=== PATIENT | male | born 1940 | race American Indian/Alaskan Native ===

== ENCOUNTER 2016-11-06 21:22 | Inpatient (IN) | payer MEDICARE ==
[2016-11-06 21:24] VITALS: BMI 38.0
[2016-11-06] MEDS ORDERED: Sodium Chloride 0.9% 1,000 ML ONE ×2 (21:53→22:40)
[2016-11-06 22:00] LABS: BASO % 0.4 % (0.0-2.0); EOS % 0.6 % (0.0-4.0); HEMATOCRIT 36.4 % (35.0-51.0); LYMPH # 0.6 K/uL (1.0-4.3); LYMPH % 11.3 % (20.0-40.0); MEAN CORPUSCULAR HEMOGLOBIN 25.4 pg (27.0-31.0); MEAN CORPUSCULAR HGB CONC 30.3 g/dL (33.0-37.0); MEAN PLATELET VOLUME 9.1 fL (7.2-11.7); MONO # 0.2 K/uL (0.0-0.8); NRBC % 0.3 % (0.0-2.0); RED CELL DISTRIBUTION WIDTH 18.6 % (11.5-14.5); WHITE BLOOD COUNT 5.1 K/uL (4.8-10.8)
--- NOTE | 2016-11-06 22:03 | C.PDOC ---
History Of Present Illness 75 y/o M NHR c PMHx HTN, HLD, DM, CAD, NC, CVA, dementia BIBEMS. Patient is nonverbal at baseline and can not provide history or ROS. According to transfer papers, patient sent for hypotension. EMS reports that patient is with altered mental status and although he is nonverbal at baseline, he typically has eyes opened and grunts/moans but is now not doing either. On arrival to ER, patient found to be hypothermic 87.2 degrees. Time Seen by Provider: 11/06/16 21:40 Chief Complaint (Nursing): Altered Mental Status History/Exam Limitations: Clinical Condition (on-verbal) Onset/Duration Of Symptoms: Hrs Current Symptoms Are (Timing): Still Present Severity: Mild Recent travel outside of the [place]: No Past Medical History Reviewed: Historical Data, Nursing Documentation, Vital Signs Vital Signs: Last Vital Signs Temp 87.2 F L 11/06/16 21:46 Pulse 53 L 11/06/16 21:25 Resp 18 11/06/16 21:25 BP 125/56 L 11/06/16 21:25 Pulse Ox 100 11/06/16 23:37 - Medical History PMH: Arthritis, CAD, COPD, CVA, Diabetes, Gastritis, HTN, Hypercholesterolemia Denies: Chronic Kidney Disease Surgical History: Coronary Stent (x1) - [facility] Procedures CENTRAL VENOUS CATHETER PLACEMENT WITH GUIDANCE (12/16/13) COLONOSCOPY (02/09/05) ESOPHAGOGASTRODUODENOSCOPY [EGD] W/CLOSED BIOPSY (03/24/05) RETROGRADE PYELOGRAM (02/20/14) TETANUS TOXOID ADMINIST (10/19/05) Family History: States: Unknown Family Hx - Social History Hx Tobacco Use: No Hx Alcohol Use: No Hx Substance Use: No - Immunization History Hx Tetanus Toxoid Vaccination: No Hx Influenza Vaccination: No (Pt refused) Hx Pneumococcal Vaccination: No (Pt refused) Review Of Systems Review Of Systems: ROS cannot be obtained secondary to pt's inabilty to answer questions. Physical Exam - Physical Exam Additional Physical Exam Comments: Constitutional: No acute distress. Head: Normocephalic. Atraumatic. Eyes: Pupils pinpoint. ENT: Moist mucous membranes. Neck: Supple. Cardiovascular: Bradycardic rate. Radial pulse 2+ bilaterally. Chest: No tenderness. Respiratory: Clear to auscultation bilaterally. GI: Soft. Nondistended. Musculoskeletal: No swelling of extremities. FROM x 4. Skin: No rash. Cold to touch. Neurologic: Unresponsive. ED Course And Treatment - Laboratory Results Result Diagrams: 11/06/16 21:57 11/06/16 21:57 ECG: Interpreted By Me, Viewed By Me ECG Rhythm: Sinus Bradycardia ECG Interpretation: Normal Interpretation Of ECst degree AV block and PVC Rate From EC O2 Sat by Pulse Oximetry: 100 (RA) Pulse Ox Interpretation: Normal - Radiology CXR: Interpreted by Me, Viewed By Me CXR Interpretation: Yes: No Acute Disease - CT Scan/US CT Head w/o contrast Other Rad Studies (CT/US): Interpreted By Me, Read By Radiologist CT/US Interpretation: EXAM: CT Head Without Intravenous Contrast. CLINICAL HISTORY: 75 years old, male; Signs and symptoms; Altered mental status/memory loss; Confusion or. disorientation; Additional info: AMS. TECHNIQUE: Axial computed tomography images of the head/brain without intravenous contrast. This CT exam. was performed using one or more of the following dose reduction techniques: automated exposure. control, adjustment of the mA and/or kV according to patient size, and/or use of iterative. reconstruction technique. Coronal and sagittal reformatted images were created and reviewed. COMPARISON: CT - HEAD W/O CONTRAST 05/16/2016 7:56:05 PM. FINDINGS: Brain: Moderate atrophy. No intracranial hemorrhage. No mass. Moderate encephalomalacia. within RIGHT temporal occipital parietal region. Multiple scattered foci of decreased attenuation. within periventricular/subcortical white matter. No definite edema. Ventricles: No hydrocephalus. Bones/joints: No acute fracture. Soft tissues: Unremarkable. Vasculature: Atherosclerotic disease of intracranial arteries. Sinuses: Minimal mucosal thickening of maxillary sinuses. Mastoid air cells: No mastoid effusion. Orbits: Unremarkable as visualized. IMPRESSION: 1. Nonspecific white matter changes. Acute infarction may be CT occult within first 24 hours. If a. focal deficit persists, consider followup CT or MRI for further evaluation. 2. Incidental/non-acute findings are described above. Central Line Placement - Central Line Placement Indication: Emergent IV Access Central Line Placement: Right: Internal Jugular The Area Was Thoroughly Prepared With: Chlorhexidine Procedure: Triple Lumen, Placed Using Standard Seldinger Technique, Catheter Was Sewn Into Place, Sterile Dressing Placed Over Line, CXR Ordered To Confirm Placement Endotracheal Intubation - Endotracheal Intubation Blade Type Used: Curved Indication: Airway Protection Intubated: Orally Pre-Intubation Airway Assessment: Ventilated And Oxygenated Post-Intubation Assessment: ETT Secured AT (cm): (22cm), Breath Sounds Equal Bilat, Color Change W/End Tidal CO2 Detector, Oxygen Saturation: (100) Medical Decision Making Medical Decision Making: Impression: Patient sent for hypotension. EMS reports that patient is with altered mental status and is non-verbal at this time Plans: -Blood labs -EKG -CT head -ALbuterol -Novolin -Reassess Bairhugger placed. Patient not on any opiate medications at halfway. Does not meet CODE SEPSIS activation criteria. potassium return at 7.2. Will treat with with hyperkalemia cocktail and calcium. Patient with UTI. Cefepime/Vanco administered. Also began having lowering blood pressure to minimum of 70/40. I discussed the patient's critical condition with at bedside who understood and wished to have all measures taken. Daughter via phone concurs. Patient was intubated with first pass success without complication. R IJ central line was placed under ultrasound guidance with blood return without complication and CXR ordered to confirm placements. Dr. Schultz accepts patient to his service. Dr. Amato accepts patient to ICU. Patient is critical with minimal mental status. Disposition - Disposition Disposition: HOSPITALIZED Disposition Time: 00:20 Condition: CRITICAL - Clinical Impression Clinical Impression: UTI (lower urinary tract infection), Sepsis, Hypothermia, Hyperkalemia - Scribe Statement The provider has reviewed the documentation as recorded by the Andradeiberika interiano All medical record entries made by the Andradeiberika were at my direction and personally dictated by me. I have reviewed the chart and agree that the record accurately reflects my personal performance of the history, physical exam, medical decision making, and the department course for this patient. I have also personally directed, reviewed, and agree with the discharge instructions and disposition.
[2016-11-06 22:12] LABS: BILIRUBIN,TOTAL 0.5 mg/dL (0.2-1.3)
[2016-11-06 22:13] LABS: PHOSPHOROUS 5.5 mg/dL (2.5-4.5); TOTAL PROTEIN 7.4 g/dL (6.3-8.3)
[2016-11-06 22:14] LABS: CALCIUM 8.6 mg/dl (8.6-10.4)
[2016-11-06 22:18] LABS: POTASSIUM 7.2 mmol/L (3.6-5.2)
[2016-11-06] MEDS ORDERED: Calcium Gluconate 4.65 mEq/10 ml Inj IVP ONE (22:19)
[2016-11-06] MEDS ORDERED: Albuterol 0.083% Inhal Sol (2.5 mg/3 mL) UD INH STA (22:20)
[2016-11-06] MEDS ORDERED: (Novolin R) Insulin Human Regular 100 units/ml vial IV ONE (22:21)
[2016-11-06] MEDS ORDERED: Sodium Chloride 0.9% 1,000 ML IV STA (22:21)
[2016-11-06] MEDS ORDERED: Dextrose 50% SYRINGE Inj (50 ml) IV STA (22:21)
[2016-11-06 22:24] LABS: TROPONIN I 0.032 ng/mL (0.00-0.120)
[2016-11-06 22:29] LABS: VENOUS BLOOD GAS BASE EXCESS 0.6 mmol/L (0.0-2.0); VENOUS BLOOD GAS PCO2 99 mmHg (40-60); VENOUS BLOOD PH 7.13 (7.32-7.43)
[2016-11-06] MEDS ORDERED: Sodium Bicarbonate (8.4%) 50 Meq Syringe IVP ONE (22:31)
[2016-11-06] MEDS ORDERED: Albuterol 0.083% Inhal Sol (2.5 mg/3 mL) UD ONE ×2 (22:33→22:40)
[2016-11-06] MEDS ORDERED: Dextrose 50% SYRINGE Inj (50 ml) ONE (22:39)
[2016-11-06] MEDS ORDERED: Calcium Gluconate 4.65 mEq/10 ml Inj ONE (22:39)
[2016-11-06] MEDS ORDERED: (Novolin R) Insulin Human Regular 100 units/ml vial ONE (22:39)
[2016-11-06] MEDS ORDERED: Sodium Bicarbonate (8.4%) 50 Meq Syringe ONE (22:40)
[2016-11-06 22:57] LABS: RBC URINE 19 /hpf (0-3); TRANSITIONAL EPITHIAL < 1 /hpf (0-3); URINE BACTERIA RARE (<OCC); URINE BILIRUBIN NEGATIVE (NEGATIVE); URINE COLOR Yellow (YELLOW); URINE GLUCOSE (UA) NORMAL (Normal); URINE KETONE NEGATIVE (NEGATIVE); URINE LEUKOCYTE ESTERASE 3+ Leu/uL (Negative); URINE PROTEIN 1+ mg/dL (NEGATIVE); URINE UROBILINOGEN NORMAL mg/dL (0.2-1.0); WBC CLUMPS MANY /hpf; WBC URINE 141 /hpf (0-5)
[2016-11-06 22:58] LABS: URINE BLOOD 1+ (NEGATIVE)
[2016-11-06] MEDS ORDERED: Cefepime 1 GM in Sodium Chloride 0.9% 50 ML IVPB ONE (23:00)
--- NOTE | 2016-11-06 23:13 | CT ---
EXAM: CT Head Without Intravenous Contrast CLINICAL HISTORY: 75 years old, male; Signs and symptoms; Altered mental status/memory loss; Confusion or disorientation; Additional info: AMS TECHNIQUE: Axial computed tomography images of the head/brain without intravenous contrast. This CT exam was performed using one or more of the following dose reduction techniques: automated exposure control, adjustment of the mA and/or kV according to patient size, and/or use of iterative reconstruction technique. Coronal and sagittal reformatted images were created and reviewed. COMPARISON: CT - HEAD W/O CONTRAST 05/16/2016 7:56:05 PM FINDINGS: Brain: Moderate atrophy. No intracranial hemorrhage. No mass. Moderate encephalomalacia within RIGHT temporal occipital parietal region. Multiple scattered foci of decreased attenuation within periventricular/subcortical white matter. No definite edema. Ventricles: No hydrocephalus. Bones/joints: No acute fracture. Soft tissues: Unremarkable. Vasculature: Atherosclerotic disease of intracranial arteries. Sinuses: Minimal mucosal thickening of maxillary sinuses. Mastoid air cells: No mastoid effusion. Orbits: Unremarkable as visualized. IMPRESSION: 1. Nonspecific white matter changes. Acute infarction may be CT occult within first 24 hours. If a focal deficit persists, consider followup CT or MRI for further evaluation. 2. Incidental/non-acute findings are described above.
[2016-11-07] MEDS ORDERED: WATER IV SCH (00:45)
[2016-11-07] MEDS ORDERED: DEXTROSE 5% IV SCH (00:45)
[2016-11-07] MEDS ORDERED: LORAZEPAM IV SCH (00:45)
--- NOTE | 2016-11-07 01:04 | CP.PCM.CON ---
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 In ER as per the discussion with staff and er physician patient was non verbal, non responding but breathing spontaneously, hypothermia was noticed 87F. During w/u patient became hypotensive and irratic breathing and hence decision made to intubate him. Right IJ central line also placed in ER by Dr Shukla. Post intubation and ivf patient started to move his right arm to some extent, opened his eyes. at the bed side assessed in pmh. Resp acidosis, hyperkalemia was noticed in ER as well hence treated with meds and vent. 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 - RENAL Hx Chronic Kidney Disease: No - ENDOCRINE/METABOLIC Hx Diabetes Mellitus Type 2: Yes - HEMATOLOGICAL/ONCOLOGICAL Hx Blood Disorders: No - INTEGUMENTARY Hx Dermatological Problems: No - MUSCULOSKELETAL/RHEUMATOLOGICAL Hx Arthritis: Yes - GASTROINTESTINAL Hx Gastritis: Yes - GENITOURINARY/GYNECOLOGICAL Hx Genitourinary Disorders: Yes Hx Prostate Problems: Yes - PSYCHIATRIC Hx Substance Use: No - SURGICAL HISTORY Hx Coronary Stent: Yes (x1) - ANESTHESIA Hx Anesthesia: Yes Hx Anesthesia Reactions: No Hx Malignant Hyperthermia: No Meds Allergies/Adverse Reactions: Allergies Allergy/AdvReac Type Severity Reaction Status Date / Time No Known Allergies Allergy Verified 11/06/16 21:29 - Medications Medications: Current Medications Aspirin (Aspirin Chewable) 81 mg PO DAILY [facility] Clopidogrel Bisulfate (Plavix) 75 mg PO DAILY [facility] Donepezil HCl (Aricept) 10 mg PO HS [facility] Heparin Sodium (Porcine) (Heparin) 5,000 units SC Q8 [facility] Home Med (Arformoterol [Brovana]) 15 mcg IH BID [facility] Norepinephrine Bitartrate 8 mg (/ Sodium Chloride) 258 mls @ 7.74 mls/hr IV .Q24H PRN; Protocol; 4 MCG/MIN PRN Reason: TITRATE PER MD ORDER Lorazepam 20 mg/ Dextrose 20 mls @ 0.77 mls/hr IV .Q24H EMILY; 0.01 MG/KG/HR PRN Reason: Protocol Piperacillin Sod/Tazobactam Sod (Zosyn 2.25 Gm Iv Premix) 2.25 gm in 50 mls @ 100 mls/hr IVPB Q6H [facility] Vancomycin HCl 1 gm/ Sodium (Chloride) 250 mls @ 166.7 mls/hr IVPB Q24H [facility] Last Admin: 11/07/16 00:44 Dose: Not Given Insulin Detemir (Levemir) 20 unit SC DAILY [facility] Insulin Human Regular (Novolin R) 0 unit SC Q6 EMILY PRN Reason: Protocol Levetiracetam (Keppra) 500 mg PO BID [facility] Pantoprazole Sodium (Protonix Inj) 40 mg IVP DAILY [facility] Tamsulosin HCl (Flomax) 0.4 mg PO QPM [facility] Physical Exam - Additional Findings Additional findings: * Patient is intubated, post intubation, after initial fluid resuscitation, started to slightly open eyes, and move right arm * HEENT about 3mm b/l non reacting * Lungs b/l air entry, post intubation creamy secretions aspirated * CVS Regular sinus * PA soft, obese, bs present * Ext no edema, warm, dry * [employer] TRA[employer] known left hemipareiss, noticed moving right arm pupils as above * skin reduced torgor. Results - Vital Signs Recent Vital Signs: Last Vital Signs Temp 87.2 F L 11/06/16 21:46 Pulse 53 L 11/06/16 21:25 Resp 18 11/06/16 21:25 BP 125/56 L 11/06/16 21:25 Pulse Ox 100 11/07/16 00:44 - Labs Result Diagrams: 11/06/16 21:57 11/06/16 21:57 Assessment & Plan - Assessment and Plan (Free Text) Assessment: * Reduced responsiveness needing vent support * Hyperkalemia with resp acidosis * Hypothermia * Renal insufficiency * Prior h/o strokes * H/o NSTEMI * NIDDM * Legally blind * H/o seizure disorder * UTI * The DD of current episode could be seizure, sepsis, newer stroke, electrolyte abnormalitie Plan: * Repeat labs stat after initial fluid resuscitation * Empiric abx * Vent support * pressor support * GI DVT prophylaxis * Levimir with sliding scale coverage * See orders for detail * Spoke to the at bedside.
[2016-11-07] MEDS: Piperacill/Tazo 2.25gm in Dex 2.25 GM/50 ML BAG IVPB SCH ×4 (01:38→18:56)
[2016-11-07 02:19] LABS: ABG ALLEN TEST POS; ABG MECHANICAL RATE 15; ATERIAL BLOOD GAS PEEP 5; DRAW SITE LR
[2016-11-07 02:28] LABS: BASO % 0.2 % (0.0-2.0); EOS % 0.3 % (0.0-4.0); HEMATOCRIT 30.1 % (35.0-51.0); LYMPH # 0.3 K/uL (1.0-4.3); MEAN CELL VOLUME 84.2 fL (80.0-94.0); MEAN CORPUSCULAR HEMOGLOBIN 25.6 pg (27.0-31.0); MEAN CORPUSCULAR HGB CONC 30.4 g/dL (33.0-37.0); MEAN PLATELET VOLUME 9.2 fL (7.2-11.7); MONO # 0.1 K/uL (0.0-0.8); MONO % 2.7 % (0.0-10.0); NRBC % 0.3 % (0.0-2.0); PLATELET COUNT 114 K/uL (130-400); RED CELL DISTRIBUTION WIDTH 18.5 % (11.5-14.5); WHITE BLOOD COUNT 4.2 K/uL (4.8-10.8)
[2016-11-07 02:36] LABS: POTASSIUM 5.6 mmol/L (3.6-5.2)
[2016-11-07 02:38] LABS: BILIRUBIN,TOTAL 0.4 mg/dL (0.2-1.3)
[2016-11-07 02:39] LABS: ALB/GLOB RATIO 0.9 (1.0-2.1); CALCIUM 7.5 mg/dl (8.6-10.4); MAGNESIUM 2.5 mg/dL (1.6-2.3); PHOSPHOROUS 4.2 mg/dL (2.5-4.5); TOTAL PROTEIN 5.7 g/dL (6.3-8.3)
[2016-11-07 03:32] LABS: NEUTROPHIL 73 % (50-75); REACTIVE LYMPHOCYTES 2 % (0-0); TOTAL CELLS COUNTED 100
[2016-11-07] MEDS ORDERED: Sodium Chloride 0.9% 1,000 ML IV SCH (04:00)
[2016-11-07] MEDS: DOPamine 400mg/250ml D5W 400 MG/250 ML BAG IV PRN ×2 (04:05→21:17)
[2016-11-07 05:57] LABS: ABG ALLEN TEST POS; ABG MECHANICAL RATE 20; ARTERIAL BLOOD HGB O2 SAT 94.4 % (95.0-98.0); ATERIAL BLOOD GAS PEEP 5; CARBOXYHEMOGLOBIN 1.4 % (0.5-1.5); DRAW SITE RR; HHB 3.3 % (0.0-5.0); METHEMOGLOBIN 0.9 % (0.0-3.0)
[2016-11-07] MEDS: (Novolin R) Insulin Human Regular 100 units/ml vial SC SCH ×3 (06:07→17:52)
[2016-11-07] MEDS ORDERED: Sodium Bicarbonate 100 ML in Dextrose 5% In Water 1,000 ML IV SCH (06:45)
[2016-11-07 06:52] LABS: VENOUS BLOOD GAS BASE EXCESS -3.7 mmol/L (0.0-2.0); VENOUS BLOOD GAS PCO2 42 mmHg (40-60); VENOUS BLOOD PH 7.33 (7.32-7.43)
[2016-11-07 07:00] LABS: HEMATOCRIT 32.1 % (35.0-51.0); MEAN CELL VOLUME 83.2 fL (80.0-94.0); MEAN CORPUSCULAR HEMOGLOBIN 25.9 pg (27.0-31.0); MEAN CORPUSCULAR HGB CONC 31.1 g/dL (33.0-37.0); RED CELL DISTRIBUTION WIDTH 18.5 % (11.5-14.5); WHITE BLOOD COUNT 7.4 K/uL (4.8-10.8)
[2016-11-07 07:01] LABS: BASO % 0.2 % (0.0-2.0); EOS % 0.1 % (0.0-4.0); LYMPH # 0.3 K/uL (1.0-4.3); LYMPH % 3.4 % (20.0-40.0); MEAN PLATELET VOLUME 10.3 fL (7.2-11.7); MONO # 0.4 K/uL (0.0-0.8); NRBC % 0.3 % (0.0-2.0); PLATELET COUNT 137 K/uL (130-400)
[2016-11-07] MEDS: Propofol 10 mg/ml 1,000 MG/100 ML VIAL IV PRN (07:04)
[2016-11-07 07:07] LABS: POTASSIUM 5.2 mmol/L (3.6-5.2)
[2016-11-07 07:09] LABS: ALB/GLOB RATIO 0.9 (1.0-2.1); BILIRUBIN,TOTAL 0.5 mg/dL (0.2-1.3); TOTAL PROTEIN 6.2 g/dL (6.3-8.3)
[2016-11-07 07:10] LABS: CALCIUM 7.7 mg/dl (8.6-10.4); MAGNESIUM 2.4 mg/dL (1.6-2.3)
[2016-11-07 07:49] LABS: NEUTROPHIL 84 % (50-75); TOTAL CELLS COUNTED 100
[2016-11-07] MEDS: Insulin Detemir 100 units/ml Vial (Levemir) SC SCH (09:12)
[2016-11-07 10:00] LABS: VENOUS BLOOD GAS PCO2 27 mmHg (40-60); VENOUS BLOOD PH 7.41 (7.32-7.43)
[2016-11-07] MEDS ORDERED: Home Med 1 UNIT (Arformoterol [Brovana] 15 MCG) IH SCH (10:00)
--- NOTE | 2016-11-07 10:30 | RAD ---
HISTORY: Altered mental status COMPARISON: 05/16/2016 FINDINGS: LUNGS: Diffuse prominent increased interstitial lung markings suggestive for moderate venous congestion versus interstitial infiltrate. Confluent airspace opacification at the left lung base which may represent effusion versus atelectasis and or infiltrate. Right infrahilar consolidative changes. PLEURA: As above. CARDIOVASCULAR: Cardiomegaly. Calcification at the aortic knob. OSSEOUS STRUCTURES: Degenerative changes in the spine and shoulders. VISUALIZED UPPER ABDOMEN: Normal. OTHER FINDINGS: None. IMPRESSION: Diffuse prominent increased interstitial lung markings suggestive for moderate venous congestion versus interstitial infiltrate. Confluent airspace opacification at the left lung base which may represent effusion versus atelectasis and or infiltrate. Right infrahilar consolidative changes.
--- NOTE | 2016-11-07 10:33 | RAD ---
Chest x-ray single frontal view History: Central line placement. Comparison: None available. Findings: Endotracheal tube extending into the mid thoracic trachea. NG tube extending into the stomach. Right central venous catheter extending to the SVC. Diffuse confluent bilateral consolidative changes throughout both lungs with a suggestion of a small left pleural effusion. Right hilar consolidation. Cardiomegaly. Degenerative changes in the spine and shoulders. Impression: Endotracheal tube extending into the mid thoracic trachea. NG tube extending into the stomach. Right central venous catheter extending to the SVC. Diffuse confluent bilateral consolidative changes throughout both lungs with a suggestion of a small left pleural effusion. Right hilar consolidation. Cardiomegaly.
[2016-11-07] MEDS ORDERED: Sodium Bicarbonate 8.4% 100 MEQ in Dextrose 5% In Water 900 ML IV SCH (10:36)
--- NOTE | 2016-11-07 12:49 | CP.PCM.CON ---
History of Present Illness - History of Present Illness History of Present Illness: Mr. Guillen is a 75-year-old gentleman with history of hypertension and diabetes. 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 In addition to coronary artery disease post percutaneous intervention with stent deployment few years ago, his ejection fraction was about 30%. [facility]. He was admitted through the emergency department with change of mental status and hypotension, found with sepsis and respiratory acidosis. Was intubated started on antibiotically and mild hydration with minimal improvement. Would continue treatment for sepsis, hydrated gently still able to use BRONWYN inhibitor and beta abilio for heart failure, poor overall prognosis supportive care. Repeat echo with ejection fraction about 35-40% improvement from prior evaluation of ejection fraction a few years back. Continue supportive care, on IV fluid and Dopamin Review of Systems - Review of Systems Systems not reviewed;Unavailable: Unstable Vital Signs, Respiratory Distress - Constitutional Constitutional: Anorexia, Weakness - EENT Eyes: absent: Discharge Ears: absent: Ear Discharge Nose/Mouth/Throat: absent: Epistaxis - Cardiovascular Cardiovascular: absent: Acrocyanosis, Diaphoresis, Syncope - Respiratory Respiratory: Cough, Dyspnea. absent: Hemoptysis - Gastrointestinal Gastrointestinal: absent: Diarrhea, Vomiting Past Patient History - Past Medical History & Family History Past Medical History?: Yes - Past Social History Smoking Status: Former Smoker - CARDIAC Hx Cardiac Disorders: Yes Hx Hypercholesterolemia: Yes Hx Hypertension: Yes - PULMONARY Hx Respiratory Disorders: Yes Hx Chronic Obstructive Pulmonary Disease (COPD): Yes - NEUROLOGICAL Hx Neurological Disorder: Yes HX Cerebrovascular Accident: Yes - HEENT Hx HEENT Problems: Yes Hx Blind: Yes (left eye blind, right blurry) Hx Cataracts: Yes Other/Comment: Cataracts Alexys.with Extarction. - RENAL Hx Chronic Kidney Disease: No - ENDOCRINE/METABOLIC Hx Endocrine Disorders: Yes Hx Diabetes Mellitus Type 2: Yes - HEMATOLOGICAL/ONCOLOGICAL Hx Blood Disorders: No - INTEGUMENTARY Hx Dermatological Problems: No - MUSCULOSKELETAL/RHEUMATOLOGICAL Hx Musculoskeletal Disorders: Yes Hx Arthritis: Yes Hx Falls: Yes - GASTROINTESTINAL Hx Gastrointestinal Disorders: Yes Hx Gastritis: Yes - GENITOURINARY/GYNECOLOGICAL Hx Genitourinary Disorders: Yes Hx Prostate Problems: Yes - PSYCHIATRIC Hx Anxiety: No Hx Substance Use: No - SURGICAL HISTORY Hx Surgeries: Yes Hx Coronary Stent: Yes (x1) Hx Eye Surgery: Yes - ANESTHESIA Hx Anesthesia: Yes Hx Anesthesia Reactions: No Hx Malignant Hyperthermia: No Has any member of the family had a problem w/ anesthesia?: No Meds Allergies/Adverse Reactions: Allergies Allergy/AdvReac Type Severity Reaction Status Date / Time No Known Allergies Allergy Verified 11/06/16 21:29 - Medications Medications: Current Medications Aspirin (Aspirin Chewable) 81 mg PO DAILY [facility] Last Admin: 11/07/16 09:12 Dose: 81 mg Clopidogrel Bisulfate (Plavix) 75 mg PO DAILY [facility] Last Admin: 11/07/16 09:12 Dose: 75 mg Heparin Sodium (Porcine) (Heparin) 5,000 units SC Q8 [facility] Last Admin: 11/07/16 06:02 Dose: 5,000 units Home Med (Arformoterol [Brovana]) 15 mcg IH BID [facility] Norepinephrine Bitartrate 8 mg (/ Sodium Chloride) 258 mls @ 7.74 mls/hr IV .Q24H PRN; Protocol; 4 MCG/MIN PRN Reason: TITRATE PER MD ORDER Last Titration: 11/07/16 09:06 Dose: 0 mcg/min, 0 mls/hr Piperacillin Sod/Tazobactam Sod (Zosyn 2.25 Gm Iv Premix) 2.25 gm in 50 mls @ 100 mls/hr IVPB Q6H [facility] Last Admin: 11/07/16 07:13 Dose: 100 mls/hr Vancomycin HCl 1 gm/ Sodium (Chloride) 250 mls @ 166.7 mls/hr IVPB Q24H [facility] Last Admin: 11/07/16 00:44 Dose: Not Given Dopamine HCl/Dextrose (Dopamine 400mg/250ml D5w) 400 mg in 250 mls @ 21.563 mls /hr IV .[id number] PRN; Protocol; 5 MCG/KG/MIN PRN Reason: TITRATE PER MD ORDER Last Titration: 11/07/16 06:09 Dose: 4 mcg/kg/min, 17.25 mls/hr Propofol (Diprivan) 1,000 mg in 100 mls @ 3.45 mls/hr IV .Q24H PRN; Protocol; 5 MCG/KG/MIN PRN Reason: TITRATE PER MD ORDER Last Titration: 11/07/16 07:28 Dose: 0 mcg/kg/min, 0 mls/hr Sodium Bicarbonate 100 meq/ (Dextrose) 1,000 mls @ 100 mls/hr IV .Q10H [facility] Last Admin: 11/07/16 11:19 Dose: Not Given Insulin Detemir (Levemir) 20 unit SC DAILY [facility] Last Admin: 11/07/16 09:12 Dose: 20 unit Insulin Human Regular (Novolin R) 0 unit SC Q6 [facility] PRN Reason: Protocol Last Admin: 11/07/16 12:15 Dose: 6 unit Levetiracetam (Keppra) 500 mg PO BID [facility] Last Admin: 11/07/16 09:12 Dose: 500 mg Pantoprazole Sodium (Protonix Inj) 40 mg IVP DAILY [facility] Last Admin: 11/07/16 09:11 Dose: 40 mg Tamsulosin HCl (Flomax) 0.4 mg PO QPM [facility] Physical Exam - Constitutional Appears: Toxic, No Acute Distress - Head Exam Head Exam: ATRAUMATIC - Eye Exam Eye Exam: EOMI - ENT Exam ENT Exam: Mucous Membranes Moist - Neck Exam Neck exam: Negative for: Lymphadenopathy, Thyromegaly - Respiratory Exam Respiratory Exam: Clear to Auscultation Bilateral. absent: Rales - Cardiovascular Exam Cardiovascular Exam: REGULAR RHYTHM, Systolic Murmur - GI/Abdominal Exam GI & Abdominal Exam: Normal Bowel Sounds. absent: Organomegaly - Rectal Exam Rectal Exam: Deferred - Extremities Exam Extremities exam: Positive for: normal capillary refill - Neurological Exam Neurological exam: Alert, Oriented x3 - Psychiatric Exam Additional comments: intubated sedated - Skin Skin Exam: Dry Results - Vital Signs Recent Vital Signs: Last Vital Signs Temp 97.2 F L 11/07/16 12:00 Pulse 86 11/07/16 12:00 Resp 19 11/07/16 12:00 BP 117/63 11/07/16 12:00 Pulse Ox 99 11/07/16 12:00 - Labs Result Diagrams: 11/07/16 06:53 11/07/16 06:53 Labs: Laboratory Results - last 24 hr 11/07/16 11/07/16 11/07/16 02:16 02:20 02:20 WBC 4.2 L RBC 3.57 L Hgb 9.2 L Hct 30.1 L MCV 84.2 MCH 25.6 L MCHC 30.4 L RDW 18.5 H Plt Count 114 L D MPV 9.2 Neut % (Auto) 90.8 H Lymph % (Auto) 6.0 L [place] % (Auto) 2.7 Eos % (Auto) 0.3 Baso % (Auto) 0.2 Neut # 3.8 Lymph # 0.3 L [place] # 0.1 Eos # 0.0 Baso # 0.0 Neutrophils % (Manual) 73 Band Neutrophils % 10 H Lymphocytes % (Manual) 12 L Reactive Lymphs % 2 H Monocytes % (Manual) 3 Platelet Estimate Decreased L Poikilocytosis (manual Anisocytosis (manual) Puncture Site Lr pCO2 64 H pO2 176 H HCO3 22.8 ABG pH 7.22 L ABG Total CO2 28.2 H ABG O2 Saturation 99.3 H ABG Base Excess -2.8 L ABG Hemoglobin ABG Carboxyhemoglobin POC ABG HHb (Measured) ABG Methemoglobin Timmy Test Pos ABG Potassium 5.4 H VBG pH VBG pCO2 VBG HCO3 VBG Total CO2 VBG O2 Sat (Calc) VBG Base Excess VBG Potassium A-a O2 Difference 457.0 Respiratory Index 2.6 Hgb O2 Saturation Sodium 142.0 143 Chloride 117.0 H 112 H Glucose 271 H Lactate 1.5 Mechanical Rate 15 FiO2 100.0 Tidal Volume 450 PEEP 5 Crit Value Called To Crit Value Called By Crit Value Read Back Blood Gas Notified Time Potassium 5.6 H Carbon Dioxide 22 Anion Gap 14 BUN 53 H Creatinine 1.8 H Est GFR ( Amer) 44 Est GFR (Non-Af Amer) 37 POC Glucose (mg/dL) Random Glucose 271 H Hemoglobin A1c Calcium 7.5 L Phosphorus 4.2 Magnesium 2.5 H Total Bilirubin 0.4 AST 42 ALT 68 Alkaline Phosphatase 65 Total Protein 5.7 L Albumin 2.7 L D Globulin 3.0 Albumin/Globulin Ratio 0.9 L Arterial Blood Potassium 5.4 H Venous Blood Potassium 11/07/16 11/07/16 11/07/16 02:20 05:36 06:04 WBC RBC Hgb Hct MCV MCH MCHC RDW Plt Count MPV Neut % (Auto) Lymph % (Auto) [place] % (Auto) Eos % (Auto) Baso % (Auto) Neut # Lymph # [place] # Eos # Baso # Neutrophils % (Manual) Band Neutrophils % Lymphocytes % (Manual) Reactive Lymphs % Monocytes % (Manual) Platelet Estimate Poikilocytosis (manual Anisocytosis (manual) Puncture Site Rr pCO2 55 H pO2 73 L HCO3 17.8 L ABG pH 7.16 L* ABG Total CO2 21.3 L ABG O2 Saturation 96.6 ABG Base Excess -9.1 L ABG Hemoglobin 10.4 L ABG Carboxyhemoglobin 1.4 POC ABG HHb (Measured) 3.3 ABG Methemoglobin 0.9 Timmy Test Pos ABG Potassium VBG pH VBG pCO2 VBG HCO3 VBG Total CO2 VBG O2 Sat (Calc) VBG Base Excess VBG Potassium A-a O2 Difference 357.0 Respiratory Index 4.9 Hgb O2 Saturation 94.4 L Sodium Chloride Glucose Lactate Mechanical Rate 20 FiO2 70.0 Tidal Volume 450 PEEP 5 Crit Value Called To Sampson menezes rn Crit Value Called By [employer] cutter hand Crit Value Read Back Y Blood Gas Notified Time 557 Potassium Carbon Dioxide Anion Gap BUN Creatinine Est GFR ( Amer) Est GFR (Non-Af Amer) POC Glucose (mg/dL) 306 H Random Glucose Hemoglobin A1c 9.4 H Calcium Phosphorus Magnesium Total Bilirubin AST ALT Alkaline Phosphatase Total Protein Albumin Globulin Albumin/Globulin Ratio Arterial Blood Potassium Venous Blood Potassium 11/07/16 11/07/16 11/07/16 06:49 06:53 06:53 WBC 7.4 D RBC 3.86 L Hgb 10.0 L Hct 32.1 L MCV 83.2 MCH 25.9 L MCHC 31.1 L RDW 18.5 H Plt Count 137 MPV 10.3 Neut % (Auto) 91.3 H Lymph % (Auto) 3.4 L [place] % (Auto) 5.0 Eos % (Auto) 0.1 Baso % (Auto) 0.2 Neut # 6.7 Lymph # 0.3 L [place] # 0.4 Eos # 0.0 Baso # 0.0 Neutrophils % (Manual) 84 H Band Neutrophils % 12 H* Lymphocytes % (Manual) 2 L Reactive Lymphs % Monocytes % (Manual) 2 Platelet Estimate Normal Poikilocytosis (manual Slight Anisocytosis (manual) Slight Puncture Site pCO2 pO2 35 HCO3 ABG pH ABG Total CO2 ABG O2 Saturation ABG Base Excess ABG Hemoglobin ABG Carboxyhemoglobin POC ABG HHb (Measured) ABG Methemoglobin Timmy Test ABG Potassium VBG pH 7.33 VBG pCO2 42 VBG HCO3 21.1 VBG Total CO2 23.4 VBG O2 Sat (Calc) 99.3 H VBG Base Excess -3.7 L VBG Potassium 5.1 A-a O2 Difference Respiratory Index Hgb O2 Saturation Sodium 145.0 141 Chloride 115.0 H 108 H Glucose 267 H Lactate 3.9 H Mechanical Rate FiO2 70.0 Tidal Volume PEEP 5 Crit Value Called To Crit Value Called By Crit Value Read Back Blood Gas Notified Time Potassium 5.2 Carbon Dioxide 22 Anion Gap 16 BUN 52 H Creatinine 1.9 H Est GFR ( Amer) 42 Est GFR (Non-Af Amer) 35 POC Glucose (mg/dL) Random Glucose 274 H Hemoglobin A1c Calcium 7.7 L Phosphorus Magnesium 2.4 H Total Bilirubin 0.5 AST 45 ALT 81 H Alkaline Phosphatase 78 Total Protein 6.2 L Albumin 3.0 L Globulin 3.2 Albumin/Globulin Ratio 0.9 L Arterial Blood Potassium Venous Blood Potassium 5.1 11/07/16 11/07/16 09:56 11:32 WBC RBC Hgb Hct MCV MCH MCHC RDW Plt Count MPV Neut % (Auto) Lymph % (Auto) [place] % (Auto) Eos % (Auto) Baso % (Auto) Neut # Lymph # [place] # Eos # Baso # Neutrophils % (Manual) Band Neutrophils % Lymphocytes % (Manual) Reactive Lymphs % Monocytes % (Manual) Platelet Estimate Poikilocytosis (manual Anisocytosis (manual) Puncture Site pCO2 pO2 42 HCO3 ABG pH ABG Total CO2 ABG O2 Saturation ABG Base Excess ABG Hemoglobin ABG Carboxyhemoglobin POC ABG HHb (Measured) ABG Methemoglobin Timmy Test ABG Potassium VBG pH 7.41 VBG pCO2 27 L VBG HCO3 19.7 VBG Total CO2 17.9 L VBG O2 Sat (Calc) 90.9 H VBG Base Excess -6.0 L VBG Potassium 3.0 L A-a O2 Difference Respiratory Index Hgb O2 Saturation Sodium 150.0 H Chloride 126.0 H Glucose 183 H Lactate 1.4 Mechanical Rate FiO2 70.0 Tidal Volume PEEP 5 Crit Value Called To Crit Value Called By Crit Value Read Back Blood Gas Notified Time Potassium Carbon Dioxide Anion Gap BUN Creatinine Est GFR ( Amer) Est GFR (Non-Af Amer) POC Glucose (mg/dL) 345 H Random Glucose Hemoglobin A1c Calcium Phosphorus Magnesium Total Bilirubin AST ALT Alkaline Phosphatase Total Protein Albumin Globulin Albumin/Globulin Ratio Arterial Blood Potassium Venous Blood Potassium 3.0 L Assessment & Plan (1) CHF (congestive heart failure) Status: Chronic Comment: chronic LV systolic (2) Septic shock Status: Acute Comment: on pressors, IV fluid (3) CAD (coronary artery disease) Status: Chronic (4) Diabetes mellitus Status: Chronic
--- NOTE | 2016-11-07 14:13 | CP.CCUPN ---
CCU Subjective - Physician Review Subjective (Free Text): 11/07/16 14:11 Patient seen and examined at bedside. No acute distress. No acute events overnight. Nursing staff reports no issues. Patient is intubated (FiO2 70; 20 bpm; 500 vte; 5 PEEP; 1L/min). Patient is minimally arousable and opens his eyes to stimulation following the removal of propofol sedation. However, the patient does not move his extremities extremities. Today on rounds, a bedside EEG was ordered and tube feeds were started. The patient was receiving a bicard drip. The bicarb was discontinued following the completion of the liter infusion and transitioned to normal saline only. Critical Care Time Spent (in minutes): 90 CCU Objective - Vital Signs / Intake & Output Vital Signs (Last 4 hours): Vital Signs Temp Pulse Resp BP Pulse Ox 11/07/16 13:00 87 20 117/65 99 11/07/16 12:00 97.2 F L 86 19 117/63 99 11/07/16 11:00 87 20 104/55 L 99 Intake and Output (Last 8hrs): Intake & Output 11/06/16 11/07/16 11/07/16 22:59 06:59 14:59 Intake Total 583.2 828.4 Output Total 125 Balance 458.2 828.4 Weight 115 kg Intake: IV 94.2 5 Intake, IV Amount 489.0 823.4 Right Antecubital 375 Right Distal Port 700 Right Distal Port 49.8 2.4 Internal Jugular Right Medial Port 3.8 Internal Jugular Right Proximal Port 60.4 121.0 Internal Jugular Output: Urine 125 Urethral (Wick) 125 Other: Voiding Method Indwelling Catheter - Physical Exam Head: Positive for: Atraumatic, Normocephalic, Other (ET Tube in place) Pupils: Positive for: PERRL Extroacular Muscles: Positive for: EOMI Conjunctiva: Positive for: Normal Mouth: Positive for: Moist Mucous Membranes. Negative for: Drooling Nose (External): Positive for: Atraumatic Neck: Positive for: Normal Range of Motion. Negative for: JVD, Lymphadenopathy Respiratory/Chest: Positive for: Clear to Auscultation, Good Air Exchange, Decreased Breath Sounds. Negative for: Respiratory Distress, Accessory Muscle Use, Wheezes, Rales, Retracting, Rhonchi Cardiovascular: Positive for: Regular Rate and Rhythm, Murmurs, Normal S1, S2, Peripheal Pulses Present. Negative for: Irregular Rhythm, Tachycardic, Bradycardic Abdomen: Positive for: Normal Bowel Sounds. Negative for: Tenderness, Distention, Peritoneal Signs, Rebound, Guarding Back: Positive for: Normal Inspection Upper Extremity: Positive for: Normal Inspection. Negative for: Cyanosis, Edema Lower Extremity: Positive for: Normal Inspection. Negative for: Edema Skin: Positive for: Normal Color, Other (Cool). Negative for: Warm - Medications Active Medications: Active Medications Generic Name Dose Route Start Last Admin Trade Name Freq PRN Reason Stop Dose Admin Aspirin 81 mg 11/07/16 10:00 11/07/16 09:12 Aspirin Chewable PO 81 mg DAILY EMILY Administration Clopidogrel Bisulfate 75 mg 11/07/16 10:00 11/07/16 09:12 Plavix PO 75 mg DAILY EMILY Administration Heparin Sodium (Porcine) 5,000 units 11/07/16 06:00 11/07/16 13:42 Heparin SC 5,000 units Q8 EMILY Administration Home Med 15 mcg 11/07/16 10:00 Arformoterol [Brovana] IH BID [facility] Norepinephrine Bitartrate 8 mg 258 mls @ 7.74 mls/hr 11/07/16 00:18 11/07/16 09:06 / Sodium Chloride IV 0 mcg/min .Q24H PRN 0 mls/hr TITRATE PER MD ORDER Titration Protocol 4 MCG/MIN Piperacillin Sod/Tazobactam Sod 2.25 gm in 50 mls @ 100 mls/hr 11/07/16 01:30 11/07/16 13:35 Zosyn 2.25 Gm Iv Premix IVPB 100 mls/hr Q6H [facility] Administration Vancomycin HCl 1 gm/ Sodium 250 mls @ 166.7 mls/hr 11/07/16 00:45 11/07/16 00 :44 Chloride IVPB Not Given Q24H [facility] Dopamine HCl/Dextrose 400 mg in 250 mls @ 21.563 mls/hr 11/07/16 03:46 06:09 Dopamine 400mg/250ml D5w IV 4 mcg/kg/min .[id number] PRN 17.25 mls/hr TITRATE PER MD ORDER Titration Protocol 5 MCG/KG/MIN Propofol 1,000 mg in 100 mls @ 3.45 mls/hr 11/07/16 06:35 11/07/16 07:28 Diprivan IV 0 mcg/kg/min .Q24H PRN 0 mls/hr TITRATE PER MD ORDER Titration Protocol 5 MCG/KG/MIN Sodium Bicarbonate 100 meq/ 1,000 mls @ 100 mls/hr 11/07/16 10:36 11/07/16 11 :19 Dextrose IV Not Given .Q10H EMILY Insulin Detemir 20 unit 11/07/16 10:00 11/07/16 09:12 Levemir SC 20 unit DAILY EMILY Administration Insulin Human Regular 0 unit 11/07/16 06:00 11/07/16 12:15 Novolin R SC 6 unit Q6 EMILY Administration Protocol Levetiracetam 500 mg 11/07/16 10:00 11/07/16 09:12 Keppra PO 500 mg BID EMILY Administration Pantoprazole Sodium 40 mg 11/07/16 10:00 11/07/16 09:11 Protonix Inj IVP 40 mg DAILY EMILY Administration Tamsulosin HCl 0.4 mg 11/07/16 18:00 Flomax PO QPM EMILY - Patient Studies Lab Studies: Lab Studies 11/07/16 11/07/16 11/07/16 Range/Units 11:32 09:56 06:53 WBC (4.8-10.8) K/uL RBC (4.40-5.90) Mil/uL Hgb (12.0-18.0) g/dL Hct (35.0-51.0) % MCV (80.0-94.0) fL MCH (27.0-31.0) pg MCHC (33.0-37.0) g/dL RDW (11.5-14.5) % Plt Count (130-400) K/uL MPV (7.2-11.7) fL Neut % (Auto) (50.0-75.0) % Lymph % (Auto) (20.0-40.0) % [place] % (Auto) (0.0-10.0) % Eos % (Auto) (0.0-4.0) % Baso % (Auto) (0.0-2.0) % Neut # (1.8-7.0) K/uL Lymph # (1.0-4.3) K/uL [place] # (0.0-0.8) K/uL Eos # (0.0-0.7) K/uL Baso # (0.0-0.2) K/uL Neutrophils % (Manual) (50-75) % Band Neutrophils % (0-2) % Lymphocytes % (Manual) (20-40) % Reactive Lymphs % (0-0) % Monocytes % (Manual) (0-10) % Platelet Estimate (NORMAL) Poikilocytosis (manual Anisocytosis (manual) Puncture Site pCO2 (35-45) mm/Hg pO2 42 (80-100) mm/Hg HCO3 (21-28) mmol/L ABG pH (7.35-7.45) ABG Total CO2 (22-28) mmol/L ABG O2 Saturation (95-98) % ABG Base Excess (-2.0-3.0) mmol/L ABG Hemoglobin (11.7-17.4) g/dL ABG Carboxyhemoglobin (0.5-1.5) % POC ABG HHb (Measured) (0.0-5.0) % ABG Methemoglobin (0.0-3.0) % Timmy Test ABG Potassium (3.6-5.2) mmol/L VBG pH 7.41 (7.32-7.43) VBG pCO2 27 L (40-60) mmHg VBG HCO3 19.7 mmol/L VBG Total CO2 17.9 L (22-28) mmol/L VBG O2 Sat (Calc) 90.9 H (40-65) % VBG Base Excess -6.0 L (0.0-2.0) mmol/L VBG Potassium 3.0 L (3.6-5.2) mmol/L A-a O2 Difference mm/Hg Respiratory Index Hgb O2 Saturation (95.0-98.0) % Sodium 150.0 H 141 (132-148) mmol/l Chloride 126.0 H 108 H (98-107) mmol/L Glucose 183 H (75-110) mg/dl Lactate 1.4 (0.7-2.1) mmol/L Mechanical Rate FiO2 70.0 % Tidal Volume PEEP 5 Crit Value Called To Crit Value Called By Crit Value Read Back Blood Gas Notified Time Potassium 5.2 (3.6-5.2) mmol/L Carbon Dioxide 22 (22-30) mmol/L Anion Gap 16 (10-20) BUN 52 H (9-20) mg/dL Creatinine 1.9 H (0.8-1.5) MG/DL Est GFR ( Amer) 42 Est GFR (Non-Af Amer) 35 POC Glucose (mg/dL) 345 H (65-110) mg/dL Random Glucose 274 H (75-110) mg/dL Hemoglobin A1c (4.2-6.5) % Calcium 7.7 L (8.6-10.4) mg/dl Phosphorus (2.5-4.5) mg/dL Magnesium 2.4 H (1.6-2.3) mg/dL Total Bilirubin 0.5 (0.2-1.3) mg/dL AST 45 (17-59) U/L ALT 81 H (21-72) U/L Alkaline Phosphatase 78 (38-126) U/L Total Protein 6.2 L (6.3-8.3) g/dL Albumin 3.0 L (3.5-5.0) g/dL Globulin 3.2 (2.2-3.9) gm/dL Albumin/Globulin Ratio 0.9 L (1.0-2.1) Arterial Blood Potassium (3.6-5.2) mmol/L Venous Blood Potassium 3.0 L (3.6-5.2) mmol/L 11/07/16 11/07/16 11/07/16 Range/Units 06:53 06:49 06:04 WBC 7.4 D (4.8-10.8) K/uL RBC 3.86 L (4.40-5.90) Mil/uL Hgb 10.0 L (12.0-18.0) g/dL Hct 32.1 L (35.0-51.0) % MCV 83.2 (80.0-94.0) fL MCH 25.9 L (27.0-31.0) pg MCHC 31.1 L (33.0-37.0) g/dL RDW 18.5 H (11.5-14.5) % Plt Count 137 (130-400) K/uL MPV 10.3 (7.2-11.7) fL Neut % (Auto) 91.3 H (50.0-75.0) % Lymph % (Auto) 3.4 L (20.0-40.0) % [place] % (Auto) 5.0 (0.0-10.0) % Eos % (Auto) 0.1 (0.0-4.0) % Baso % (Auto) 0.2 (0.0-2.0) % Neut # 6.7 (1.8-7.0) K/uL Lymph # 0.3 L (1.0-4.3) K/uL [place] # 0.4 (0.0-0.8) K/uL Eos # 0.0 (0.0-0.7) K/uL Baso # 0.0 (0.0-0.2) K/uL Neutrophils % (Manual) 84 H (50-75) % Band Neutrophils % 12 H* (0-2) % Lymphocytes % (Manual) 2 L (20-40) % Reactive Lymphs % (0-0) % Monocytes % (Manual) 2 (0-10) % Platelet Estimate Normal (NORMAL) Poikilocytosis (manual Slight Anisocytosis (manual) Slight Puncture Site pCO2 (35-45) mm/Hg pO2 35 (80-100) mm/Hg HCO3 (21-28) mmol/L ABG pH (7.35-7.45) ABG Total CO2 (22-28) mmol/L ABG O2 Saturation (95-98) % ABG Base Excess (-2.0-3.0) mmol/L ABG Hemoglobin (11.7-17.4) g/dL ABG Carboxyhemoglobin (0.5-1.5) % POC ABG HHb (Measured) (0.0-5.0) % ABG Methemoglobin (0.0-3.0) % Timmy Test ABG Potassium (3.6-5.2) mmol/L VBG pH 7.33 (7.32-7.43) VBG pCO2 42 (40-60) mmHg VBG HCO3 21.1 mmol/L VBG Total CO2 23.4 (22-28) mmol/L VBG O2 Sat (Calc) 99.3 H (40-65) % VBG Base Excess -3.7 L (0.0-2.0) mmol/L VBG Potassium 5.1 (3.6-5.2) mmol/L A-a O2 Difference mm/Hg Respiratory Index Hgb O2 Saturation (95.0-98.0) % Sodium 145.0 (132-148) mmol/l Chloride 115.0 H (98-107) mmol/L Glucose 267 H (75-110) mg/dl Lactate 3.9 H (0.7-2.1) mmol/L Mechanical Rate FiO2 70.0 % Tidal Volume PEEP 5 Crit Value Called To Crit Value Called By Crit Value Read Back Blood Gas Notified Time Potassium (3.6-5.2) mmol/L Carbon Dioxide (22-30) mmol/L Anion Gap (10-20) BUN (9-20) mg/dL Creatinine (0.8-1.5) MG/DL Est GFR ( Amer) Est GFR (Non-Af Amer) POC Glucose (mg/dL) 306 H (65-110) mg/dL Random Glucose (75-110) mg/dL Hemoglobin A1c (4.2-6.5) % Calcium (8.6-10.4) mg/dl Phosphorus (2.5-4.5) mg/dL Magnesium (1.6-2.3) mg/dL Total Bilirubin (0.2-1.3) mg/dL AST (17-59) U/L ALT (21-72) U/L Alkaline Phosphatase (38-126) U/L Total Protein (6.3-8.3) g/dL Albumin (3.5-5.0) g/dL Globulin (2.2-3.9) gm/dL Albumin/Globulin Ratio (1.0-2.1) Arterial Blood Potassium (3.6-5.2) mmol/L Venous Blood Potassium 5.1 (3.6-5.2) mmol/L 11/07/16 11/07/16 11/07/16 Range/Units 05:36 02:20 02:20 WBC (4.8-10.8) K/uL RBC (4.40-5.90) Mil/uL Hgb (12.0-18.0) g/dL Hct (35.0-51.0) % MCV (80.0-94.0) fL MCH (27.0-31.0) pg MCHC (33.0-37.0) g/dL RDW (11.5-14.5) % Plt Count (130-400) K/uL MPV (7.2-11.7) fL Neut % (Auto) (50.0-75.0) % Lymph % (Auto) (20.0-40.0) % [place] % (Auto) (0.0-10.0) % Eos % (Auto) (0.0-4.0) % Baso % (Auto) (0.0-2.0) % Neut # (1.8-7.0) K/uL Lymph # (1.0-4.3) K/uL [place] # (0.0-0.8) K/uL Eos # (0.0-0.7) K/uL Baso # (0.0-0.2) K/uL Neutrophils % (Manual) (50-75) % Band Neutrophils % (0-2) % Lymphocytes % (Manual) (20-40) % Reactive Lymphs % (0-0) % Monocytes % (Manual) (0-10) % Platelet Estimate (NORMAL) Poikilocytosis (manual Anisocytosis (manual) Puncture Site Rr pCO2 55 H (35-45) mm/Hg pO2 73 L (80-100) mm/Hg HCO3 17.8 L (21-28) mmol/L ABG pH 7.16 L* (7.35-7.45) ABG Total CO2 21.3 L (22-28) mmol/L ABG O2 Saturation 96.6 (95-98) % ABG Base Excess -9.1 L (-2.0-3.0) mmol/L ABG Hemoglobin 10.4 L (11.7-17.4) g/dL ABG Carboxyhemoglobin 1.4 (0.5-1.5) % POC ABG HHb (Measured) 3.3 (0.0-5.0) % ABG Methemoglobin 0.9 (0.0-3.0) % Timmy Test Pos ABG Potassium (3.6-5.2) mmol/L VBG pH (7.32-7.43) VBG pCO2 (40-60) mmHg VBG HCO3 mmol/L VBG Total CO2 (22-28) mmol/L VBG O2 Sat (Calc) (40-65) % VBG Base Excess (0.0-2.0) mmol/L VBG Potassium (3.6-5.2) mmol/L A-a O2 Difference 357.0 mm/Hg Respiratory Index 4.9 Hgb O2 Saturation 94.4 L (95.0-98.0) % Sodium 143 (132-148) mmol/l Chloride 112 H (98-107) mmol/L Glucose (75-110) mg/dl Lactate (0.7-2.1) mmol/L Mechanical Rate 20 FiO2 70.0 % Tidal Volume 450 PEEP 5 Crit Value Called To Sampson menezes rn Crit Value Called By [employer] firer Crit Value Read Back Y Blood Gas Notified Time 557 Potassium 5.6 H (3.6-5.2) mmol/L Carbon Dioxide 22 (22-30) mmol/L Anion Gap 14 (10-20) BUN 53 H (9-20) mg/dL Creatinine 1.8 H (0.8-1.5) MG/DL Est GFR ( Amer) 44 Est GFR (Non-Af Amer) 37 POC Glucose (mg/dL) (65-110) mg/dL Random Glucose 271 H (75-110) mg/dL Hemoglobin A1c 9.4 H (4.2-6.5) % Calcium 7.5 L (8.6-10.4) mg/dl Phosphorus 4.2 (2.5-4.5) mg/dL Magnesium 2.5 H (1.6-2.3) mg/dL Total Bilirubin 0.4 (0.2-1.3) mg/dL AST 42 (17-59) U/L ALT 68 (21-72) U/L Alkaline Phosphatase 65 (38-126) U/L Total Protein 5.7 L (6.3-8.3) g/dL Albumin 2.7 L D (3.5-5.0) g/dL Globulin 3.0 (2.2-3.9) gm/dL Albumin/Globulin Ratio 0.9 L (1.0-2.1) Arterial Blood Potassium (3.6-5.2) mmol/L Venous Blood Potassium (3.6-5.2) mmol/L 11/07/16 11/07/16 Range/Units 02:20 02:16 WBC 4.2 L (4.8-10.8) K/uL RBC 3.57 L (4.40-5.90) Mil/uL Hgb 9.2 L (12.0-18.0) g/dL Hct 30.1 L (35.0-51.0) % MCV 84.2 (80.0-94.0) fL MCH 25.6 L (27.0-31.0) pg MCHC 30.4 L (33.0-37.0) g/dL RDW 18.5 H (11.5-14.5) % Plt Count 114 L D (130-400) K/uL MPV 9.2 (7.2-11.7) fL Neut % (Auto) 90.8 H (50.0-75.0) % Lymph % (Auto) 6.0 L (20.0-40.0) % [place] % (Auto) 2.7 (0.0-10.0) % Eos % (Auto) 0.3 (0.0-4.0) % Baso % (Auto) 0.2 (0.0-2.0) % Neut # 3.8 (1.8-7.0) K/uL Lymph # 0.3 L (1.0-4.3) K/uL [place] # 0.1 (0.0-0.8) K/uL Eos # 0.0 (0.0-0.7) K/uL Baso # 0.0 (0.0-0.2) K/uL Neutrophils % (Manual) 73 (50-75) % Band Neutrophils % 10 H (0-2) % Lymphocytes % (Manual) 12 L (20-40) % Reactive Lymphs % 2 H (0-0) % Monocytes % (Manual) 3 (0-10) % Platelet Estimate Decreased L (NORMAL) Poikilocytosis (manual Anisocytosis (manual) Puncture Site Lr pCO2 64 H (35-45) mm/Hg pO2 176 H (80-100) mm/Hg HCO3 22.8 (21-28) mmol/L ABG pH 7.22 L (7.35-7.45) ABG Total CO2 28.2 H (22-28) mmol/L ABG O2 Saturation 99.3 H (95-98) % ABG Base Excess -2.8 L (-2.0-3.0) mmol/L ABG Hemoglobin (11.7-17.4) g/dL ABG Carboxyhemoglobin (0.5-1.5) % POC ABG HHb (Measured) (0.0-5.0) % ABG Methemoglobin (0.0-3.0) % Timmy Test Pos ABG Potassium 5.4 H (3.6-5.2) mmol/L VBG pH (7.32-7.43) VBG pCO2 (40-60) mmHg VBG HCO3 mmol/L VBG Total CO2 (22-28) mmol/L VBG O2 Sat (Calc) (40-65) % VBG Base Excess (0.0-2.0) mmol/L VBG Potassium (3.6-5.2) mmol/L A-a O2 Difference 457.0 mm/Hg Respiratory Index 2.6 Hgb O2 Saturation (95.0-98.0) % Sodium 142.0 (132-148) mmol/l Chloride 117.0 H (98-107) mmol/L Glucose 271 H (75-110) mg/dl Lactate 1.5 (0.7-2.1) mmol/L Mechanical Rate 15 FiO2 100.0 % Tidal Volume 450 PEEP 5 Crit Value Called To Crit Value Called By Crit Value Read Back Blood Gas Notified Time Potassium (3.6-5.2) mmol/L Carbon Dioxide (22-30) mmol/L Anion Gap (10-20) BUN (9-20) mg/dL Creatinine (0.8-1.5) MG/DL Est GFR ( Amer) Est GFR (Non-Af Amer) POC Glucose (mg/dL) (65-110) mg/dL Random Glucose (75-110) mg/dL Hemoglobin A1c (4.2-6.5) % Calcium (8.6-10.4) mg/dl Phosphorus (2.5-4.5) mg/dL Magnesium (1.6-2.3) mg/dL Total Bilirubin (0.2-1.3) mg/dL AST (17-59) U/L ALT (21-72) U/L Alkaline Phosphatase (38-126) U/L Total Protein (6.3-8.3) g/dL Albumin (3.5-5.0) g/dL Globulin (2.2-3.9) gm/dL Albumin/Globulin Ratio (1.0-2.1) Arterial Blood Potassium 5.4 H (3.6-5.2) mmol/L Venous Blood Potassium (3.6-5.2) mmol/L Laboratory Results - last 24 hr 11/07/16 11/07/16 11/07/16 02:16 02:20 02:20 WBC 4.2 L RBC 3.57 L Hgb 9.2 L Hct 30.1 L MCV 84.2 MCH 25.6 L MCHC 30.4 L RDW 18.5 H Plt Count 114 L D MPV 9.2 Neut % (Auto) 90.8 H Lymph % (Auto) 6.0 L [place] % (Auto) 2.7 Eos % (Auto) 0.3 Baso % (Auto) 0.2 Neut # 3.8 Lymph # 0.3 L [place] # 0.1 Eos # 0.0 Baso # 0.0 Neutrophils % (Manual) 73 Band Neutrophils % 10 H Lymphocytes % (Manual) 12 L Reactive Lymphs % 2 H Monocytes % (Manual) 3 Platelet Estimate Decreased L Poikilocytosis (manual Anisocytosis (manual) Puncture Site Lr pCO2 64 H pO2 176 H HCO3 22.8 ABG pH 7.22 L ABG Total CO2 28.2 H ABG O2 Saturation 99.3 H ABG Base Excess -2.8 L ABG Hemoglobin ABG Carboxyhemoglobin POC ABG HHb (Measured) ABG Methemoglobin Timmy Test Pos ABG Potassium 5.4 H VBG pH VBG pCO2 VBG HCO3 VBG Total CO2 VBG O2 Sat (Calc) VBG Base Excess VBG Potassium A-a O2 Difference 457.0 Respiratory Index 2.6 Hgb O2 Saturation Sodium 142.0 143 Chloride 117.0 H 112 H Glucose 271 H Lactate 1.5 Mechanical Rate 15 FiO2 100.0 Tidal Volume 450 PEEP 5 Crit Value Called To Crit Value Called By Crit Value Read Back Blood Gas Notified Time Potassium 5.6 H Carbon Dioxide 22 Anion Gap 14 BUN 53 H Creatinine 1.8 H Est GFR ( Amer) 44 Est GFR (Non-Af Amer) 37 POC Glucose (mg/dL) Random Glucose 271 H Hemoglobin A1c Calcium 7.5 L Phosphorus 4.2 Magnesium 2.5 H Total Bilirubin 0.4 AST 42 ALT 68 Alkaline Phosphatase 65 Total Protein 5.7 L Albumin 2.7 L D Globulin 3.0 Albumin/Globulin Ratio 0.9 L Arterial Blood Potassium 5.4 H Venous Blood Potassium 11/07/16 11/07/16 11/07/16 02:20 05:36 06:04 WBC RBC Hgb Hct MCV MCH MCHC RDW Plt Count MPV Neut % (Auto) Lymph % (Auto) [place] % (Auto) Eos % (Auto) Baso % (Auto) Neut # Lymph # [place] # Eos # Baso # Neutrophils % (Manual) Band Neutrophils % Lymphocytes % (Manual) Reactive Lymphs % Monocytes % (Manual) Platelet Estimate Poikilocytosis (manual Anisocytosis (manual) Puncture Site Rr pCO2 55 H pO2 73 L HCO3 17.8 L ABG pH 7.16 L* ABG Total CO2 21.3 L ABG O2 Saturation 96.6 ABG Base Excess -9.1 L ABG Hemoglobin 10.4 L ABG Carboxyhemoglobin 1.4 POC ABG HHb (Measured) 3.3 ABG Methemoglobin 0.9 Timmy Test Pos ABG Potassium VBG pH VBG pCO2 VBG HCO3 VBG Total CO2 VBG O2 Sat (Calc) VBG Base Excess VBG Potassium A-a O2 Difference 357.0 Respiratory Index 4.9 Hgb O2 Saturation 94.4 L Sodium Chloride Glucose Lactate Mechanical Rate 20 FiO2 70.0 Tidal Volume 450 PEEP 5 Crit Value Called To Sampson menezes rn Crit Value Called By [employer] firer Crit Value Read Back Y Blood Gas Notified Time 557 Potassium Carbon Dioxide Anion Gap BUN Creatinine Est GFR ( Amer) Est GFR (Non-Af Amer) POC Glucose (mg/dL) 306 H Random Glucose Hemoglobin A1c 9.4 H Calcium Phosphorus Magnesium Total Bilirubin AST ALT Alkaline Phosphatase Total Protein Albumin Globulin Albumin/Globulin Ratio Arterial Blood Potassium Venous Blood Potassium 11/07/16 11/07/16 11/07/16 06:49 06:53 06:53 WBC 7.4 D RBC 3.86 L Hgb 10.0 L Hct 32.1 L MCV 83.2 MCH 25.9 L MCHC 31.1 L RDW 18.5 H Plt Count 137 MPV 10.3 Neut % (Auto) 91.3 H Lymph % (Auto) 3.4 L [place] % (Auto) 5.0 Eos % (Auto) 0.1 Baso % (Auto) 0.2 Neut # 6.7 Lymph # 0.3 L [place] # 0.4 Eos # 0.0 Baso # 0.0 Neutrophils % (Manual) 84 H Band Neutrophils % 12 H* Lymphocytes % (Manual) 2 L Reactive Lymphs % Monocytes % (Manual) 2 Platelet Estimate Normal Poikilocytosis (manual Slight Anisocytosis (manual) Slight Puncture Site pCO2 pO2 35 HCO3 ABG pH ABG Total CO2 ABG O2 Saturation ABG Base Excess ABG Hemoglobin ABG Carboxyhemoglobin POC ABG HHb (Measured) ABG Methemoglobin Timmy Test ABG Potassium VBG pH 7.33 VBG pCO2 42 VBG HCO3 21.1 VBG Total CO2 23.4 VBG O2 Sat (Calc) 99.3 H VBG Base Excess -3.7 L VBG Potassium 5.1 A-a O2 Difference Respiratory Index Hgb O2 Saturation Sodium 145.0 141 Chloride 115.0 H 108 H Glucose 267 H Lactate 3.9 H Mechanical Rate FiO2 70.0 Tidal Volume PEEP 5 Crit Value Called To Crit Value Called By Crit Value Read Back Blood Gas Notified Time Potassium 5.2 Carbon Dioxide 22 Anion Gap 16 BUN 52 H Creatinine 1.9 H Est GFR ( Amer) 42 Est GFR (Non-Af Amer) 35 POC Glucose (mg/dL) Random Glucose 274 H Hemoglobin A1c Calcium 7.7 L Phosphorus Magnesium 2.4 H Total Bilirubin 0.5 AST 45 ALT 81 H Alkaline Phosphatase 78 Total Protein 6.2 L Albumin 3.0 L Globulin 3.2 Albumin/Globulin Ratio 0.9 L Arterial Blood Potassium Venous Blood Potassium 5.1 11/07/16 11/07/16 09:56 11:32 WBC RBC Hgb Hct MCV MCH MCHC RDW Plt Count MPV Neut % (Auto) Lymph % (Auto) [place] % (Auto) Eos % (Auto) Baso % (Auto) Neut # Lymph # [place] # Eos # Baso # Neutrophils % (Manual) Band Neutrophils % Lymphocytes % (Manual) Reactive Lymphs % Monocytes % (Manual) Platelet Estimate Poikilocytosis (manual Anisocytosis (manual) Puncture Site pCO2 pO2 42 HCO3 ABG pH ABG Total CO2 ABG O2 Saturation ABG Base Excess ABG Hemoglobin ABG Carboxyhemoglobin POC ABG HHb (Measured) ABG Methemoglobin Timmy Test ABG Potassium VBG pH 7.41 VBG pCO2 27 L VBG HCO3 19.7 VBG Total CO2 17.9 L VBG O2 Sat (Calc) 90.9 H VBG Base Excess -6.0 L VBG Potassium 3.0 L A-a O2 Difference Respiratory Index Hgb O2 Saturation Sodium 150.0 H Chloride 126.0 H Glucose 183 H Lactate 1.4 Mechanical Rate FiO2 70.0 Tidal Volume PEEP 5 Crit Value Called To Crit Value Called By Crit Value Read Back Blood Gas Notified Time Potassium Carbon Dioxide Anion Gap BUN Creatinine Est GFR ( Amer) Est GFR (Non-Af Amer) POC Glucose (mg/dL) 345 H Random Glucose Hemoglobin A1c Calcium Phosphorus Magnesium Total Bilirubin AST ALT Alkaline Phosphatase Total Protein Albumin Globulin Albumin/Globulin Ratio Arterial Blood Potassium Venous Blood Potassium 3.0 L Review of Systems - Review of Systems Systems not reviewed;Unavailable: Intubated Critical Care Progress Note - Ventilator Checklist Head of Bed 30 Degrees: Yes PUD Prophalyxis: Yes DVT Prophylaxis: Yes - Vent Settings MODE:: PRVC TIDAL VOLUME:: 500 RESP RATE:: 20 FIO2:: 70 PEEP:: 5 - Extremities/Vascular Does the Patient have a Central Venous Catheter?: Yes Insertion Site: Internal Jugular Vein (right) Does the Patient need a Central Venous Catheter?: Yes Does the Patient have a Wick Catheter?: Yes Does the Patient need a Wick Catheter?: Yes Catheter Insertion Criteria: Patient requires prolonged immobilization - Prophylaxis GI Prophylaxis GI: PPI - Prophylaxis DVT Prophylaxis DVT: Heparin SQ Assessment/Plan (1) Sepsis Current Visit: Yes Status: Acute (2) CAD (coronary artery disease) Current Visit: Yes Status: Acute (3) Insulin dependent diabetes mellitus Current Visit: Yes Status: Acute (4) Hypothermia Current Visit: Yes Status: Acute (5) CVA (cerebral vascular accident) Current Visit: No Status: Acute (6) Seizure Current Visit: No Status: Acute (7) LASHON (acute kidney injury) Current Visit: Yes Status: Acute - Assessment and Plan (Free Text) Plan: Patient status: -Intubated; off sedation -right IJ TLC in place Neuro: - Neurology Consult (Dr. Natalia Powers) -AMS; non-verbal at baseline --> patient opens his eyes -Unresponsiveness and hypotension likely 2/2 new onset CVA vs seizure vs electrolyte abnormalities -Keppra 500mg PO BID -bedside EEG ordered - pending results -hx of multiple prior CVAs with left hemiparesis -Imaging: -11/06/16 CT head: 1. Nonspecific white matter changes. Acute infarction may be CT occult within first 24 hours. If a focal deficit persists, consider followup CT or MRI for further evaluation. Cardiovascular: -Hypotension; bradycardia -Dopamine drip 400mg/250ml D5w -Levophed drip 8mg -monitor BP/MAP closely -Hypothermia (87.2 degrees on admission) -on uvaldo hugger -currently at 97.2 degrees F -hx of CAD s/p 2 PCIs with stenting -Clopidogrel 75mg PO daily -hx of NSTEMI -ASA 81mg PO daily -11/07/16 ECHO: LVEF 35-40% (pending final reading). As per cardiology, this is an improvement from prior evaluation of EF (30%) during PCI a few years ago -11/06/16 ECG: Sinus bradycardia with 1st degree AV block with occasional premature PVCs; junctional ST depression; HR 45 bpm Pulmonary: -Respiratory acidosis on ABG- Resolved -Bicard drip DC -PRVC (500/20/70%/5) -Possible pneumonia likely 2/2 to aspiration from ventilator support -Zosyn 2.25 gm IV -Vancomycin 1gm -Imaging: -11/07/16 CXR: Endotracheal tube extending into the mid thoracic trachea. NG tube extending into the stomach. Right central venous catheter extending to the SVC. Diffuse confluent bilateral consolidative changes throughout both lungs with a suggestion of a small left pleural effusion. Right hilar consolidation. Cardiomegaly. -11/06/16 CXR: Diffuse prominent increased interstitial lung markings suggestive for moderate venous congestion versus interstitial infiltrate. Confluent airspace opacification at the left lung base which may represent effusion versus atelectasis and or infiltrate. Right infrahilar consolidative changes. Gastrointestinal: -No acute issues. Hematology: -Normocytic anemia Endocrine: -DM -Levemir 20 units SC daily -Insulin regular sliding scale -serum ketones negative Renal: -LASHON- IVF -Hyperkalemia- resolved Musculoskeletal: -Left hemiparesis 2/2 to hx of multiple CVAs -PT/OT consult Genitourinary: -wick catheter- Flomax 0.4 mg PO QPM -11/06/16 UA: negative Infectious disease: -No acute issues. -elevated lactic acid likely 2/2 to seizures vs hyperkalemia + succinylcholine for intubation vs sepsis (likely urosepsis) -repeat VBG shock panel negative lactate -Zosyn 2.25g IV q6- day 1 -Vancomycin 1g IV daily- day 1 GI prophylaxis: Protonix 40mg IVP daily DVT prophylaxis: Heparin 5000 units SC Q8; SCDs Case discussed with Dr. Gio Webster PGY1 - Date & Time Date: 11/07/16 Time: 14:19
--- NOTE | 2016-11-07 16:21 | EEG ---
DATE: 11/07/2016 CONDITION OF RECORDING: Asleep. DIAGNOSIS: Seizure. MEDICATIONS: The patient is on aspirin, Plavix, Keppra, dopamine, Protonix, propofol, bicarbonate. INTERPRETATION: This is a 16-channel international recording. The background activity is composed o f 4-6 cycles per second. There was a limited amount of beta activity of 16-20 cycles per second seen in this recording. There was increased amount of theta activity 5-7 cycles per second seen in this tracing. Drowsiness was characterized by mostly theta activity and mild delta activity with limited beta activity. Sleep was characterized by vertex transient waves, sleep spindles and bilateral slowi ng. Photic stimulation showed no change in the tracing. No paroxysmal activity noted in this record ing. CONCLUSION: This is abnormal electroencephalogram due to presence of severe bilateral slowing throug hout the electroencephalogram. No evidence of any epileptiform activity. This is consistent with se ivan bilateral cerebral dysfunction. Likely etiologies could be encephalopathies. Please clinically correlate. No seizure-like activity seen. Ramakrishna Powers MD cc: [id number] TT: 11/07/2016 16:20:44 Confirmation # [id number] Dictation # [id number]
--- NOTE | 2016-11-07 17:12 | CON ---
DATE: 11/07/2016 CHIEF COMPLAINT: CVA, seizures. HISTORY OF PRESENT ILLNESS: This is a 75-year-old man with history of diabetes, history of multiple prior CVAs with left hemiparesis. His CVAs were in the right MCA territory in the watershed distribu tion in the right temporoparietal and occipital lobes, has residual left-sided hemiparesis and a hist ory of intermittent slurred speech, coronary artery disease status post 2 PCIs, last one in 08/2016; legally blind from his underlying diabetes, history of questionable seizure, insulin-dependent diabet es mellitus, dementia of vascular type, history of pulmonary hypertension, left ventricular hypertrop hy, renal insufficiency, who is a skilled nursing resident and was sent from the skilled nursing because he was found to be hypotensive, lethargic and reduced responsiveness. He was also found to be hypother melyssa of 87 degrees Fahrenheit. He is currently being rewarmed. He had septic shock and seemed to be hypertensive for which he is on the dobutamine drip. He is on Keppra 500 p.o. b.i.d. for seizu re prophylaxis. His CAT scan of the head showed no acute intracranial abnormality, just old encephal omalacia in the right MCA territory distribution consistent with his prior CVAs. On his labs he had A1c of 9.4 indicating poorly controlled diabetes and an elevated potassium of 7.2 when he came in as well as elevated BUN and creatinine from his baseline. His procalcitonin is low. His blood pressure is still on the lower side. No seizure-like activities at bedside. PAST MEDICAL HISTORY: Diabetes type 2, history of diabetic retinopathy which he is legally blind fro m, history of right MCA and MANGANESE WHEELER territory infarcts watershed distribution with residual left-sided he miparesis, history of slurred speech on prior CVA, history of coronary artery disease status post 2 P CRs, the last one in 08/2016, questionable history of seizures, insulin-dependent diabetes mellitus, dementia, pulmonary hypertension, left ventricular hypertrophy, renal insufficiency. REVIEW OF SYSTEMS: A 14-point review of systems is difficult to obtain due the patient's altered men juan carlos status. MEDICATIONS: Aspirin, Plavix, Imdur, amlodipine, Keppra, lisinopril, metoprolol, risperidone. ALLERGIES: No known drug allergies. FAMILY HISTORY: Noncontributory. SURGICAL HISTORY: Unavailable. PHYSICAL EXAMINATION: VITAL SIGNS: Temperature of 97.2, pulse rate of 87, blood pressure of 97/42, respiratory rate of 18, oxygen 97% via mechanical ventilation. GENERAL: The patient is intubated, off sedation, no acute distress. HEENT: Atraumatic, normocephalic. PERRLA. Extraocular muscles intact. NECK: Supple, no JVD, no adenopathy noted. LUNGS: Decreased breath sounds bilaterally. HEART: S1, S2, normal rate and rhythm. No murmurs, rubs, or gallops. ABDOMEN: Soft, nontender, nondistended. Bowel sounds present. It is obese. EXTREMITIES: No clubbing, no cyanosis. Peripheral pulses 2+ felt bilaterally. NEUROLOGIC: The patient is drowsy and off sedation. Cranial nerves II-XII are intact. Motor exam h as decreased tone on the left side. This is due from prior left hemiparesis from prior CVA. DTRs ar e 1+ and absent at the ankles. Sensory: Withdraws on localized noxious stimulus and also localized deep noxious stimuli. Motor: No spontaneous movement in the extremities seen except for the pain. Coordination and gait deferred for now. LABORATORY DATA: Sodium is 143, potassium 5.6, chloride of 112, carbon dioxide 22, BUN of 53, creati nine 1.8. Random glucose 271. ASSESSMENT AND PLAN: This is a 75-year-old -Thai man with a past medical history of type 2 diabetes mellitus, uncontrolled diabetes with a history of a right middle cerebral artery/MANGANESE WHEELER water shed distribution infarcts with residual left hemiparesis and intermittent slurred speech from prior cerebrovascular accident , history of coronary artery disease status post 2 stents, last one in 09/15 17; diabetic retinopathy, questionable history of seizure, on Keppra 500 p.o. b.i.d.; dementia, pulmo nary hypertension, renal insufficiency with left hypertrophy came in from the skilled nursing due to hyp otensive, decreased responsiveness, lethargy, found to be hypothermic and low systolic and diastolic blood pressure with elevated potassium, being hyperkalemic, metabolic derangements and worsening laura l insufficiency. I was consulted for a possible seizure. At this time, his CAT scan showed no acute intracranial abnormality, just old encephalomalacia in the right MCA and MANGANESE WHEELER territories from prior CVA. He is on Keppra at this time for seizure prophylaxis. At this time, I would recommend that his lethargy is secondary to cerebral hypoperfusion and metabolic derangements causing decreased a nd decreased mental status. At this time, recommend: 1. Continue with Keppra 500 IV q. 12 for seizure prophylaxis. 2. Speech and swallow evaluation. 3. Continue with aspirin, Plavix and statin for stroke prevention. 4. Prevent further drops in his systolic blood pressure and diastolic blood pressures because it can induce infarcts as well make the patient extremely drowsy in a comatose status. 5. Monitor electrolytes and correct accordingly. 6. Follow up with cardiology's recommendations and continue with current present medical management. No further neurological intervention at this time. His prognosis is guarded. He likely will need long-term care due to cerebral hypoperfusion to the brain. 7. Monitor his blood sugars. His blood sugars are 140-180. Prevent hyperglycemic accelerations and continue with current present medical management. Thank you for this consult. Please reconsult for any new changes. Could consider repeating a CAT sc an in 24 hours versus an MRI of the brain if stable. Thank you for this consult. Ramakrishna Powers MD cc: [phone] TT: 11/07/2016 17:11:18 Confirmation # [id number] Dictation # [id number] wendy
[2016-11-07] MEDS: Sodium Chloride 0.9% 1,000 ML IV SCH (17:48)
--- NOTE | 2016-11-07 18:01 | CARD ---
APPROVED REPORT EXAM: Two-dimensional and M-mode echocardiogram with Doppler and color Doppler. Other Information Quality : GoodRhythm : NSR INDICATION CVA/TIA Cardiac Disease: CAD Pulmonary Hypertention COPD Resp. Failure Surgery/Intervention Stent RISK FACTORS Hypertension Hyperlipidemia Diabetes M-Mode DIMENSIONS RVDd2.14 (2.1-3.2cm)Left Atrium (MM)2.91 (2.5-4.0cm) IVSd0.85 (0.7-1.1cm)Aortic Root3.50 (2.2-3.7cm) LVDd4.28 (4.0-5.6cm)Aortic Cusp Exc.2.21 (1.5-2.0cm) PWd0.96 (0.7-1.1cm)FS (%) 38 % LVDs2.66 (2.0-3.8cm)LVEF (%)68 (>50%) Aortic Valve AoV Peak Lzevlhpm810.6cm/Alice Peak GR.5mmHg Mitral Valve MV E Iepgezyo59.1cm/sMV A Mjsfxdmy00.6cm/sE/A ratio0.5 TDI E/Lateral E'0.0E/Medial E'0.0 Tricuspid Valve TR Peak Tsbqvxyq402ht/sTR Peak Gr.[id number] LEFT VENTRICLE The left ventricle is normal size. There is moderate concentric left ventricular hypertrophy. The left ventricular function is normal. The left ventricular ejection fraction is within the normal range. There is normal LV segmental wall motion. Transmitral Doppler flow pattern is abnormal. RIGHT VENTRICLE The right ventricle is normal size. ATRIA The left atrium size is normal. The right atrium size is normal. AORTIC VALVE The aortic valve is normal in structure. MITRAL VALVE The mitral valve is normal in structure. TRICUSPID VALVE There is trace to mild tricuspid regurgitation. <Conclusion> Normal LV systolic function. Moderate LVH. Diastolic dysfunction. Normal chamber size. Trace to mild TR.
--- NOTE | 2016-11-07 18:27 | CARD ---
APPROVED REPORT EKG Measurement Heart [id number] <Conclusion> Sinus bradycardia with 2nd degree AV block Mobitz's type 2 Abnormal ECG
--- NOTE | 2016-11-07 22:59 | CP.PCM.HP ---
History of Present Illness - History of Present Illness History of Present Illness: CC; lethargy 75 M who is resident at [facility] in [place] with h/o DM, multiple prior CVA's with left hemiperesis and intermittent slurred speech, CAD s/p 2 PCI last one in august,, legally blind from DM, questionable history of seizure, IDDM, dementia, pulm htn, lvh renal insufficiency NHR resident was sent in form the NH with hypotension, lethargy, reduced responsiveness. In ER as per the discussion with staff and er physician patient was non verbal, non responding but breathing spontaneously, hypothermia was noticed 87F. During w/u patient became hypotensive and irratic breathing and hence decision made to intubate him. Right IJ central line also placed in ER by Dr Shukla. Post intubation and ivf patient started to move his right arm to some extent, opened his eyes. at the bed side assessed in pmh.Pt is in ICU Resp acidosis, hyperkalemia was noticed in ER as well hence treated with meds and vent. PMH as above Social no recent tobacco, alcohol history Meds reviewed ASA, plavix, imdur, amlodipine, keppra, lisinopril, metoprolol, risperidol Allergies NKDA Family history not contributory Surgery history not available Present on Admission - Present on Admission Any Indicators Present on Admission: Yes Review of Systems - Review of Systems Systems not reviewed;Unavailable: Unstable Vital Signs, Altered Mental Status, Intubated - Constitutional Constitutional: Chills, Fatigue, Fever, Lethargy, Weakness - EENT Eyes: absent: As Per HPI, Blind Spots, Blurred Vision, Change in Vision, Decreased Night Vision, Diplopia, Discharge, Dry Eye, Exophthalmos, Floaters, Irritation, Itchy Eyes, Loss of Peripheral Vision, Pain, Photophobia, Requires Corrective Lenses, Sees Flashes, Spots in Vision, Tunnel Vision, Other Visual Disturbances, Loss of Vision, Other Ears: absent: As Per HPI, Decreased Hearing, Ear Discharge, Ear Pain, Tinnitus, Abnormal Hearing, Disequilibrium, Dizziness, Other Nose/Mouth/Throat: absent: As Per HPI, Epistaxis, Nasal Congestion, Nasal Discharge, Nasal Obstruction, Nasal Trauma, Nose Pain, Post Nasal Drip, Sinus Pain, Sinus Pressure, Bleeding Gums, Change in Voice, Dental Pain, Dry Mouth, Dysphagia, Halitosis, Hoarsness, Lip Swelling, Mouth Lesions, Mouth Pain, Odynophagia, Sore Throat, Throat Swelling, Tongue Swelling, Facial Pain, Neck Pain, Neck Mass, Other Past Patient History - Past Medical History & Family History Past Medical History?: Yes - Past Social History Smoking Status: Former Smoker - CARDIAC Hx Cardiac Disorders: Yes Hx Hypercholesterolemia: Yes Hx Hypertension: Yes - PULMONARY Hx Respiratory Disorders: Yes Hx Chronic Obstructive Pulmonary Disease (COPD): Yes - NEUROLOGICAL Hx Neurological Disorder: Yes HX Cerebrovascular Accident: Yes - HEENT Hx HEENT Problems: Yes Hx Blind: Yes (left eye blind, right blurry) Hx Cataracts: Yes Other/Comment: Cataracts Alexys.with Extarction. - RENAL Hx Chronic Kidney Disease: No - ENDOCRINE/METABOLIC Hx Endocrine Disorders: Yes Hx Diabetes Mellitus Type 2: Yes - HEMATOLOGICAL/ONCOLOGICAL Hx Blood Disorders: No - INTEGUMENTARY Hx Dermatological Problems: No - MUSCULOSKELETAL/RHEUMATOLOGICAL Hx Musculoskeletal Disorders: Yes Hx Arthritis: Yes Hx Falls: Yes - GASTROINTESTINAL Hx Gastrointestinal Disorders: Yes Hx Gastritis: Yes - GENITOURINARY/GYNECOLOGICAL Hx Genitourinary Disorders: Yes Hx Prostate Problems: Yes - PSYCHIATRIC Hx Anxiety: No Hx Substance Use: No - SURGICAL HISTORY Hx Surgeries: Yes Hx Coronary Stent: Yes (x1) Hx Eye Surgery: Yes - ANESTHESIA Hx Anesthesia: Yes Hx Anesthesia Reactions: No Hx Malignant Hyperthermia: No Has any member of the family had a problem w/ anesthesia?: No Meds Allergies/Adverse Reactions: Allergies Allergy/AdvReac Type Severity Reaction Status Date / Time No Known Allergies Allergy Verified 11/06/16 21:29 Physical Exam - Constitutional Appears: In Acute Distress, Chronically Ill - Head Exam Head Exam: ATRAUMATIC, NORMAL INSPECTION, NORMOCEPHALIC - Eye Exam Eye Exam: EOMI, Normal appearance, PERRL Pupil Exam: NORMAL ACCOMODATION, PERRL - Respiratory Exam Respiratory Exam: Clear to Auscultation Bilateral, NORMAL BREATHING PATTERN - Cardiovascular Exam Cardiovascular Exam: REGULAR RHYTHM - Psychiatric Exam Additional comments: pt sedated and paralysed Results - Vital Signs Recent Vital Signs: Last Vital Signs Temp 97.5 F L 11/07/16 20:00 Pulse 82 11/07/16 22:08 Resp 20 11/07/16 22:08 BP 137/50 L 11/07/16 22:08 Pulse Ox 100 11/07/16 22:08 - Labs Result Diagrams: 11/08/16 05:54 11/08/16 05:54 Labs: Laboratory Results - last 24 hr 11/07/16 11/07/16 11/07/16 02:16 02:20 02:20 WBC 4.2 L RBC 3.57 L Hgb 9.2 L Hct 30.1 L MCV 84.2 MCH 25.6 L MCHC 30.4 L RDW 18.5 H Plt Count 114 L D MPV 9.2 Neut % (Auto) 90.8 H Lymph % (Auto) 6.0 L [place] % (Auto) 2.7 Eos % (Auto) 0.3 Baso % (Auto) 0.2 Neut # 3.8 Lymph # 0.3 L [place] # 0.1 Eos # 0.0 Baso # 0.0 Neutrophils % (Manual) 73 Band Neutrophils % 10 H Lymphocytes % (Manual) 12 L Reactive Lymphs % 2 H Monocytes % (Manual) 3 Platelet Estimate Decreased L Poikilocytosis (manual Anisocytosis (manual) Puncture Site Lr pCO2 64 H pO2 176 H HCO3 22.8 ABG pH 7.22 L ABG Total CO2 28.2 H ABG O2 Saturation 99.3 H ABG Base Excess -2.8 L ABG Hemoglobin ABG Carboxyhemoglobin POC ABG HHb (Measured) ABG Methemoglobin Timmy Test Pos ABG Potassium 5.4 H VBG pH VBG pCO2 VBG HCO3 VBG Total CO2 VBG O2 Sat (Calc) VBG Base Excess VBG Potassium A-a O2 Difference 457.0 Respiratory Index 2.6 Hgb O2 Saturation Sodium 142.0 Chloride 117.0 H Glucose 271 H Lactate 1.5 Mechanical Rate 15 FiO2 100.0 Tidal Volume 450 PEEP 5 Crit Value Called To Crit Value Called By Crit Value Read Back Blood Gas Notified Time Potassium Carbon Dioxide Anion Gap BUN Creatinine Est GFR ( Amer) Est GFR (Non-Af Amer) POC Glucose (mg/dL) Random Glucose Hemoglobin A1c Calcium Phosphorus Magnesium Total Bilirubin AST ALT Alkaline Phosphatase Total Protein Albumin Globulin Albumin/Globulin Ratio Procalcitonin < 0.05 L Arterial Blood Potassium 5.4 H Venous Blood Potassium 11/07/16 11/07/16 11/07/16 02:20 02:20 05:36 WBC RBC Hgb Hct MCV MCH MCHC RDW Plt Count MPV Neut % (Auto) Lymph % (Auto) [place] % (Auto) Eos % (Auto) Baso % (Auto) Neut # Lymph # [place] # Eos # Baso # Neutrophils % (Manual) Band Neutrophils % Lymphocytes % (Manual) Reactive Lymphs % Monocytes % (Manual) Platelet Estimate Poikilocytosis (manual Anisocytosis (manual) Puncture Site Rr pCO2 55 H pO2 73 L HCO3 17.8 L ABG pH 7.16 L* ABG Total CO2 21.3 L ABG O2 Saturation 96.6 ABG Base Excess -9.1 L ABG Hemoglobin 10.4 L ABG Carboxyhemoglobin 1.4 POC ABG HHb (Measured) 3.3 ABG Methemoglobin 0.9 Timmy Test Pos ABG Potassium VBG pH VBG pCO2 VBG HCO3 VBG Total CO2 VBG O2 Sat (Calc) VBG Base Excess VBG Potassium A-a O2 Difference 357.0 Respiratory Index 4.9 Hgb O2 Saturation 94.4 L Sodium 143 Chloride 112 H Glucose Lactate Mechanical Rate 20 FiO2 70.0 Tidal Volume 450 PEEP 5 Crit Value Called To Sampson menezes rn Crit Value Called By Kirit insole rounder Crit Value Read Back Y Blood Gas Notified Time 557 Potassium 5.6 H Carbon Dioxide 22 Anion Gap 14 BUN 53 H Creatinine 1.8 H Est GFR ( Amer) 44 Est GFR (Non-Af Amer) 37 POC Glucose (mg/dL) Random Glucose 271 H Hemoglobin A1c 9.4 H Calcium 7.5 L Phosphorus 4.2 Magnesium 2.5 H Total Bilirubin 0.4 AST 42 ALT 68 Alkaline Phosphatase 65 Total Protein 5.7 L Albumin 2.7 L D Globulin 3.0 Albumin/Globulin Ratio 0.9 L Procalcitonin Arterial Blood Potassium Venous Blood Potassium 11/07/16 11/07/16 11/07/16 06:04 06:49 06:53 WBC 7.4 D RBC 3.86 L Hgb 10.0 L Hct 32.1 L MCV 83.2 MCH 25.9 L MCHC 31.1 L RDW 18.5 H Plt Count 137 MPV 10.3 Neut % (Auto) 91.3 H Lymph % (Auto) 3.4 L [place] % (Auto) 5.0 Eos % (Auto) 0.1 Baso % (Auto) 0.2 Neut # 6.7 Lymph # 0.3 L [place] # 0.4 Eos # 0.0 Baso # 0.0 Neutrophils % (Manual) 84 H Band Neutrophils % 12 H* Lymphocytes % (Manual) 2 L Reactive Lymphs % Monocytes % (Manual) 2 Platelet Estimate Normal Poikilocytosis (manual Slight Anisocytosis (manual) Slight Puncture Site pCO2 pO2 35 HCO3 ABG pH ABG Total CO2 ABG O2 Saturation ABG Base Excess ABG Hemoglobin ABG Carboxyhemoglobin POC ABG HHb (Measured) ABG Methemoglobin Timmy Test ABG Potassium VBG pH 7.33 VBG pCO2 42 VBG HCO3 21.1 VBG Total CO2 23.4 VBG O2 Sat (Calc) 99.3 H VBG Base Excess -3.7 L VBG Potassium 5.1 A-a O2 Difference Respiratory Index Hgb O2 Saturation Sodium 145.0 Chloride 115.0 H Glucose 267 H Lactate 3.9 H Mechanical Rate FiO2 70.0 Tidal Volume PEEP 5 Crit Value Called To Crit Value Called By Crit Value Read Back Blood Gas Notified Time Potassium Carbon Dioxide Anion Gap BUN Creatinine Est GFR ( Amer) Est GFR (Non-Af Amer) POC Glucose (mg/dL) 306 H Random Glucose Hemoglobin A1c Calcium Phosphorus Magnesium Total Bilirubin AST ALT Alkaline Phosphatase Total Protein Albumin Globulin Albumin/Globulin Ratio Procalcitonin Arterial Blood Potassium Venous Blood Potassium 5.1 11/07/16 11/07/16 11/07/16 06:53 09:56 11:32 WBC RBC Hgb Hct MCV MCH MCHC RDW Plt Count MPV Neut % (Auto) Lymph % (Auto) [place] % (Auto) Eos % (Auto) Baso % (Auto) Neut # Lymph # [place] # Eos # Baso # Neutrophils % (Manual) Band Neutrophils % Lymphocytes % (Manual) Reactive Lymphs % Monocytes % (Manual) Platelet Estimate Poikilocytosis (manual Anisocytosis (manual) Puncture Site pCO2 pO2 42 HCO3 ABG pH ABG Total CO2 ABG O2 Saturation ABG Base Excess ABG Hemoglobin ABG Carboxyhemoglobin POC ABG HHb (Measured) ABG Methemoglobin Timmy Test ABG Potassium VBG pH 7.41 VBG pCO2 27 L VBG HCO3 19.7 VBG Total CO2 17.9 L VBG O2 Sat (Calc) 90.9 H VBG Base Excess -6.0 L VBG Potassium 3.0 L A-a O2 Difference Respiratory Index Hgb O2 Saturation Sodium 141 150.0 H Chloride 108 H 126.0 H Glucose 183 H Lactate 1.4 Mechanical Rate FiO2 70.0 Tidal Volume PEEP 5 Crit Value Called To Crit Value Called By Crit Value Read Back Blood Gas Notified Time Potassium 5.2 Carbon Dioxide 22 Anion Gap 16 BUN 52 H Creatinine 1.9 H Est GFR ( Amer) 42 Est GFR (Non-Af Amer) 35 POC Glucose (mg/dL) 345 H Random Glucose 274 H Hemoglobin A1c Calcium 7.7 L Phosphorus Magnesium 2.4 H Total Bilirubin 0.5 AST 45 ALT 81 H Alkaline Phosphatase 78 Total Protein 6.2 L Albumin 3.0 L Globulin 3.2 Albumin/Globulin Ratio 0.9 L Procalcitonin Arterial Blood Potassium Venous Blood Potassium 3.0 L 11/07/16 17:41 WBC RBC Hgb Hct MCV MCH MCHC RDW Plt Count MPV Neut % (Auto) Lymph % (Auto) [place] % (Auto) Eos % (Auto) Baso % (Auto) Neut # Lymph # [place] # Eos # Baso # Neutrophils % (Manual) Band Neutrophils % Lymphocytes % (Manual) Reactive Lymphs % Monocytes % (Manual) Platelet Estimate Poikilocytosis (manual Anisocytosis (manual) Puncture Site pCO2 pO2 HCO3 ABG pH ABG Total CO2 ABG O2 Saturation ABG Base Excess ABG Hemoglobin ABG Carboxyhemoglobin POC ABG HHb (Measured) ABG Methemoglobin Timmy Test ABG Potassium VBG pH VBG pCO2 VBG HCO3 VBG Total CO2 VBG O2 Sat (Calc) VBG Base Excess VBG Potassium A-a O2 Difference Respiratory Index Hgb O2 Saturation Sodium Chloride Glucose Lactate Mechanical Rate FiO2 Tidal Volume PEEP Crit Value Called To Crit Value Called By Crit Value Read Back Blood Gas Notified Time Potassium Carbon Dioxide Anion Gap BUN Creatinine Est GFR ( Amer) Est GFR (Non-Af Amer) POC Glucose (mg/dL) 189 H Random Glucose Hemoglobin A1c Calcium Phosphorus Magnesium Total Bilirubin AST ALT Alkaline Phosphatase Total Protein Albumin Globulin Albumin/Globulin Ratio Procalcitonin Arterial Blood Potassium Venous Blood Potassium Assessment & Plan (1) Septic shock Status: Acute (2) CVA (cerebral vascular accident) Status: Acute
[2016-11-08] MEDS: (Novolin R) Insulin Human Regular 100 units/ml vial SC SCH ×4 (00:26→17:57)
[2016-11-08] MEDS: Piperacill/Tazo 2.25gm in Dex 2.25 GM/50 ML BAG IVPB SCH ×4 (00:32→19:11)
[2016-11-08] MEDS: Sodium Chloride 0.9% 1,000 ML IV SCH ×5 (03:00→23:56)
[2016-11-08 05:52] LABS: ABG ALLEN TEST POS; ABG MECHANICAL RATE 20; ATERIAL BLOOD GAS PEEP 5; DRAW SITE RR
[2016-11-08 05:58] LABS: BASO % 0.2 % (0.0-2.0); EOS # 0.1 K/uL (0.0-0.7); EOS % 0.4 % (0.0-4.0); HEMATOCRIT 30.4 % (35.0-51.0); LYMPH # 0.9 K/uL (1.0-4.3); LYMPH % 6.4 % (20.0-40.0); MEAN CELL VOLUME 80.6 fL (80.0-94.0); MEAN CORPUSCULAR HEMOGLOBIN 25.3 pg (27.0-31.0); MEAN CORPUSCULAR HGB CONC 31.4 g/dL (33.0-37.0); MEAN PLATELET VOLUME 9.2 fL (7.2-11.7); MONO # 0.5 K/uL (0.0-0.8); MONO % 3.9 % (0.0-10.0); PLATELET COUNT 96 K/uL (130-400); RED CELL DISTRIBUTION WIDTH 17.9 % (11.5-14.5); WHITE BLOOD COUNT 13.4 K/uL (4.8-10.8)
[2016-11-08 06:16] LABS: ALB/GLOB RATIO 0.9 (1.0-2.1); BILIRUBIN,TOTAL 0.7 mg/dL (0.2-1.3)
[2016-11-08 06:17] LABS: CALCIUM 7.8 mg/dl (8.6-10.4); MAGNESIUM 2.5 mg/dL (1.6-2.3); PHOSPHOROUS 2.1 mg/dL (2.5-4.5)
[2016-11-08 06:55] LABS: NEUTROPHIL 90 % (50-75); TOTAL CELLS COUNTED 100
[2016-11-08 06:56] LABS: GIANT PLATELETS PRESENT; LARGE PLATELETS PRESENT
[2016-11-08 08:09] LABS: INR 1.2
[2016-11-08] MEDS ORDERED: Sodium Phosphate 15 MMOLE in Sodium Chloride 0.9% 250 ML IVPB ONE (10:00)
--- NOTE | 2016-11-08 10:00 | CT ---
PROCEDURE: CT HEAD WITHOUT CONTRAST. HISTORY: follow up neuro status- do in am 11/08 COMPARISON: Comparison made with prior study 04/17/2017 TECHNIQUE: Axial computed tomography images were obtained through the head/brain without intravenous contrast. Radiation dose: Total exam DLP = 1402.73 mGy-cm. This CT exam was performed using one or more of the following dose reduction techniques: Automated exposure control, adjustment of the mA and/or kV according to patient size, and/or use of iterative reconstruction technique. FINDINGS: HEMORRHAGE: No definitive evidence of acute parenchymal, subarachnoid or extra-axial hemorrhage. BRAIN: Re- demonstrated is an apparent chronic infarct involving the right posterior temporal parietal and occipital lobes (right PHARMACY ASSISTANT territory. There also appears some involvement of the right posterior basal ganglia. Moderate significant diffuse - confluent chronic white matter ischemic changes extending peripherally into the deep and subcortical white matter both cerebral hemispheres. Additional scattered chronic bilateral basal nuclei lacunar type infarcts well. . Wallerian degeneration right cerebral peduncle. . Moderate generalized volume loss. Vascular calcifications. VENTRICLES: Ex vacuo dilatation of the right temporal and occipital horns. . Remainder of the right lateral ventricle exhibits less prominent ex vacuo dilatation CALVARIUM: No acute calvarial fractures. PARANASAL SINUSES: Unremarkable as visualized. No significant inflammatory changes. MASTOID AIR CELLS: Mild mucosal thickening seen within maxillary and ethmoid as well its sphenoid sinuses. OTHER FINDINGS: None. IMPRESSION: Old infarct changes right PHARMACY ASSISTANT territory as described. Moderate significant confluent white matter ischemic changes with scattered chronic bilateral basal nuclei lacunar type infarcts. Ex vacuo dilatation right temporal and right occipital horns as above. No obvious acute intracranial hemorrhage. Moderate generalized volume loss.
--- NOTE | 2016-11-08 10:57 | RAD ---
HISTORY: ET Tube evaluation COMPARISON: 11/07/2016 FINDINGS: LUNGS: The endotracheal tube tip is 2.5 cm from the li -similar-appearing. No clear left hemidiaphragm is noted left pleural effusion with without atelectasis and/or infiltrate here is possible. No change there is noted. Right hilar Mrs. last pronounced. Pulmonary venous congestion is bleed present and slightly less pronounced than before. There is currently less of a suggestion of a infiltrate around the right hilum. PLEURA: Probable left pleural effusion similar. No pneumothorax apparent. CARDIOVASCULAR: Mild cardiomegaly -unchanged the right internal jugular vein central catheter insertion with tip in the superior vena cava is as before OSSEOUS STRUCTURES: Thoracic spondylosis and right shoulder arthrosis VISUALIZED UPPER ABDOMEN: A feeding/G tube tube is faintly seen in the stomach OTHER FINDINGS: None. IMPRESSION: Since the prior exam the pulmonary venous congestion appears less. A residual small left pleural effusion with or without atelectasis/ infiltrate here is still suspect. Support lines as above
[2016-11-08] MEDS: Insulin Detemir 100 units/ml Vial (Levemir) SC SCH (11:00)
--- NOTE | 2016-11-08 11:20 | CP.CCUPN ---
<Malick Webster - Last Filed: 11/08/16 11:13> CCU Subjective - Physician Review Subjective (Free Text): 11/07/16 14:11 Patient seen and examined at bedside. No acute distress. No acute events overnight. Nursing staff reports no issues. Patient is intubated (FiO2 70; 20 bpm; 500 vte; 5 PEEP; 1L/min). Patient is minimally arousable and opens his eyes to stimulation following the removal of propofol sedation. However, the patient does not move his extremities. Today on rounds, a bedside EEG was ordered and tube feeds were started. The patient was receiving a bicard drip. The bicarb was discontinued following the completion of the liter infusion and transitioned to normal saline only. 11/08/16 11:13 Patient seen and examined at bedside. No acute distress. No acute events overnight. Nursing staff reports no issues. Patient is intubated PRVC. Patient is minimally arousable and opens his eyes to stimulation. Patient able to move head in response to yes/no questioning. Today on rounds, the patient's phosphorous was replaced and the FiO2 of his ventilator was decreased from 70% to 60%. Critical Care Time Spent (in minutes): 60 CCU Objective - Vital Signs / Intake & Output Vital Signs (Last 4 hours): Vital Signs Temp Pulse Resp BP Pulse Ox 11/08/16 11:00 83 18 160/72 H 99 11/08/16 10:00 84 19 118/82 98 11/08/16 09:00 82 18 104/47 L 99 11/08/16 08:00 98 F 80 20 108/45 L 99 Intake and Output (Last 8hrs): Intake & Output 11/07/16 11/08/16 11/08/16 22:59 06:59 14:59 Intake Total 1047.0 918.8 402.8 Output Total 255 510 150 Balance 792.0 408.8 252.8 Weight 115.666 kg Intake: IV 217 Intake, IV Amount 830.0 918.8 402.8 Right Distal Port 750 850 300 Right Distal Port 27.6 Internal Jugular Right Proximal Port 80.0 68.8 75.2 Internal Jugular Output: Urine 255 510 150 Urethral (Wick) 255 510 150 - Physical Exam Head: Positive for: Atraumatic, Normocephalic, Other (ET Tube in place) Pupils: Positive for: PERRL Extroacular Muscles: Positive for: EOMI Conjunctiva: Positive for: Normal Mouth: Positive for: Moist Mucous Membranes. Negative for: Drooling Nose (External): Positive for: Atraumatic Neck: Positive for: Normal Range of Motion. Negative for: JVD, Lymphadenopathy Respiratory/Chest: Positive for: Clear to Auscultation, Good Air Exchange, Decreased Breath Sounds. Negative for: Respiratory Distress, Accessory Muscle Use, Wheezes, Rales, Retracting, Rhonchi Cardiovascular: Positive for: Regular Rate and Rhythm, Murmurs, Normal S1, S2, Peripheal Pulses Present. Negative for: Irregular Rhythm, Tachycardic, Bradycardic Abdomen: Positive for: Normal Bowel Sounds. Negative for: Tenderness, Distention, Peritoneal Signs, Rebound, Guarding Back: Positive for: Normal Inspection Upper Extremity: Positive for: Normal Inspection. Negative for: Cyanosis, Edema Lower Extremity: Positive for: Normal Inspection. Negative for: Edema Skin: Positive for: Warm, Normal Color - Medications Active Medications: Active Medications Generic Name Dose Route Start Last Admin Trade Name Freq PRN Reason Stop Dose Admin Aspirin 81 mg 11/07/16 10:00 11/07/16 09:12 Aspirin Chewable PO 81 mg DAILY EMILY Administration Clopidogrel Bisulfate 75 mg 11/07/16 10:00 11/07/16 09:12 Plavix PO 75 mg DAILY EMILY Administration Heparin Sodium (Porcine) 5,000 units 11/07/16 06:00 11/08/16 05:39 Heparin SC 5,000 units Q8 EMILY Administration Norepinephrine Bitartrate 8 mg 258 mls @ 7.74 mls/hr 11/07/16 00:18 11/07/16 09:06 / Sodium Chloride IV 0 mcg/min .Q24H PRN 0 mls/hr TITRATE PER MD ORDER Titration Protocol 4 MCG/MIN Piperacillin Sod/Tazobactam Sod 2.25 gm in 50 mls @ 100 mls/hr 11/07/16 01:30 11/08/16 06:37 Zosyn 2.25 Gm Iv Premix IVPB 100 mls/hr Q6H EMILY Administration Vancomycin HCl 1 gm/ Sodium 250 mls @ 166.7 mls/hr 11/07/16 00:45 11/08/16 00 :31 Chloride IVPB 166.7 mls/hr Q24H EMILY Administration Dopamine HCl/Dextrose 400 mg in 250 mls @ 21.563 mls/hr 11/07/16 03:46 22:00 Dopamine 400mg/250ml D5w IV 2 mcg/kg/min .[id number] PRN 8.625 mls/hr TITRATE PER MD ORDER Titration Protocol 5 MCG/KG/MIN Propofol 1,000 mg in 100 mls @ 3.45 mls/hr 11/07/16 06:35 11/07/16 07:28 Diprivan IV 0 mcg/kg/min .Q24H PRN 0 mls/hr TITRATE PER MD ORDER Titration Protocol 5 MCG/KG/MIN Sodium Chloride 1,000 mls @ 100 mls/hr 11/07/16 17:45 11/08/16 06:38 Sodium Chloride 0.9% IV 100 mls/hr .Q10H EMILY Administration Sodium Phosphate 15 mmole/ 255 mls @ 42.5 mls/hr 11/08/16 10:00 Sodium Chloride IVPB 11/08/16 15:59 .Q6H ONE Insulin Detemir 20 unit 11/07/16 10:00 11/07/16 09:12 Levemir SC 20 unit DAILY EMILY Administration Insulin Human Regular 0 unit 11/07/16 06:00 11/08/16 05:39 Novolin R SC Not Given Q6 EMILY Protocol Levetiracetam 500 mg 11/07/16 10:00 11/07/16 17:54 Keppra PO 500 mg BID EMILY Administration Pantoprazole Sodium 40 mg 11/07/16 10:00 11/07/16 09:11 Protonix Inj IVP 40 mg DAILY EMILY Administration - Patient Studies Lab Studies: Microbiology Studies 11/07/16 01:49 MRSA Culture (Admit) - Final Nose MRSA NOT DETECTED Lab Studies 11/08/16 11/08/16 11/08/16 Range/Units 05:54 05:54 05:54 WBC 13.4 H D (4.8-10.8) K/uL RBC 3.77 L (4.40-5.90) Mil/uL Hgb 9.6 L (12.0-18.0) g/dL Hct 30.4 L (35.0-51.0) % MCV 80.6 D (80.0-94.0) fL MCH 25.3 L (27.0-31.0) pg MCHC 31.4 L (33.0-37.0) g/dL RDW 17.9 H (11.5-14.5) % Plt Count 96 L D (130-400) K/uL MPV 9.2 (7.2-11.7) fL Neut % (Auto) 89.1 H (50.0-75.0) % Lymph % (Auto) 6.4 L (20.0-40.0) % [place] % (Auto) 3.9 (0.0-10.0) % Eos % (Auto) 0.4 (0.0-4.0) % Baso % (Auto) 0.2 (0.0-2.0) % Neut # 12.0 H (1.8-7.0) K/uL Lymph # 0.9 L (1.0-4.3) K/uL [place] # 0.5 (0.0-0.8) K/uL Eos # 0.1 (0.0-0.7) K/uL Baso # 0.0 (0.0-0.2) K/uL Neutrophils % (Manual) 90 H (50-75) % Lymphocytes % (Manual) 6 L (20-40) % Monocytes % (Manual) 4 (0-10) % Toxic Granulation Present Platelet Estimate Decreased L (NORMAL) Large Platelets Present Giant Platelets Present Anisocytosis (manual) Slight Microcytosis (manual) Slight PT 13.2 H (9.7-12.2) SECONDS INR 1.2 APTT 39 H D (21-34) SECONDS Puncture Site pCO2 (35-45) mm/Hg pO2 (80-100) mm/Hg HCO3 (21-28) mmol/L ABG pH (7.35-7.45) ABG Total CO2 (22-28) mmol/L ABG O2 Saturation (95-98) % ABG Base Excess (-2.0-3.0) mmol/L Timmy Test ABG Potassium (3.6-5.2) mmol/L A-a O2 Difference mm/Hg Respiratory Index Sodium 145 (132-148) mmol/l Chloride 113 H (98-107) mmol/L Glucose (75-110) mg/dl Lactate (0.7-2.1) mmol/L Mechanical Rate FiO2 % Tidal Volume PEEP Potassium 4.0 (3.6-5.2) mmol/L Carbon Dioxide 23 (22-30) mmol/L Anion Gap 13 (10-20) BUN 52 H (9-20) mg/dL Creatinine 2.1 H (0.8-1.5) MG/DL Est GFR ( Amer) 37 Est GFR (Non-Af Amer) 31 POC Glucose (mg/dL) (65-110) mg/dL Random Glucose 84 (75-110) mg/dL Calcium 7.8 L (8.6-10.4) mg/dl Phosphorus 2.1 L (2.5-4.5) mg/dL Magnesium 2.5 H (1.6-2.3) mg/dL Total Bilirubin 0.7 (0.2-1.3) mg/dL AST 32 (17-59) U/L ALT 61 (21-72) U/L Alkaline Phosphatase 73 (38-126) U/L Total Protein 6.0 L (6.3-8.3) g/dL Albumin 2.8 L (3.5-5.0) g/dL Globulin 3.2 (2.2-3.9) gm/dL Albumin/Globulin Ratio 0.9 L (1.0-2.1) Procalcitonin (0.19-0.49) NG/ML Arterial Blood Potassium (3.6-5.2) mmol/L 11/08/16 11/08/16 11/07/16 Range/Units 05:35 05:17 23:49 WBC (4.8-10.8) K/uL RBC (4.40-5.90) Mil/uL Hgb (12.0-18.0) g/dL Hct (35.0-51.0) % MCV (80.0-94.0) fL MCH (27.0-31.0) pg MCHC (33.0-37.0) g/dL RDW (11.5-14.5) % Plt Count (130-400) K/uL MPV (7.2-11.7) fL Neut % (Auto) (50.0-75.0) % Lymph % (Auto) (20.0-40.0) % [place] % (Auto) (0.0-10.0) % Eos % (Auto) (0.0-4.0) % Baso % (Auto) (0.0-2.0) % Neut # (1.8-7.0) K/uL Lymph # (1.0-4.3) K/uL [place] # (0.0-0.8) K/uL Eos # (0.0-0.7) K/uL Baso # (0.0-0.2) K/uL Neutrophils % (Manual) (50-75) % Lymphocytes % (Manual) (20-40) % Monocytes % (Manual) (0-10) % Toxic Granulation Platelet Estimate (NORMAL) Large Platelets Giant Platelets Anisocytosis (manual) Microcytosis (manual) PT (9.7-12.2) SECONDS INR APTT (21-34) SECONDS Puncture Site Rr pCO2 33 L (35-45) mm/Hg pO2 117 H (80-100) mm/Hg HCO3 25.7 (21-28) mmol/L ABG pH 7.47 H (7.35-7.45) ABG Total CO2 25.0 (22-28) mmol/L ABG O2 Saturation 99.0 H (95-98) % ABG Base Excess 0.9 (-2.0-3.0) mmol/L Timmy Test Pos ABG Potassium 4.1 (3.6-5.2) mmol/L A-a O2 Difference 341.0 mm/Hg Respiratory Index 2.9 Sodium 147.0 (132-148) mmol/l Chloride 117.0 H (98-107) mmol/L Glucose 84 (75-110) mg/dl Lactate 1.2 (0.7-2.1) mmol/L Mechanical Rate 20 FiO2 70.0 % Tidal Volume 500 PEEP 5 Potassium (3.6-5.2) mmol/L Carbon Dioxide (22-30) mmol/L Anion Gap (10-20) BUN (9-20) mg/dL Creatinine (0.8-1.5) MG/DL Est GFR ( Amer) Est GFR (Non-Af Amer) POC Glucose (mg/dL) 90 112 H (65-110) mg/dL Random Glucose (75-110) mg/dL Calcium (8.6-10.4) mg/dl Phosphorus (2.5-4.5) mg/dL Magnesium (1.6-2.3) mg/dL Total Bilirubin (0.2-1.3) mg/dL AST (17-59) U/L ALT (21-72) U/L Alkaline Phosphatase (38-126) U/L Total Protein (6.3-8.3) g/dL Albumin (3.5-5.0) g/dL Globulin (2.2-3.9) gm/dL Albumin/Globulin Ratio (1.0-2.1) Procalcitonin (0.19-0.49) NG/ML Arterial Blood Potassium 4.1 (3.6-5.2) mmol/L 11/07/16 11/07/16 11/07/16 Range/Units 17:41 11:32 02:20 WBC (4.8-10.8) K/uL RBC (4.40-5.90) Mil/uL Hgb (12.0-18.0) g/dL Hct (35.0-51.0) % MCV (80.0-94.0) fL MCH (27.0-31.0) pg MCHC (33.0-37.0) g/dL RDW (11.5-14.5) % Plt Count (130-400) K/uL MPV (7.2-11.7) fL Neut % (Auto) (50.0-75.0) % Lymph % (Auto) (20.0-40.0) % [place] % (Auto) (0.0-10.0) % Eos % (Auto) (0.0-4.0) % Baso % (Auto) (0.0-2.0) % Neut # (1.8-7.0) K/uL Lymph # (1.0-4.3) K/uL [place] # (0.0-0.8) K/uL Eos # (0.0-0.7) K/uL Baso # (0.0-0.2) K/uL Neutrophils % (Manual) (50-75) % Lymphocytes % (Manual) (20-40) % Monocytes % (Manual) (0-10) % Toxic Granulation Platelet Estimate (NORMAL) Large Platelets Giant Platelets Anisocytosis (manual) Microcytosis (manual) PT (9.7-12.2) SECONDS INR APTT (21-34) SECONDS Puncture Site pCO2 (35-45) mm/Hg pO2 (80-100) mm/Hg HCO3 (21-28) mmol/L ABG pH (7.35-7.45) ABG Total CO2 (22-28) mmol/L ABG O2 Saturation (95-98) % ABG Base Excess (-2.0-3.0) mmol/L Timmy Test ABG Potassium (3.6-5.2) mmol/L A-a O2 Difference mm/Hg Respiratory Index Sodium (132-148) mmol/l Chloride (98-107) mmol/L Glucose (75-110) mg/dl Lactate (0.7-2.1) mmol/L Mechanical Rate FiO2 % Tidal Volume PEEP Potassium (3.6-5.2) mmol/L Carbon Dioxide (22-30) mmol/L Anion Gap (10-20) BUN (9-20) mg/dL Creatinine (0.8-1.5) MG/DL Est GFR ( Amer) Est GFR (Non-Af Amer) POC Glucose (mg/dL) 189 H 345 H (65-110) mg/dL Random Glucose (75-110) mg/dL Calcium (8.6-10.4) mg/dl Phosphorus (2.5-4.5) mg/dL Magnesium (1.6-2.3) mg/dL Total Bilirubin (0.2-1.3) mg/dL AST (17-59) U/L ALT (21-72) U/L Alkaline Phosphatase (38-126) U/L Total Protein (6.3-8.3) g/dL Albumin (3.5-5.0) g/dL Globulin (2.2-3.9) gm/dL Albumin/Globulin Ratio (1.0-2.1) Procalcitonin < 0.05 L (0.19-0.49) NG/ML Arterial Blood Potassium (3.6-5.2) mmol/L Laboratory Results - last 24 hr 11/07/16 11/07/16 11/07/16 02:20 11:32 17:41 WBC RBC Hgb Hct MCV MCH MCHC RDW Plt Count MPV Neut % (Auto) Lymph % (Auto) [place] % (Auto) Eos % (Auto) Baso % (Auto) Neut # Lymph # [place] # Eos # Baso # Neutrophils % (Manual) Lymphocytes % (Manual) Monocytes % (Manual) Toxic Granulation Platelet Estimate Large Platelets Giant Platelets Anisocytosis (manual) Microcytosis (manual) PT INR APTT Puncture Site pCO2 pO2 HCO3 ABG pH ABG Total CO2 ABG O2 Saturation ABG Base Excess Timmy Test ABG Potassium A-a O2 Difference Respiratory Index Sodium Chloride Glucose Lactate Mechanical Rate FiO2 Tidal Volume PEEP Potassium Carbon Dioxide Anion Gap BUN Creatinine Est GFR ( Amer) Est GFR (Non-Af Amer) POC Glucose (mg/dL) 345 H 189 H Random Glucose Calcium Phosphorus Magnesium Total Bilirubin AST ALT Alkaline Phosphatase Total Protein Albumin Globulin Albumin/Globulin Ratio Procalcitonin < 0.05 L Arterial Blood Potassium 11/07/16 11/08/16 11/08/16 23:49 05:17 05:35 WBC RBC Hgb Hct MCV MCH MCHC RDW Plt Count MPV Neut % (Auto) Lymph % (Auto) [place] % (Auto) Eos % (Auto) Baso % (Auto) Neut # Lymph # [place] # Eos # Baso # Neutrophils % (Manual) Lymphocytes % (Manual) Monocytes % (Manual) Toxic Granulation Platelet Estimate Large Platelets Giant Platelets Anisocytosis (manual) Microcytosis (manual) PT INR APTT Puncture Site Rr pCO2 33 L pO2 117 H HCO3 25.7 ABG pH 7.47 H ABG Total CO2 25.0 ABG O2 Saturation 99.0 H ABG Base Excess 0.9 Timmy Test Pos ABG Potassium 4.1 A-a O2 Difference 341.0 Respiratory Index 2.9 Sodium 147.0 Chloride 117.0 H Glucose 84 Lactate 1.2 Mechanical Rate 20 FiO2 70.0 Tidal Volume 500 PEEP 5 Potassium Carbon Dioxide Anion Gap BUN Creatinine Est GFR ( Amer) Est GFR (Non-Af Amer) POC Glucose (mg/dL) 112 H 90 Random Glucose Calcium Phosphorus Magnesium Total Bilirubin AST ALT Alkaline Phosphatase Total Protein Albumin Globulin Albumin/Globulin Ratio Procalcitonin Arterial Blood Potassium 4.1 11/08/16 11/08/16 11/08/16 05:54 05:54 05:54 WBC 13.4 H D RBC 3.77 L Hgb 9.6 L Hct 30.4 L MCV 80.6 D MCH 25.3 L MCHC 31.4 L RDW 17.9 H Plt Count 96 L D MPV 9.2 Neut % (Auto) 89.1 H Lymph % (Auto) 6.4 L [place] % (Auto) 3.9 Eos % (Auto) 0.4 Baso % (Auto) 0.2 Neut # 12.0 H Lymph # 0.9 L [place] # 0.5 Eos # 0.1 Baso # 0.0 Neutrophils % (Manual) 90 H Lymphocytes % (Manual) 6 L Monocytes % (Manual) 4 Toxic Granulation Present Platelet Estimate Decreased L Large Platelets Present Giant Platelets Present Anisocytosis (manual) Slight Microcytosis (manual) Slight PT 13.2 H INR 1.2 APTT 39 H D Puncture Site pCO2 pO2 HCO3 ABG pH ABG Total CO2 ABG O2 Saturation ABG Base Excess Timmy Test ABG Potassium A-a O2 Difference Respiratory Index Sodium 145 Chloride 113 H Glucose Lactate Mechanical Rate FiO2 Tidal Volume PEEP Potassium 4.0 Carbon Dioxide 23 Anion Gap 13 BUN 52 H Creatinine 2.1 H Est GFR ( Amer) 37 Est GFR (Non-Af Amer) 31 POC Glucose (mg/dL) Random Glucose 84 Calcium 7.8 L Phosphorus 2.1 L Magnesium 2.5 H Total Bilirubin 0.7 AST 32 ALT 61 Alkaline Phosphatase 73 Total Protein 6.0 L Albumin 2.8 L Globulin 3.2 Albumin/Globulin Ratio 0.9 L Procalcitonin Arterial Blood Potassium Review of Systems - Review of Systems Systems not reviewed;Unavailable: Intubated Critical Care Progress Note - Ventilator Checklist Head of Bed 30 Degrees: Yes PUD Prophalyxis: Yes DVT Prophylaxis: Yes - Vent Settings MODE:: PRVC TIDAL VOLUME:: 500 RESP RATE:: 20 FIO2:: 60 PEEP:: 5 - Extremities/Vascular Does the Patient have a Central Venous Catheter?: Yes Insertion Site: Internal Jugular Vein (right) Does the Patient need a Central Venous Catheter?: Yes Does the Patient have a Wick Catheter?: Yes Does the Patient need a Wick Catheter?: Yes Catheter Insertion Criteria: Patient requires prolonged immobilization - Prophylaxis GI Prophylaxis GI: PPI - Prophylaxis DVT Prophylaxis DVT: Heparin SQ Assessment/Plan (1) Sepsis Current Visit: Yes Status: Acute (2) CAD (coronary artery disease) Current Visit: Yes Status: Chronic (3) Insulin dependent diabetes mellitus Current Visit: Yes Status: Acute (4) Hypothermia Current Visit: Yes Status: Acute (5) CVA (cerebral vascular accident) Current Visit: No Status: Acute (6) Seizure Current Visit: No Status: Acute (7) LASHON (acute kidney injury) Current Visit: Yes Status: Acute - Assessment and Plan (Free Text) Plan: Patient status: -Intubated; off sedation -right IJ TLC in place Neuro: -Neurology Consult (Dr. Natalia Powers) -AMS; non-verbal at baseline --> patient opens his eyes -Keppra 500mg PO BID -11/07/16 EEG- abnormal. severe bilateral slowing. no evidence of epileptiform activity. severe b/l cerebral dysfunction. -hx of multiple prior CVAs with left hemiparesis -Imaging: -11/08/16 CT Head: Old infarct changes right [employer] territory as described. Moderate significant confluent white matter ischemic changes with scattered chronic bilateral basal nuclei lacunar type infarcts. Ex vacuo dilatation right temporal and right occipital horns as above. No obvious acute intracranial hemorrhage. Moderate generalized volume loss. -11/06/16 CT head: 1. Nonspecific white matter changes. Acute infarction may be CT occult within first 24 hours. If a focal deficit persists, consider followup CT or MRI for further evaluation. Cardiovascular: -Hypotension; bradycardia -Dopamine drip 2mcg/kg/min -Levophed- off -monitor BP/MAP closely -Hypothermia-resolving (87.2 degrees on admission) -hx of CAD s/p 2 PCIs with stenting -Clopidogrel 75mg PO daily -hx of NSTEMI -ASA 81mg PO daily -11/07/16 ECHO: LVEF 35-40% (pending final reading). As per cardiology, this is an improvement from prior evaluation of EF (30%) during PCI a few years ago -11/06/16 ECG: Sinus bradycardia with 1st degree AV block with occasional premature PVCs; junctional ST depression; HR 45 bpm Pulmonary: -Respiratory acidosis on ABG- Resolved -PRVC (500/20/60%/5) -Possible pneumonia likely 2/2 to aspiration from ventilator support -Zosyn 2.25 gm IV -Vancomycin 1gm -Imaging: - 11/08/16 CXR: Since the prior exam the pulmonary venous congestion appears less. A residual small left pleural effusion with or without atelectasis/ infiltrate here is still suspect. -11/07/16 CXR: Endotracheal tube extending into the mid thoracic trachea. NG tube extending into the stomach. Right central venous catheter extending to the SVC. Diffuse confluent bilateral consolidative changes throughout both lungs with a suggestion of a small left pleural effusion. Right hilar consolidation. Cardiomegaly. -11/06/16 CXR: Diffuse prominent increased interstitial lung markings suggestive for moderate venous congestion versus interstitial infiltrate. Confluent airspace opacification at the left lung base which may represent effusion versus atelectasis and or infiltrate. Right infrahilar consolidative changes. -ABG: :11/08/16- CO2 33 / O2 117 / HCO3 25.7 / pH 7.47 :11/07/16- CO2 55 / O2 73 / HCO3 17.8 / pH 7.16 :11/07/16- CO2 64 / O2 176 / HCO3 22.8 / pH 7.22 Gastrointestinal: -No acute issues. Hematology: -Normocytic anemia Endocrine: -Levemir 20 units SC daily -Insulin regular sliding scale Renal: -LASHON- IVF -Hypophosphatemia- replaced with 15mmol IV Musculoskeletal: -Left hemiparesis 2/2 to hx of multiple CVAs -PT/OT consult Genitourinary: -wick catheter -11/06/16 UA: negative Infectious disease: -No acute issues. -elevated lactic acid likely 2/2 to seizures vs hyperkalemia + succinylcholine for intubation vs sepsis (likely urosepsis) -repeat VBG shock panel negative lactate -Zosyn 2.25g IV q6- day 2 -Vancomycin 1g IV daily- day 2 GI prophylaxis: Protonix 40mg IVP daily DVT prophylaxis: Heparin 5000 units SC Q8; SCDs Case discussed with Dr. Shaheen Webster PGY1 - Date & Time Date: 11/08/16 Time: 11:22 <Wes Jamison - Last Filed: 11/08/16 19:00> CCU Subjective - Physician Review Critical Care Time Spent (in minutes): 40 CCU Objective - Vital Signs / Intake & Output Vital Signs (Last 4 hours): Vital Signs Temp Pulse Resp BP Pulse Ox 11/08/16 18:00 89 23 130/70 99 11/08/16 17:43 20 140/70 100 11/08/16 17:00 91 H 24 160/74 H 100 11/08/16 16:00 96.6 F L 89 24 160/81 H 99 11/08/16 15:00 88 23 81/50 L 98 Intake and Output (Last 8hrs): Intake & Output 11/08/16 11/08/16 11/08/16 06:59 14:59 22:59 Intake Total 918.8 903.5 797.9 Output Total 510 545 960 Balance 408.8 358.5 -162.1 Weight 255 lb Intake: IV 5 340 Intake, IV Amount 918.8 818.5 457.9 Right Distal Port 850 650.0 350 Right Distal Port 48.3 27.6 Internal Jugular Right Proximal Port 68.8 120.2 80.3 Internal Jugular Tube Feeding 80 0 Output: Urine 510 545 960 Urethral (Wick) 510 545 960 - Medications Active Medications: Active Medications Generic Name Dose Route Start Last Admin Trade Name Freq PRN Reason Stop Dose Admin Aspirin 81 mg 11/07/16 10:00 11/08/16 11:00 Aspirin Chewable PO 81 mg DAILY EMILY Administration Clopidogrel Bisulfate 75 mg 11/07/16 10:00 11/08/16 11:00 Plavix PO 75 mg DAILY EMILY Administration Heparin Sodium (Porcine) 5,000 units 11/07/16 06:00 11/08/16 15:00 Heparin SC 5,000 units Q8 EMILY Administration Norepinephrine Bitartrate 8 mg 258 mls @ 7.74 mls/hr 11/07/16 00:18 11/07/16 09:06 / Sodium Chloride IV 0 mcg/min .Q24H PRN 0 mls/hr TITRATE PER MD ORDER Titration Protocol 4 MCG/MIN Piperacillin Sod/Tazobactam Sod 2.25 gm in 50 mls @ 100 mls/hr 11/07/16 01:30 11/08/16 13:30 Zosyn 2.25 Gm Iv Premix IVPB 100 mls/hr Q6H EMILY Administration Vancomycin HCl 1 gm/ Sodium 250 mls @ 166.7 mls/hr 11/07/16 00:45 11/08/16 00 :31 Chloride IVPB 166.7 mls/hr Q24H EMILY Administration Dopamine HCl/Dextrose 400 mg in 250 mls @ 21.563 mls/hr 11/07/16 03:46 17:43 Dopamine 400mg/250ml D5w IV 3 mcg/kg/min .[id number] PRN 12.938 mls/hr TITRATE PER MD ORDER Administration Protocol 5 MCG/KG/MIN Propofol 1,000 mg in 100 mls @ 3.45 mls/hr 11/07/16 06:35 11/08/16 17:46 Diprivan IV 10 mcg/kg/min .Q24H PRN 6.9 mls/hr TITRATE PER MD ORDER Administration Protocol 5 MCG/KG/MIN Sodium Chloride 1,000 mls @ 100 mls/hr 11/07/16 17:45 11/08/16 06:38 Sodium Chloride 0.9% IV 100 mls/hr .Q10H EMILY Administration Insulin Detemir 20 unit 11/07/16 10:00 11/08/16 11:00 Levemir SC 20 unit DAILY EMILY Administration Insulin Human Regular 0 unit 11/07/16 06:00 11/08/16 17:57 Novolin R SC Not Given Q6 EMILY Protocol Levetiracetam 500 mg 11/07/16 10:00 11/08/16 17:49 Keppra PO 500 mg BID EMILY Administration Pantoprazole Sodium 40 mg 11/07/16 10:00 11/08/16 11:00 Protonix Inj IVP 40 mg DAILY EMILY Administration - Patient Studies Lab Studies: Microbiology Studies 11/07/16 01:49 MRSA Culture (Admit) - Final Nose MRSA NOT DETECTED Lab Studies 11/08/16 11/08/16 11/08/16 Range/Units 17:57 11:50 05:54 WBC (4.8-10.8) K/uL RBC (4.40-5.90) Mil/uL Hgb (12.0-18.0) g/dL Hct (35.0-51.0) % MCV (80.0-94.0) fL MCH (27.0-31.0) pg MCHC (33.0-37.0) g/dL RDW (11.5-14.5) % Plt Count (130-400) K/uL MPV (7.2-11.7) fL Neut % (Auto) (50.0-75.0) % Lymph % (Auto) (20.0-40.0) % [place] % (Auto) (0.0-10.0) % Eos % (Auto) (0.0-4.0) % Baso % (Auto) (0.0-2.0) % Neut # (1.8-7.0) K/uL Lymph # (1.0-4.3) K/uL [place] # (0.0-0.8) K/uL Eos # (0.0-0.7) K/uL Baso # (0.0-0.2) K/uL Neutrophils % (Manual) (50-75) % Lymphocytes % (Manual) (20-40) % Monocytes % (Manual) (0-10) % Toxic Granulation Platelet Estimate (NORMAL) Large Platelets Giant Platelets Anisocytosis (manual) Microcytosis (manual) PT (9.7-12.2) SECONDS INR APTT (21-34) SECONDS Puncture Site pCO2 (35-45) mm/Hg pO2 (80-100) mm/Hg HCO3 (21-28) mmol/L ABG pH (7.35-7.45) ABG Total CO2 (22-28) mmol/L ABG O2 Saturation (95-98) % ABG Base Excess (-2.0-3.0) mmol/L Timmy Test ABG Potassium (3.6-5.2) mmol/L A-a O2 Difference mm/Hg Respiratory Index Sodium 145 (132-148) mmol/l Chloride 113 H (98-107) mmol/L Glucose (75-110) mg/dl Lactate (0.7-2.1) mmol/L Mechanical Rate FiO2 % Tidal Volume PEEP Potassium 4.0 (3.6-5.2) mmol/L Carbon Dioxide 23 (22-30) mmol/L Anion Gap 13 (10-20) BUN 52 H (9-20) mg/dL Creatinine 2.1 H (0.8-1.5) MG/DL Est GFR ( Amer) 37 Est GFR (Non-Af Amer) 31 POC Glucose (mg/dL) 107 72 (65-110) mg/dL Random Glucose 84 (75-110) mg/dL Calcium 7.8 L (8.6-10.4) mg/dl Phosphorus 2.1 L (2.5-4.5) mg/dL Magnesium 2.5 H (1.6-2.3) mg/dL Total Bilirubin 0.7 (0.2-1.3) mg/dL AST 32 (17-59) U/L ALT 61 (21-72) U/L Alkaline Phosphatase 73 (38-126) U/L Total Protein 6.0 L (6.3-8.3) g/dL Albumin 2.8 L (3.5-5.0) g/dL Globulin 3.2 (2.2-3.9) gm/dL Albumin/Globulin Ratio 0.9 L (1.0-2.1) Arterial Blood Potassium (3.6-5.2) mmol/L 11/08/16 11/08/16 11/08/16 Range/Units 05:54 05:54 05:35 WBC 13.4 H D (4.8-10.8) K/uL RBC 3.77 L (4.40-5.90) Mil/uL Hgb 9.6 L (12.0-18.0) g/dL Hct 30.4 L (35.0-51.0) % MCV 80.6 D (80.0-94.0) fL MCH 25.3 L (27.0-31.0) pg MCHC 31.4 L (33.0-37.0) g/dL RDW 17.9 H (11.5-14.5) % Plt Count 96 L D (130-400) K/uL MPV 9.2 (7.2-11.7) fL Neut % (Auto) 89.1 H (50.0-75.0) % Lymph % (Auto) 6.4 L (20.0-40.0) % [place] % (Auto) 3.9 (0.0-10.0) % Eos % (Auto) 0.4 (0.0-4.0) % Baso % (Auto) 0.2 (0.0-2.0) % Neut # 12.0 H (1.8-7.0) K/uL Lymph # 0.9 L (1.0-4.3) K/uL [place] # 0.5 (0.0-0.8) K/uL Eos # 0.1 (0.0-0.7) K/uL Baso # 0.0 (0.0-0.2) K/uL Neutrophils % (Manual) 90 H (50-75) % Lymphocytes % (Manual) 6 L (20-40) % Monocytes % (Manual) 4 (0-10) % Toxic Granulation Present Platelet Estimate Decreased L (NORMAL) Large Platelets Present Giant Platelets Present Anisocytosis (manual) Slight Microcytosis (manual) Slight PT 13.2 H (9.7-12.2) SECONDS INR 1.2 APTT 39 H D (21-34) SECONDS Puncture Site pCO2 (35-45) mm/Hg pO2 (80-100) mm/Hg HCO3 (21-28) mmol/L ABG pH (7.35-7.45) ABG Total CO2 (22-28) mmol/L ABG O2 Saturation (95-98) % ABG Base Excess (-2.0-3.0) mmol/L Timmy Test ABG Potassium (3.6-5.2) mmol/L A-a O2 Difference mm/Hg Respiratory Index Sodium (132-148) mmol/l Chloride (98-107) mmol/L Glucose (75-110) mg/dl Lactate (0.7-2.1) mmol/L Mechanical Rate FiO2 % Tidal Volume PEEP Potassium (3.6-5.2) mmol/L Carbon Dioxide (22-30) mmol/L Anion Gap (10-20) BUN (9-20) mg/dL Creatinine (0.8-1.5) MG/DL Est GFR ( Amer) Est GFR (Non-Af Amer) POC Glucose (mg/dL) 90 (65-110) mg/dL Random Glucose (75-110) mg/dL Calcium (8.6-10.4) mg/dl Phosphorus (2.5-4.5) mg/dL Magnesium (1.6-2.3) mg/dL Total Bilirubin (0.2-1.3) mg/dL AST (17-59) U/L ALT (21-72) U/L Alkaline Phosphatase (38-126) U/L Total Protein (6.3-8.3) g/dL Albumin (3.5-5.0) g/dL Globulin (2.2-3.9) gm/dL Albumin/Globulin Ratio (1.0-2.1) Arterial Blood Potassium (3.6-5.2) mmol/L 11/08/16 11/07/16 Range/Units 05:17 23:49 WBC (4.8-10.8) K/uL RBC (4.40-5.90) Mil/uL Hgb (12.0-18.0) g/dL Hct (35.0-51.0) % MCV (80.0-94.0) fL MCH (27.0-31.0) pg MCHC (33.0-37.0) g/dL RDW (11.5-14.5) % Plt Count (130-400) K/uL MPV (7.2-11.7) fL Neut % (Auto) (50.0-75.0) % Lymph % (Auto) (20.0-40.0) % [place] % (Auto) (0.0-10.0) % Eos % (Auto) (0.0-4.0) % Baso % (Auto) (0.0-2.0) % Neut # (1.8-7.0) K/uL Lymph # (1.0-4.3) K/uL [place] # (0.0-0.8) K/uL Eos # (0.0-0.7) K/uL Baso # (0.0-0.2) K/uL Neutrophils % (Manual) (50-75) % Lymphocytes % (Manual) (20-40) % Monocytes % (Manual) (0-10) % Toxic Granulation Platelet Estimate (NORMAL) Large Platelets Giant Platelets Anisocytosis (manual) Microcytosis (manual) PT (9.7-12.2) SECONDS INR APTT (21-34) SECONDS Puncture Site Rr pCO2 33 L (35-45) mm/Hg pO2 117 H (80-100) mm/Hg HCO3 25.7 (21-28) mmol/L ABG pH 7.47 H (7.35-7.45) ABG Total CO2 25.0 (22-28) mmol/L ABG O2 Saturation 99.0 H (95-98) % ABG Base Excess 0.9 (-2.0-3.0) mmol/L Timmy Test Pos ABG Potassium 4.1 (3.6-5.2) mmol/L A-a O2 Difference 341.0 mm/Hg Respiratory Index 2.9 Sodium 147.0 (132-148) mmol/l Chloride 117.0 H (98-107) mmol/L Glucose 84 (75-110) mg/dl Lactate 1.2 (0.7-2.1) mmol/L Mechanical Rate 20 FiO2 70.0 % Tidal Volume 500 PEEP 5 Potassium (3.6-5.2) mmol/L Carbon Dioxide (22-30) mmol/L Anion Gap (10-20) BUN (9-20) mg/dL Creatinine (0.8-1.5) MG/DL Est GFR ( Amer) Est GFR (Non-Af Amer) POC Glucose (mg/dL) 112 H (65-110) mg/dL Random Glucose (75-110) mg/dL Calcium (8.6-10.4) mg/dl Phosphorus (2.5-4.5) mg/dL Magnesium (1.6-2.3) mg/dL Total Bilirubin (0.2-1.3) mg/dL AST (17-59) U/L ALT (21-72) U/L Alkaline Phosphatase (38-126) U/L Total Protein (6.3-8.3) g/dL Albumin (3.5-5.0) g/dL Globulin (2.2-3.9) gm/dL Albumin/Globulin Ratio (1.0-2.1) Arterial Blood Potassium 4.1 (3.6-5.2) mmol/L Laboratory Results - last 24 hr 11/07/16 11/08/16 11/08/16 23:49 05:17 05:35 WBC RBC Hgb Hct MCV MCH MCHC RDW Plt Count MPV Neut % (Auto) Lymph % (Auto) [place] % (Auto) Eos % (Auto) Baso % (Auto) Neut # Lymph # [place] # Eos # Baso # Neutrophils % (Manual) Lymphocytes % (Manual) Monocytes % (Manual) Toxic Granulation Platelet Estimate Large Platelets Giant Platelets Anisocytosis (manual) Microcytosis (manual) PT INR APTT Puncture Site Rr pCO2 33 L pO2 117 H HCO3 25.7 ABG pH 7.47 H ABG Total CO2 25.0 ABG O2 Saturation 99.0 H ABG Base Excess 0.9 Timmy Test Pos ABG Potassium 4.1 A-a O2 Difference 341.0 Respiratory Index 2.9 Sodium 147.0 Chloride 117.0 H Glucose 84 Lactate 1.2 Mechanical Rate 20 FiO2 70.0 Tidal Volume 500 PEEP 5 Potassium Carbon Dioxide Anion Gap BUN Creatinine Est GFR ( Amer) Est GFR (Non-Af Amer) POC Glucose (mg/dL) 112 H 90 Random Glucose Calcium Phosphorus Magnesium Total Bilirubin AST ALT Alkaline Phosphatase Total Protein Albumin Globulin Albumin/Globulin Ratio Arterial Blood Potassium 4.1 11/08/16 11/08/16 11/08/16 05:54 05:54 05:54 WBC 13.4 H D RBC 3.77 L Hgb 9.6 L Hct 30.4 L MCV 80.6 D MCH 25.3 L MCHC 31.4 L RDW 17.9 H Plt Count 96 L D MPV 9.2 Neut % (Auto) 89.1 H Lymph % (Auto) 6.4 L [place] % (Auto) 3.9 Eos % (Auto) 0.4 Baso % (Auto) 0.2 Neut # 12.0 H Lymph # 0.9 L [place] # 0.5 Eos # 0.1 Baso # 0.0 Neutrophils % (Manual) 90 H Lymphocytes % (Manual) 6 L Monocytes % (Manual) 4 Toxic Granulation Present Platelet Estimate Decreased L Large Platelets Present Giant Platelets Present Anisocytosis (manual) Slight Microcytosis (manual) Slight PT 13.2 H INR 1.2 APTT 39 H D Puncture Site pCO2 pO2 HCO3 ABG pH ABG Total CO2 ABG O2 Saturation ABG Base Excess Timmy Test ABG Potassium A-a O2 Difference Respiratory Index Sodium 145 Chloride 113 H Glucose Lactate Mechanical Rate FiO2 Tidal Volume PEEP Potassium 4.0 Carbon Dioxide 23 Anion Gap 13 BUN 52 H Creatinine 2.1 H Est GFR ( Amer) 37 Est GFR (Non-Af Amer) 31 POC Glucose (mg/dL) Random Glucose 84 Calcium 7.8 L Phosphorus 2.1 L Magnesium 2.5 H Total Bilirubin 0.7 AST 32 ALT 61 Alkaline Phosphatase 73 Total Protein 6.0 L Albumin 2.8 L Globulin 3.2 Albumin/Globulin Ratio 0.9 L Arterial Blood Potassium 11/08/16 11/08/16 11:50 17:57 WBC RBC Hgb Hct MCV MCH MCHC RDW Plt Count MPV Neut % (Auto) Lymph % (Auto) [place] % (Auto) Eos % (Auto) Baso % (Auto) Neut # Lymph # [place] # Eos # Baso # Neutrophils % (Manual) Lymphocytes % (Manual) Monocytes % (Manual) Toxic Granulation Platelet Estimate Large Platelets Giant Platelets Anisocytosis (manual) Microcytosis (manual) PT INR APTT Puncture Site pCO2 pO2 HCO3 ABG pH ABG Total CO2 ABG O2 Saturation ABG Base Excess Timmy Test ABG Potassium A-a O2 Difference Respiratory Index Sodium Chloride Glucose Lactate Mechanical Rate FiO2 Tidal Volume PEEP Potassium Carbon Dioxide Anion Gap BUN Creatinine Est GFR ( Amer) Est GFR (Non-Af Amer) POC Glucose (mg/dL) 72 107 Random Glucose Calcium Phosphorus Magnesium Total Bilirubin AST ALT Alkaline Phosphatase Total Protein Albumin Globulin Albumin/Globulin Ratio Arterial Blood Potassium Attending/Attestation - Attestation I have personally seen and examined this patient.: Yes I have fully participated in the care of the patient.: Yes I have reviewed all pertinent clinical information: Yes Notes (Text): 11/08/16 18:59 Patient seen and examined in the intensive care unit. Case discussed with house staff in the morning rounds. Remains on ventilatory support with minimal response to vocal commands Being treated for sepsis/aspiration pneumonia Activity noted and EEG consistent with bilateral cerebral dysfunction
--- NOTE | 2016-11-08 13:04 | CP.PCM.PN ---
Subjective - Date & Time of Evaluation Date of Evaluation: 11/08/16 Time of Evaluation: 13:00 - Subjective Subjective: Still on low dose of dopamine off Levophed, blood pressure maintained, intubated on 60% FiO2 observed with the market analyst. Improved sepsis. Stable coronary artery disease, for CHF needs to reintroduce BRONWYN inhibitor and beta abilio Objective - Vital Signs/Intake and Output Vital Signs (last 24 hours): Temp Pulse Resp BP Pulse Ox 97.3 F L 86 19 141/84 98 11/08/16 12:00 11/08/16 12:00 11/08/16 12:00 11/08/16 12:00 11/08/16 12:00 Intake and Output: 11/08/16 11/08/16 06:59 18:59 Intake Total 1409.8 724.7 Output Total 680 315 Balance 729.8 409.7 - Medications Medications: Current Medications Aspirin (Aspirin Chewable) 81 mg PO DAILY [facility] Last Admin: 11/08/16 11:00 Dose: 81 mg Clopidogrel Bisulfate (Plavix) 75 mg PO DAILY [facility] Last Admin: 11/08/16 11:00 Dose: 75 mg Heparin Sodium (Porcine) (Heparin) 5,000 units SC Q8 [facility] Last Admin: 11/08/16 05:39 Dose: 5,000 units Norepinephrine Bitartrate 8 mg (/ Sodium Chloride) 258 mls @ 7.74 mls/hr IV .Q24H PRN; Protocol; 4 MCG/MIN PRN Reason: TITRATE PER MD ORDER Last Titration: 11/07/16 09:06 Dose: 0 mcg/min, 0 mls/hr Piperacillin Sod/Tazobactam Sod (Zosyn 2.25 Gm Iv Premix) 2.25 gm in 50 mls @ 100 mls/hr IVPB Q6H [facility] Last Admin: 11/08/16 06:37 Dose: 100 mls/hr Vancomycin HCl 1 gm/ Sodium (Chloride) 250 mls @ 166.7 mls/hr IVPB Q24H [facility] Last Admin: 11/08/16 00:31 Dose: 166.7 mls/hr Dopamine HCl/Dextrose (Dopamine 400mg/250ml D5w) 400 mg in 250 mls @ 21.563 mls /hr IV .[id number] PRN; Protocol; 5 MCG/KG/MIN PRN Reason: TITRATE PER MD ORDER Last Titration: 11/07/16 22:00 Dose: 2 mcg/kg/min, 8.625 mls/hr Propofol (Diprivan) 1,000 mg in 100 mls @ 3.45 mls/hr IV .Q24H PRN; Protocol; 5 MCG/KG/MIN PRN Reason: TITRATE PER MD ORDER Last Titration: 11/07/16 07:28 Dose: 0 mcg/kg/min, 0 mls/hr Sodium Chloride (Sodium Chloride 0.9%) 1,000 mls @ 100 mls/hr IV .Q10H [facility] Last Admin: 11/08/16 06:38 Dose: 100 mls/hr Sodium Phosphate 15 mmole/ (Sodium Chloride) 255 mls @ 42.5 mls/hr IVPB .Q6H ONE Stop: 11/08/16 15:59 Last Admin: 11/08/16 11:22 Dose: 42.5 mls/hr Insulin Detemir (Levemir) 20 unit SC DAILY [facility] Last Admin: 11/08/16 11:00 Dose: 20 unit Insulin Human Regular (Novolin R) 0 unit SC Q6 [facility]ILY PRN Reason: Protocol Last Admin: 11/08/16 05:39 Dose: Not Given Levetiracetam (Keppra) 500 mg PO BID [facility] Last Admin: 11/08/16 11:00 Dose: 500 mg Pantoprazole Sodium (Protonix Inj) 40 mg IVP DAILY [facility] Last Admin: 11/08/16 11:00 Dose: 40 mg - Labs Labs: 11/08/16 05:54 11/08/16 05:54 PT 13.2 SECONDS (9.7-12.2) H 11/08/16 05:54 INR 1.2 11/08/16 05:54 APTT 39 SECONDS (21-34) H D 11/08/16 05:54 - Constitutional Appears: Non-toxic - Head Exam Head Exam: ATRAUMATIC - ENT Exam ENT Exam: Mucous Membranes Moist - Neck Exam Neck Exam: absent: Lymphadenopathy, Thyromegaly - Respiratory Exam Respiratory Exam: Clear to Ausculation Bilateral. absent: Rales - Cardiovascular Exam Cardiovascular Exam: REGULAR RHYTHM, Murmur - GI/Abdominal Exam GI & Abdominal Exam: Normal Bowel Sounds. absent: Organomegaly - Rectal Exam Rectal Exam: Deferred - Extremities Exam Extremities Exam: Normal Capillary Refill. absent: Calf Tenderness - Neurological Exam Neurological Exam: Alert - Psychiatric Exam Psychiatric exam: Depressed - Skin Skin Exam: Dry Assessment and Plan (1) CHF (congestive heart failure) Status: Chronic (2) Septic shock Status: Acute (3) CAD (coronary artery disease) Status: Chronic (4) Diabetes mellitus Status: Chronic
--- NOTE | 2016-11-08 15:26 | CP.PCM.PN ---
Subjective - Date & Time of Evaluation Date of Evaluation: 11/08/16 Time of Evaluation: 20:35 - Subjective Subjective: Patient is in ICU intubated PRVC on FiO2 Of 60% Patient is minimally arousable and opens his eyes to stimulation. Patient able to move head in response to yes /no questioning, urine is growing gram neg rods. Objective - Vital Signs/Intake and Output Vital Signs (last 24 hours): Temp Pulse Resp BP Pulse Ox 97.3 F L 87 25 H 160/71 H 99 11/08/16 12:00 11/08/16 14:00 11/08/16 14:00 11/08/16 14:00 11/08/16 14:00 Intake and Output: 11/08/16 11/08/16 06:59 18:59 Intake Total 1409.8 1053.5 Output Total 680 430 Balance 729.8 623.5 - Medications Medications: Current Medications Aspirin (Aspirin Chewable) 81 mg PO DAILY [facility] Last Admin: 11/08/16 11:00 Dose: 81 mg Clopidogrel Bisulfate (Plavix) 75 mg PO DAILY [facility] Last Admin: 11/08/16 11:00 Dose: 75 mg Heparin Sodium (Porcine) (Heparin) 5,000 units SC Q8 [facility] Last Admin: 11/08/16 15:00 Dose: 5,000 units Norepinephrine Bitartrate 8 mg (/ Sodium Chloride) 258 mls @ 7.74 mls/hr IV .Q24H PRN; Protocol; 4 MCG/MIN PRN Reason: TITRATE PER MD ORDER Last Titration: 11/07/16 09:06 Dose: 0 mcg/min, 0 mls/hr Piperacillin Sod/Tazobactam Sod (Zosyn 2.25 Gm Iv Premix) 2.25 gm in 50 mls @ 100 mls/hr IVPB Q6H [facility] Last Admin: 11/08/16 13:30 Dose: 100 mls/hr Vancomycin HCl 1 gm/ Sodium (Chloride) 250 mls @ 166.7 mls/hr IVPB Q24H [facility] Last Admin: 11/08/16 00:31 Dose: 166.7 mls/hr Dopamine HCl/Dextrose (Dopamine 400mg/250ml D5w) 400 mg in 250 mls @ 21.563 mls /hr IV .[id number] PRN; Protocol; 5 MCG/KG/MIN PRN Reason: TITRATE PER MD ORDER Last Titration: 11/07/16 22:00 Dose: 2 mcg/kg/min, 8.625 mls/hr Propofol (Diprivan) 1,000 mg in 100 mls @ 3.45 mls/hr IV .Q24H PRN; Protocol; 5 MCG/KG/MIN PRN Reason: TITRATE PER MD ORDER Last Titration: 11/08/16 08:00 Dose: 5 mcg/kg/min, 3.45 mls/hr Sodium Chloride (Sodium Chloride 0.9%) 1,000 mls @ 100 mls/hr IV .Q10H [facility] Last Admin: 11/08/16 06:38 Dose: 100 mls/hr Sodium Phosphate 15 mmole/ (Sodium Chloride) 255 mls @ 42.5 mls/hr IVPB .Q6H ONE Stop: 11/08/16 15:59 Last Admin: 11/08/16 11:22 Dose: 42.5 mls/hr Insulin Detemir (Levemir) 20 unit SC DAILY [facility] Last Admin: 11/08/16 11:00 Dose: 20 unit Insulin Human Regular (Novolin R) 0 unit SC Q6 [facility] PRN Reason: Protocol Last Admin: 11/08/16 12:00 Dose: Not Given Levetiracetam (Keppra) 500 mg PO BID [facility] Last Admin: 11/08/16 11:00 Dose: 500 mg Pantoprazole Sodium (Protonix Inj) 40 mg IVP DAILY [facility] Last Admin: 11/08/16 11:00 Dose: 40 mg - Labs Labs: 11/08/16 05:54 11/08/16 05:54 PT 13.2 SECONDS (9.7-12.2) H 11/08/16 05:54 INR 1.2 11/08/16 05:54 APTT 39 SECONDS (21-34) H D 11/08/16 05:54 - Constitutional Appears: In Acute Distress, Confused, Chronically Ill - Head Exam Head Exam: ATRAUMATIC, NORMAL INSPECTION, NORMOCEPHALIC - Eye Exam Eye Exam: EOMI, Normal appearance, PERRL Pupil Exam: NORMAL ACCOMODATION, PERRL - Respiratory Exam Respiratory Exam: Clear to Ausculation Bilateral, NORMAL BREATHING PATTERN - Cardiovascular Exam Cardiovascular Exam: REGULAR RHYTHM, +S1, +S2 - GI/Abdominal Exam GI & Abdominal Exam: Soft, Normal Bowel Sounds. absent: Tenderness - Neurological Exam Neurological Exam: Alert, Awake, CN II-XII Intact, Normal Gait, Oriented x3 - Psychiatric Exam Psychiatric exam: Normal Affect, Normal Mood Assessment and Plan (1) Respiratory failure Status: Acute (2) Insulin dependent diabetes mellitus Status: Acute (3) UTI (lower urinary tract infection) Status: Acute
[2016-11-08] MEDS: DOPamine 400mg/250ml D5W 400 MG/250 ML BAG IV PRN (17:43)
[2016-11-08] MEDS: Propofol 10 mg/ml 1,000 MG/100 ML VIAL IV PRN (17:46)
[2016-11-09] MEDS: Piperacill/Tazo 2.25gm in Dex 2.25 GM/50 ML BAG IVPB SCH ×3 (00:32→20:40)
[2016-11-09] MEDS: (Novolin R) Insulin Human Regular 100 units/ml vial SC SCH ×4 (00:33→18:30)
[2016-11-09 06:07] LABS: POTASSIUM 3.5 mmol/L (3.6-5.2)
[2016-11-09 06:09] LABS: ALB/GLOB RATIO 0.7 (1.0-2.1); BASO % 0.2 % (0.0-2.0); BILIRUBIN,TOTAL 0.6 mg/dL (0.2-1.3); EOS % 0.3 % (0.0-4.0); LYMPH % 8.9 % (20.0-40.0); MEAN CELL VOLUME 79.9 fL (80.0-94.0); MEAN CORPUSCULAR HEMOGLOBIN 25.1 pg (27.0-31.0); MEAN CORPUSCULAR HGB CONC 31.5 g/dL (33.0-37.0); MEAN PLATELET VOLUME 9.2 fL (7.2-11.7); MONO # 0.4 K/uL (0.0-0.8); MONO % 3.5 % (0.0-10.0); NRBC % 0.1 % (0.0-2.0); PHOSPHOROUS 3.5 mg/dL (2.5-4.5); PLATELET COUNT 82 K/uL (130-400); RED CELL DISTRIBUTION WIDTH 18.3 % (11.5-14.5); TOTAL PROTEIN 5.9 g/dL (6.3-8.3); WHITE BLOOD COUNT 11.1 K/uL (4.8-10.8)
[2016-11-09 06:10] LABS: CALCIUM 7.9 mg/dl (8.6-10.4); MAGNESIUM 2.3 mg/dL (1.6-2.3)
[2016-11-09 06:19] LABS: INR 1.2
[2016-11-09 06:54] LABS: ABG ALLEN TEST POS; ABG MECHANICAL RATE 20; ARTERIAL BLOOD HGB O2 SAT 96.9 % (95.0-98.0); ATERIAL BLOOD GAS PEEP 5; CARBOXYHEMOGLOBIN 0.8 % (0.5-1.5); DRAW SITE R RAD; HHB 1.1 % (0.0-5.0); METHEMOGLOBIN 1.2 % (0.0-3.0)
[2016-11-09 08:31] LABS: EOSINOPHIL 1 % (0-4); NEUTROPHIL 87 % (50-75); TOTAL CELLS COUNTED 100
--- NOTE | 2016-11-09 10:22 | RAD ---
Chest x-ray single frontal view History: Endotracheal tube evaluation. Comparison: 11/08/2016 Findings: Lines and tubes in stable position. Moderate to severe venous congestion with prominent bibasilar airspace opacities. Small left pleural effusion. Cardiomegaly. Calcification at the aortic knob. Degenerative changes in the spine and shoulders. Impression: Lines and tubes in stable position. Moderate to severe venous congestion with prominent bibasilar airspace opacities. Small left pleural effusion. Cardiomegaly. Calcification at the aortic knob.
[2016-11-09] MEDS: Insulin Detemir 100 units/ml Vial (Levemir) SC SCH (11:10)
--- NOTE | 2016-11-09 12:03 | CP.PCM.HP ---
Past Patient History - Past Medical History & Family History Past Medical History?: Yes - Past Social History Smoking Status: Former Smoker - CARDIAC Hx Cardiac Disorders: Yes Hx Hypercholesterolemia: Yes Hx Hypertension: Yes - PULMONARY Hx Respiratory Disorders: Yes Hx Chronic Obstructive Pulmonary Disease (COPD): Yes - NEUROLOGICAL Hx Neurological Disorder: Yes HX Cerebrovascular Accident: Yes - HEENT Hx HEENT Problems: Yes Hx Blind: Yes (left eye blind, right blurry) Hx Cataracts: Yes Other/Comment: Cataracts Alexys.with Extarction. - RENAL Hx Chronic Kidney Disease: No - ENDOCRINE/METABOLIC Hx Endocrine Disorders: Yes Hx Diabetes Mellitus Type 2: Yes - HEMATOLOGICAL/ONCOLOGICAL Hx Blood Disorders: No - INTEGUMENTARY Hx Dermatological Problems: No - MUSCULOSKELETAL/RHEUMATOLOGICAL Hx Musculoskeletal Disorders: Yes Hx Arthritis: Yes Hx Falls: Yes - GASTROINTESTINAL Hx Gastrointestinal Disorders: Yes Hx Gastritis: Yes - GENITOURINARY/GYNECOLOGICAL Hx Genitourinary Disorders: Yes Hx Prostate Problems: Yes - PSYCHIATRIC Hx Anxiety: No Hx Substance Use: No - SURGICAL HISTORY Hx Surgeries: Yes Hx Coronary Stent: Yes (x1) Hx Eye Surgery: Yes - ANESTHESIA Hx Anesthesia: Yes Hx Anesthesia Reactions: No Hx Malignant Hyperthermia: No Has any member of the family had a problem w/ anesthesia?: No Meds Allergies/Adverse Reactions: Allergies Allergy/AdvReac Type Severity Reaction Status Date / Time No Known Allergies Allergy Verified 11/06/16 21:29 Physical Exam - Constitutional Appears: Well - Head Exam Head Exam: ATRAUMATIC, NORMAL INSPECTION, NORMOCEPHALIC - Eye Exam Eye Exam: EOMI, Normal appearance, PERRL Pupil Exam: NORMAL ACCOMODATION, PERRL - ENT Exam ENT Exam: Mucous Membranes Moist, Normal Exam - Neck Exam Neck exam: Positive for: Normal Inspection - Respiratory Exam Respiratory Exam: Decreased Breath Sounds - Cardiovascular Exam Cardiovascular Exam: REGULAR RHYTHM, +S1, +S2 - GI/Abdominal Exam GI & Abdominal Exam: Diminished Bowel Sounds, Soft - Rectal Exam Rectal Exam: Deferred Results - Vital Signs Recent Vital Signs: Last Vital Signs Temp 97.6 F 11/09/16 04:00 Pulse 51 L 11/09/16 09:00 Resp 20 11/09/16 09:00 BP 153/60 H 11/09/16 08:42 Pulse Ox 100 11/09/16 09:00 - Labs Result Diagrams: 11/09/16 05:50 11/09/16 05:50 Labs: Laboratory Results - last 24 hr 11/08/16 11/09/16 11/09/16 17:57 00:07 04:20 WBC RBC Hgb Hct MCV MCH MCHC RDW Plt Count MPV Neut % (Auto) Lymph % (Auto) [place] % (Auto) Eos % (Auto) Baso % (Auto) Neut # Lymph # [place] # Eos # Baso # Neutrophils % (Manual) Band Neutrophils % Lymphocytes % (Manual) Monocytes % (Manual) Eosinophils % (Manual) Platelet Estimate Polychromasia Hypochromasia (manual) Anisocytosis (manual) Microcytosis (manual) Target Cells Tear Drop Cells Ovalocytes Kimberly Cells PT INR APTT Puncture Site R rad pCO2 21 L pO2 205 H HCO3 22.8 ABG pH 7.55 H ABG Total CO2 19.0 L ABG O2 Saturation 98.9 H ABG Base Excess -2.8 L ABG Hemoglobin 9.3 L ABG Carboxyhemoglobin 0.8 POC ABG HHb (Measured) 1.1 ABG Methemoglobin 1.2 Timmy Test Pos A-a O2 Difference 197.0 Respiratory Index 1.0 Hgb O2 Saturation 96.9 Mechanical Rate 20 FiO2 60.0 Tidal Volume 500 PEEP 5 Sodium Potassium Chloride Carbon Dioxide Anion Gap BUN Creatinine Est GFR ( Amer) Est GFR (Non-Af Amer) POC Glucose (mg/dL) 107 78 Random Glucose Calcium Phosphorus Magnesium Total Bilirubin AST ALT Alkaline Phosphatase Total Protein Albumin Globulin Albumin/Globulin Ratio 11/09/16 11/09/16 11/09/16 05:20 05:50 05:50 WBC 11.1 H RBC 3.75 L Hgb 9.4 L Hct 30.0 L MCV 79.9 L MCH 25.1 L MCHC 31.5 L RDW 18.3 H Plt Count 82 L MPV 9.2 Neut % (Auto) 87.1 H Lymph % (Auto) 8.9 L [place] % (Auto) 3.5 Eos % (Auto) 0.3 Baso % (Auto) 0.2 Neut # 9.6 H Lymph # 1.0 [place] # 0.4 Eos # 0.0 Baso # 0.0 Neutrophils % (Manual) 87 H Band Neutrophils % 2 Lymphocytes % (Manual) 8 L Monocytes % (Manual) 2 Eosinophils % (Manual) 1 Platelet Estimate Decreased L Polychromasia Slight Hypochromasia (manual) Slight Anisocytosis (manual) Slight Microcytosis (manual) Slight Target Cells Slight Tear Drop Cells Slight Ovalocytes Slight Kimberly Cells Slight PT 13.3 H INR 1.2 APTT 37 H Puncture Site pCO2 pO2 HCO3 ABG pH ABG Total CO2 ABG O2 Saturation ABG Base Excess ABG Hemoglobin ABG Carboxyhemoglobin POC ABG HHb (Measured) ABG Methemoglobin Timmy Test A-a O2 Difference Respiratory Index Hgb O2 Saturation Mechanical Rate FiO2 Tidal Volume PEEP Sodium Potassium Chloride Carbon Dioxide Anion Gap BUN Creatinine Est GFR ( Amer) Est GFR (Non-Af Amer) POC Glucose (mg/dL) 51 L Random Glucose Calcium Phosphorus Magnesium Total Bilirubin AST ALT Alkaline Phosphatase Total Protein Albumin Globulin Albumin/Globulin Ratio 11/09/16 11/09/16 05:50 05:50 WBC RBC Hgb Hct MCV MCH MCHC RDW Plt Count MPV Neut % (Auto) Lymph % (Auto) [place] % (Auto) Eos % (Auto) Baso % (Auto) Neut # Lymph # [place] # Eos # Baso # Neutrophils % (Manual) Band Neutrophils % Lymphocytes % (Manual) Monocytes % (Manual) Eosinophils % (Manual) Platelet Estimate Polychromasia Hypochromasia (manual) Anisocytosis (manual) Microcytosis (manual) Target Cells Tear Drop Cells Ovalocytes Kimberly Cells PT INR APTT Puncture Site pCO2 pO2 HCO3 ABG pH ABG Total CO2 ABG O2 Saturation ABG Base Excess ABG Hemoglobin ABG Carboxyhemoglobin POC ABG HHb (Measured) ABG Methemoglobin Timmy Test A-a O2 Difference Respiratory Index Hgb O2 Saturation Mechanical Rate FiO2 Tidal Volume PEEP Sodium 146 Potassium 3.5 L Chloride 115 H Carbon Dioxide 22 Anion Gap 13 BUN 37 H Creatinine 1.9 H Est GFR ( Amer) 42 Est GFR (Non-Af Amer) 35 POC Glucose (mg/dL) 72 Random Glucose 55 L Calcium 7.9 L Phosphorus 3.5 Magnesium 2.3 Total Bilirubin 0.6 AST 26 ALT 55 Alkaline Phosphatase 77 Total Protein 5.9 L Albumin 2.4 L Globulin 3.5 Albumin/Globulin Ratio 0.7 L
--- NOTE | 2016-11-09 15:26 | CP.CCUPN ---
<Darin,Malick - Last Filed: 11/09/16 16:54> CCU Subjective - Physician Review Subjective (Free Text): 11/07/16 14:11 Patient seen and examined at bedside. No acute distress. No acute events overnight. Nursing staff reports no issues. Patient is intubated (FiO2 70; 20 bpm; 500 vte; 5 PEEP; 1L/min). Patient is minimally arousable and opens his eyes to stimulation following the removal of propofol sedation. However, the patient does not move his extremities. Today on rounds, a bedside EEG was ordered and tube feeds were started. The patient was receiving a bicard drip. The bicarb was discontinued following the completion of the liter infusion and transitioned to normal saline only. 11/08/16 11:13 Patient seen and examined at bedside. No acute distress. No acute events overnight. Nursing staff reports no issues. Patient is intubated PRVC. Patient is minimally arousable and opens his eyes to stimulation. Patient able to move head in response to yes/no questioning. Today on rounds, the patient's phosphorous was replaced and the FiO2 of his ventilator was decreased from 70% to 60%. 11/09/16 15:19 Patient seen and examined at bedside. No acute distress. No acute events overnight. Nursing staff reports no issues. Patient is intubated PRVC. Patient is more awake and alert today. Plan for CPAP trial this evening. Patient appropriately signals yes/no to questioning. No complaints this morning. Today on rounds, the patient was placed on 40% FiO2 and his rate was decreased to 12 to account for respiratory alkalosis. The patient's potassium was also replaced. Post rounds, the patient was placed on CPAP + PS. He subsequently extubated himself. The patient tolerated external BiPAP, but was seen to desaturate. Patient had an ABG drawn to assess need for re-intubation. Critical Care Time Spent (in minutes): 60 CCU Objective - Vital Signs / Intake & Output Vital Signs (Last 4 hours): Vital Signs Pulse Resp BP Pulse Ox 11/09/16 14:20 88 11/09/16 13:41 77 14 134/67 88 L 11/09/16 13:00 79 15 88 L 11/09/16 12:43 69 15 128/50 L 11/09/16 12:00 75 11 L 98 11/09/16 11:41 73 16 142/61 98 Intake and Output (Last 8hrs): Intake & Output 11/09/16 11/09/16 11/09/16 06:59 14:59 22:59 Intake Total 1033.8 820.7 Output Total 590 395 Balance 443.8 425.7 Weight 116.573 kg Intake: IV 0 Intake, IV Amount 913.8 720.7 Right Distal Port 850 700 Right Distal Port 55.2 20.7 Internal Jugular Right Proximal Port 8.6 Internal Jugular Tube Feeding 120 100 Output: Urine 590 395 Urethral (Wick) 590 395 Other: # Bowel Movements 1 1 - Physical Exam Head: Positive for: Atraumatic, Normocephalic, Other (ET Tube in place) Pupils: Positive for: PERRL Extroacular Muscles: Positive for: EOMI Conjunctiva: Positive for: Normal Mouth: Positive for: Moist Mucous Membranes. Negative for: Drooling Nose (External): Positive for: Atraumatic Neck: Positive for: Normal Range of Motion. Negative for: JVD, Lymphadenopathy Respiratory/Chest: Positive for: Clear to Auscultation, Good Air Exchange, Decreased Breath Sounds. Negative for: Respiratory Distress, Accessory Muscle Use, Wheezes, Rales, Retracting, Rhonchi Cardiovascular: Positive for: Regular Rate and Rhythm, Murmurs, Normal S1, S2, Peripheal Pulses Present. Negative for: Irregular Rhythm, Tachycardic, Bradycardic Abdomen: Positive for: Normal Bowel Sounds. Negative for: Tenderness, Distention, Peritoneal Signs, Rebound, Guarding Back: Positive for: Normal Inspection Upper Extremity: Positive for: Normal Inspection. Negative for: Cyanosis, Edema Lower Extremity: Positive for: Normal Inspection. Negative for: Edema Skin: Positive for: Warm, Normal Color - Medications Active Medications: Active Medications Generic Name Dose Route Start Last Admin Trade Name Freq PRN Reason Stop Dose Admin Aspirin 81 mg 11/07/16 10:00 11/09/16 11:10 Aspirin Chewable PO 81 mg DAILY EMILY Administration Clopidogrel Bisulfate 75 mg 11/07/16 10:00 11/09/16 11:10 Plavix PO 75 mg DAILY EMILY Administration Piperacillin Sod/Tazobactam Sod 2.25 gm in 50 mls @ 100 mls/hr 11/07/16 01:30 11/09/16 06:51 Zosyn 2.25 Gm Iv Premix IVPB 100 mls/hr Q6H EMILY Administration Vancomycin HCl 1 gm/ Sodium 250 mls @ 166.7 mls/hr 11/07/16 00:45 11/09/16 00 :19 Chloride IVPB 166.7 mls/hr Q24H EMILY Administration Propofol 1,000 mg in 100 mls @ 3.45 mls/hr 11/07/16 06:35 11/08/16 17:46 Diprivan IV 10 mcg/kg/min .Q24H PRN 6.9 mls/hr TITRATE PER MD ORDER Administration Protocol 5 MCG/KG/MIN Sodium Chloride 1,000 mls @ 100 mls/hr 11/07/16 17:45 11/08/16 23:56 Sodium Chloride 0.9% IV Not Given .Q10H EMILY Insulin Detemir 20 unit 11/07/16 10:00 11/09/16 11:10 Levemir SC 20 unit DAILY EMILY Administration Insulin Human Regular 0 unit 11/07/16 06:00 11/09/16 13:54 Novolin R SC Not Given Q6 EMILY Protocol Levetiracetam 500 mg 11/07/16 10:00 11/09/16 11:10 Keppra PO 500 mg BID EMILY Administration Pantoprazole Sodium 40 mg 11/07/16 10:00 11/09/16 11:10 Protonix Inj IVP 40 mg DAILY EMILY Administration - Patient Studies Lab Studies: Lab Studies 11/09/16 11/09/16 11/09/16 Range/Units 14:08 12:25 05:50 WBC (4.8-10.8) K/uL RBC (4.40-5.90) Mil/uL Hgb (12.0-18.0) g/dL Hct (35.0-51.0) % MCV (80.0-94.0) fL MCH (27.0-31.0) pg MCHC (33.0-37.0) g/dL RDW (11.5-14.5) % Plt Count (130-400) K/uL MPV (7.2-11.7) fL Neut % (Auto) (50.0-75.0) % Lymph % (Auto) (20.0-40.0) % Citrus % (Auto) (0.0-10.0) % Eos % (Auto) (0.0-4.0) % Baso % (Auto) (0.0-2.0) % Neut # (1.8-7.0) K/uL Lymph # (1.0-4.3) K/uL Citrus # (0.0-0.8) K/uL Eos # (0.0-0.7) K/uL Baso # (0.0-0.2) K/uL Neutrophils % (Manual) (50-75) % Band Neutrophils % (0-2) % Lymphocytes % (Manual) (20-40) % Monocytes % (Manual) (0-10) % Eosinophils % (Manual) (0-4) % Platelet Estimate (NORMAL) Polychromasia Hypochromasia (manual) Anisocytosis (manual) Microcytosis (manual) Target Cells Tear Drop Cells Ovalocytes Kimberly Cells PT (9.7-12.2) SECONDS INR APTT (21-34) SECONDS Puncture Site pCO2 (35-45) mm/Hg pO2 (80-100) mm/Hg HCO3 (21-28) mmol/L ABG pH (7.35-7.45) ABG Total CO2 (22-28) mmol/L ABG O2 Saturation (95-98) % ABG Base Excess (-2.0-3.0) mmol/L ABG Hemoglobin (11.7-17.4) g/dL ABG Carboxyhemoglobin (0.5-1.5) % POC ABG HHb (Measured) (0.0-5.0) % ABG Methemoglobin (0.0-3.0) % Timmy Test A-a O2 Difference mm/Hg Respiratory Index Hgb O2 Saturation (95.0-98.0) % Mechanical Rate FiO2 % Tidal Volume PEEP Sodium (132-148) mmol/L Potassium (3.6-5.2) mmol/L Chloride (98-107) mmol/L Carbon Dioxide (22-30) mmol/L Anion Gap (10-20) BUN (9-20) mg/dL Creatinine (0.8-1.5) MG/DL Est GFR ( Amer) Est GFR (Non-Af Amer) POC Glucose (mg/dL) 130 H 133 H 72 (65-110) mg/dL Random Glucose (75-110) mg/dL Calcium (8.6-10.4) mg/dl Phosphorus (2.5-4.5) mg/dL Magnesium (1.6-2.3) mg/dL Total Bilirubin (0.2-1.3) mg/dL AST (17-59) U/L ALT (21-72) U/L Alkaline Phosphatase (38-126) U/L Total Protein (6.3-8.3) g/dL Albumin (3.5-5.0) g/dL Globulin (2.2-3.9) gm/dL Albumin/Globulin Ratio (1.0-2.1) 11/09/16 11/09/16 11/09/16 Range/Units 05:50 05:50 05:50 WBC 11.1 H (4.8-10.8) K/uL RBC 3.75 L (4.40-5.90) Mil/uL Hgb 9.4 L (12.0-18.0) g/dL Hct 30.0 L (35.0-51.0) % MCV 79.9 L (80.0-94.0) fL MCH 25.1 L (27.0-31.0) pg MCHC 31.5 L (33.0-37.0) g/dL RDW 18.3 H (11.5-14.5) % Plt Count 82 L (130-400) K/uL MPV 9.2 (7.2-11.7) fL Neut % (Auto) 87.1 H (50.0-75.0) % Lymph % (Auto) 8.9 L (20.0-40.0) % Citrus % (Auto) 3.5 (0.0-10.0) % Eos % (Auto) 0.3 (0.0-4.0) % Baso % (Auto) 0.2 (0.0-2.0) % Neut # 9.6 H (1.8-7.0) K/uL Lymph # 1.0 (1.0-4.3) K/uL Citrus # 0.4 (0.0-0.8) K/uL Eos # 0.0 (0.0-0.7) K/uL Baso # 0.0 (0.0-0.2) K/uL Neutrophils % (Manual) 87 H (50-75) % Band Neutrophils % 2 (0-2) % Lymphocytes % (Manual) 8 L (20-40) % Monocytes % (Manual) 2 (0-10) % Eosinophils % (Manual) 1 (0-4) % Platelet Estimate Decreased L (NORMAL) Polychromasia Slight Hypochromasia (manual) Slight Anisocytosis (manual) Slight Microcytosis (manual) Slight Target Cells Slight Tear Drop Cells Slight Ovalocytes Slight [place] Cells Slight PT 13.3 H (9.7-12.2) SECONDS INR 1.2 APTT 37 H (21-34) SECONDS Puncture Site pCO2 (35-45) mm/Hg pO2 (80-100) mm/Hg HCO3 (21-28) mmol/L ABG pH (7.35-7.45) ABG Total CO2 (22-28) mmol/L ABG O2 Saturation (95-98) % ABG Base Excess (-2.0-3.0) mmol/L ABG Hemoglobin (11.7-17.4) g/dL ABG Carboxyhemoglobin (0.5-1.5) % POC ABG HHb (Measured) (0.0-5.0) % ABG Methemoglobin (0.0-3.0) % Timmy Test A-a O2 Difference mm/Hg Respiratory Index Hgb O2 Saturation (95.0-98.0) % Mechanical Rate FiO2 % Tidal Volume PEEP Sodium 146 (132-148) mmol/L Potassium 3.5 L (3.6-5.2) mmol/L Chloride 115 H (98-107) mmol/L Carbon Dioxide 22 (22-30) mmol/L Anion Gap 13 (10-20) BUN 37 H (9-20) mg/dL Creatinine 1.9 H (0.8-1.5) MG/DL Est GFR ( Amer) 42 Est GFR (Non-Af Amer) 35 POC Glucose (mg/dL) (65-110) mg/dL Random Glucose 55 L (75-110) mg/dL Calcium 7.9 L (8.6-10.4) mg/dl Phosphorus 3.5 (2.5-4.5) mg/dL Magnesium 2.3 (1.6-2.3) mg/dL Total Bilirubin 0.6 (0.2-1.3) mg/dL AST 26 (17-59) U/L ALT 55 (21-72) U/L Alkaline Phosphatase 77 (38-126) U/L Total Protein 5.9 L (6.3-8.3) g/dL Albumin 2.4 L (3.5-5.0) g/dL Globulin 3.5 (2.2-3.9) gm/dL Albumin/Globulin Ratio 0.7 L (1.0-2.1) 11/09/16 11/09/16 11/09/16 Range/Units 05:20 04:20 00:07 WBC (4.8-10.8) K/uL RBC (4.40-5.90) Mil/uL Hgb (12.0-18.0) g/dL Hct (35.0-51.0) % MCV (80.0-94.0) fL MCH (27.0-31.0) pg MCHC (33.0-37.0) g/dL RDW (11.5-14.5) % Plt Count (130-400) K/uL MPV (7.2-11.7) fL Neut % (Auto) (50.0-75.0) % Lymph % (Auto) (20.0-40.0) % Citrus % (Auto) (0.0-10.0) % Eos % (Auto) (0.0-4.0) % Baso % (Auto) (0.0-2.0) % Neut # (1.8-7.0) K/uL Lymph # (1.0-4.3) K/uL Citrus # (0.0-0.8) K/uL Eos # (0.0-0.7) K/uL Baso # (0.0-0.2) K/uL Neutrophils % (Manual) (50-75) % Band Neutrophils % (0-2) % Lymphocytes % (Manual) (20-40) % Monocytes % (Manual) (0-10) % Eosinophils % (Manual) (0-4) % Platelet Estimate (NORMAL) Polychromasia Hypochromasia (manual) Anisocytosis (manual) Microcytosis (manual) Target Cells Tear Drop Cells Ovalocytes Kimberly Cells PT (9.7-12.2) SECONDS INR APTT (21-34) SECONDS Puncture Site R rad pCO2 21 L (35-45) mm/Hg pO2 205 H (80-100) mm/Hg HCO3 22.8 (21-28) mmol/L ABG pH 7.55 H (7.35-7.45) ABG Total CO2 19.0 L (22-28) mmol/L ABG O2 Saturation 98.9 H (95-98) % ABG Base Excess -2.8 L (-2.0-3.0) mmol/L ABG Hemoglobin 9.3 L (11.7-17.4) g/dL ABG Carboxyhemoglobin 0.8 (0.5-1.5) % POC ABG HHb (Measured) 1.1 (0.0-5.0) % ABG Methemoglobin 1.2 (0.0-3.0) % Timmy Test Pos A-a O2 Difference 197.0 mm/Hg Respiratory Index 1.0 Hgb O2 Saturation 96.9 (95.0-98.0) % Mechanical Rate 20 FiO2 60.0 % Tidal Volume 500 PEEP 5 Sodium (132-148) mmol/L Potassium (3.6-5.2) mmol/L Chloride (98-107) mmol/L Carbon Dioxide (22-30) mmol/L Anion Gap (10-20) BUN (9-20) mg/dL Creatinine (0.8-1.5) MG/DL Est GFR ( Amer) Est GFR (Non-Af Amer) POC Glucose (mg/dL) 51 L 78 (65-110) mg/dL Random Glucose (75-110) mg/dL Calcium (8.6-10.4) mg/dl Phosphorus (2.5-4.5) mg/dL Magnesium (1.6-2.3) mg/dL Total Bilirubin (0.2-1.3) mg/dL AST (17-59) U/L ALT (21-72) U/L Alkaline Phosphatase (38-126) U/L Total Protein (6.3-8.3) g/dL Albumin (3.5-5.0) g/dL Globulin (2.2-3.9) gm/dL Albumin/Globulin Ratio (1.0-2.1) 06/13/17 Range/Units 17:57 WBC (4.8-10.8) K/uL RBC (4.40-5.90) Mil/uL Hgb (12.0-18.0) g/dL Hct (35.0-51.0) % MCV (80.0-94.0) fL MCH (27.0-31.0) pg MCHC (33.0-37.0) g/dL RDW (11.5-14.5) % Plt Count (130-400) K/uL MPV (7.2-11.7) fL Neut % (Auto) (50.0-75.0) % Lymph % (Auto) (20.0-40.0) % Citrus % (Auto) (0.0-10.0) % Eos % (Auto) (0.0-4.0) % Baso % (Auto) (0.0-2.0) % Neut # (1.8-7.0) K/uL Lymph # (1.0-4.3) K/uL Citrus # (0.0-0.8) K/uL Eos # (0.0-0.7) K/uL Baso # (0.0-0.2) K/uL Neutrophils % (Manual) (50-75) % Band Neutrophils % (0-2) % Lymphocytes % (Manual) (20-40) % Monocytes % (Manual) (0-10) % Eosinophils % (Manual) (0-4) % Platelet Estimate (NORMAL) Polychromasia Hypochromasia (manual) Anisocytosis (manual) Microcytosis (manual) Target Cells Tear Drop Cells Ovalocytes Kimberly Cells PT (9.7-12.2) SECONDS INR APTT (21-34) SECONDS Puncture Site pCO2 (35-45) mm/Hg pO2 (80-100) mm/Hg HCO3 (21-28) mmol/L ABG pH (7.35-7.45) ABG Total CO2 (22-28) mmol/L ABG O2 Saturation (95-98) % ABG Base Excess (-2.0-3.0) mmol/L ABG Hemoglobin (11.7-17.4) g/dL ABG Carboxyhemoglobin (0.5-1.5) % POC ABG HHb (Measured) (0.0-5.0) % ABG Methemoglobin (0.0-3.0) % Timmy Test A-a O2 Difference mm/Hg Respiratory Index Hgb O2 Saturation (95.0-98.0) % Mechanical Rate FiO2 % Tidal Volume PEEP Sodium (132-148) mmol/L Potassium (3.6-5.2) mmol/L Chloride (98-107) mmol/L Carbon Dioxide (22-30) mmol/L Anion Gap (10-20) BUN (9-20) mg/dL Creatinine (0.8-1.5) MG/DL Est GFR ( Amer) Est GFR (Non-Af Amer) POC Glucose (mg/dL) 107 (65-110) mg/dL Random Glucose (75-110) mg/dL Calcium (8.6-10.4) mg/dl Phosphorus (2.5-4.5) mg/dL Magnesium (1.6-2.3) mg/dL Total Bilirubin (0.2-1.3) mg/dL AST (17-59) U/L ALT (21-72) U/L Alkaline Phosphatase (38-126) U/L Total Protein (6.3-8.3) g/dL Albumin (3.5-5.0) g/dL Globulin (2.2-3.9) gm/dL Albumin/Globulin Ratio (1.0-2.1) Laboratory Results - last 24 hr 11/08/16 11/09/16 11/09/16 17:57 00:07 04:20 WBC RBC Hgb Hct MCV MCH MCHC RDW Plt Count MPV Neut % (Auto) Lymph % (Auto) Citrus % (Auto) Eos % (Auto) Baso % (Auto) Neut # Lymph # [place] # Eos # Baso # Neutrophils % (Manual) Band Neutrophils % Lymphocytes % (Manual) Monocytes % (Manual) Eosinophils % (Manual) Platelet Estimate Polychromasia Hypochromasia (manual) Anisocytosis (manual) Microcytosis (manual) Target Cells Tear Drop Cells Ovalocytes Kimberly Cells PT INR APTT Puncture Site R rad pCO2 21 L pO2 205 H HCO3 22.8 ABG pH 7.55 H ABG Total CO2 19.0 L ABG O2 Saturation 98.9 H ABG Base Excess -2.8 L ABG Hemoglobin 9.3 L ABG Carboxyhemoglobin 0.8 POC ABG HHb (Measured) 1.1 ABG Methemoglobin 1.2 Timmy Test Pos A-a O2 Difference 197.0 Respiratory Index 1.0 Hgb O2 Saturation 96.9 Mechanical Rate 20 FiO2 60.0 Tidal Volume 500 PEEP 5 Sodium Potassium Chloride Carbon Dioxide Anion Gap BUN Creatinine Est GFR ( Amer) Est GFR (Non-Af Amer) POC Glucose (mg/dL) 107 78 Random Glucose Calcium Phosphorus Magnesium Total Bilirubin AST ALT Alkaline Phosphatase Total Protein Albumin Globulin Albumin/Globulin Ratio 11/09/16 11/09/16 11/09/16 05:20 05:50 05:50 WBC 11.1 H RBC 3.75 L Hgb 9.4 L Hct 30.0 L MCV 79.9 L MCH 25.1 L MCHC 31.5 L RDW 18.3 H Plt Count 82 L MPV 9.2 Neut % (Auto) 87.1 H Lymph % (Auto) 8.9 L Citrus % (Auto) 3.5 Eos % (Auto) 0.3 Baso % (Auto) 0.2 Neut # 9.6 H Lymph # 1.0 Citrus # 0.4 Eos # 0.0 Baso # 0.0 Neutrophils % (Manual) 87 H Band Neutrophils % 2 Lymphocytes % (Manual) 8 L Monocytes % (Manual) 2 Eosinophils % (Manual) 1 Platelet Estimate Decreased L Polychromasia Slight Hypochromasia (manual) Slight Anisocytosis (manual) Slight Microcytosis (manual) Slight Target Cells Slight Tear Drop Cells Slight Ovalocytes Slight [place] Cells Slight PT 13.3 H INR 1.2 APTT 37 H Puncture Site pCO2 pO2 HCO3 ABG pH ABG Total CO2 ABG O2 Saturation ABG Base Excess ABG Hemoglobin ABG Carboxyhemoglobin POC ABG HHb (Measured) ABG Methemoglobin Timmy Test A-a O2 Difference Respiratory Index Hgb O2 Saturation Mechanical Rate FiO2 Tidal Volume PEEP Sodium Potassium Chloride Carbon Dioxide Anion Gap BUN Creatinine Est GFR ( Amer) Est GFR (Non-Af Amer) POC Glucose (mg/dL) 51 L Random Glucose Calcium Phosphorus Magnesium Total Bilirubin AST ALT Alkaline Phosphatase Total Protein Albumin Globulin Albumin/Globulin Ratio 11/09/16 11/09/16 11/09/16 05:50 05:50 12:25 WBC RBC Hgb Hct MCV MCH MCHC RDW Plt Count MPV Neut % (Auto) Lymph % (Auto) Citrus % (Auto) Eos % (Auto) Baso % (Auto) Neut # Lymph # [place] # Eos # Baso # Neutrophils % (Manual) Band Neutrophils % Lymphocytes % (Manual) Monocytes % (Manual) Eosinophils % (Manual) Platelet Estimate Polychromasia Hypochromasia (manual) Anisocytosis (manual) Microcytosis (manual) Target Cells Tear Drop Cells Ovalocytes Kimberly Cells PT INR APTT Puncture Site pCO2 pO2 HCO3 ABG pH ABG Total CO2 ABG O2 Saturation ABG Base Excess ABG Hemoglobin ABG Carboxyhemoglobin POC ABG HHb (Measured) ABG Methemoglobin Timmy Test A-a O2 Difference Respiratory Index Hgb O2 Saturation Mechanical Rate FiO2 Tidal Volume PEEP Sodium 146 Potassium 3.5 L Chloride 115 H Carbon Dioxide 22 Anion Gap 13 BUN 37 H Creatinine 1.9 H Est GFR ( Amer) 42 Est GFR (Non-Af Amer) 35 POC Glucose (mg/dL) 72 133 H Random Glucose 55 L Calcium 7.9 L Phosphorus 3.5 Magnesium 2.3 Total Bilirubin 0.6 AST 26 ALT 55 Alkaline Phosphatase 77 Total Protein 5.9 L Albumin 2.4 L Globulin 3.5 Albumin/Globulin Ratio 0.7 L 11/09/16 14:08 WBC RBC Hgb Hct MCV MCH MCHC RDW Plt Count MPV Neut % (Auto) Lymph % (Auto) [place]rus % (Auto) Eos % (Auto) Baso % (Auto) Neut # Lymph # [place] # Eos # Baso # Neutrophils % (Manual) Band Neutrophils % Lymphocytes % (Manual) Monocytes % (Manual) Eosinophils % (Manual) Platelet Estimate Polychromasia Hypochromasia (manual) Anisocytosis (manual) Microcytosis (manual) Target Cells Tear Drop Cells Ovalocytes Kimberly Cells PT INR APTT Puncture Site pCO2 pO2 HCO3 ABG pH ABG Total CO2 ABG O2 Saturation ABG Base Excess ABG Hemoglobin ABG Carboxyhemoglobin POC ABG HHb (Measured) ABG Methemoglobin Timmy Test A-a O2 Difference Respiratory Index Hgb O2 Saturation Mechanical Rate FiO2 Tidal Volume PEEP Sodium Potassium Chloride Carbon Dioxide Anion Gap BUN Creatinine Est GFR ( Amer) Est GFR (Non-Af Amer) POC Glucose (mg/dL) 130 H Random Glucose Calcium Phosphorus Magnesium Total Bilirubin AST ALT Alkaline Phosphatase Total Protein Albumin Globulin Albumin/Globulin Ratio Review of Systems - Review of Systems Systems not reviewed;Unavailable: Intubated Critical Care Progress Note - Ventilator Checklist Head of Bed 30 Degrees: Yes - Extremities/Vascular Does the Patient have a Central Venous Catheter?: Yes Insertion Site: Internal Jugular Vein (right) Does the Patient need a Central Venous Catheter?: Yes Does the Patient have a Wick Catheter?: Yes Does the Patient need a Wick Catheter?: Yes Catheter Insertion Criteria: Patient requires prolonged immobilization - Prophylaxis GI Prophylaxis GI: PPI - Prophylaxis DVT Prophylaxis DVT: Heparin SQ Assessment/Plan (1) Sepsis Current Visit: Yes Status: Acute (2) CAD (coronary artery disease) Current Visit: Yes Status: Chronic (3) Insulin dependent diabetes mellitus Current Visit: Yes Status: Acute (4) Hypothermia Current Visit: Yes Status: Acute (5) CVA (cerebral vascular accident) Current Visit: No Status: Acute (6) Seizure Current Visit: No Status: Acute (7) LASHON (acute kidney injury) Current Visit: Yes Status: Acute - Assessment and Plan (Free Text) Plan: Patient status: -Self-extubated, desaturated, subsequently re-intubated -right IJ TLC in place Neuro: -Neurology Consult (Dr. Natalia Powers) -awake today -Keppra 500mg PO BID -11/07/16 EEG- abnormal. severe bilateral slowing. no evidence of epileptiform activity. severe b/l cerebral dysfunction. -hx of multiple prior CVAs with left hemiparesis -Imaging: -11/08/16 CT Head: Old infarct changes right [employer] territory as described. Moderate significant confluent white matter ischemic changes with scattered chronic bilateral basal nuclei lacunar type infarcts. Ex vacuo dilatation right temporal and right occipital horns as above. No obvious acute intracranial hemorrhage. Moderate generalized volume loss. -11/06/16 CT head: 1. Nonspecific white matter changes. Acute infarction may be CT occult within first 24 hours. If a focal deficit persists, consider followup CT or MRI for further evaluation. Cardiovascular: -off pressers -Clopidogrel 75mg PO daily -ASA 81mg PO daily -11/07/16 ECHO: LVEF 35-40% (pending final reading). As per cardiology, this is an improvement from prior evaluation of EF (30%) during PCI a few years ago -11/06/16 ECG: Sinus bradycardia with 1st degree AV block with occasional premature PVCs; junctional ST depression; HR 45 bpm Pulmonary: -Self-extubated subsequently re-intubated -CXR Pending -Possible pneumonia likely 2/2 to aspiration from ventilator support -Zosyn 2.25 gm IV -Vancomycin 1gm -Imaging: - 11/09/16 CXR- Lines and tubes in stable position. Moderate to severe venous congestion with prominent bibasilar airspace opacities. Small left pleural effusion. Cardiomegaly. Calcification at the aortic knob. - 11/08/16 CXR: Since the prior exam the pulmonary venous congestion appears less. A residual small left pleural effusion with or without atelectasis/ infiltrate here is still suspect. - 11/07/16 CXR: Endotracheal tube extending into the mid thoracic trachea. NG tube extending into the stomach. Right central venous catheter extending to the SVC. Diffuse confluent bilateral consolidative changes throughout both lungs with a suggestion of a small left pleural effusion. Right hilar consolidation. Cardiomegaly. -11/06/16 CXR: Diffuse prominent increased interstitial lung markings suggestive for moderate venous congestion versus interstitial infiltrate. Confluent airspace opacification at the left lung base which may represent effusion versus atelectasis and or infiltrate. Right infrahilar consolidative changes. -ABG: :11/09/16- CO2 46 / O2 279 / HCO3 21.0 / pH 7.28 :11/08/16- CO2 21 / O2 205 / HCO3 22.8 / pH 7.55 :11/08/16- CO2 33 / O2 117 / HCO3 25.7 / pH 7.47 :11/07/16- CO2 55 / O2 73 / HCO3 17.8 / pH 7.16 :11/07/16- CO2 64 / O2 176 / HCO3 22.8 / pH 7.22 Gastrointestinal: -No acute issues. Hematology: -Normocytic anemia Endocrine: -Levemir 20 units SC daily -Insulin regular sliding scale Renal: -LASHON -Hypopkalemia- replaced with 20meq IV Musculoskeletal: -Left hemiparesis 2/2 to hx of multiple CVAs -PT/OT consult Genitourinary: -wick catheter -11/06/16 UA: negative Infectious disease: -No acute issues. -Zosyn 2.25g IV q6- day 3 -Vancomycin 1g IV daily- day 3 GI prophylaxis: Protonix 40mg IVP daily DVT prophylaxis: Heparin 5000 units SC Q8; SCDs Case discussed with Dr. Shaheen Webster PGY1 - Date & Time Date: 11/09/16 Time: 15:37 <Wes Jamison - Last Filed: 11/09/16 17:04> CCU Objective - Vital Signs / Intake & Output Vital Signs (Last 4 hours): Vital Signs Pulse Resp BP Pulse Ox 11/09/16 15:48 83 11/09/16 15:00 92 H 14 100 11/09/16 14:41 81 17 127/65 99 11/09/16 14:20 88 11/09/16 14:00 79 13 89 L 11/09/16 13:41 77 14 134/67 88 L Intake and Output (Last 8hrs): Intake & Output 11/09/16 11/09/16 11/09/16 06:59 14:59 22:59 Intake Total 1033.8 820.7 Output Total 590 395 Balance 443.8 425.7 Weight 257 lb Intake: IV 0 Intake, IV Amount 913.8 720.7 Right Distal Port 850 700 Right Distal Port 55.2 20.7 Internal Jugular Right Proximal Port 8.6 Internal Jugular Tube Feeding 120 100 Output: Urine 590 395 Urethral (Wick) 590 395 Other: # Bowel Movements 1 1 - Medications Active Medications: Active Medications Generic Name Dose Route Start Last Admin Trade Name Freq PRN Reason Stop Dose Admin Aspirin 81 mg 11/07/16 10:00 11/09/16 11:10 Aspirin Chewable PO 81 mg DAILY EMILY Administration Clopidogrel Bisulfate 75 mg 11/07/16 10:00 11/09/16 11:10 Plavix PO 75 mg DAILY EMILY Administration Piperacillin Sod/Tazobactam Sod 2.25 gm in 50 mls @ 100 mls/hr 11/07/16 01:30 11/09/16 06:51 Zosyn 2.25 Gm Iv Premix IVPB 100 mls/hr Q6H EMILY Administration Vancomycin HCl 1 gm/ Sodium 250 mls @ 166.7 mls/hr 11/07/16 00:45 11/09/16 00 :19 Chloride IVPB 166.7 mls/hr Q24H EMILY Administration Propofol 1,000 mg in 100 mls @ 3.45 mls/hr 11/07/16 06:35 11/08/16 17:46 Diprivan IV 10 mcg/kg/min .Q24H PRN 6.9 mls/hr TITRATE PER MD ORDER Administration Protocol 5 MCG/KG/MIN Sodium Chloride 1,000 mls @ 100 mls/hr 11/07/16 17:45 11/08/16 23:56 Sodium Chloride 0.9% IV Not Given .Q10H EMILY Insulin Detemir 20 unit 11/07/16 10:00 11/09/16 11:10 Levemir SC 20 unit DAILY EMILY Administration Insulin Human Regular 0 unit 11/07/16 06:00 11/09/16 13:54 Novolin R SC Not Given Q6 EMILY Protocol Levetiracetam 500 mg 11/07/16 10:00 11/09/16 11:10 Keppra PO 500 mg BID EMILY Administration Pantoprazole Sodium 40 mg 11/07/16 10:00 11/09/16 11:10 Protonix Inj IVP 40 mg DAILY EMILY Administration - Patient Studies Lab Studies: Lab Studies 11/09/16 11/09/16 11/09/16 Range/Units 15:20 14:08 12:25 WBC (4.8-10.8) K/uL RBC (4.40-5.90) Mil/uL Hgb (12.0-18.0) g/dL Hct (35.0-51.0) % MCV (80.0-94.0) fL MCH (27.0-31.0) pg MCHC (33.0-37.0) g/dL RDW (11.5-14.5) % Plt Count (130-400) K/uL MPV (7.2-11.7) fL Neut % (Auto) (50.0-75.0) % Lymph % (Auto) (20.0-40.0) % Citrus % (Auto) (0.0-10.0) % Eos % (Auto) (0.0-4.0) % Baso % (Auto) (0.0-2.0) % Neut # (1.8-7.0) K/uL Lymph # (1.0-4.3) K/uL [place] # (0.0-0.8) K/uL Eos # (0.0-0.7) K/uL Baso # (0.0-0.2) K/uL Neutrophils % (Manual) (50-75) % Band Neutrophils % (0-2) % Lymphocytes % (Manual) (20-40) % Monocytes % (Manual) (0-10) % Eosinophils % (Manual) (0-4) % Platelet Estimate (NORMAL) Polychromasia Hypochromasia (manual) Anisocytosis (manual) Microcytosis (manual) Target Cells Tear Drop Cells Ovalocytes [place] Cells PT (9.7-12.2) SECONDS INR APTT (21-34) SECONDS Puncture Site Rra pCO2 46 H (35-45) mm/Hg pO2 279 H (80-100) mm/Hg HCO3 21.0 (21-28) mmol/L ABG pH 7.28 L (7.35-7.45) ABG Total CO2 23.0 (22-28) mmol/L ABG O2 Saturation 99.5 H (95-98) % ABG Base Excess -5.0 L (-2.0-3.0) mmol/L ABG Hemoglobin 10.2 L (11.7-17.4) g/dL ABG Carboxyhemoglobin 1.1 (0.5-1.5) % POC ABG HHb (Measured) 0.5 (0.0-5.0) % ABG Methemoglobin 1.0 (0.0-3.0) % Timmy Test Pos A-a O2 Difference 377.0 mm/Hg Respiratory Index 1.4 Hgb O2 Saturation 97.4 (95.0-98.0) % Mechanical Rate FiO2 100.0 % Tidal Volume PEEP Inspiratory BiPAP 12 Expiratory BiPAP 6 Sodium (132-148) mmol/L Potassium (3.6-5.2) mmol/L Chloride (98-107) mmol/L Carbon Dioxide (22-30) mmol/L Anion Gap (10-20) BUN (9-20) mg/dL Creatinine (0.8-1.5) MG/DL Est GFR ( Amer) Est GFR (Non-Af Amer) POC Glucose (mg/dL) 130 H 133 H (65-110) mg/dL Random Glucose (75-110) mg/dL Calcium (8.6-10.4) mg/dl Phosphorus (2.5-4.5) mg/dL Magnesium (1.6-2.3) mg/dL Total Bilirubin (0.2-1.3) mg/dL AST (17-59) U/L ALT (21-72) U/L Alkaline Phosphatase (38-126) U/L Total Protein (6.3-8.3) g/dL Albumin (3.5-5.0) g/dL Globulin (2.2-3.9) gm/dL Albumin/Globulin Ratio (1.0-2.1) 11/09/16 11/09/16 11/09/16 Range/Units 05:50 05:50 05:50 WBC (4.8-10.8) K/uL RBC (4.40-5.90) Mil/uL Hgb (12.0-18.0) g/dL Hct (35.0-51.0) % MCV (80.0-94.0) fL MCH (27.0-31.0) pg MCHC (33.0-37.0) g/dL RDW (11.5-14.5) % Plt Count (130-400) K/uL MPV (7.2-11.7) fL Neut % (Auto) (50.0-75.0) % Lymph % (Auto) (20.0-40.0) % [place] % (Auto) (0.0-10.0) % Eos % (Auto) (0.0-4.0) % Baso % (Auto) (0.0-2.0) % Neut # (1.8-7.0) K/uL Lymph # (1.0-4.3) K/uL [place] # (0.0-0.8) K/uL Eos # (0.0-0.7) K/uL Baso # (0.0-0.2) K/uL Neutrophils % (Manual) (50-75) % Band Neutrophils % (0-2) % Lymphocytes % (Manual) (20-40) % Monocytes % (Manual) (0-10) % Eosinophils % (Manual) (0-4) % Platelet Estimate (NORMAL) Polychromasia Hypochromasia (manual) Anisocytosis (manual) Microcytosis (manual) Target Cells Tear Drop Cells Ovalocytes [place] Cells PT 13.3 H (9.7-12.2) SECONDS INR 1.2 APTT 37 H (21-34) SECONDS Puncture Site pCO2 (35-45) mm/Hg pO2 (80-100) mm/Hg HCO3 (21-28) mmol/L ABG pH (7.35-7.45) ABG Total CO2 (22-28) mmol/L ABG O2 Saturation (95-98) % ABG Base Excess (-2.0-3.0) mmol/L ABG Hemoglobin (11.7-17.4) g/dL ABG Carboxyhemoglobin (0.5-1.5) % POC ABG HHb (Measured) (0.0-5.0) % ABG Methemoglobin (0.0-3.0) % Timmy Test A-a O2 Difference mm/Hg Respiratory Index Hgb O2 Saturation (95.0-98.0) % Mechanical Rate FiO2 % Tidal Volume PEEP Inspiratory BiPAP Expiratory BiPAP Sodium 146 (132-148) mmol/L Potassium 3.5 L (3.6-5.2) mmol/L Chloride 115 H (98-107) mmol/L Carbon Dioxide 22 (22-30) mmol/L Anion Gap 13 (10-20) BUN 37 H (9-20) mg/dL Creatinine 1.9 H (0.8-1.5) MG/DL Est GFR ( Amer) 42 Est GFR (Non-Af Amer) 35 POC Glucose (mg/dL) 72 (65-110) mg/dL Random Glucose 55 L (75-110) mg/dL Calcium 7.9 L (8.6-10.4) mg/dl Phosphorus 3.5 (2.5-4.5) mg/dL Magnesium 2.3 (1.6-2.3) mg/dL Total Bilirubin 0.6 (0.2-1.3) mg/dL AST 26 (17-59) U/L ALT 55 (21-72) U/L Alkaline Phosphatase 77 (38-126) U/L Total Protein 5.9 L (6.3-8.3) g/dL Albumin 2.4 L (3.5-5.0) g/dL Globulin 3.5 (2.2-3.9) gm/dL Albumin/Globulin Ratio 0.7 L (1.0-2.1) 11/09/16 11/09/16 11/09/16 Range/Units 05:50 05:20 04:20 WBC 11.1 H (4.8-10.8) K/uL RBC 3.75 L (4.40-5.90) Mil/uL Hgb 9.4 L (12.0-18.0) g/dL Hct 30.0 L (35.0-51.0) % MCV 79.9 L (80.0-94.0) fL MCH 25.1 L (27.0-31.0) pg MCHC 31.5 L (33.0-37.0) g/dL RDW 18.3 H (11.5-14.5) % Plt Count 82 L (130-400) K/uL MPV 9.2 (7.2-11.7) fL Neut % (Auto) 87.1 H (50.0-75.0) % Lymph % (Auto) 8.9 L (20.0-40.0) % [place] % (Auto) 3.5 (0.0-10.0) % Eos % (Auto) 0.3 (0.0-4.0) % Baso % (Auto) 0.2 (0.0-2.0) % Neut # 9.6 H (1.8-7.0) K/uL Lymph # 1.0 (1.0-4.3) K/uL [place] # 0.4 (0.0-0.8) K/uL Eos # 0.0 (0.0-0.7) K/uL Baso # 0.0 (0.0-0.2) K/uL Neutrophils % (Manual) 87 H (50-75) % Band Neutrophils % 2 (0-2) % Lymphocytes % (Manual) 8 L (20-40) % Monocytes % (Manual) 2 (0-10) % Eosinophils % (Manual) 1 (0-4) % Platelet Estimate Decreased L (NORMAL) Polychromasia Slight Hypochromasia (manual) Slight Anisocytosis (manual) Slight Microcytosis (manual) Slight Target Cells Slight Tear Drop Cells Slight Ovalocytes Slight [place] Cells Slight PT (9.7-12.2) SECONDS INR APTT (21-34) SECONDS Puncture Site R rad pCO2 21 L (35-45) mm/Hg pO2 205 H (80-100) mm/Hg HCO3 22.8 (21-28) mmol/L ABG pH 7.55 H (7.35-7.45) ABG Total CO2 19.0 L (22-28) mmol/L ABG O2 Saturation 98.9 H (95-98) % ABG Base Excess -2.8 L (-2.0-3.0) mmol/L ABG Hemoglobin 9.3 L (11.7-17.4) g/dL ABG Carboxyhemoglobin 0.8 (0.5-1.5) % POC ABG HHb (Measured) 1.1 (0.0-5.0) % ABG Methemoglobin 1.2 (0.0-3.0) % Timmy Test Pos A-a O2 Difference 197.0 mm/Hg Respiratory Index 1.0 Hgb O2 Saturation 96.9 (95.0-98.0) % Mechanical Rate 20 FiO2 60.0 % Tidal Volume 500 PEEP 5 Inspiratory BiPAP Expiratory BiPAP Sodium (132-148) mmol/L Potassium (3.6-5.2) mmol/L Chloride (98-107) mmol/L Carbon Dioxide (22-30) mmol/L Anion Gap (10-20) BUN (9-20) mg/dL Creatinine (0.8-1.5) MG/DL Est GFR ( Amer) Est GFR (Non-Af Amer) POC Glucose (mg/dL) 51 L (65-110) mg/dL Random Glucose (75-110) mg/dL Calcium (8.6-10.4) mg/dl Phosphorus (2.5-4.5) mg/dL Magnesium (1.6-2.3) mg/dL Total Bilirubin (0.2-1.3) mg/dL AST (17-59) U/L ALT (21-72) U/L Alkaline Phosphatase (38-126) U/L Total Protein (6.3-8.3) g/dL Albumin (3.5-5.0) g/dL Globulin (2.2-3.9) gm/dL Albumin/Globulin Ratio (1.0-2.1) 11/09/16 11/08/16 Range/Units 00:07 17:57 WBC (4.8-10.8) K/uL RBC (4.40-5.90) Mil/uL Hgb (12.0-18.0) g/dL Hct (35.0-51.0) % MCV (80.0-94.0) fL MCH (27.0-31.0) pg MCHC (33.0-37.0) g/dL RDW (11.5-14.5) % Plt Count (130-400) K/uL MPV (7.2-11.7) fL Neut % (Auto) (50.0-75.0) % Lymph % (Auto) (20.0-40.0) % [place] % (Auto) (0.0-10.0) % Eos % (Auto) (0.0-4.0) % Baso % (Auto) (0.0-2.0) % Neut # (1.8-7.0) K/uL Lymph # (1.0-4.3) K/uL [place] # (0.0-0.8) K/uL Eos # (0.0-0.7) K/uL Baso # (0.0-0.2) K/uL Neutrophils % (Manual) (50-75) % Band Neutrophils % (0-2) % Lymphocytes % (Manual) (20-40) % Monocytes % (Manual) (0-10) % Eosinophils % (Manual) (0-4) % Platelet Estimate (NORMAL) Polychromasia Hypochromasia (manual) Anisocytosis (manual) Microcytosis (manual) Target Cells Tear Drop Cells Ovalocytes [place] Cells PT (9.7-12.2) SECONDS INR APTT (21-34) SECONDS Puncture Site pCO2 (35-45) mm/Hg pO2 (80-100) mm/Hg HCO3 (21-28) mmol/L ABG pH (7.35-7.45) ABG Total CO2 (22-28) mmol/L ABG O2 Saturation (95-98) % ABG Base Excess (-2.0-3.0) mmol/L ABG Hemoglobin (11.7-17.4) g/dL ABG Carboxyhemoglobin (0.5-1.5) % POC ABG HHb (Measured) (0.0-5.0) % ABG Methemoglobin (0.0-3.0) % Timmy Test A-a O2 Difference mm/Hg Respiratory Index Hgb O2 Saturation (95.0-98.0) % Mechanical Rate FiO2 % Tidal Volume PEEP Inspiratory BiPAP Expiratory BiPAP Sodium (132-148) mmol/L Potassium (3.6-5.2) mmol/L Chloride (98-107) mmol/L Carbon Dioxide (22-30) mmol/L Anion Gap (10-20) BUN (9-20) mg/dL Creatinine (0.8-1.5) MG/DL Est GFR ( Amer) Est GFR (Non-Af Amer) POC Glucose (mg/dL) 78 107 (65-110) mg/dL Random Glucose (75-110) mg/dL Calcium (8.6-10.4) mg/dl Phosphorus (2.5-4.5) mg/dL Magnesium (1.6-2.3) mg/dL Total Bilirubin (0.2-1.3) mg/dL AST (17-59) U/L ALT (21-72) U/L Alkaline Phosphatase (38-126) U/L Total Protein (6.3-8.3) g/dL Albumin (3.5-5.0) g/dL Globulin (2.2-3.9) gm/dL Albumin/Globulin Ratio (1.0-2.1) Laboratory Results - last 24 hr 11/08/16 11/09/16 11/09/16 17:57 00:07 04:20 WBC RBC Hgb Hct MCV MCH MCHC RDW Plt Count MPV Neut % (Auto) Lymph % (Auto) [place] % (Auto) Eos % (Auto) Baso % (Auto) Neut # Lymph # [place] # Eos # Baso # Neutrophils % (Manual) Band Neutrophils % Lymphocytes % (Manual) Monocytes % (Manual) Eosinophils % (Manual) Platelet Estimate Polychromasia Hypochromasia (manual) Anisocytosis (manual) Microcytosis (manual) Target Cells Tear Drop Cells Ovalocytes [place] Cells PT INR APTT Puncture Site R rad pCO2 21 L pO2 205 H HCO3 22.8 ABG pH 7.55 H ABG Total CO2 19.0 L ABG O2 Saturation 98.9 H ABG Base Excess -2.8 L ABG Hemoglobin 9.3 L ABG Carboxyhemoglobin 0.8 POC ABG HHb (Measured) 1.1 ABG Methemoglobin 1.2 Timmy Test Pos A-a O2 Difference 197.0 Respiratory Index 1.0 Hgb O2 Saturation 96.9 Mechanical Rate 20 FiO2 60.0 Tidal Volume 500 PEEP 5 Inspiratory BiPAP Expiratory BiPAP Sodium Potassium Chloride Carbon Dioxide Anion Gap BUN Creatinine Est GFR ( Amer) Est GFR (Non-Af Amer) POC Glucose (mg/dL) 107 78 Random Glucose Calcium Phosphorus Magnesium Total Bilirubin AST ALT Alkaline Phosphatase Total Protein Albumin Globulin Albumin/Globulin Ratio 11/09/16 11/09/16 11/09/16 05:20 05:50 05:50 WBC 11.1 H RBC 3.75 L Hgb 9.4 L Hct 30.0 L MCV 79.9 L MCH 25.1 L MCHC 31.5 L RDW 18.3 H Plt Count 82 L MPV 9.2 Neut % (Auto) 87.1 H Lymph % (Auto) 8.9 L [place] % (Auto) 3.5 Eos % (Auto) 0.3 Baso % (Auto) 0.2 Neut # 9.6 H Lymph # 1.0 [place] # 0.4 Eos # 0.0 Baso # 0.0 Neutrophils % (Manual) 87 H Band Neutrophils % 2 Lymphocytes % (Manual) 8 L Monocytes % (Manual) 2 Eosinophils % (Manual) 1 Platelet Estimate Decreased L Polychromasia Slight Hypochromasia (manual) Slight Anisocytosis (manual) Slight Microcytosis (manual) Slight Target Cells Slight Tear Drop Cells Slight Ovalocytes Slight [place] Cells Slight PT 13.3 H INR 1.2 APTT 37 H Puncture Site pCO2 pO2 HCO3 ABG pH ABG Total CO2 ABG O2 Saturation ABG Base Excess ABG Hemoglobin ABG Carboxyhemoglobin POC ABG HHb (Measured) ABG Methemoglobin Timmy Test A-a O2 Difference Respiratory Index Hgb O2 Saturation Mechanical Rate FiO2 Tidal Volume PEEP Inspiratory BiPAP Expiratory BiPAP Sodium Potassium Chloride Carbon Dioxide Anion Gap BUN Creatinine Est GFR ( Amer) Est GFR (Non-Af Amer) POC Glucose (mg/dL) 51 L Random Glucose Calcium Phosphorus Magnesium Total Bilirubin AST ALT Alkaline Phosphatase Total Protein Albumin Globulin Albumin/Globulin Ratio 11/09/16 11/09/16 11/09/16 05:50 05:50 12:25 WBC RBC Hgb Hct MCV MCH MCHC RDW Plt Count MPV Neut % (Auto) Lymph % (Auto) [place] % (Auto) Eos % (Auto) Baso % (Auto) Neut # Lymph # [place] # Eos # Baso # Neutrophils % (Manual) Band Neutrophils % Lymphocytes % (Manual) Monocytes % (Manual) Eosinophils % (Manual) Platelet Estimate Polychromasia Hypochromasia (manual) Anisocytosis (manual) Microcytosis (manual) Target Cells Tear Drop Cells Ovalocytes [place] Cells PT INR APTT Puncture Site pCO2 pO2 HCO3 ABG pH ABG Total CO2 ABG O2 Saturation ABG Base Excess ABG Hemoglobin ABG Carboxyhemoglobin POC ABG HHb (Measured) ABG Methemoglobin Timmy Test A-a O2 Difference Respiratory Index Hgb O2 Saturation Mechanical Rate FiO2 Tidal Volume PEEP Inspiratory BiPAP Expiratory BiPAP Sodium 146 Potassium 3.5 L Chloride 115 H Carbon Dioxide 22 Anion Gap 13 BUN 37 H Creatinine 1.9 H Est GFR ( Amer) 42 Est GFR (Non-Af Amer) 35 POC Glucose (mg/dL) 72 133 H Random Glucose 55 L Calcium 7.9 L Phosphorus 3.5 Magnesium 2.3 Total Bilirubin 0.6 AST 26 ALT 55 Alkaline Phosphatase 77 Total Protein 5.9 L Albumin 2.4 L Globulin 3.5 Albumin/Globulin Ratio 0.7 L 11/09/16 11/09/16 14:08 15:20 WBC RBC Hgb Hct MCV MCH MCHC RDW Plt Count MPV Neut % (Auto) Lymph % (Auto) [place] % (Auto) Eos % (Auto) Baso % (Auto) Neut # Lymph # [place] # Eos # Baso # Neutrophils % (Manual) Band Neutrophils % Lymphocytes % (Manual) Monocytes % (Manual) Eosinophils % (Manual) Platelet Estimate Polychromasia Hypochromasia (manual) Anisocytosis (manual) Microcytosis (manual) Target Cells Tear Drop Cells Ovalocytes [place] Cells PT INR APTT Puncture Site Rra pCO2 46 H pO2 279 H HCO3 21.0 ABG pH 7.28 L ABG Total CO2 23.0 ABG O2 Saturation 99.5 H ABG Base Excess -5.0 L ABG Hemoglobin 10.2 L ABG Carboxyhemoglobin 1.1 POC ABG HHb (Measured) 0.5 ABG Methemoglobin 1.0 Timmy Test Pos A-a O2 Difference 377.0 Respiratory Index 1.4 Hgb O2 Saturation 97.4 Mechanical Rate FiO2 100.0 Tidal Volume PEEP Inspiratory BiPAP 12 Expiratory BiPAP 6 Sodium Potassium Chloride Carbon Dioxide Anion Gap BUN Creatinine Est GFR ( Amer) Est GFR (Non-Af Amer) POC Glucose (mg/dL) 130 H Random Glucose Calcium Phosphorus Magnesium Total Bilirubin AST ALT Alkaline Phosphatase Total Protein Albumin Globulin Albumin/Globulin Ratio Attending/Attestation - Attestation I have personally seen and examined this patient.: Yes I have fully participated in the care of the patient.: Yes I have reviewed all pertinent clinical information: Yes Notes (Text): 11/09/16 17:01 Patient seen and examined in the intensive care unit. Case discussed with house staff in the morning rounds. Patient more awake and responsive self extubated and pulled triple-lumen catheter out later patient got reintubated for respiratory distress not responding to BiPAP Continue antibiotics Continue IV sedation
[2016-11-09 15:28] LABS: ABG ALLEN TEST POS; ARTERIAL BLOOD HGB O2 SAT 97.4 % (95.0-98.0); CARBOXYHEMOGLOBIN 1.1 % (0.5-1.5); DRAW SITE RRA; HHB 0.5 % (0.0-5.0)
[2016-11-09] MEDS: Sodium Chloride 0.9% 1,000 ML IV SCH ×2 (18:31→20:38)
--- NOTE | 2016-11-09 18:31 | CP.PCM.CON ---
Past Patient History - Past Medical History & Family History Past Medical History?: Yes - Past Social History Smoking Status: Former Smoker - CARDIAC Hx Cardiac Disorders: Yes Hx Hypercholesterolemia: Yes Hx Hypertension: Yes - PULMONARY Hx Respiratory Disorders: Yes Hx Chronic Obstructive Pulmonary Disease (COPD): Yes - NEUROLOGICAL Hx Neurological Disorder: Yes HX Cerebrovascular Accident: Yes - HEENT Hx HEENT Problems: Yes Hx Blind: Yes (left eye blind, right blurry) Hx Cataracts: Yes Other/Comment: Cataracts Alexys.with Extarction. - RENAL Hx Chronic Kidney Disease: No - ENDOCRINE/METABOLIC Hx Endocrine Disorders: Yes Hx Diabetes Mellitus Type 2: Yes - HEMATOLOGICAL/ONCOLOGICAL Hx Blood Disorders: No - INTEGUMENTARY Hx Dermatological Problems: No - MUSCULOSKELETAL/RHEUMATOLOGICAL Hx Musculoskeletal Disorders: Yes Hx Arthritis: Yes Hx Falls: Yes - GASTROINTESTINAL Hx Gastrointestinal Disorders: Yes Hx Gastritis: Yes - GENITOURINARY/GYNECOLOGICAL Hx Genitourinary Disorders: Yes Hx Prostate Problems: Yes - PSYCHIATRIC Hx Anxiety: No Hx Substance Use: No - SURGICAL HISTORY Hx Surgeries: Yes Hx Coronary Stent: Yes (x1) Hx Eye Surgery: Yes - ANESTHESIA Hx Anesthesia: Yes Hx Anesthesia Reactions: No Hx Malignant Hyperthermia: No Has any member of the family had a problem w/ anesthesia?: No Meds Allergies/Adverse Reactions: Allergies Allergy/AdvReac Type Severity Reaction Status Date / Time No Known Allergies Allergy Verified 11/06/16 21:29 - Medications Medications: Current Medications Aspirin (Aspirin Chewable) 81 mg PO DAILY [facility] Last Admin: 11/09/16 11:10 Dose: 81 mg Clopidogrel Bisulfate (Plavix) 75 mg PO DAILY [facility] Last Admin: 11/09/16 11:10 Dose: 75 mg Piperacillin Sod/Tazobactam Sod (Zosyn 2.25 Gm Iv Premix) 2.25 gm in 50 mls @ 100 mls/hr IVPB Q6H [facility] Last Admin: 11/09/16 06:51 Dose: 100 mls/hr Vancomycin HCl 1 gm/ Sodium (Chloride) 250 mls @ 166.7 mls/hr IVPB Q24H [facility] Last Admin: 11/09/16 00:19 Dose: 166.7 mls/hr Propofol (Diprivan) 1,000 mg in 100 mls @ 3.45 mls/hr IV .Q24H PRN; Protocol; 5 MCG/KG/MIN PRN Reason: TITRATE PER MD ORDER Last Admin: 11/08/16 17:46 Dose: 10 mcg/kg/min, 6.9 mls/hr Sodium Chloride (Sodium Chloride 0.9%) 1,000 mls @ 100 mls/hr IV .Q10H [facility] Last Admin: 11/08/16 23:56 Dose: Not Given Insulin Detemir (Levemir) 20 unit SC DAILY [facility] Last Admin: 11/09/16 11:10 Dose: 20 unit Insulin Human Regular (Novolin R) 0 unit SC Q6 [facility] PRN Reason: Protocol Last Admin: 11/09/16 13:54 Dose: Not Given Levetiracetam (Keppra) 500 mg PO BID [facility] Last Admin: 11/09/16 11:10 Dose: 500 mg Pantoprazole Sodium (Protonix Inj) 40 mg IVP DAILY [facility] Last Admin: 11/09/16 11:10 Dose: 40 mg Results - Vital Signs Recent Vital Signs: Last Vital Signs Temp 97.6 F 11/09/16 04:00 Pulse 83 11/09/16 15:48 Resp 14 11/09/16 15:00 BP 127/65 11/09/16 14:41 Pulse Ox 100 11/09/16 15:00 - Labs Result Diagrams: 11/09/16 05:50 11/09/16 05:50 Labs: Laboratory Results - last 24 hr 11/09/16 11/09/16 11/09/16 00:07 04:20 05:20 WBC RBC Hgb Hct MCV MCH MCHC RDW Plt Count MPV Neut % (Auto) Lymph % (Auto) [place] % (Auto) Eos % (Auto) Baso % (Auto) Neut # Lymph # [place] # Eos # Baso # Neutrophils % (Manual) Band Neutrophils % Lymphocytes % (Manual) Monocytes % (Manual) Eosinophils % (Manual) Platelet Estimate Polychromasia Hypochromasia (manual) Anisocytosis (manual) Microcytosis (manual) Target Cells Tear Drop Cells Ovalocytes [place] Cells PT INR APTT Puncture Site R rad pCO2 21 L pO2 205 H HCO3 22.8 ABG pH 7.55 H ABG Total CO2 19.0 L ABG O2 Saturation 98.9 H ABG Base Excess -2.8 L ABG Hemoglobin 9.3 L ABG Carboxyhemoglobin 0.8 POC ABG HHb (Measured) 1.1 ABG Methemoglobin 1.2 Timmy Test Pos A-a O2 Difference 197.0 Respiratory Index 1.0 Hgb O2 Saturation 96.9 Mechanical Rate 20 FiO2 60.0 Tidal Volume 500 PEEP 5 Inspiratory BiPAP Expiratory BiPAP Sodium Potassium Chloride Carbon Dioxide Anion Gap BUN Creatinine Est GFR ( Amer) Est GFR (Non-Af Amer) POC Glucose (mg/dL) 78 51 L Random Glucose Calcium Phosphorus Magnesium Total Bilirubin AST ALT Alkaline Phosphatase Total Protein Albumin Globulin Albumin/Globulin Ratio 11/09/16 11/09/16 11/09/16 05:50 05:50 05:50 WBC 11.1 H RBC 3.75 L Hgb 9.4 L Hct 30.0 L MCV 79.9 L MCH 25.1 L MCHC 31.5 L RDW 18.3 H Plt Count 82 L MPV 9.2 Neut % (Auto) 87.1 H Lymph % (Auto) 8.9 L [place] % (Auto) 3.5 Eos % (Auto) 0.3 Baso % (Auto) 0.2 Neut # 9.6 H Lymph # 1.0 [place] # 0.4 Eos # 0.0 Baso # 0.0 Neutrophils % (Manual) 87 H Band Neutrophils % 2 Lymphocytes % (Manual) 8 L Monocytes % (Manual) 2 Eosinophils % (Manual) 1 Platelet Estimate Decreased L Polychromasia Slight Hypochromasia (manual) Slight Anisocytosis (manual) Slight Microcytosis (manual) Slight Target Cells Slight Tear Drop Cells Slight Ovalocytes Slight [place] Cells Slight PT 13.3 H INR 1.2 APTT 37 H Puncture Site pCO2 pO2 HCO3 ABG pH ABG Total CO2 ABG O2 Saturation ABG Base Excess ABG Hemoglobin ABG Carboxyhemoglobin POC ABG HHb (Measured) ABG Methemoglobin Timmy Test A-a O2 Difference Respiratory Index Hgb O2 Saturation Mechanical Rate FiO2 Tidal Volume PEEP Inspiratory BiPAP Expiratory BiPAP Sodium 146 Potassium 3.5 L Chloride 115 H Carbon Dioxide 22 Anion Gap 13 BUN 37 H Creatinine 1.9 H Est GFR ( Amer) 42 Est GFR (Non-Af Amer) 35 POC Glucose (mg/dL) Random Glucose 55 L Calcium 7.9 L Phosphorus 3.5 Magnesium 2.3 Total Bilirubin 0.6 AST 26 ALT 55 Alkaline Phosphatase 77 Total Protein 5.9 L Albumin 2.4 L Globulin 3.5 Albumin/Globulin Ratio 0.7 L 11/09/16 11/09/16 11/09/16 05:50 12:25 14:08 WBC RBC Hgb Hct MCV MCH MCHC RDW Plt Count MPV Neut % (Auto) Lymph % (Auto) [place] % (Auto) Eos % (Auto) Baso % (Auto) Neut # Lymph # [place] # Eos # Baso # Neutrophils % (Manual) Band Neutrophils % Lymphocytes % (Manual) Monocytes % (Manual) Eosinophils % (Manual) Platelet Estimate Polychromasia Hypochromasia (manual) Anisocytosis (manual) Microcytosis (manual) Target Cells Tear Drop Cells Ovalocytes [place] Cells PT INR APTT Puncture Site pCO2 pO2 HCO3 ABG pH ABG Total CO2 ABG O2 Saturation ABG Base Excess ABG Hemoglobin ABG Carboxyhemoglobin POC ABG HHb (Measured) ABG Methemoglobin Timmy Test A-a O2 Difference Respiratory Index Hgb O2 Saturation Mechanical Rate FiO2 Tidal Volume PEEP Inspiratory BiPAP Expiratory BiPAP Sodium Potassium Chloride Carbon Dioxide Anion Gap BUN Creatinine Est GFR ( Amer) Est GFR (Non-Af Amer) POC Glucose (mg/dL) 72 133 H 130 H Random Glucose Calcium Phosphorus Magnesium Total Bilirubin AST ALT Alkaline Phosphatase Total Protein Albumin Globulin Albumin/Globulin Ratio 11/09/16 11/09/16 15:20 18:04 WBC RBC Hgb Hct MCV MCH MCHC RDW Plt Count MPV Neut % (Auto) Lymph % (Auto) [place] % (Auto) Eos % (Auto) Baso % (Auto) Neut # Lymph # [place] # Eos # Baso # Neutrophils % (Manual) Band Neutrophils % Lymphocytes % (Manual) Monocytes % (Manual) Eosinophils % (Manual) Platelet Estimate Polychromasia Hypochromasia (manual) Anisocytosis (manual) Microcytosis (manual) Target Cells Tear Drop Cells Ovalocytes Kimberly Cells PT INR APTT Puncture Site Rra pCO2 46 H pO2 279 H HCO3 21.0 ABG pH 7.28 L ABG Total CO2 23.0 ABG O2 Saturation 99.5 H ABG Base Excess -5.0 L ABG Hemoglobin 10.2 L ABG Carboxyhemoglobin 1.1 POC ABG HHb (Measured) 0.5 ABG Methemoglobin 1.0 Timmy Test Pos A-a O2 Difference 377.0 Respiratory Index 1.4 Hgb O2 Saturation 97.4 Mechanical Rate FiO2 100.0 Tidal Volume PEEP Inspiratory BiPAP 12 Expiratory BiPAP 6 Sodium Potassium Chloride Carbon Dioxide Anion Gap BUN Creatinine Est GFR ( Amer) Est GFR (Non-Af Amer) POC Glucose (mg/dL) 121 H Random Glucose Calcium Phosphorus Magnesium Total Bilirubin AST ALT Alkaline Phosphatase Total Protein Albumin Globulin Albumin/Globulin Ratio
--- NOTE | 2016-11-09 18:54 | RAD ---
HISTORY: s/p intubation COMPARISON: Comparison is made to previous same-day exam FINDINGS: LUNGS: Interval worsening of patchy opacities in the lungs since the previous exam. The ET tube is seen at appropriate position. PLEURA: No evidence of significant pleural effusion or pneumothorax. CARDIOVASCULAR: The cardiac silhouette is mildly enlarged. OSSEOUS STRUCTURES: No significant abnormalities. VISUALIZED UPPER ABDOMEN: Normal. OTHER FINDINGS: None. IMPRESSION: Interval worsening of patchy opacities in the lungs since the previous exam. Appropriate position of the ETT.
[2016-11-09] MEDS: DOPamine 400mg/250ml D5W 400 MG/250 ML BAG IV PRN (19:00)
[2016-11-09] MEDS ORDERED: Propofol 10 mg/ml 1,000 MG/100 ML VIAL IV PRN (19:27)
[2016-11-09] MEDS: Propofol 10 mg/ml 1,000 MG/100 ML VIAL IV PRN (20:00)
--- NOTE | 2016-11-09 20:21 | CP.PCM.PN ---
Subjective - Date & Time of Evaluation Date of Evaluation: 11/09/16 Time of Evaluation: 13:00 - Subjective Subjective: extubated, non verbal, does not follow command, observe Objective - Vital Signs/Intake and Output Vital Signs (last 24 hours): Temp Pulse Resp BP Pulse Ox 97.6 F 83 14 127/65 100 11/09/16 04:00 11/09/16 15:48 11/09/16 15:00 11/09/16 14:41 11/09/16 15:00 Intake and Output: 11/09/16 11/10/16 18:59 06:59 Intake Total 820.7 Output Total 395 Balance 425.7 - Medications Medications: Current Medications Aspirin (Aspirin Chewable) 81 mg PO DAILY [facility] Last Admin: 11/09/16 11:10 Dose: 81 mg Clopidogrel Bisulfate (Plavix) 75 mg PO DAILY [facility] Last Admin: 11/09/16 11:10 Dose: 75 mg Piperacillin Sod/Tazobactam Sod (Zosyn 2.25 Gm Iv Premix) 2.25 gm in 50 mls @ 100 mls/hr IVPB Q6H [facility] Last Admin: 11/09/16 06:51 Dose: 100 mls/hr Vancomycin HCl 1 gm/ Sodium (Chloride) 250 mls @ 166.7 mls/hr IVPB Q24H [facility] Last Admin: 11/09/16 00:19 Dose: 166.7 mls/hr Propofol (Diprivan) 1,000 mg in 100 mls @ 3.45 mls/hr IV .Q24H PRN; Protocol; 5 MCG/KG/MIN PRN Reason: TITRATE PER MD ORDER Last Admin: 11/08/16 17:46 Dose: 10 mcg/kg/min, 6.9 mls/hr Sodium Chloride (Sodium Chloride 0.9%) 1,000 mls @ 100 mls/hr IV .Q10H [facility] Last Admin: 11/09/16 18:31 Dose: Not Given Dopamine HCl/Dextrose (Dopamine 400mg/250ml D5w) 400 mg in 250 mls @ 8.743 mls/ hr IV .Q24H PRN; Protocol; 2 MCG/KG/MIN PRN Reason: TITRATE PER MD ORDER Propofol (Diprivan) 1,000 mg in 100 mls @ 3.497 mls/hr IV .Q24H PRN; Protocol; 5 MCG/KG/MIN PRN Reason: TITRATE PER MD ORDER Insulin Detemir (Levemir) 20 unit SC DAILY [facility] Last Admin: 11/09/16 11:10 Dose: 20 unit Insulin Human Regular (Novolin R) 0 unit SC Q6 [facility] PRN Reason: Protocol Last Admin: 11/09/16 18:30 Dose: Not Given Levetiracetam (Keppra) 500 mg PO BID [facility] Last Admin: 11/09/16 18:30 Dose: Not Given Pantoprazole Sodium (Protonix Inj) 40 mg IVP DAILY [facility] Last Admin: 11/09/16 11:10 Dose: 40 mg - Labs Labs: 11/09/16 05:50 11/09/16 05:50 PT 13.3 SECONDS (9.7-12.2) H 11/09/16 05:50 INR 1.2 11/09/16 05:50 APTT 37 SECONDS (21-34) H 11/09/16 05:50 - Constitutional Appears: Non-toxic - Head Exam Head Exam: ATRAUMATIC - Eye Exam Eye Exam: EOMI - ENT Exam ENT Exam: Mucous Membranes Moist - Neck Exam Neck Exam: absent: Lymphadenopathy, Thyromegaly - Respiratory Exam Respiratory Exam: Clear to Ausculation Bilateral. absent: Rales - Cardiovascular Exam Cardiovascular Exam: REGULAR RHYTHM, Murmur - GI/Abdominal Exam GI & Abdominal Exam: Normal Bowel Sounds. absent: Organomegaly - Rectal Exam Rectal Exam: Deferred - Extremities Exam Extremities Exam: Normal Capillary Refill. absent: Calf Tenderness - Neurological Exam Neurological Exam: Altered - Psychiatric Exam Psychiatric exam: Depressed - Skin Skin Exam: Dry Assessment and Plan (1) CHF (congestive heart failure) Status: Chronic (2) Septic shock Assessment & Plan: improved + gram neg mariajose in urine Status: Acute (3) CAD (coronary artery disease) Status: Chronic (4) Diabetes mellitus Status: Chronic
--- NOTE | 2016-11-09 22:58 | CP.PCM.PN ---
Subjective - Date & Time of Evaluation Date of Evaluation: 11/09/16 Time of Evaluation: 10:00 - Subjective Subjective: Pt seen and evaluated is on mechanical ventilator, he is congested, FiO2 of 50%. Objective - Vital Signs/Intake and Output Vital Signs (last 24 hours): Temp Pulse Resp BP Pulse Ox 95.4 F L 76 12 134/48 L 96 11/09/16 20:00 11/09/16 22:00 11/09/16 22:00 11/09/16 21:41 11/09/16 22:00 Intake and Output: 11/09/16 11/10/16 18:59 06:59 Intake Total 1420.7 632.4 Output Total 690 385 Balance 730.7 247.4 - Medications Medications: Current Medications Aspirin (Aspirin Chewable) 81 mg PO DAILY [facility] Last Admin: 11/09/16 11:10 Dose: 81 mg Clopidogrel Bisulfate (Plavix) 75 mg PO DAILY [facility] Last Admin: 11/09/16 11:10 Dose: 75 mg Piperacillin Sod/Tazobactam Sod (Zosyn 2.25 Gm Iv Premix) 2.25 gm in 50 mls @ 100 mls/hr IVPB Q6H [facility] Last Admin: 11/09/16 20:40 Dose: 100 mls/hr Vancomycin HCl 1 gm/ Sodium (Chloride) 250 mls @ 166.7 mls/hr IVPB Q24H [facility] Last Admin: 11/09/16 00:19 Dose: 166.7 mls/hr Propofol (Diprivan) 1,000 mg in 100 mls @ 3.45 mls/hr IV .Q24H PRN; Protocol; 5 MCG/KG/MIN PRN Reason: TITRATE PER MD ORDER Last Admin: 11/09/16 20:00 Dose: 10.14 mcg/kg/min, 7 mls/hr Sodium Chloride (Sodium Chloride 0.9%) 1,000 mls @ 100 mls/hr IV .Q10H [facility] Last Admin: 11/09/16 20:38 Dose: 100 mls/hr Dopamine HCl/Dextrose (Dopamine 400mg/250ml D5w) 400 mg in 250 mls @ 8.743 mls/ hr IV .Q24H PRN; Protocol; 2 MCG/KG/MIN PRN Reason: TITRATE PER MD ORDER Last Admin: 11/09/16 19:00 Dose: 5.39 mcg/kg/min, 23.6 mls/hr Insulin Detemir (Levemir) 20 unit SC DAILY [facility] Last Admin: 11/09/16 11:10 Dose: 20 unit Insulin Human Regular (Novolin R) 0 unit SC Q6 [facility] PRN Reason: Protocol Last Admin: 11/09/16 18:30 Dose: Not Given Levetiracetam (Keppra) 500 mg PO BID [facility] Last Admin: 11/09/16 18:30 Dose: Not Given Pantoprazole Sodium (Protonix Inj) 40 mg IVP DAILY [facility] Last Admin: 11/09/16 11:10 Dose: 40 mg - Labs Labs: 11/09/16 05:50 11/09/16 05:50 PT 13.3 SECONDS (9.7-12.2) H 11/09/16 05:50 INR 1.2 11/09/16 05:50 APTT 37 SECONDS (21-34) H 11/09/16 05:50 - Constitutional Appears: No Acute Distress, Chronically Ill - Head Exam Head Exam: ATRAUMATIC, NORMAL INSPECTION, NORMOCEPHALIC - Eye Exam Eye Exam: EOMI, Normal appearance, PERRL Pupil Exam: NORMAL ACCOMODATION, PERRL - Respiratory Exam Respiratory Exam: Decreased Breath Sounds, Rales, Rhonchi - Cardiovascular Exam Cardiovascular Exam: +S1, +S2, Murmur Additional comments: 2/6 ESM - GI/Abdominal Exam GI & Abdominal Exam: Soft, Normal Bowel Sounds. absent: Tenderness Assessment and Plan (1) Respiratory failure Assessment & Plan: attempt weaning Status: Acute (2) Insulin dependent diabetes mellitus Status: Acute (3) UTI (lower urinary tract infection) Status: Acute
[2016-11-10] MEDS: DOPamine 400mg/250ml D5W 400 MG/250 ML BAG IV PRN ×2 (00:40→02:37)
[2016-11-10] MEDS: Piperacill/Tazo 2.25gm in Dex 2.25 GM/50 ML BAG IVPB SCH ×2 (01:30→07:05)
[2016-11-10] MEDS: Propofol 10 mg/ml 1,000 MG/100 ML VIAL IV PRN (05:40)
[2016-11-10] MEDS: (Novolin R) Insulin Human Regular 100 units/ml vial SC SCH ×3 (05:42→12:23)
[2016-11-10] MEDS: Sodium Chloride 0.9% 1,000 ML IV SCH (05:43)
[2016-11-10 05:46] LABS: ABG ALLEN TEST POS; ABG MECHANICAL RATE 12; ARTERIAL BLOOD HGB O2 SAT 95.8 % (95.0-98.0); ATERIAL BLOOD GAS PEEP 5; CARBOXYHEMOGLOBIN 1.5 % (0.5-1.5); DRAW SITE RR; HHB 1.4 % (0.0-5.0); METHEMOGLOBIN 1.3 % (0.0-3.0)
[2016-11-10 06:24] LABS: BASO % 0.1 % (0.0-2.0); EOS # 0.1 K/uL (0.0-0.7); EOS % 0.5 % (0.0-4.0); HEMATOCRIT 30.7 % (35.0-51.0); LYMPH # 0.6 K/uL (1.0-4.3); MEAN CELL VOLUME 82.2 fL (80.0-94.0); MEAN CORPUSCULAR HEMOGLOBIN 25.5 pg (27.0-31.0); MEAN PLATELET VOLUME 9.7 fL (7.2-11.7); MONO # 0.4 K/uL (0.0-0.8); MONO % 3.1 % (0.0-10.0); NRBC % 0.2 % (0.0-2.0); PLATELET COUNT 80 K/uL (130-400); RED CELL DISTRIBUTION WIDTH 18.6 % (11.5-14.5); WHITE BLOOD COUNT 12.2 K/uL (4.8-10.8)
[2016-11-10 06:29] LABS: POTASSIUM 3.7 mmol/L (3.6-5.2)
[2016-11-10 06:31] LABS: ALB/GLOB RATIO 0.9 (1.0-2.1); BILIRUBIN,TOTAL 0.8 mg/dL (0.2-1.3); TOTAL PROTEIN 6.1 g/dL (6.3-8.3)
[2016-11-10 06:32] LABS: CALCIUM 7.9 mg/dl (8.6-10.4); MAGNESIUM 2.4 mg/dL (1.6-2.3); PHOSPHOROUS 4.2 mg/dL (2.5-4.5)
[2016-11-10 08:17] LABS: NEUTROPHIL 91 % (50-75); TOTAL CELLS COUNTED 100
--- NOTE | 2016-11-10 09:52 | RAD ---
Chest x-ray single frontal view History: Triple-lumen catheter evaluation. Comparison: None available. Findings: Endotracheal tube extending into the mid thoracic trachea. NG tube extending into the stomach. Right central venous catheter tip extending to the cavoatrial junction. Diffuse confluent airspace consolidative changes throughout both lungs. No evidence of postprocedure pneumothorax. Prominent degenerative changes in the spine. Cardiomegaly. Impression: Endotracheal tube extending into the mid thoracic trachea. NG tube extending into the stomach. Right central venous catheter tip extending to the cavoatrial junction. Diffuse confluent airspace consolidative changes throughout both lungs. No evidence of postprocedure pneumothorax. Prominent degenerative changes in the spine. Cardiomegaly.
--- NOTE | 2016-11-10 10:33 | RAD ---
HISTORY: et tube eval COMPARISON: 11/06/2016 FINDINGS: LUNGS: Endotracheal tube extending into the mid thoracic trachea. NG tube extending into the stomach. Right central venous catheter extending into the cavoatrial junction. Moderate venous congestion. Prominent consolidative changes at the left lung base and right infrahilar region. PLEURA: As above. CARDIOVASCULAR: Cardiomegaly. OSSEOUS STRUCTURES: Degenerative changes in the spine and shoulders. VISUALIZED UPPER ABDOMEN: Normal. OTHER FINDINGS: None. IMPRESSION: Endotracheal tube extending into the mid thoracic trachea. NG tube extending into the stomach. Right central venous catheter extending into the cavoatrial junction. Moderate venous congestion. Prominent consolidative changes at the left lung base and right infrahilar region.
[2016-11-10] MEDS: Insulin Detemir 100 units/ml Vial (Levemir) SC SCH (10:43)
[2016-11-10] MEDS: levETIRAcetam 100 mg/ml (5ml) Oral Syringe GT SCH ×2 (11:05→17:42)
[2016-11-10] MEDS: Meropenem 500 MG in Sodium Chloride 0.9% 100 ML IVPB SCH ×2 (13:25→21:15)
--- NOTE | 2016-11-10 13:41 | CP.CCUPN ---
<Malick Webster - Last Filed: 11/10/16 13:36> CCU Subjective - Physician Review Subjective (Free Text): 11/07/16 14:11 Patient seen and examined at bedside. No acute distress. No acute events overnight. Nursing staff reports no issues. Patient is intubated (FiO2 70; 20 bpm; 500 vte; 5 PEEP; 1L/min). Patient is minimally arousable and opens his eyes to stimulation following the removal of propofol sedation. However, the patient does not move his extremities. Today on rounds, a bedside EEG was ordered and tube feeds were started. The patient was receiving a bicard drip. The bicarb was discontinued following the completion of the liter infusion and transitioned to normal saline only. 11/08/16 11:13 Patient seen and examined at bedside. No acute distress. No acute events overnight. Nursing staff reports no issues. Patient is intubated PRVC. Patient is minimally arousable and opens his eyes to stimulation. Patient able to move head in response to yes/no questioning. Today on rounds, the patient's phosphorous was replaced and the FiO2 of his ventilator was decreased from 70% to 60%. 11/09/16 15:19 Patient seen and examined at bedside. No acute distress. No acute events overnight. Nursing staff reports no issues. Patient is intubated PRVC. Patient is more awake and alert today. Plan for CPAP trial this evening. Patient appropriately signals yes/no to questioning. No complaints this morning. Today on rounds, the patient was placed on 40% FiO2 and his rate was decreased to 12 to account for respiratory alkalosis. The patient's potassium was also replaced. Post rounds, the patient was placed on CPAP + PS. He subsequently extubated himself. The patient tolerated external BiPAP, but was seen to desaturate. Patient had an ABG drawn to assess need for re-intubation. 11/10/16 13:36 Patient seen and examined at bedside. No acute distress. No acute events overnight. Nursing staff reports no issues. Patient was re-intubated yesterday following self-extubation and desaturation intollerance of BiPAP. Patient remains at baseline. Today on rounds, dr. Alexis was consulted for positive urine culture and lasix 40mg IV q12 was started. Critical Care Time Spent (in minutes): 60 CCU Objective - Vital Signs / Intake & Output Vital Signs (Last 4 hours): Vital Signs Temp Pulse Resp BP Pulse Ox 11/10/16 13:01 70 18 152/77 H 97 11/10/16 12:01 69 14 149/67 98 11/10/16 12:00 98 F 11/10/16 11:01 75 14 140/47 L 98 11/10/16 10:01 64 14 128/54 L 98 11/10/16 10:00 73 13 98 Intake and Output (Last 8hrs): Intake & Output 11/09/16 11/10/16 11/10/16 22:59 06:59 14:59 Intake Total 1032.4 1761.3 686.3 Output Total 620 435 725 Balance 412.4 1326.3 -38.7 Weight 113.908 kg Intake: IV 600 Intake, IV Amount 972.4 1061.3 546.3 Right Distal Port 850 850 400 Right Distal Port 0 Internal Jugular Right Medial Port 94.4 155.3 118.3 Internal Jugular Right Proximal Port 28 56 28 Internal Jugular Tube Feeding 60 100 140 Output: Urine 620 335 725 Urethral (Wick) 620 335 725 Emesis 100 Other: # Bowel Movements 1 - Physical Exam Head: Positive for: Atraumatic, Normocephalic, Other (ET Tube in place) Pupils: Positive for: PERRL Extroacular Muscles: Positive for: EOMI Conjunctiva: Positive for: Normal Mouth: Positive for: Moist Mucous Membranes. Negative for: Drooling Nose (External): Positive for: Atraumatic Neck: Positive for: Normal Range of Motion. Negative for: JVD, Lymphadenopathy Respiratory/Chest: Positive for: Clear to Auscultation, Good Air Exchange, Decreased Breath Sounds. Negative for: Respiratory Distress, Accessory Muscle Use, Wheezes, Rales, Retracting, Rhonchi Cardiovascular: Positive for: Regular Rate and Rhythm, Murmurs, Normal S1, S2, Peripheal Pulses Present. Negative for: Irregular Rhythm, Tachycardic, Bradycardic Abdomen: Positive for: Normal Bowel Sounds. Negative for: Tenderness, Distention, Peritoneal Signs, Rebound, Guarding Back: Positive for: Normal Inspection Upper Extremity: Positive for: Normal Inspection. Negative for: Cyanosis, Edema Lower Extremity: Positive for: Normal Inspection. Negative for: Edema Skin: Positive for: Warm, Normal Color - Medications Active Medications: Active Medications Generic Name Dose Route Start Last Admin Trade Name Freq PRN Reason Stop Dose Admin Aspirin 81 mg 11/07/16 10:00 11/10/16 10:42 Aspirin Chewable PO 81 mg DAILY EMILY Administration Clopidogrel Bisulfate 75 mg 11/07/16 10:00 11/10/16 10:43 Plavix PO 75 mg DAILY EMILY Administration Furosemide 40 mg 11/10/16 11:00 11/10/16 11:01 Lasix IVP 40 mg Q12 EMILY Administration Heparin Sodium (Porcine) 5,000 units 11/10/16 22:00 Heparin SC Q12 EMILY Vancomycin HCl 1 gm/ Sodium 250 mls @ 166.7 mls/hr 11/07/16 00:45 11/10/16 00 :40 Chloride IVPB 166.7 mls/hr Q24H EMILY Administration Dopamine HCl/Dextrose 400 mg in 250 mls @ 8.743 mls/hr 11/09/16 19:27 02:37 Dopamine 400mg/250ml D5w IV 5.39 mcg/kg/min .Q24H PRN 23.557 mls/hr TITRATE PER MD ORDER Administration Protocol 2 MCG/KG/MIN Meropenem 500 mg/ Sodium 100 mls @ 200 mls/hr 11/10/16 14:00 11/10/16 13:25 Chloride IVPB 200 mls/hr Q8 EMILY Administration Insulin Detemir 20 unit 11/07/16 10:00 11/10/16 10:43 Levemir SC 20 unit DAILY EMILY Administration Insulin Human Regular 0 unit 11/07/16 06:00 11/10/16 12:23 Novolin R SC Not Given Q6 [facility] Protocol Levetiracetam 500 mg 11/10/16 11:00 11/10/16 11:05 Keppra GT 500 mg BID EMILY Administration Pantoprazole Sodium 40 mg 11/07/16 10:00 11/10/16 10:43 Protonix Inj IVP 40 mg DAILY EMILY Administration - Patient Studies Lab Studies: Lab Studies 11/10/16 11/10/16 11/10/16 Range/Units 11:54 06:12 06:09 WBC 12.2 H (4.8-10.8) K/uL RBC 3.74 L (4.40-5.90) Mil/uL Hgb 9.5 L (12.0-18.0) g/dL Hct 30.7 L (35.0-51.0) % MCV 82.2 D (80.0-94.0) fL MCH 25.5 L (27.0-31.0) pg MCHC 31.0 L (33.0-37.0) g/dL RDW 18.6 H (11.5-14.5) % Plt Count 80 L (130-400) K/uL MPV 9.7 (7.2-11.7) fL Neut % (Auto) 91.3 H (50.0-75.0) % Lymph % (Auto) 5.0 L (20.0-40.0) % [place] % (Auto) 3.1 (0.0-10.0) % Eos % (Auto) 0.5 (0.0-4.0) % Baso % (Auto) 0.1 (0.0-2.0) % Neut # 11.1 H (1.8-7.0) K/uL Lymph # 0.6 L (1.0-4.3) K/uL [place] # 0.4 (0.0-0.8) K/uL Eos # 0.1 (0.0-0.7) K/uL Baso # 0.0 (0.0-0.2) K/uL Neutrophils % (Manual) 91 H (50-75) % Band Neutrophils % 2 (0-2) % Lymphocytes % (Manual) 6 L (20-40) % Monocytes % (Manual) 1 (0-10) % Platelet Estimate Decreased L (NORMAL) Polychromasia Slight Hypochromasia (manual) Slight Anisocytosis (manual) Slight Target Cells Slight Tear Drop Cells Slight Ovalocytes Slight [place] Cells Slight Puncture Site pCO2 (35-45) mm/Hg pO2 (80-100) mm/Hg HCO3 (21-28) mmol/L ABG pH (7.35-7.45) ABG Total CO2 (22-28) mmol/L ABG O2 Saturation (95-98) % ABG Base Excess (-2.0-3.0) mmol/L ABG Hemoglobin (11.7-17.4) g/dL ABG Carboxyhemoglobin (0.5-1.5) % POC ABG HHb (Measured) (0.0-5.0) % ABG Methemoglobin (0.0-3.0) % Timmy Test A-a O2 Difference mm/Hg Respiratory Index Hgb O2 Saturation (95.0-98.0) % Mechanical Rate FiO2 % Tidal Volume PEEP Inspiratory BiPAP Expiratory BiPAP Sodium (132-148) mmol/L Potassium (3.6-5.2) mmol/L Chloride (98-107) mmol/L Carbon Dioxide (22-30) mmol/L Anion Gap (10-20) BUN (9-20) mg/dL Creatinine (0.8-1.5) MG/DL Est GFR ( Amer) Est GFR (Non-Af Amer) POC Glucose (mg/dL) 130 H (65-110) mg/dL Random Glucose (75-110) mg/dL Calcium (8.6-10.4) mg/dl Phosphorus (2.5-4.5) mg/dL Magnesium (1.6-2.3) mg/dL Total Bilirubin (0.2-1.3) mg/dL AST (17-59) U/L ALT (21-72) U/L Alkaline Phosphatase (38-126) U/L Total Protein (6.3-8.3) g/dL Albumin (3.5-5.0) g/dL Globulin (2.2-3.9) gm/dL Albumin/Globulin Ratio (1.0-2.1) Ur Random Sodium 10 mmol/L 11/10/16 11/10/16 11/10/16 Range/Units 06:09 05:09 03:54 WBC (4.8-10.8) K/uL RBC (4.40-5.90) Mil/uL Hgb (12.0-18.0) g/dL Hct (35.0-51.0) % MCV (80.0-94.0) fL MCH (27.0-31.0) pg MCHC (33.0-37.0) g/dL RDW (11.5-14.5) % Plt Count (130-400) K/uL MPV (7.2-11.7) fL Neut % (Auto) (50.0-75.0) % Lymph % (Auto) (20.0-40.0) % [place] % (Auto) (0.0-10.0) % Eos % (Auto) (0.0-4.0) % Baso % (Auto) (0.0-2.0) % Neut # (1.8-7.0) K/uL Lymph # (1.0-4.3) K/uL [place] # (0.0-0.8) K/uL Eos # (0.0-0.7) K/uL Baso # (0.0-0.2) K/uL Neutrophils % (Manual) (50-75) % Band Neutrophils % (0-2) % Lymphocytes % (Manual) (20-40) % Monocytes % (Manual) (0-10) % Platelet Estimate (NORMAL) Polychromasia Hypochromasia (manual) Anisocytosis (manual) Target Cells Tear Drop Cells Ovalocytes [place] Cells Puncture Site Rr pCO2 39 (35-45) mm/Hg pO2 93 (80-100) mm/Hg HCO3 21.1 (21-28) mmol/L ABG pH 7.33 L (7.35-7.45) ABG Total CO2 21.8 L (22-28) mmol/L ABG O2 Saturation 98.6 H (95-98) % ABG Base Excess -4.9 L (-2.0-3.0) mmol/L ABG Hemoglobin 9.6 L (11.7-17.4) g/dL ABG Carboxyhemoglobin 1.5 (0.5-1.5) % POC ABG HHb (Measured) 1.4 (0.0-5.0) % ABG Methemoglobin 1.3 (0.0-3.0) % Timmy Test Pos A-a O2 Difference 215.0 mm/Hg Respiratory Index 2.3 Hgb O2 Saturation 95.8 (95.0-98.0) % Mechanical Rate 12 FiO2 50.0 % Tidal Volume 500 PEEP 5 Inspiratory BiPAP Expiratory BiPAP Sodium 146 (132-148) mmol/L Potassium 3.7 (3.6-5.2) mmol/L Chloride 116 H (98-107) mmol/L Carbon Dioxide 21 L (22-30) mmol/L Anion Gap 13 (10-20) BUN 32 H (9-20) mg/dL Creatinine 1.7 H (0.8-1.5) MG/DL Est GFR ( Amer) 48 Est GFR (Non-Af Amer) 39 POC Glucose (mg/dL) 111 H (65-110) mg/dL Random Glucose 97 (75-110) mg/dL Calcium 7.9 L (8.6-10.4) mg/dl Phosphorus 4.2 (2.5-4.5) mg/dL Magnesium 2.4 H (1.6-2.3) mg/dL Total Bilirubin 0.8 (0.2-1.3) mg/dL AST 27 (17-59) U/L ALT 47 (21-72) U/L Alkaline Phosphatase 75 (38-126) U/L Total Protein 6.1 L (6.3-8.3) g/dL Albumin 2.9 L D (3.5-5.0) g/dL Globulin 3.3 (2.2-3.9) gm/dL Albumin/Globulin Ratio 0.9 L (1.0-2.1) Ur Random Sodium mmol/L 11/10/16 11/09/16 11/09/16 Range/Units 00:11 18:04 15:20 WBC (4.8-10.8) K/uL RBC (4.40-5.90) Mil/uL Hgb (12.0-18.0) g/dL Hct (35.0-51.0) % MCV (80.0-94.0) fL MCH (27.0-31.0) pg MCHC (33.0-37.0) g/dL RDW (11.5-14.5) % Plt Count (130-400) K/uL MPV (7.2-11.7) fL Neut % (Auto) (50.0-75.0) % Lymph % (Auto) (20.0-40.0) % [place] % (Auto) (0.0-10.0) % Eos % (Auto) (0.0-4.0) % Baso % (Auto) (0.0-2.0) % Neut # (1.8-7.0) K/uL Lymph # (1.0-4.3) K/uL [place] # (0.0-0.8) K/uL Eos # (0.0-0.7) K/uL Baso # (0.0-0.2) K/uL Neutrophils % (Manual) (50-75) % Band Neutrophils % (0-2) % Lymphocytes % (Manual) (20-40) % Monocytes % (Manual) (0-10) % Platelet Estimate (NORMAL) Polychromasia Hypochromasia (manual) Anisocytosis (manual) Target Cells Tear Drop Cells Ovalocytes [place] Cells Puncture Site Rra pCO2 46 H (35-45) mm/Hg pO2 279 H (80-100) mm/Hg HCO3 21.0 (21-28) mmol/L ABG pH 7.28 L (7.35-7.45) ABG Total CO2 23.0 (22-28) mmol/L ABG O2 Saturation 99.5 H (95-98) % ABG Base Excess -5.0 L (-2.0-3.0) mmol/L ABG Hemoglobin 10.2 L (11.7-17.4) g/dL ABG Carboxyhemoglobin 1.1 (0.5-1.5) % POC ABG HHb (Measured) 0.5 (0.0-5.0) % ABG Methemoglobin 1.0 (0.0-3.0) % Timmy Test Pos A-a O2 Difference 377.0 mm/Hg Respiratory Index 1.4 Hgb O2 Saturation 97.4 (95.0-98.0) % Mechanical Rate FiO2 100.0 % Tidal Volume PEEP Inspiratory BiPAP 12 Expiratory BiPAP 6 Sodium (132-148) mmol/L Potassium (3.6-5.2) mmol/L Chloride (98-107) mmol/L Carbon Dioxide (22-30) mmol/L Anion Gap (10-20) BUN (9-20) mg/dL Creatinine (0.8-1.5) MG/DL Est GFR ( Amer) Est GFR (Non-Af Amer) POC Glucose (mg/dL) 125 H 121 H (65-110) mg/dL Random Glucose (75-110) mg/dL Calcium (8.6-10.4) mg/dl Phosphorus (2.5-4.5) mg/dL Magnesium (1.6-2.3) mg/dL Total Bilirubin (0.2-1.3) mg/dL AST (17-59) U/L ALT (21-72) U/L Alkaline Phosphatase (38-126) U/L Total Protein (6.3-8.3) g/dL Albumin (3.5-5.0) g/dL Globulin (2.2-3.9) gm/dL Albumin/Globulin Ratio (1.0-2.1) Ur Random Sodium mmol/L 11/09/16 Range/Units 14:08 WBC (4.8-10.8) K/uL RBC (4.40-5.90) Mil/uL Hgb (12.0-18.0) g/dL Hct (35.0-51.0) % MCV (80.0-94.0) fL MCH (27.0-31.0) pg MCHC (33.0-37.0) g/dL RDW (11.5-14.5) % Plt Count (130-400) K/uL MPV (7.2-11.7) fL Neut % (Auto) (50.0-75.0) % Lymph % (Auto) (20.0-40.0) % [place] % (Auto) (0.0-10.0) % Eos % (Auto) (0.0-4.0) % Baso % (Auto) (0.0-2.0) % Neut # (1.8-7.0) K/uL Lymph # (1.0-4.3) K/uL [place] # (0.0-0.8) K/uL Eos # (0.0-0.7) K/uL Baso # (0.0-0.2) K/uL Neutrophils % (Manual) (50-75) % Band Neutrophils % (0-2) % Lymphocytes % (Manual) (20-40) % Monocytes % (Manual) (0-10) % Platelet Estimate (NORMAL) Polychromasia Hypochromasia (manual) Anisocytosis (manual) Target Cells Tear Drop Cells Ovalocytes [place] Cells Puncture Site pCO2 (35-45) mm/Hg pO2 (80-100) mm/Hg HCO3 (21-28) mmol/L ABG pH (7.35-7.45) ABG Total CO2 (22-28) mmol/L ABG O2 Saturation (95-98) % ABG Base Excess (-2.0-3.0) mmol/L ABG Hemoglobin (11.7-17.4) g/dL ABG Carboxyhemoglobin (0.5-1.5) % POC ABG HHb (Measured) (0.0-5.0) % ABG Methemoglobin (0.0-3.0) % Timmy Test A-a O2 Difference mm/Hg Respiratory Index Hgb O2 Saturation (95.0-98.0) % Mechanical Rate FiO2 % Tidal Volume PEEP Inspiratory BiPAP Expiratory BiPAP Sodium (132-148) mmol/L Potassium (3.6-5.2) mmol/L Chloride (98-107) mmol/L Carbon Dioxide (22-30) mmol/L Anion Gap (10-20) BUN (9-20) mg/dL Creatinine (0.8-1.5) MG/DL Est GFR ( Amer) Est GFR (Non-Af Amer) POC Glucose (mg/dL) 130 H (65-110) mg/dL Random Glucose (75-110) mg/dL Calcium (8.6-10.4) mg/dl Phosphorus (2.5-4.5) mg/dL Magnesium (1.6-2.3) mg/dL Total Bilirubin (0.2-1.3) mg/dL AST (17-59) U/L ALT (21-72) U/L Alkaline Phosphatase (38-126) U/L Total Protein (6.3-8.3) g/dL Albumin (3.5-5.0) g/dL Globulin (2.2-3.9) gm/dL Albumin/Globulin Ratio (1.0-2.1) Ur Random Sodium mmol/L Laboratory Results - last 24 hr 11/09/16 11/09/16 11/09/16 14:08 15:20 18:04 WBC RBC Hgb Hct MCV MCH MCHC RDW Plt Count MPV Neut % (Auto) Lymph % (Auto) [place] % (Auto) Eos % (Auto) Baso % (Auto) Neut # Lymph # [place] # Eos # Baso # Neutrophils % (Manual) Band Neutrophils % Lymphocytes % (Manual) Monocytes % (Manual) Platelet Estimate Polychromasia Hypochromasia (manual) Anisocytosis (manual) Target Cells Tear Drop Cells Ovalocytes [place] Cells Puncture Site Rra pCO2 46 H pO2 279 H HCO3 21.0 ABG pH 7.28 L ABG Total CO2 23.0 ABG O2 Saturation 99.5 H ABG Base Excess -5.0 L ABG Hemoglobin 10.2 L ABG Carboxyhemoglobin 1.1 POC ABG HHb (Measured) 0.5 ABG Methemoglobin 1.0 Timmy Test Pos A-a O2 Difference 377.0 Respiratory Index 1.4 Hgb O2 Saturation 97.4 Mechanical Rate FiO2 100.0 Tidal Volume PEEP Inspiratory BiPAP 12 Expiratory BiPAP 6 Sodium Potassium Chloride Carbon Dioxide Anion Gap BUN Creatinine Est GFR ( Amer) Est GFR (Non-Af Amer) POC Glucose (mg/dL) 130 H 121 H Random Glucose Calcium Phosphorus Magnesium Total Bilirubin AST ALT Alkaline Phosphatase Total Protein Albumin Globulin Albumin/Globulin Ratio Ur Random Sodium 11/10/16 11/10/16 11/10/16 00:11 03:54 05:09 WBC RBC Hgb Hct MCV MCH MCHC RDW Plt Count MPV Neut % (Auto) Lymph % (Auto) [place] % (Auto) Eos % (Auto) Baso % (Auto) Neut # Lymph # [place] # Eos # Baso # Neutrophils % (Manual) Band Neutrophils % Lymphocytes % (Manual) Monocytes % (Manual) Platelet Estimate Polychromasia Hypochromasia (manual) Anisocytosis (manual) Target Cells Tear Drop Cells Ovalocytes [place] Cells Puncture Site Rr pCO2 39 pO2 93 HCO3 21.1 ABG pH 7.33 L ABG Total CO2 21.8 L ABG O2 Saturation 98.6 H ABG Base Excess -4.9 L ABG Hemoglobin 9.6 L ABG Carboxyhemoglobin 1.5 POC ABG HHb (Measured) 1.4 ABG Methemoglobin 1.3 Timmy Test Pos A-a O2 Difference 215.0 Respiratory Index 2.3 Hgb O2 Saturation 95.8 Mechanical Rate 12 FiO2 50.0 Tidal Volume 500 PEEP 5 Inspiratory BiPAP Expiratory BiPAP Sodium Potassium Chloride Carbon Dioxide Anion Gap BUN Creatinine Est GFR ( Amer) Est GFR (Non-Af Amer) POC Glucose (mg/dL) 125 H 111 H Random Glucose Calcium Phosphorus Magnesium Total Bilirubin AST ALT Alkaline Phosphatase Total Protein Albumin Globulin Albumin/Globulin Ratio Ur Random Sodium 06/15/17 06/15/17 06/15/17 06:09 06:09 06:12 WBC 12.2 H RBC 3.74 L Hgb 9.5 L Hct 30.7 L MCV 82.2 D MCH 25.5 L MCHC 31.0 L RDW 18.6 H Plt Count 80 L MPV 9.7 Neut % (Auto) 91.3 H Lymph % (Auto) 5.0 L [place] % (Auto) 3.1 Eos % (Auto) 0.5 Baso % (Auto) 0.1 Neut # 11.1 H Lymph # 0.6 L [place] # 0.4 Eos # 0.1 Baso # 0.0 Neutrophils % (Manual) 91 H Band Neutrophils % 2 Lymphocytes % (Manual) 6 L Monocytes % (Manual) 1 Platelet Estimate Decreased L Polychromasia Slight Hypochromasia (manual) Slight Anisocytosis (manual) Slight Target Cells Slight Tear Drop Cells Slight Ovalocytes Slight [place] Cells Slight Puncture Site pCO2 pO2 HCO3 ABG pH ABG Total CO2 ABG O2 Saturation ABG Base Excess ABG Hemoglobin ABG Carboxyhemoglobin POC ABG HHb (Measured) ABG Methemoglobin Timmy Test A-a O2 Difference Respiratory Index Hgb O2 Saturation Mechanical Rate FiO2 Tidal Volume PEEP Inspiratory BiPAP Expiratory BiPAP Sodium 146 Potassium 3.7 Chloride 116 H Carbon Dioxide 21 L Anion Gap 13 BUN 32 H Creatinine 1.7 H Est GFR ( Amer) 48 Est GFR (Non-Af Amer) 39 POC Glucose (mg/dL) Random Glucose 97 Calcium 7.9 L Phosphorus 4.2 Magnesium 2.4 H Total Bilirubin 0.8 AST 27 ALT 47 Alkaline Phosphatase 75 Total Protein 6.1 L Albumin 2.9 L D Globulin 3.3 Albumin/Globulin Ratio 0.9 L Ur Random Sodium 10 11/10/16 11:54 WBC RBC Hgb Hct MCV MCH MCHC RDW Plt Count MPV Neut % (Auto) Lymph % (Auto) [place] % (Auto) Eos % (Auto) Baso % (Auto) Neut # Lymph # [place] # Eos # Baso # Neutrophils % (Manual) Band Neutrophils % Lymphocytes % (Manual) Monocytes % (Manual) Platelet Estimate Polychromasia Hypochromasia (manual) Anisocytosis (manual) Target Cells Tear Drop Cells Ovalocytes [place] Cells Puncture Site pCO2 pO2 HCO3 ABG pH ABG Total CO2 ABG O2 Saturation ABG Base Excess ABG Hemoglobin ABG Carboxyhemoglobin POC ABG HHb (Measured) ABG Methemoglobin Timmy Test A-a O2 Difference Respiratory Index Hgb O2 Saturation Mechanical Rate FiO2 Tidal Volume PEEP Inspiratory BiPAP Expiratory BiPAP Sodium Potassium Chloride Carbon Dioxide Anion Gap BUN Creatinine Est GFR ( Amer) Est GFR (Non-Af Amer) POC Glucose (mg/dL) 130 H Random Glucose Calcium Phosphorus Magnesium Total Bilirubin AST ALT Alkaline Phosphatase Total Protein Albumin Globulin Albumin/Globulin Ratio Ur Random Sodium Fingerstick Blood Sugar Results: 111 Review of Systems - Review of Systems Systems not reviewed;Unavailable: Intubated Critical Care Progress Note - Ventilator Checklist Head of Bed 30 Degrees: Yes - Vent Settings MODE:: PRVC TIDAL VOLUME:: 500 RESP RATE:: 12 FIO2:: 50 PEEP:: 5 - Extremities/Vascular Does the Patient have a Central Venous Catheter?: Yes Insertion Site: Internal Jugular Vein (right) Does the Patient need a Central Venous Catheter?: Yes Does the Patient have a Wick Catheter?: Yes Does the Patient need a Wick Catheter?: Yes Catheter Insertion Criteria: Patient requires prolonged immobilization - Prophylaxis GI Prophylaxis GI: PPI - Prophylaxis DVT Prophylaxis DVT: Heparin SQ Assessment/Plan (1) Sepsis Current Visit: Yes Status: Acute (2) CAD (coronary artery disease) Current Visit: Yes Status: Chronic (3) Insulin dependent diabetes mellitus Current Visit: Yes Status: Acute (4) Hypothermia Current Visit: Yes Status: Acute (5) CVA (cerebral vascular accident) Current Visit: No Status: Acute (6) Seizure Current Visit: No Status: Acute (7) LASHON (acute kidney injury) Current Visit: Yes Status: Acute - Assessment and Plan (Free Text) Plan: Patient status: -Intubated -right IJ TLC in place Neuro: -Neurology Consult (Dr. Natalia Powers) -Keppra 500mg PO BID -11/07/16 EEG- abnormal. severe bilateral slowing. no evidence of epileptiform activity. severe b/l cerebral dysfunction. -hx of multiple prior CVAs with left hemiparesis -Imaging: -11/08/16 CT Head: Old infarct changes right [employer] territory as described. Moderate significant confluent white matter ischemic changes with scattered chronic bilateral basal nuclei lacunar type infarcts. Ex vacuo dilatation right temporal and right occipital horns as above. No obvious acute intracranial hemorrhage. Moderate generalized volume loss. -11/06/16 CT head: 1. Nonspecific white matter changes. Acute infarction may be CT occult within first 24 hours. If a focal deficit persists, consider followup CT or MRI for further evaluation. Cardiovascular: -Dopamine (currently not running) -Clopidogrel 75mg PO daily -ASA 81mg PO daily -11/07/16 ECHO: LVEF 35-40% (pending final reading). As per cardiology, this is an improvement from prior evaluation of EF (30%) during PCI a few years ago -11/06/16 ECG: Sinus bradycardia with 1st degree AV block with occasional premature PVCs; junctional ST depression; HR 45 bpm Pulmonary: -Intubated (PRCV 500 / 12 / 50% / 5) -Possible pneumonia likely 2/2 to aspiration from ventilator support -Zosyn 2.25 gm IV -Vancomycin 1gm -Imaging: - 11/10/16 CXR- Endotracheal tube extending into the mid thoracic trachea. NG tube extending into the stomach. Right central venous catheter extending into the cavoatrial junction. Moderate venous congestion. Prominent consolidative changes at the left lung base and right infrahilar region. - 11/09/16 CXR- Lines and tubes in stable position. Moderate to severe venous congestion with prominent bibasilar airspace opacities. Small left pleural effusion. Cardiomegaly. Calcification at the aortic knob. - 11/08/16 CXR: Since the prior exam the pulmonary venous congestion appears less. A residual small left pleural effusion with or without atelectasis/ infiltrate here is still suspect. - 11/07/16 CXR: Endotracheal tube extending into the mid thoracic trachea. NG tube extending into the stomach. Right central venous catheter extending to the SVC. Diffuse confluent bilateral consolidative changes throughout both lungs with a suggestion of a small left pleural effusion. Right hilar consolidation. Cardiomegaly. -11/06/16 CXR: Diffuse prominent increased interstitial lung markings suggestive for moderate venous congestion versus interstitial infiltrate. Confluent airspace opacification at the left lung base which may represent effusion versus atelectasis and or infiltrate. Right infrahilar consolidative changes. -ABG: :11/09/16- CO2 39 / O2 93 / HCO3 21.1 / pH 7.33 :11/09/16- CO2 46 / O2 279 / HCO3 21.0 / pH 7.28 :11/08/16- CO2 21 / O2 205 / HCO3 22.8 / pH 7.55 :11/08/16- CO2 33 / O2 117 / HCO3 25.7 / pH 7.47 :11/07/16- CO2 55 / O2 73 / HCO3 17.8 / pH 7.16 :11/07/16- CO2 64 / O2 176 / HCO3 22.8 / pH 7.22 Gastrointestinal: -Tube feeds Hematology: -Normocytic anemia Endocrine: -Levemir 20 units SC daily -Insulin regular sliding scale Renal: -LASHON Musculoskeletal: -Left hemiparesis 2/2 to hx of multiple CVAs -PT/OT consult Genitourinary: -wick catheter Infectious disease: -11/06/16 Urine Culture (+) proteus mirabilis -Zosyn DC -Vancomycin 1g IV daily- day 4 -Merropenem 500mg IV q6- day 1 -Dr. Alexis following GI prophylaxis: Protonix 40mg IVP daily DVT prophylaxis: Heparin 5000 units SC Q8; SCDs Case discussed with Dr. Mariah Webster PGY1 - Date & Time Date: 11/10/16 Time: 13:47 <Gabriel Lemus - Last Filed: 11/10/16 14:24> CCU Objective - Vital Signs / Intake & Output Vital Signs (Last 4 hours): Vital Signs Temp Pulse Resp BP Pulse Ox 11/10/16 13:01 70 18 152/77 H 97 11/10/16 12:01 69 14 149/67 98 11/10/16 12:00 98 F 11/10/16 11:01 75 14 140/47 L 98 Intake and Output (Last 8hrs): Intake & Output 11/09/16 11/10/16 11/10/16 22:59 06:59 14:59 Intake Total 1032.4 1761.3 686.3 Output Total 620 435 725 Balance 412.4 1326.3 -38.7 Weight 251 lb 2 oz Intake: IV 600 Intake, IV Amount 972.4 1061.3 546.3 Right Distal Port 850 850 400 Right Distal Port 0 Internal Jugular Right Medial Port 94.4 155.3 118.3 Internal Jugular Right Proximal Port 28 56 28 Internal Jugular Tube Feeding 60 100 140 Output: Urine 620 335 725 Urethral (Wick) 620 335 725 Emesis 100 Other: # Bowel Movements 1 - Medications Active Medications: Active Medications Generic Name Dose Route Start Last Admin Trade Name Freq PRN Reason Stop Dose Admin Aspirin 81 mg 11/07/16 10:00 11/10/16 10:42 Aspirin Chewable PO 81 mg DAILY EMILY Administration Clopidogrel Bisulfate 75 mg 11/07/16 10:00 11/10/16 10:43 Plavix PO 75 mg DAILY EMILY Administration Furosemide 40 mg 11/10/16 11:00 11/10/16 11:01 Lasix IVP 40 mg Q12 EMILY Administration Heparin Sodium (Porcine) 5,000 units 11/10/16 22:00 Heparin SC Q12 EMILY Vancomycin HCl 1 gm/ Sodium 250 mls @ 166.7 mls/hr 11/07/16 00:45 11/10/16 00 :40 Chloride IVPB 166.7 mls/hr Q24H EMILY Administration Dopamine HCl/Dextrose 400 mg in 250 mls @ 8.743 mls/hr 11/09/16 19:27 02:37 Dopamine 400mg/250ml D5w IV 5.39 mcg/kg/min .Q24H PRN 23.557 mls/hr TITRATE PER MD ORDER Administration Protocol 2 MCG/KG/MIN Meropenem 500 mg/ Sodium 100 mls @ 200 mls/hr 11/10/16 14:00 11/10/16 13:25 Chloride IVPB 200 mls/hr Q8 EMILY Administration Insulin Detemir 20 unit 11/07/16 10:00 11/10/16 10:43 Levemir SC 20 unit DAILY EMILY Administration Insulin Human Regular 0 unit 11/07/16 06:00 11/10/16 12:23 Novolin R SC Not Given Q6 [facility] Protocol Levetiracetam 500 mg 11/10/16 11:00 11/10/16 11:05 Keppra GT 500 mg BID EMILY Administration Pantoprazole Sodium 40 mg 11/07/16 10:00 11/10/16 10:43 Protonix Inj IVP 40 mg DAILY EMILY Administration - Patient Studies Lab Studies: Lab Studies 11/10/16 11/10/16 11/10/16 Range/Units 11:54 06:12 06:09 WBC 12.2 H (4.8-10.8) K/uL RBC 3.74 L (4.40-5.90) Mil/uL Hgb 9.5 L (12.0-18.0) g/dL Hct 30.7 L (35.0-51.0) % MCV 82.2 D (80.0-94.0) fL MCH 25.5 L (27.0-31.0) pg MCHC 31.0 L (33.0-37.0) g/dL RDW 18.6 H (11.5-14.5) % Plt Count 80 L (130-400) K/uL MPV 9.7 (7.2-11.7) fL Neut % (Auto) 91.3 H (50.0-75.0) % Lymph % (Auto) 5.0 L (20.0-40.0) % [place] % (Auto) 3.1 (0.0-10.0) % Eos % (Auto) 0.5 (0.0-4.0) % Baso % (Auto) 0.1 (0.0-2.0) % Neut # 11.1 H (1.8-7.0) K/uL Lymph # 0.6 L (1.0-4.3) K/uL [place] # 0.4 (0.0-0.8) K/uL Eos # 0.1 (0.0-0.7) K/uL Baso # 0.0 (0.0-0.2) K/uL Neutrophils % (Manual) 91 H (50-75) % Band Neutrophils % 2 (0-2) % Lymphocytes % (Manual) 6 L (20-40) % Monocytes % (Manual) 1 (0-10) % Platelet Estimate Decreased L (NORMAL) Polychromasia Slight Hypochromasia (manual) Slight Anisocytosis (manual) Slight Target Cells Slight Tear Drop Cells Slight Ovalocytes Slight [place] Cells Slight Puncture Site pCO2 (35-45) mm/Hg pO2 (80-100) mm/Hg HCO3 (21-28) mmol/L ABG pH (7.35-7.45) ABG Total CO2 (22-28) mmol/L ABG O2 Saturation (95-98) % ABG Base Excess (-2.0-3.0) mmol/L ABG Hemoglobin (11.7-17.4) g/dL ABG Carboxyhemoglobin (0.5-1.5) % POC ABG HHb (Measured) (0.0-5.0) % ABG Methemoglobin (0.0-3.0) % Timmy Test A-a O2 Difference mm/Hg Respiratory Index Hgb O2 Saturation (95.0-98.0) % Mechanical Rate FiO2 % Tidal Volume PEEP Inspiratory BiPAP Expiratory BiPAP Sodium (132-148) mmol/L Potassium (3.6-5.2) mmol/L Chloride (98-107) mmol/L Carbon Dioxide (22-30) mmol/L Anion Gap (10-20) BUN (9-20) mg/dL Creatinine (0.8-1.5) MG/DL Est GFR ( Amer) Est GFR (Non-Af Amer) POC Glucose (mg/dL) 130 H (65-110) mg/dL Random Glucose (75-110) mg/dL Calcium (8.6-10.4) mg/dl Phosphorus (2.5-4.5) mg/dL Magnesium (1.6-2.3) mg/dL Total Bilirubin (0.2-1.3) mg/dL AST (17-59) U/L ALT (21-72) U/L Alkaline Phosphatase (38-126) U/L Total Protein (6.3-8.3) g/dL Albumin (3.5-5.0) g/dL Globulin (2.2-3.9) gm/dL Albumin/Globulin Ratio (1.0-2.1) Ur Random Sodium 10 mmol/L 11/10/16 11/10/16 11/10/16 Range/Units 06:09 05:09 03:54 WBC (4.8-10.8) K/uL RBC (4.40-5.90) Mil/uL Hgb (12.0-18.0) g/dL Hct (35.0-51.0) % MCV (80.0-94.0) fL MCH (27.0-31.0) pg MCHC (33.0-37.0) g/dL RDW (11.5-14.5) % Plt Count (130-400) K/uL MPV (7.2-11.7) fL Neut % (Auto) (50.0-75.0) % Lymph % (Auto) (20.0-40.0) % [place] % (Auto) (0.0-10.0) % Eos % (Auto) (0.0-4.0) % Baso % (Auto) (0.0-2.0) % Neut # (1.8-7.0) K/uL Lymph # (1.0-4.3) K/uL [place] # (0.0-0.8) K/uL Eos # (0.0-0.7) K/uL Baso # (0.0-0.2) K/uL Neutrophils % (Manual) (50-75) % Band Neutrophils % (0-2) % Lymphocytes % (Manual) (20-40) % Monocytes % (Manual) (0-10) % Platelet Estimate (NORMAL) Polychromasia Hypochromasia (manual) Anisocytosis (manual) Target Cells Tear Drop Cells Ovalocytes [place] Cells Puncture Site Rr pCO2 39 (35-45) mm/Hg pO2 93 (80-100) mm/Hg HCO3 21.1 (21-28) mmol/L ABG pH 7.33 L (7.35-7.45) ABG Total CO2 21.8 L (22-28) mmol/L ABG O2 Saturation 98.6 H (95-98) % ABG Base Excess -4.9 L (-2.0-3.0) mmol/L ABG Hemoglobin 9.6 L (11.7-17.4) g/dL ABG Carboxyhemoglobin 1.5 (0.5-1.5) % POC ABG HHb (Measured) 1.4 (0.0-5.0) % ABG Methemoglobin 1.3 (0.0-3.0) % Timmy Test Pos A-a O2 Difference 215.0 mm/Hg Respiratory Index 2.3 Hgb O2 Saturation 95.8 (95.0-98.0) % Mechanical Rate 12 FiO2 50.0 % Tidal Volume 500 PEEP 5 Inspiratory BiPAP Expiratory BiPAP Sodium 146 (132-148) mmol/L Potassium 3.7 (3.6-5.2) mmol/L Chloride 116 H (98-107) mmol/L Carbon Dioxide 21 L (22-30) mmol/L Anion Gap 13 (10-20) BUN 32 H (9-20) mg/dL Creatinine 1.7 H (0.8-1.5) MG/DL Est GFR ( Amer) 48 Est GFR (Non-Af Amer) 39 POC Glucose (mg/dL) 111 H (65-110) mg/dL Random Glucose 97 (75-110) mg/dL Calcium 7.9 L (8.6-10.4) mg/dl Phosphorus 4.2 (2.5-4.5) mg/dL Magnesium 2.4 H (1.6-2.3) mg/dL Total Bilirubin 0.8 (0.2-1.3) mg/dL AST 27 (17-59) U/L ALT 47 (21-72) U/L Alkaline Phosphatase 75 (38-126) U/L Total Protein 6.1 L (6.3-8.3) g/dL Albumin 2.9 L D (3.5-5.0) g/dL Globulin 3.3 (2.2-3.9) gm/dL Albumin/Globulin Ratio 0.9 L (1.0-2.1) Ur Random Sodium mmol/L 11/10/16 11/09/16 11/09/16 Range/Units 00:11 18:04 15:20 WBC (4.8-10.8) K/uL RBC (4.40-5.90) Mil/uL Hgb (12.0-18.0) g/dL Hct (35.0-51.0) % MCV (80.0-94.0) fL MCH (27.0-31.0) pg MCHC (33.0-37.0) g/dL RDW (11.5-14.5) % Plt Count (130-400) K/uL MPV (7.2-11.7) fL Neut % (Auto) (50.0-75.0) % Lymph % (Auto) (20.0-40.0) % [place] % (Auto) (0.0-10.0) % Eos % (Auto) (0.0-4.0) % Baso % (Auto) (0.0-2.0) % Neut # (1.8-7.0) K/uL Lymph # (1.0-4.3) K/uL [place] # (0.0-0.8) K/uL Eos # (0.0-0.7) K/uL Baso # (0.0-0.2) K/uL Neutrophils % (Manual) (50-75) % Band Neutrophils % (0-2) % Lymphocytes % (Manual) (20-40) % Monocytes % (Manual) (0-10) % Platelet Estimate (NORMAL) Polychromasia Hypochromasia (manual) Anisocytosis (manual) Target Cells Tear Drop Cells Ovalocytes [place] Cells Puncture Site Rra pCO2 46 H (35-45) mm/Hg pO2 279 H (80-100) mm/Hg HCO3 21.0 (21-28) mmol/L ABG pH 7.28 L (7.35-7.45) ABG Total CO2 23.0 (22-28) mmol/L ABG O2 Saturation 99.5 H (95-98) % ABG Base Excess -5.0 L (-2.0-3.0) mmol/L ABG Hemoglobin 10.2 L (11.7-17.4) g/dL ABG Carboxyhemoglobin 1.1 (0.5-1.5) % POC ABG HHb (Measured) 0.5 (0.0-5.0) % ABG Methemoglobin 1.0 (0.0-3.0) % Timmy Test Pos A-a O2 Difference 377.0 mm/Hg Respiratory Index 1.4 Hgb O2 Saturation 97.4 (95.0-98.0) % Mechanical Rate FiO2 100.0 % Tidal Volume PEEP Inspiratory BiPAP 12 Expiratory BiPAP 6 Sodium (132-148) mmol/L Potassium (3.6-5.2) mmol/L Chloride (98-107) mmol/L Carbon Dioxide (22-30) mmol/L Anion Gap (10-20) BUN (9-20) mg/dL Creatinine (0.8-1.5) MG/DL Est GFR ( Amer) Est GFR (Non-Af Amer) POC Glucose (mg/dL) 125 H 121 H (65-110) mg/dL Random Glucose (75-110) mg/dL Calcium (8.6-10.4) mg/dl Phosphorus (2.5-4.5) mg/dL Magnesium (1.6-2.3) mg/dL Total Bilirubin (0.2-1.3) mg/dL AST (17-59) U/L ALT (21-72) U/L Alkaline Phosphatase (38-126) U/L Total Protein (6.3-8.3) g/dL Albumin (3.5-5.0) g/dL Globulin (2.2-3.9) gm/dL Albumin/Globulin Ratio (1.0-2.1) Ur Random Sodium mmol/L 11/09/ Range/Units 14:08 WBC (4.8-10.8) K/uL RBC (4.40-5.90) Mil/uL Hgb (12.0-18.0) g/dL Hct (35.0-51.0) % MCV (80.0-94.0) fL MCH (27.0-31.0) pg MCHC (33.0-37.0) g/dL RDW (11.5-14.5) % Plt Count (130-400) K/uL MPV (7.2-11.7) fL Neut % (Auto) (50.0-75.0) % Lymph % (Auto) (20.0-40.0) % [place] % (Auto) (0.0-10.0) % Eos % (Auto) (0.0-4.0) % Baso % (Auto) (0.0-2.0) % Neut # (1.8-7.0) K/uL Lymph # (1.0-4.3) K/uL [place] # (0.0-0.8) K/uL Eos # (0.0-0.7) K/uL Baso # (0.0-0.2) K/uL Neutrophils % (Manual) (50-75) % Band Neutrophils % (0-2) % Lymphocytes % (Manual) (20-40) % Monocytes % (Manual) (0-10) % Platelet Estimate (NORMAL) Polychromasia Hypochromasia (manual) Anisocytosis (manual) Target Cells Tear Drop Cells Ovalocytes [place] Cells Puncture Site pCO2 (35-45) mm/Hg pO2 (80-100) mm/Hg HCO3 (21-28) mmol/L ABG pH (7.35-7.45) ABG Total CO2 (22-28) mmol/L ABG O2 Saturation (95-98) % ABG Base Excess (-2.0-3.0) mmol/L ABG Hemoglobin (11.7-17.4) g/dL ABG Carboxyhemoglobin (0.5-1.5) % POC ABG HHb (Measured) (0.0-5.0) % ABG Methemoglobin (0.0-3.0) % Timmy Test A-a O2 Difference mm/Hg Respiratory Index Hgb O2 Saturation (95.0-98.0) % Mechanical Rate FiO2 % Tidal Volume PEEP Inspiratory BiPAP Expiratory BiPAP Sodium (132-148) mmol/L Potassium (3.6-5.2) mmol/L Chloride (98-107) mmol/L Carbon Dioxide (22-30) mmol/L Anion Gap (10-20) BUN (9-20) mg/dL Creatinine (0.8-1.5) MG/DL Est GFR ( Amer) Est GFR (Non-Af Amer) POC Glucose (mg/dL) 130 H (65-110) mg/dL Random Glucose (75-110) mg/dL Calcium (8.6-10.4) mg/dl Phosphorus (2.5-4.5) mg/dL Magnesium (1.6-2.3) mg/dL Total Bilirubin (0.2-1.3) mg/dL AST (17-59) U/L ALT (21-72) U/L Alkaline Phosphatase (38-126) U/L Total Protein (6.3-8.3) g/dL Albumin (3.5-5.0) g/dL Globulin (2.2-3.9) gm/dL Albumin/Globulin Ratio (1.0-2.1) Ur Random Sodium mmol/L Laboratory Results - last 24 hr 11/09/16 11/09/16 11/09/16 14:08 15:20 18:04 WBC RBC Hgb Hct MCV MCH MCHC RDW Plt Count MPV Neut % (Auto) Lymph % (Auto) [place] % (Auto) Eos % (Auto) Baso % (Auto) Neut # Lymph # [place] # Eos # Baso # Neutrophils % (Manual) Band Neutrophils % Lymphocytes % (Manual) Monocytes % (Manual) Platelet Estimate Polychromasia Hypochromasia (manual) Anisocytosis (manual) Target Cells Tear Drop Cells Ovalocytes [place] Cells Puncture Site Rra pCO2 46 H pO2 279 H HCO3 21.0 ABG pH 7.28 L ABG Total CO2 23.0 ABG O2 Saturation 99.5 H ABG Base Excess -5.0 L ABG Hemoglobin 10.2 L ABG Carboxyhemoglobin 1.1 POC ABG HHb (Measured) 0.5 ABG Methemoglobin 1.0 Timmy Test Pos A-a O2 Difference 377.0 Respiratory Index 1.4 Hgb O2 Saturation 97.4 Mechanical Rate FiO2 100.0 Tidal Volume PEEP Inspiratory BiPAP 12 Expiratory BiPAP 6 Sodium Potassium Chloride Carbon Dioxide Anion Gap BUN Creatinine Est GFR ( Amer) Est GFR (Non-Af Amer) POC Glucose (mg/dL) 130 H 121 H Random Glucose Calcium Phosphorus Magnesium Total Bilirubin AST ALT Alkaline Phosphatase Total Protein Albumin Globulin Albumin/Globulin Ratio Ur Random Sodium 11/10/16 11/10/16 11/10/16 00:11 03:54 05:09 WBC RBC Hgb Hct MCV MCH MCHC RDW Plt Count MPV Neut % (Auto) Lymph % (Auto) [place] % (Auto) Eos % (Auto) Baso % (Auto) Neut # Lymph # [place] # Eos # Baso # Neutrophils % (Manual) Band Neutrophils % Lymphocytes % (Manual) Monocytes % (Manual) Platelet Estimate Polychromasia Hypochromasia (manual) Anisocytosis (manual) Target Cells Tear Drop Cells Ovalocytes [place] Cells Puncture Site Rr pCO2 39 pO2 93 HCO3 21.1 ABG pH 7.33 L ABG Total CO2 21.8 L ABG O2 Saturation 98.6 H ABG Base Excess -4.9 L ABG Hemoglobin 9.6 L ABG Carboxyhemoglobin 1.5 POC ABG HHb (Measured) 1.4 ABG Methemoglobin 1.3 Timmy Test Pos A-a O2 Difference 215.0 Respiratory Index 2.3 Hgb O2 Saturation 95.8 Mechanical Rate 12 FiO2 50.0 Tidal Volume 500 PEEP 5 Inspiratory BiPAP Expiratory BiPAP Sodium Potassium Chloride Carbon Dioxide Anion Gap BUN Creatinine Est GFR ( Amer) Est GFR (Non-Af Amer) POC Glucose (mg/dL) 125 H 111 H Random Glucose Calcium Phosphorus Magnesium Total Bilirubin AST ALT Alkaline Phosphatase Total Protein Albumin Globulin Albumin/Globulin Ratio Ur Random Sodium 11/10/16 11/10/16 11/10/16 06:09 06:09 06:12 WBC 12.2 H RBC 3.74 L Hgb 9.5 L Hct 30.7 L MCV 82.2 D MCH 25.5 L MCHC 31.0 L RDW 18.6 H Plt Count 80 L MPV 9.7 Neut % (Auto) 91.3 H Lymph % (Auto) 5.0 L [place] % (Auto) 3.1 Eos % (Auto) 0.5 Baso % (Auto) 0.1 Neut # 11.1 H Lymph # 0.6 L [place] # 0.4 Eos # 0.1 Baso # 0.0 Neutrophils % (Manual) 91 H Band Neutrophils % 2 Lymphocytes % (Manual) 6 L Monocytes % (Manual) 1 Platelet Estimate Decreased L Polychromasia Slight Hypochromasia (manual) Slight Anisocytosis (manual) Slight Target Cells Slight [place]ear [place] Cells Slight Ovalocytes Slight [place] Cells Slight Puncture Site pCO2 pO2 HCO3 ABG pH ABG Total CO2 ABG O2 Saturation ABG Base Excess ABG Hemoglobin ABG Carboxyhemoglobin POC ABG HHb (Measured) ABG Methemoglobin Timmy Test A-a O2 Difference Respiratory Index Hgb O2 Saturation Mechanical Rate FiO2 Tidal Volume PEEP Inspiratory BiPAP Expiratory BiPAP Sodium 146 Potassium 3.7 Chloride 116 H Carbon Dioxide 21 L Anion Gap 13 BUN 32 H Creatinine 1.7 H Est GFR ( Amer) 48 Est GFR (Non-Af Amer) 39 POC Glucose (mg/dL) Random Glucose 97 Calcium 7.9 L Phosphorus 4.2 Magnesium 2.4 H Total Bilirubin 0.8 AST 27 ALT 47 Alkaline Phosphatase 75 Total Protein 6.1 L Albumin 2.9 L D Globulin 3.3 Albumin/Globulin Ratio 0.9 L Ur Random Sodium 10 /15/17 11:54 WBC RBC Hgb Hct MCV MCH MCHC RDW Plt Count MPV Neut % (Auto) Lymph % (Auto) [place] % (Auto) Eos % (Auto) Baso % (Auto) Neut # Lymph # [place] # Eos # Baso # Neutrophils % (Manual) Band Neutrophils % Lymphocytes % (Manual) Monocytes % (Manual) Platelet Estimate Polychromasia Hypochromasia (manual) Anisocytosis (manual) Target Cells Tear Drop Cells Ovalocytes [place] Cells Puncture Site pCO2 pO2 HCO3 ABG pH ABG Total CO2 ABG O2 Saturation ABG Base Excess ABG Hemoglobin ABG Carboxyhemoglobin POC ABG HHb (Measured) ABG Methemoglobin Timmy Test A-a O2 Difference Respiratory Index Hgb O2 Saturation Mechanical Rate FiO2 Tidal Volume PEEP Inspiratory BiPAP Expiratory BiPAP Sodium Potassium Chloride Carbon Dioxide Anion Gap BUN Creatinine Est GFR ( Amer) Est GFR (Non-Af Amer) POC Glucose (mg/dL) 130 H Random Glucose Calcium Phosphorus Magnesium Total Bilirubin AST ALT Alkaline Phosphatase Total Protein Albumin Globulin Albumin/Globulin Ratio Ur Random Sodium Attending/Attestation - Attestation I have personally seen and examined this patient.: Yes I have fully participated in the care of the patient.: Yes I have reviewed all pertinent clinical information: Yes Notes (Text): 11/10/16 14:23 I have seen and examined the patient. Medical records, lab studies, and imaging were reviewed by me and a management plan was formulated on multidisciplinary rounds with resident Dr. Webster. I agree with their above documented assessment and plan. Patient may need eventual trach. Will lighten sedation and restart PS trials. starting aggressive diuresis. Critical Care Time 35 minutes. Multi-disciplinary rounds were performed with house staff, nursing, speech therapy, respiratory therapy, pharmacy and nutrition with integrated input from the primary team/attending and other consulting services. The documented time is cumulative and includes review of patient data/exams/labs/chart review and examination of the patient on rounds and throughout the day; time is exclusive of any procedures or teaching time. 11/10/16 14:24
--- NOTE | 2016-11-10 13:56 | US ---
Renal ultrasound History: Chronic kidney disease. Comparison: None available. Technique: Real-time sonography was performed through the kidneys. Findings: Right kidney: 11.6 x 5.4 x 6.1 centimeters. Increased echogenicity of the renal parenchymal cortex suggestive for medical renal disease. No calculi or hydronephrosis. Left Kidney: 11.9 x 5.8 x 5.0 centimeters. Increased echogenicity of the renal parenchymal cortex suggestive for medical renal disease. No calculi or hydronephrosis. Visualized aorta is preserved. Sharma catheter in the urinary bladder limits evaluation. Impression: Increased echogenicity of the bilateral renal cortices suggestive for medical renal disease. Clinical correlation.
--- NOTE | 2016-11-10 15:13 | CP.PCM.PN ---
Subjective - Date & Time of Evaluation Date of Evaluation: 11/10/16 Time of Evaluation: 13:00 - Subjective Subjective: Was reintubated again after self extubation yesterday. Still obtunded and nonresponsive poor overall prognosis discussed with family at bedside Objective - Vital Signs/Intake and Output Vital Signs (last 24 hours): Temp Pulse Resp BP Pulse Ox 98 F 70 18 152/77 H 97 11/10/16 12:00 11/10/16 13:01 11/10/16 13:01 11/10/16 13:01 11/10/16 13:01 Intake and Output: 11/10/16 11/10/16 06:59 18:59 Intake Total 2393.7 686.3 Output Total 820 725 Balance 1573.7 -38.7 - Medications Medications: Current Medications Aspirin (Aspirin Chewable) 81 mg PO DAILY [facility] Last Admin: 11/10/16 10:42 Dose: 81 mg Clopidogrel Bisulfate (Plavix) 75 mg PO DAILY [facility] Last Admin: 11/10/16 10:43 Dose: 75 mg Furosemide (Lasix) 40 mg IVP Q12 [facility] Last Admin: 11/10/16 11:01 Dose: 40 mg Heparin Sodium (Porcine) (Heparin) 5,000 units SC Q12 [facility] Vancomycin HCl 1 gm/ Sodium (Chloride) 250 mls @ 166.7 mls/hr IVPB Q24H [facility] Last Admin: 11/10/16 00:40 Dose: 166.7 mls/hr Dopamine HCl/Dextrose (Dopamine 400mg/250ml D5w) 400 mg in 250 mls @ 8.743 mls/ hr IV .Q24H PRN; Protocol; 2 MCG/KG/MIN PRN Reason: TITRATE PER MD ORDER Last Admin: 11/10/16 02:37 Dose: 5.39 mcg/kg/min, 23.557 mls/hr Meropenem 500 mg/ Sodium (Chloride) 100 mls @ 200 mls/hr IVPB Q8 [facility] Last Admin: 11/10/16 13:25 Dose: 200 mls/hr Insulin Detemir (Levemir) 20 unit SC DAILY [facility] Last Admin: 11/10/16 10:43 Dose: 20 unit Insulin Human Regular (Novolin R) 0 unit SC Q6 EMILY PRN Reason: Protocol Last Admin: 06/15/17 12:23 Dose: Not Given Levetiracetam (Keppra) 500 mg GT BID [facility] Last Admin: 11/10/16 11:05 Dose: 500 mg Pantoprazole Sodium (Protonix Inj) 40 mg IVP DAILY [facility] Last Admin: 11/10/16 10:43 Dose: 40 mg - Labs Labs: 11/10/16 06:12 11/10/16 06:09 PT 13.3 SECONDS (9.7-12.2) H 11/09/16 05:50 INR 1.2 11/09/16 05:50 APTT 37 SECONDS (21-34) H 11/09/16 05:50 - Constitutional Appears: Toxic - Head Exam Head Exam: ATRAUMATIC - Eye Exam Eye Exam: EOMI - ENT Exam ENT Exam: Mucous Membranes Moist - Neck Exam Neck Exam: absent: Lymphadenopathy, Thyromegaly - Respiratory Exam Respiratory Exam: Clear to Ausculation Bilateral. absent: Rales - Cardiovascular Exam Cardiovascular Exam: REGULAR RHYTHM, Murmur - GI/Abdominal Exam GI & Abdominal Exam: Normal Bowel Sounds. absent: Organomegaly - Rectal Exam Rectal Exam: Deferred - Extremities Exam Extremities Exam: Normal Capillary Refill. absent: Calf Tenderness - Neurological Exam Additional comments: Not responsive, intubated and sedated Assessment and Plan (1) CHF (congestive heart failure) Status: Chronic (2) Septic shock Status: Acute (3) CAD (coronary artery disease) Status: Chronic (4) Diabetes mellitus Status: Chronic
--- NOTE | 2016-11-10 15:34 | CP.PCM.CON ---
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 patient was started on IV antibiotics and initially on pressors. Patient mental status got improved and patient self extubated himself yesterday and then got reintubated because of respiratory distress and copious secretions PMH as above Social no recent tobacco, alcohol history Meds reviewed ASA, plavix, imdur, amlodipine, keppra, lisinopril, metoprolol, risperidol Allergies NKDA Family history not contributory Surgery history not available Review of Systems - Review of Systems Systems not reviewed;Unavailable: Intubated Past Patient History - Past Medical History & Family History Past Medical History?: Yes - Past Social History Smoking Status: Former Smoker - CARDIAC Hx Cardiac Disorders: Yes Hx Hypercholesterolemia: Yes Hx Hypertension: Yes - PULMONARY Hx Respiratory Disorders: Yes Hx Chronic Obstructive Pulmonary Disease (COPD): Yes - NEUROLOGICAL Hx Neurological Disorder: Yes HX Cerebrovascular Accident: Yes - HEENT Hx HEENT Problems: Yes Hx Blind: Yes (left eye blind, right blurry) Hx Cataracts: Yes Other/Comment: Cataracts Alexys.with Extarction. - RENAL Hx Chronic Kidney Disease: No - ENDOCRINE/METABOLIC Hx Endocrine Disorders: Yes Hx Diabetes Mellitus Type 2: Yes - HEMATOLOGICAL/ONCOLOGICAL Hx Blood Disorders: No - INTEGUMENTARY Hx Dermatological Problems: No - MUSCULOSKELETAL/RHEUMATOLOGICAL Hx Musculoskeletal Disorders: Yes Hx Arthritis: Yes Hx Falls: Yes - GASTROINTESTINAL Hx Gastrointestinal Disorders: Yes Hx Gastritis: Yes - GENITOURINARY/GYNECOLOGICAL Hx Genitourinary Disorders: Yes Hx Prostate Problems: Yes - PSYCHIATRIC Hx Anxiety: No Hx Substance Use: No - SURGICAL HISTORY Hx Surgeries: Yes Hx Coronary Stent: Yes (x1) Hx Eye Surgery: Yes - ANESTHESIA Hx Anesthesia: Yes Hx Anesthesia Reactions: No Hx Malignant Hyperthermia: No Has any member of the family had a problem w/ anesthesia?: No Meds Allergies/Adverse Reactions: Allergies Allergy/AdvReac Type Severity Reaction Status Date / Time No Known Allergies Allergy Verified 11/06/16 21:29 - Medications Medications: Current Medications Aspirin (Aspirin Chewable) 81 mg PO DAILY [facility] Last Admin: 11/10/16 10:42 Dose: 81 mg Clopidogrel Bisulfate (Plavix) 75 mg PO DAILY [facility] Last Admin: 11/10/16 10:43 Dose: 75 mg Furosemide (Lasix) 40 mg IVP Q12 [facility] Last Admin: 11/10/16 11:01 Dose: 40 mg Heparin Sodium (Porcine) (Heparin) 5,000 units SC Q12 [facility] Vancomycin HCl 1 gm/ Sodium (Chloride) 250 mls @ 166.7 mls/hr IVPB Q24H [facility] Last Admin: 11/10/16 00:40 Dose: 166.7 mls/hr Dopamine HCl/Dextrose (Dopamine 400mg/250ml D5w) 400 mg in 250 mls @ 8.743 mls/ hr IV .Q24H PRN; Protocol; 2 MCG/KG/MIN PRN Reason: TITRATE PER MD ORDER Last Admin: 11/10/16 02:37 Dose: 5.39 mcg/kg/min, 23.557 mls/hr Meropenem 500 mg/ Sodium (Chloride) 100 mls @ 200 mls/hr IVPB Q8 [facility] Last Admin: 11/10/16 13:25 Dose: 200 mls/hr Insulin Detemir (Levemir) 20 unit SC DAILY [facility] Last Admin: 11/10/16 10:43 Dose: 20 unit Insulin Human Regular (Novolin R) 0 unit SC Q6 [facility] PRN Reason: Protocol Last Admin: 11/10/16 12:23 Dose: Not Given Levetiracetam (Keppra) 500 mg GT BID [facility] Last Admin: 11/10/16 11:05 Dose: 500 mg Pantoprazole Sodium (Protonix Inj) 40 mg IVP DAILY [facility] Last Admin: 11/10/16 10:43 Dose: 40 mg Physical Exam - Head Exam Head Exam: ATRAUMATIC, NORMOCEPHALIC - ENT Exam ENT Exam: Normal Exam - Neck Exam Neck exam: Positive for: Normal Inspection - Respiratory Exam Respiratory Exam: Decreased Breath Sounds, Rales - Cardiovascular Exam Cardiovascular Exam: REGULAR RHYTHM - GI/Abdominal Exam GI & Abdominal Exam: Normal Bowel Sounds, Soft - Extremities Exam Extremities exam: Positive for: pedal edema - Neurological Exam Neurological exam: Altered Results - Vital Signs Recent Vital Signs: Last Vital Signs Temp 98 F 11/10/16 12:00 Pulse 70 11/10/16 13:01 Resp 18 11/10/16 13:01 BP 152/77 H 11/10/16 13:01 Pulse Ox 97 11/10/16 13:01 - Labs Result Diagrams: 11/10/16 06:12 11/10/16 06:09 Labs: Laboratory Results - last 24 hr 11/09/16 11/10/16 11/10/16 18:04 00:11 03:54 WBC RBC Hgb Hct MCV MCH MCHC RDW Plt Count MPV Neut % (Auto) Lymph % (Auto) [place] % (Auto) Eos % (Auto) Baso % (Auto) Neut # Lymph # [place] # Eos # Baso # Neutrophils % (Manual) Band Neutrophils % Lymphocytes % (Manual) Monocytes % (Manual) Platelet Estimate Polychromasia Hypochromasia (manual) Anisocytosis (manual) Target Cells Tear Drop Cells Ovalocytes [place] Cells Puncture Site Rr pCO2 39 pO2 93 HCO3 21.1 ABG pH 7.33 L ABG Total CO2 21.8 L ABG O2 Saturation 98.6 H ABG Base Excess -4.9 L ABG Hemoglobin 9.6 L ABG Carboxyhemoglobin 1.5 POC ABG HHb (Measured) 1.4 ABG Methemoglobin 1.3 Timmy Test Pos A-a O2 Difference 215.0 Respiratory Index 2.3 Hgb O2 Saturation 95.8 Mechanical Rate 12 FiO2 50.0 Tidal Volume 500 PEEP 5 Sodium Potassium Chloride Carbon Dioxide Anion Gap BUN Creatinine Est GFR ( Amer) Est GFR (Non-Af Amer) POC Glucose (mg/dL) 121 H 125 H Random Glucose Calcium Phosphorus Magnesium Total Bilirubin AST ALT Alkaline Phosphatase Total Protein Albumin Globulin Albumin/Globulin Ratio Ur Random Sodium 11/10/16 11/10/16 11/10/16 05:09 06:09 06:09 WBC RBC Hgb Hct MCV MCH MCHC RDW Plt Count MPV Neut % (Auto) Lymph % (Auto) [place] % (Auto) Eos % (Auto) Baso % (Auto) Neut # Lymph # [place] # Eos # Baso # Neutrophils % (Manual) Band Neutrophils % Lymphocytes % (Manual) Monocytes % (Manual) Platelet Estimate Polychromasia Hypochromasia (manual) Anisocytosis (manual) Target Cells Tear Drop Cells Ovalocytes [place] Cells Puncture Site pCO2 pO2 HCO3 ABG pH ABG Total CO2 ABG O2 Saturation ABG Base Excess ABG Hemoglobin ABG Carboxyhemoglobin POC ABG HHb (Measured) ABG Methemoglobin Timmy Test A-a O2 Difference Respiratory Index Hgb O2 Saturation Mechanical Rate FiO2 Tidal Volume PEEP Sodium 146 Potassium 3.7 Chloride 116 H Carbon Dioxide 21 L Anion Gap 13 BUN 32 H Creatinine 1.7 H Est GFR ( Amer) 48 Est GFR (Non-Af Amer) 39 POC Glucose (mg/dL) 111 H Random Glucose 97 Calcium 7.9 L Phosphorus 4.2 Magnesium 2.4 H Total Bilirubin 0.8 AST 27 ALT 47 Alkaline Phosphatase 75 Total Protein 6.1 L Albumin 2.9 L D Globulin 3.3 Albumin/Globulin Ratio 0.9 L Ur Random Sodium 10 11/10/16 11/10/16 06:12 11:54 WBC 12.2 H RBC 3.74 L Hgb 9.5 L Hct 30.7 L MCV 82.2 D MCH 25.5 L MCHC 31.0 L RDW 18.6 H Plt Count 80 L MPV 9.7 Neut % (Auto) 91.3 H Lymph % (Auto) 5.0 L [place] % (Auto) 3.1 Eos % (Auto) 0.5 Baso % (Auto) 0.1 Neut # 11.1 H Lymph # 0.6 L [place] # 0.4 Eos # 0.1 Baso # 0.0 Neutrophils % (Manual) 91 H Band Neutrophils % 2 Lymphocytes % (Manual) 6 L Monocytes % (Manual) 1 Platelet Estimate Decreased L Polychromasia Slight Hypochromasia (manual) Slight Anisocytosis (manual) Slight Target Cells Slight Tear Drop Cells Slight Ovalocytes Slight [place] Cells Slight Puncture Site pCO2 pO2 HCO3 ABG pH ABG Total CO2 ABG O2 Saturation ABG Base Excess ABG Hemoglobin ABG Carboxyhemoglobin POC ABG HHb (Measured) ABG Methemoglobin Timmy Test A-a O2 Difference Respiratory Index Hgb O2 Saturation Mechanical Rate FiO2 Tidal Volume PEEP Sodium Potassium Chloride Carbon Dioxide Anion Gap BUN Creatinine Est GFR ( Amer) Est GFR (Non-Af Amer) POC Glucose (mg/dL) 130 H Random Glucose Calcium Phosphorus Magnesium Total Bilirubin AST ALT Alkaline Phosphatase Total Protein Albumin Globulin Albumin/Globulin Ratio Ur Random Sodium Assessment & Plan (1) Respiratory failure Status: Acute (2) Hypothermia Status: Acute (3) Sepsis Status: Acute
--- NOTE | 2016-11-10 17:20 | CP.PCM.PN ---
Subjective - Date & Time of Evaluation Date of Evaluation: 11/10/16 Time of Evaluation: 13:00 - Subjective Subjective: clinically same Objective - Vital Signs/Intake and Output Vital Signs (last 24 hours): Temp Pulse Resp BP Pulse Ox 98 F 77 16 143/71 98 11/10/16 12:00 11/10/16 15:21 11/10/16 15:21 11/10/16 15:21 11/10/16 15:21 Intake and Output: 11/10/16 11/10/16 06:59 18:59 Intake Total 2393.7 675.5 Output Total 820 1175 Balance 1573.7 -499.5 - Medications Medications: Current Medications Aspirin (Aspirin Chewable) 81 mg PO DAILY [facility] Last Admin: 11/10/16 10:42 Dose: 81 mg Clopidogrel Bisulfate (Plavix) 75 mg PO DAILY [facility] Last Admin: 11/10/16 10:43 Dose: 75 mg Furosemide (Lasix) 40 mg IVP Q12 [facility] Last Admin: 11/10/16 11:01 Dose: 40 mg Heparin Sodium (Porcine) (Heparin) 5,000 units SC Q12 [facility] Vancomycin HCl 1 gm/ Sodium (Chloride) 250 mls @ 166.7 mls/hr IVPB Q24H [facility] Last Admin: 11/10/16 00:40 Dose: 166.7 mls/hr Dopamine HCl/Dextrose (Dopamine 400mg/250ml D5w) 400 mg in 250 mls @ 8.743 mls/ hr IV .Q24H PRN; Protocol; 2 MCG/KG/MIN PRN Reason: TITRATE PER MD ORDER Last Admin: 11/10/16 02:37 Dose: 5.39 mcg/kg/min, 23.557 mls/hr Meropenem 500 mg/ Sodium (Chloride) 100 mls @ 200 mls/hr IVPB Q8 [facility] Last Admin: 11/10/16 13:25 Dose: 200 mls/hr Insulin Detemir (Levemir) 20 unit SC DAILY [facility] Last Admin: 11/10/16 10:43 Dose: 20 unit Insulin Human Regular (Novolin R) 0 unit SC Q6 [facility] PRN Reason: Protocol Last Admin: 11/10/16 12:23 Dose: Not Given Levetiracetam (Keppra) 500 mg GT BID [facility] Last Admin: 11/10/16 11:05 Dose: 500 mg Pantoprazole Sodium (Protonix Inj) 40 mg IVP DAILY [facility] Last Admin: 11/10/16 10:43 Dose: 40 mg - Labs Labs: 11/10/16 06:12 11/10/16 06:09 PT 13.3 SECONDS (9.7-12.2) H 11/09/16 05:50 INR 1.2 11/09/16 05:50 APTT 37 SECONDS (21-34) H 11/09/16 05:50 - Constitutional Appears: Well - Head Exam Head Exam: ATRAUMATIC, NORMAL INSPECTION, NORMOCEPHALIC - Eye Exam Eye Exam: EOMI, Normal appearance, PERRL Pupil Exam: NORMAL ACCOMODATION, PERRL - ENT Exam ENT Exam: Mucous Membranes Moist, Normal Exam - Neck Exam Neck Exam: Full ROM, Normal Inspection. absent: Lymphadenopathy - Respiratory Exam Respiratory Exam: Decreased Breath Sounds - Cardiovascular Exam Cardiovascular Exam: REGULAR RHYTHM, +S1, +S2 - GI/Abdominal Exam GI & Abdominal Exam: Soft, Diminished Bowel Sounds - Rectal Exam Rectal Exam: Deferred
--- NOTE | 2016-11-10 17:38 | CP.PCM.CON ---
History of Present Illness - History of Present Illness History of Present Illness: 75 M who was sent in form the [place] with hypotension, lethargy, reduced responsiveness. 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, questionable history of seizure, IDDM, dementia, pulm htn, lvh renal insufficiency [facility] resident Social no recent tobacco, alcohol history Meds reviewed ASA, plavix, imdur, amlodipine, keppra, lisinopril, metoprolol, risperidol Allergies NKDA Family history not contributory Surgery history not available Review of Systems - Review of Systems Systems not reviewed;Unavailable: Altered Mental Status - Constitutional Constitutional: As Per HPI - EENT Eyes: absent: As Per HPI, Blind Spots, Blurred Vision, Change in Vision, Decreased Night Vision, Diplopia, Discharge, Dry Eye, Exophthalmos, Floaters, Irritation, Itchy Eyes, Loss of Peripheral Vision, Pain, Photophobia, Requires Corrective Lenses, Sees Flashes, Spots in Vision, Tunnel Vision, Other Visual Disturbances, Loss of Vision, Other Ears: absent: As Per HPI, Decreased Hearing, Ear Discharge, Ear Pain, Tinnitus, Abnormal Hearing, Disequilibrium, Dizziness, Other Nose/Mouth/Throat: absent: As Per HPI, Epistaxis, Nasal Congestion, Nasal Discharge, Nasal Obstruction, Nasal Trauma, Nose Pain, Post Nasal Drip, Sinus Pain, Sinus Pressure, Bleeding Gums, Change in Voice, Dental Pain, Dry Mouth, Dysphagia, Halitosis, Hoarsness, Lip Swelling, Mouth Lesions, Mouth Pain, Odynophagia, Sore Throat, Throat Swelling, Tongue Swelling, Facial Pain, Neck Pain, Neck Mass, Other - Cardiovascular Cardiovascular: As Per HPI - Respiratory Respiratory: As Per HPI, Cough, Dyspnea - Gastrointestinal Gastrointestinal: absent: As Per HPI, Abdominal Pain, Belching, Bloating, Change in Bowel Habits, Change in Stool Character, Coffee Ground Emesis, Constipation, Cramping, Diarrhea, Dyspepsia, Dysphagia, Early Satiety, Excessive Flatus, Fecal Incontinence, Heartburn, Hematemesis, Hematochezia, Loose Stools, Melena, Nausea, Odynophagia, Temesmus, Vomiting, Other - Genitourinary Genitourinary: As Per HPI - Musculoskeletal Musculoskeletal: absent: As Per HPI, Abnormal Gait, Arthralgias, Atrophy, Back Pain, Deformity, Joint Swelling, Limited Range of Motion, Loss of Height, Muscle Cramps, Muscle Weakness, Myalgias, Neck Pain, Numbness, Radiating Pain into Limb, Stiffness, Tingling, Other - Integumentary Integumentary: absent: As Per HPI, Acne, Alopecia, Bleeding Lesions, Change in Hair, Change in Nails, Change in Pigmentation, Changing Lesions, Dry Skin, Erythema, Furuncle, Hirsutism, Lesions, New Lesions, Non-Healing Lesions, Photosensitivity, Pruritus, Rash, Skin Pain, Skin Ulcer, Sores, Striae, Swelling , Unusual Bruising, Wounds, Jaundice, Other - Neurological Neurological: As Per HPI - Psychiatric Psychiatric: absent: As Per HPI, Abnormal Sleep Pattern, Anhedonia, Anxiety, Auditory Hallucinations, Behavioral Changes, Change in Appetite, Change in Libido, Confusion, Depression, Difficulty Concentrating, Hallucinations, Homicidal Ideation, Hopelessness, Irritability, Memory Loss, Mood Swings, Panic Attacks, Paranoia, Suicidal Ideation, Visual Hallucinations, Tactile Hallucinations, Other - Endocrine Endocrine: absent: As Per HPI, Change in Body Appearance, Change in Libido, Cold Intolorance, Deepening of Voice, Excessive Sweating, Fatigue, Flushing, Heat Intolorance, Increase in Ring/Shoe/Hat Size, Palpitations, Polydipsia, Polyphagia, Polyuria, Other - Hematologic/Lymphatic Hematologic: absent: As Per HPI, Easy Bleeding, Easy Bruising, Lymphadenopathy, Other Past Patient History - Past Medical History & Family History Past Medical History?: Yes - Past Social History Smoking Status: Former Smoker - CARDIAC Hx Cardiac Disorders: Yes Hx Hypercholesterolemia: Yes Hx Hypertension: Yes - PULMONARY Hx Respiratory Disorders: Yes Hx Chronic Obstructive Pulmonary Disease (COPD): Yes - NEUROLOGICAL Hx Neurological Disorder: Yes HX Cerebrovascular Accident: Yes - HEENT Hx HEENT Problems: Yes Hx Blind: Yes (left eye blind, right blurry) Hx Cataracts: Yes Other/Comment: Cataracts Alexys.with Extarction. - RENAL Hx Chronic Kidney Disease: No - ENDOCRINE/METABOLIC Hx Endocrine Disorders: Yes Hx Diabetes Mellitus Type 2: Yes - HEMATOLOGICAL/ONCOLOGICAL Hx Blood Disorders: No - INTEGUMENTARY Hx Dermatological Problems: No - MUSCULOSKELETAL/RHEUMATOLOGICAL Hx Musculoskeletal Disorders: Yes Hx Arthritis: Yes Hx Falls: Yes - GASTROINTESTINAL Hx Gastrointestinal Disorders: Yes Hx Gastritis: Yes - GENITOURINARY/GYNECOLOGICAL Hx Genitourinary Disorders: Yes Hx Prostate Problems: Yes - PSYCHIATRIC Hx Anxiety: No Hx Substance Use: No - SURGICAL HISTORY Hx Surgeries: Yes Hx Coronary Stent: Yes (x1) Hx Eye Surgery: Yes - ANESTHESIA Hx Anesthesia: Yes Hx Anesthesia Reactions: No Hx Malignant Hyperthermia: No Has any member of the family had a problem w/ anesthesia?: No Meds Allergies/Adverse Reactions: Allergies Allergy/AdvReac Type Severity Reaction Status Date / Time No Known Allergies Allergy Verified 11/06/16 21:29 - Medications Medications: Current Medications Aspirin (Aspirin Chewable) 81 mg PO DAILY [facility] Last Admin: 11/10/16 10:42 Dose: 81 mg Clopidogrel Bisulfate (Plavix) 75 mg PO DAILY [facility] Last Admin: 11/10/16 10:43 Dose: 75 mg Furosemide (Lasix) 40 mg IVP Q12 [facility] Last Admin: 11/10/16 11:01 Dose: 40 mg Heparin Sodium (Porcine) (Heparin) 5,000 units SC Q12 [facility] Vancomycin HCl 1 gm/ Sodium (Chloride) 250 mls @ 166.7 mls/hr IVPB Q24H [facility] Last Admin: 11/10/16 00:40 Dose: 166.7 mls/hr Dopamine HCl/Dextrose (Dopamine 400mg/250ml D5w) 400 mg in 250 mls @ 8.743 mls/ hr IV .Q24H PRN; Protocol; 2 MCG/KG/MIN PRN Reason: TITRATE PER MD ORDER Last Admin: 11/10/16 02:37 Dose: 5.39 mcg/kg/min, 23.557 mls/hr Meropenem 500 mg/ Sodium (Chloride) 100 mls @ 200 mls/hr IVPB Q8 [facility] Last Admin: 11/10/16 13:25 Dose: 200 mls/hr Insulin Detemir (Levemir) 20 unit SC DAILY [facility] Last Admin: 11/10/16 10:43 Dose: 20 unit Insulin Human Regular (Novolin R) 0 unit SC Q6 [facility] PRN Reason: Protocol Last Admin: 11/10/16 12:23 Dose: Not Given Levetiracetam (Keppra) 500 mg GT BID [facility] Last Admin: 11/10/16 11:05 Dose: 500 mg Pantoprazole Sodium (Protonix Inj) 40 mg IVP DAILY [facility] Last Admin: 11/10/16 10:43 Dose: 40 mg Physical Exam - Constitutional Appears: Toxic, Confused, Cachectic, Chronically Ill - Head Exam Head Exam: ATRAUMATIC, NORMAL INSPECTION, NORMOCEPHALIC - Eye Exam Eye Exam: PERRL. absent: Scleral icterus - ENT Exam ENT Exam: Mucous Membranes Dry, Normal External Ear Exam, Normal Oropharynx - Neck Exam Neck exam: Negative for: Lymphadenopathy - Respiratory Exam Respiratory Exam: Decreased Breath Sounds, Rhonchi - Cardiovascular Exam Cardiovascular Exam: Tachycardia, REGULAR RHYTHM, +S1, +S2 - GI/Abdominal Exam GI & Abdominal Exam: Diminished Bowel Sounds, Distended, Soft. absent: Guarding , Rebound, Rigid, Tenderness - Rectal Exam Rectal Exam: Deferred - Exam Exam: NORMAL INSPECTION - Extremities Exam Extremities exam: Positive for: pedal edema, pedal pulses present. Negative for : calf tenderness, tenderness - Back Exam Back exam: NORMAL INSPECTION. absent: CVA tenderness (L), CVA tenderness (R) - Neurological Exam Neurological exam: Altered - Psychiatric Exam Psychiatric exam: Depressed - Skin Skin Exam: Dry Results - Vital Signs Recent Vital Signs: Last Vital Signs Temp 97.3 F L 11/10/16 16:00 Pulse 70 11/10/16 17:01 Resp 14 11/10/16 17:01 BP 138/57 L 11/10/16 17:01 Pulse Ox 100 11/10/16 17:01 - Labs Result Diagrams: 11/10/16 06:12 11/10/16 06:09 Labs: Laboratory Results - last 24 hr 11/09/16 11/10/16 11/10/16 18:04 00:11 03:54 WBC RBC Hgb Hct MCV MCH MCHC RDW Plt Count MPV Neut % (Auto) Lymph % (Auto) [place] % (Auto) Eos % (Auto) Baso % (Auto) Neut # Lymph # [place] # Eos # Baso # Neutrophils % (Manual) Band Neutrophils % Lymphocytes % (Manual) Monocytes % (Manual) Platelet Estimate Polychromasia Hypochromasia (manual) Anisocytosis (manual) Target Cells Tear Drop Cells Ovalocytes [place] Cells Puncture Site Rr pCO2 39 pO2 93 HCO3 21.1 ABG pH 7.33 L ABG Total CO2 21.8 L ABG O2 Saturation 98.6 H ABG Base Excess -4.9 L ABG Hemoglobin 9.6 L ABG Carboxyhemoglobin 1.5 POC ABG HHb (Measured) 1.4 ABG Methemoglobin 1.3 Timmy Test Pos A-a O2 Difference 215.0 Respiratory Index 2.3 Hgb O2 Saturation 95.8 Mechanical Rate 12 FiO2 50.0 Tidal Volume 500 PEEP 5 Sodium Potassium Chloride Carbon Dioxide Anion Gap BUN Creatinine Est GFR ( Amer) Est GFR (Non-Af Amer) POC Glucose (mg/dL) 121 H 125 H Random Glucose Calcium Phosphorus Magnesium Total Bilirubin AST ALT Alkaline Phosphatase Total Protein Albumin Globulin Albumin/Globulin Ratio Ur Random Sodium 11/10/16 11/10/16 11/10/16 05:09 06:09 06:09 WBC RBC Hgb Hct MCV MCH MCHC RDW Plt Count MPV Neut % (Auto) Lymph % (Auto) [place] % (Auto) Eos % (Auto) Baso % (Auto) Neut # Lymph # [place] # Eos # Baso # Neutrophils % (Manual) Band Neutrophils % Lymphocytes % (Manual) Monocytes % (Manual) Platelet Estimate Polychromasia Hypochromasia (manual) Anisocytosis (manual) Target Cells Tear Drop Cells Ovalocytes [place] Cells Puncture Site pCO2 pO2 HCO3 ABG pH ABG Total CO2 ABG O2 Saturation ABG Base Excess ABG Hemoglobin ABG Carboxyhemoglobin POC ABG HHb (Measured) ABG Methemoglobin Timmy Test A-a O2 Difference Respiratory Index Hgb O2 Saturation Mechanical Rate FiO2 Tidal Volume PEEP Sodium 146 Potassium 3.7 Chloride 116 H Carbon Dioxide 21 L Anion Gap 13 BUN 32 H Creatinine 1.7 H Est GFR ( Amer) 48 Est GFR (Non-Af Amer) 39 POC Glucose (mg/dL) 111 H Random Glucose 97 Calcium 7.9 L Phosphorus 4.2 Magnesium 2.4 H Total Bilirubin 0.8 AST 27 ALT 47 Alkaline Phosphatase 75 Total Protein 6.1 L Albumin 2.9 L D Globulin 3.3 Albumin/Globulin Ratio 0.9 L Ur Random Sodium 10 11/10/16 11/10/16 06:12 11:54 WBC 12.2 H RBC 3.74 L Hgb 9.5 L Hct 30.7 L MCV 82.2 D MCH 25.5 L MCHC 31.0 L RDW 18.6 H Plt Count 80 L MPV 9.7 Neut % (Auto) 91.3 H Lymph % (Auto) 5.0 L [place] % (Auto) 3.1 Eos % (Auto) 0.5 Baso % (Auto) 0.1 Neut # 11.1 H Lymph # 0.6 L [place] # 0.4 Eos # 0.1 Baso # 0.0 Neutrophils % (Manual) 91 H Band Neutrophils % 2 Lymphocytes % (Manual) 6 L Monocytes % (Manual) 1 Platelet Estimate Decreased L Polychromasia Slight Hypochromasia (manual) Slight Anisocytosis (manual) Slight Target Cells Slight Tear Drop Cells Slight Ovalocytes Slight [place] Cells Slight Puncture Site pCO2 pO2 HCO3 ABG pH ABG Total CO2 ABG O2 Saturation ABG Base Excess ABG Hemoglobin ABG Carboxyhemoglobin POC ABG HHb (Measured) ABG Methemoglobin Timmy Test A-a O2 Difference Respiratory Index Hgb O2 Saturation Mechanical Rate FiO2 Tidal Volume PEEP Sodium Potassium Chloride Carbon Dioxide Anion Gap BUN Creatinine Est GFR ( Amer) Est GFR (Non-Af Amer) POC Glucose (mg/dL) 130 H Random Glucose Calcium Phosphorus Magnesium Total Bilirubin AST ALT Alkaline Phosphatase Total Protein Albumin Globulin Albumin/Globulin Ratio Ur Random Sodium Assessment & Plan (1) LASHON (acute kidney injury) Status: Acute (2) Hyperkalemia Status: Acute (3) Hypothermia Status: Acute (4) Insulin dependent diabetes mellitus Status: Acute (5) Respiratory failure Status: Acute (6) Sepsis Status: Acute (7) Septic shock Status: Acute (8) UTI (lower urinary tract infection) Status: Acute (9) CHF (congestive heart failure) Status: Chronic (10) CVA (cerebral vascular accident) Status: Acute (11) Delirium due to another medical condition Status: Acute (12) Lower extremity edema Status: Acute (13) Diabetes mellitus Status: Chronic - Assessment and Plan (Free Text) Assessment: will cont vanco/ merrem discussed at length with PMD and capacity planner
--- NOTE | 2016-11-10 23:16 | CP.PCM.PN ---
Subjective - Date & Time of Evaluation Date of Evaluation: 11/10/16 Time of Evaluation: 09:00 - Subjective Subjective: pt seen and examined, afebrile, remain sick requring oxygen, foleys in place no n/v , pt is sedated no acute distree, on IV antibiotics Objective - Vital Signs/Intake and Output Vital Signs (last 24 hours): Temp Pulse Resp BP Pulse Ox 97.3 F L 72 13 120/58 L 100 11/10/16 20:00 11/10/16 22:00 11/10/16 22:00 11/10/16 22:01 11/10/16 22:00 Intake and Output: 11/10/16 11/11/16 18:59 06:59 Intake Total 1109.2 180 Output Total 1550 275 Balance -440.8 -95 - Medications Medications: Current Medications Aspirin (Aspirin Chewable) 81 mg PO DAILY [facility] Last Admin: 11/10/16 10:42 Dose: 81 mg Clopidogrel Bisulfate (Plavix) 75 mg PO DAILY [facility] Last Admin: 11/10/16 10:43 Dose: 75 mg Furosemide (Lasix) 40 mg IVP Q12 [facility] Last Admin: 11/10/16 21:15 Dose: 40 mg Heparin Sodium (Porcine) (Heparin) 5,000 units SC Q12 [facility] Last Admin: 11/10/16 21:17 Dose: 5,000 units Vancomycin HCl 1 gm/ Sodium (Chloride) 250 mls @ 166.7 mls/hr IVPB Q24H [facility] Last Admin: 11/10/16 00:40 Dose: 166.7 mls/hr Dopamine HCl/Dextrose (Dopamine 400mg/250ml D5w) 400 mg in 250 mls @ 8.743 mls/ hr IV .Q24H PRN; Protocol; 2 MCG/KG/MIN PRN Reason: TITRATE PER MD ORDER Last Titration: 11/10/16 17:00 Dose: Infused Meropenem 500 mg/ Sodium (Chloride) 100 mls @ 200 mls/hr IVPB Q8 [facility] Last Admin: 11/10/16 21:15 Dose: 200 mls/hr Insulin Detemir (Levemir) 20 unit SC DAILY [facility] Last Admin: 11/10/16 10:43 Dose: 20 unit Insulin Human Regular (Novolin R) 0 unit SC Q6 [facility] PRN Reason: Protocol Last Admin: 11/10/16 12:23 Dose: Not Given Levetiracetam (Keppra) 500 mg GT BID [facility] Last Admin: 11/10/16 17:42 Dose: 500 mg Pantoprazole Sodium (Protonix Inj) 40 mg IVP DAILY [facility] Last Admin: 11/10/16 10:43 Dose: 40 mg - Labs Labs: 11/10/16 06:12 11/10/16 06:09 PT 13.3 SECONDS (9.7-12.2) H 11/09/16 05:50 INR 1.2 11/09/16 05:50 APTT 37 SECONDS (21-34) H 11/09/16 05:50 - Constitutional Appears: No Acute Distress, Chronically Ill - Head Exam Head Exam: ATRAUMATIC, NORMAL INSPECTION, NORMOCEPHALIC - Eye Exam Eye Exam: EOMI Pupil Exam: NORMAL ACCOMODATION - ENT Exam ENT Exam: Mucous Membranes Moist - Respiratory Exam Respiratory Exam: Decreased Breath Sounds, Rales, Rhonchi - Cardiovascular Exam Cardiovascular Exam: REGULAR RHYTHM, +S1, +S2. absent: Murmur - GI/Abdominal Exam GI & Abdominal Exam: Soft, Normal Bowel Sounds. absent: Tenderness Assessment and Plan (1) Respiratory failure Status: Acute (2) Insulin dependent diabetes mellitus Status: Acute (3) UTI (lower urinary tract infection) Status: Acute
[2016-11-11] MEDS: Meropenem 500 MG in Sodium Chloride 0.9% 100 ML IVPB SCH ×3 (05:57→22:00)
[2016-11-11 05:58] LABS: ABG ALLEN TEST POS; ABG MECHANICAL RATE 12; ARTERIAL BLOOD HGB O2 SAT 96.3 % (95.0-98.0); ATERIAL BLOOD GAS PEEP 5; CARBOXYHEMOGLOBIN 1.5 % (0.5-1.5); DRAW SITE RR; METHEMOGLOBIN 1.3 % (0.0-3.0)
[2016-11-11] MEDS: (Novolin R) Insulin Human Regular 100 units/ml vial SC SCH ×4 (06:03→17:48)
[2016-11-11 06:58] LABS: POTASSIUM 3.5 mmol/L (3.6-5.2)
[2016-11-11 06:59] LABS: BASO % 0.3 % (0.0-2.0); EOS # 0.1 K/uL (0.0-0.7); EOS % 1.4 % (0.0-4.0); HEMATOCRIT 28.2 % (35.0-51.0); LYMPH # 0.9 K/uL (1.0-4.3); LYMPH % 8.8 % (20.0-40.0); MEAN CELL VOLUME 81.9 fL (80.0-94.0); MEAN CORPUSCULAR HEMOGLOBIN 25.9 pg (27.0-31.0); MEAN CORPUSCULAR HGB CONC 31.6 g/dL (33.0-37.0); MEAN PLATELET VOLUME 9.2 fL (7.2-11.7); MONO # 0.4 K/uL (0.0-0.8); MONO % 3.8 % (0.0-10.0); NRBC % 0.2 % (0.0-2.0); PLATELET COUNT 63 K/uL (130-400); RED CELL DISTRIBUTION WIDTH 18.3 % (11.5-14.5); WHITE BLOOD COUNT 10.2 K/uL (4.8-10.8)
[2016-11-11 07:00] LABS: ALB/GLOB RATIO 0.9 (1.0-2.1); BILIRUBIN,TOTAL 0.6 mg/dL (0.2-1.3); TOTAL PROTEIN 5.8 g/dL (6.3-8.3)
[2016-11-11 07:01] LABS: CALCIUM 8.1 mg/dl (8.6-10.4); MAGNESIUM 2.3 mg/dL (1.6-2.3); PHOSPHOROUS 4.2 mg/dL (2.5-4.5)
[2016-11-11 08:22] LABS: NEUTROPHIL 90 % (50-75); TOTAL CELLS COUNTED 100
[2016-11-11] MEDS: levETIRAcetam 100 mg/ml (5ml) Oral Syringe GT SCH ×2 (10:26→17:24)
[2016-11-11] MEDS: Insulin Detemir 100 units/ml Vial (Levemir) SC SCH (10:27)
--- NOTE | 2016-11-11 11:41 | RAD ---
HISTORY: COMPARISON: 11/10/2016. TECHNIQUE: Portable chest AP radiograph FINDINGS: LINES AND TUBES: The endotracheal tube terminates 3.5 cm proximal to the li. The right IJV line terminates at the cavoatrial junction. The nasogastric tube terminates in the stomach. HEART AND MEDIASTINUM: The heart is not enlarged. The hilar and mediastinal contours are within normal limits. LUNGS AND PLEURA: There is worsening airspace disease in both lungs. There are small pleural effusions. SKELETAL STRUCTURES: The bony structures are within normal limits for the patient's age. VISUALIZED UPPER ABDOMEN: Normal. OTHER FINDINGS: None. IMPRESSION: Worsening airspace disease in both lungs and small pleural effusions.
--- NOTE | 2016-11-11 12:36 | CP.PCM.PN ---
Subjective - Date & Time of Evaluation Date of Evaluation: 11/11/16 Time of Evaluation: 11:20 - Subjective Subjective: clinically same Objective - Vital Signs/Intake and Output Vital Signs (last 24 hours): Temp Pulse Resp BP Pulse Ox 98.1 F 90 12 120/52 L 100 11/11/16 08:00 11/11/16 08:01 11/11/16 08:01 11/11/16 10:26 11/11/16 08:01 Intake and Output: 11/11/16 11/11/16 06:59 18:59 Intake Total 690 40 Output Total 1260 60 Balance -570 -20 - Medications Medications: Current Medications Aspirin (Aspirin Chewable) 81 mg PO DAILY [facility] Last Admin: 11/11/16 10:27 Dose: 81 mg Clopidogrel Bisulfate (Plavix) 75 mg PO DAILY [facility] Last Admin: 11/11/16 10:28 Dose: 75 mg Furosemide (Lasix) 40 mg IVP Q12 [facility] Last Admin: 11/11/16 10:26 Dose: 40 mg Heparin Sodium (Porcine) (Heparin) 5,000 units SC Q12 [facility] Last Admin: 11/11/16 10:26 Dose: 5,000 units Vancomycin HCl 1 gm/ Sodium (Chloride) 250 mls @ 166.7 mls/hr IVPB Q24H [facility] Last Admin: 11/10/16 23:57 Dose: 166.7 mls/hr Dopamine HCl/Dextrose (Dopamine 400mg/250ml D5w) 400 mg in 250 mls @ 8.743 mls/ hr IV .Q24H PRN; Protocol; 2 MCG/KG/MIN PRN Reason: TITRATE PER MD ORDER Last Titration: 11/10/16 17:00 Dose: Infused Meropenem 500 mg/ Sodium (Chloride) 100 mls @ 200 mls/hr IVPB Q8 [facility] Last Admin: 11/11/16 05:57 Dose: 200 mls/hr Insulin Detemir (Levemir) 20 unit SC DAILY [facility] Last Admin: 11/11/16 10:27 Dose: 20 unit Insulin Human Regular (Novolin R) 0 unit SC Q6 [facility] PRN Reason: Protocol Last Admin: 11/11/16 06:03 Dose: Not Given Levetiracetam (Keppra) 500 mg GT BID [facility] Last Admin: 11/11/16 10:26 Dose: 500 mg Pantoprazole Sodium (Protonix Inj) 40 mg IVP DAILY [facility] Last Admin: 11/11/16 10:27 Dose: 40 mg - Labs Labs: 11/11/16 06:36 11/11/16 06:33 PT 13.3 SECONDS (9.7-12.2) H 11/09/16 05:50 INR 1.2 11/09/16 05:50 APTT 37 SECONDS (21-34) H 11/09/16 05:50 - Constitutional Appears: Well - Head Exam Head Exam: ATRAUMATIC, NORMAL INSPECTION, NORMOCEPHALIC - Eye Exam Eye Exam: EOMI, Normal appearance, PERRL Pupil Exam: NORMAL ACCOMODATION, PERRL - ENT Exam ENT Exam: Mucous Membranes Moist, Normal Exam - Neck Exam Neck Exam: Full ROM, Normal Inspection. absent: Lymphadenopathy - Respiratory Exam Respiratory Exam: Decreased Breath Sounds - Cardiovascular Exam Cardiovascular Exam: REGULAR RHYTHM, +S1, +S2 - GI/Abdominal Exam GI & Abdominal Exam: Diminished Bowel Sounds - Rectal Exam Rectal Exam: NORMAL INSPECTION
--- NOTE | 2016-11-11 15:39 | CP.PCM.PN ---
Subjective - Date & Time of Evaluation Date of Evaluation: 11/11/16 Time of Evaluation: 13:00 - Subjective Subjective: intubated sedated, on treatment for sepsis, stable hemodynamicaly, poor prognosis, supportive care discussed with family Objective - Vital Signs/Intake and Output Vital Signs (last 24 hours): Temp Pulse Resp BP Pulse Ox 97.8 F 83 15 127/58 L 99 11/11/16 12:00 11/11/16 15:01 11/11/16 15:01 11/11/16 15:01 11/11/16 15:01 Intake and Output: 11/11/16 11/11/16 06:59 18:59 Intake Total 690 280 Output Total 1260 730 Balance -570 -450 - Medications Medications: Current Medications Aspirin (Aspirin Chewable) 81 mg PO DAILY [facility] Last Admin: 11/11/16 10:27 Dose: 81 mg Clopidogrel Bisulfate (Plavix) 75 mg PO DAILY [facility] Last Admin: 11/11/16 10:28 Dose: 75 mg Furosemide (Lasix) 40 mg IVP Q12 [facility] Last Admin: 11/11/16 10:26 Dose: 40 mg Heparin Sodium (Porcine) (Heparin) 5,000 units SC Q12 [facility] Last Admin: 11/11/16 10:26 Dose: 5,000 units Vancomycin HCl 1 gm/ Sodium (Chloride) 250 mls @ 166.7 mls/hr IVPB Q24H [facility] Last Admin: 11/10/16 23:57 Dose: 166.7 mls/hr Dopamine HCl/Dextrose (Dopamine 400mg/250ml D5w) 400 mg in 250 mls @ 8.743 mls/ hr IV .Q24H PRN; Protocol; 2 MCG/KG/MIN PRN Reason: TITRATE PER MD ORDER Last Titration: 11/10/16 17:00 Dose: Infused Meropenem 500 mg/ Sodium (Chloride) 100 mls @ 200 mls/hr IVPB Q8 [facility] Last Admin: 11/11/16 14:46 Dose: 200 mls/hr Insulin Detemir (Levemir) 20 unit SC DAILY [facility] Last Admin: 11/11/16 10:27 Dose: 20 unit Insulin Human Regular (Novolin R) 0 unit SC Q6 [facility] PRN Reason: Protocol Last Admin: 11/11/16 12:00 Dose: Not Given Levetiracetam (Keppra) 500 mg GT BID [facility] Last Admin: 11/11/16 10:26 Dose: 500 mg Pantoprazole Sodium (Protonix Inj) 40 mg IVP DAILY [facility] Last Admin: 11/11/16 10:27 Dose: 40 mg - Labs Labs: 11/11/16 06:36 11/11/16 06:33 PT 13.3 SECONDS (9.7-12.2) H 11/09/16 05:50 INR 1.2 11/09/16 05:50 APTT 37 SECONDS (21-34) H 11/09/16 05:50 - Constitutional Appears: Non-toxic - Head Exam Head Exam: ATRAUMATIC - ENT Exam ENT Exam: Mucous Membranes Moist - Neck Exam Neck Exam: absent: Lymphadenopathy, Thyromegaly - Respiratory Exam Respiratory Exam: Clear to Ausculation Bilateral. absent: Rales - Cardiovascular Exam Cardiovascular Exam: REGULAR RHYTHM, Murmur - GI/Abdominal Exam GI & Abdominal Exam: Normal Bowel Sounds. absent: Organomegaly - Rectal Exam Rectal Exam: Deferred - Extremities Exam Extremities Exam: Normal Capillary Refill - Neurological Exam Neurological Exam: Altered - Skin Skin Exam: Dry Assessment and Plan (1) CHF (congestive heart failure) Status: Chronic (2) Septic shock Status: Acute (3) CAD (coronary artery disease) Status: Chronic (4) Diabetes mellitus Status: Chronic
--- NOTE | 2016-11-11 15:39 | CP.PCM.PN ---
Subjective - Date & Time of Evaluation Date of Evaluation: 11/11/16 Time of Evaluation: 09:00 - Subjective Subjective: iv RX IN PROGRESS RX FOR UTI/SEPSIS / PNEUMONIA AND RESP FAILURE IN PROGRESS DISCUSSED WITH DR WHITE Objective - Vital Signs/Intake and Output Vital Signs (last 24 hours): Temp Pulse Resp BP Pulse Ox 97.8 F 83 15 127/58 L 99 11/11/16 12:00 11/11/16 15:01 11/11/16 15:01 11/11/16 15:01 11/11/16 15:01 Intake and Output: 11/11/16 11/11/16 06:59 18:59 Intake Total 690 280 Output Total 1260 730 Balance -570 -450 - Medications Medications: Current Medications Aspirin (Aspirin Chewable) 81 mg PO DAILY [facility] Last Admin: 11/11/16 10:27 Dose: 81 mg Clopidogrel Bisulfate (Plavix) 75 mg PO DAILY [facility] Last Admin: 11/11/16 10:28 Dose: 75 mg Furosemide (Lasix) 40 mg IVP Q12 [facility] Last Admin: 11/11/16 10:26 Dose: 40 mg Heparin Sodium (Porcine) (Heparin) 5,000 units SC Q12 [facility] Last Admin: 11/11/16 10:26 Dose: 5,000 units Vancomycin HCl 1 gm/ Sodium (Chloride) 250 mls @ 166.7 mls/hr IVPB Q24H [facility] Last Admin: 11/10/16 23:57 Dose: 166.7 mls/hr Dopamine HCl/Dextrose (Dopamine 400mg/250ml D5w) 400 mg in 250 mls @ 8.743 mls/ hr IV .Q24H PRN; Protocol; 2 MCG/KG/MIN PRN Reason: TITRATE PER MD ORDER Last Titration: 11/10/16 17:00 Dose: Infused Meropenem 500 mg/ Sodium (Chloride) 100 mls @ 200 mls/hr IVPB Q8 [facility] Last Admin: 11/11/16 14:46 Dose: 200 mls/hr Insulin Detemir (Levemir) 20 unit SC DAILY [facility] Last Admin: 11/11/16 10:27 Dose: 20 unit Insulin Human Regular (Novolin R) 0 unit SC Q6 [facility] PRN Reason: Protocol Last Admin: 11/11/16 12:00 Dose: Not Given Levetiracetam (Keppra) 500 mg GT BID [facility] Last Admin: 11/11/16 10:26 Dose: 500 mg Pantoprazole Sodium (Protonix Inj) 40 mg IVP DAILY [facility] Last Admin: 11/11/16 10:27 Dose: 40 mg - Labs Labs: 11/11/16 06:36 11/11/16 06:33 PT 13.3 SECONDS (9.7-12.2) H 11/09/16 05:50 INR 1.2 11/09/16 05:50 APTT 37 SECONDS (21-34) H 11/09/16 05:50 - Constitutional Appears: Confused, Chronically Ill - Head Exam Head Exam: NORMOCEPHALIC - Eye Exam Eye Exam: absent: Scleral icterus - ENT Exam ENT Exam: Mucous Membranes Dry - Neck Exam Neck Exam: absent: Lymphadenopathy - Respiratory Exam Respiratory Exam: Decreased Breath Sounds, Rhonchi - Cardiovascular Exam Cardiovascular Exam: REGULAR RHYTHM, +S1, +S2 - GI/Abdominal Exam GI & Abdominal Exam: Distended, Soft. absent: Tenderness - Rectal Exam Rectal Exam: Deferred - Exam Exam: NORMAL INSPECTION - Extremities Exam Extremities Exam: absent: Pedal Edema - Back Exam Back Exam: absent: CVA tenderness (L), CVA tenderness (R) - Neurological Exam Neurological Exam: Altered Assessment and Plan (1) LASHON (acute kidney injury) Status: Acute (2) Hyperkalemia Status: Acute (3) Hypothermia Status: Acute (4) Insulin dependent diabetes mellitus Status: Acute (5) Respiratory failure Status: Acute (6) Sepsis Status: Acute (7) Septic shock Status: Acute (8) UTI (lower urinary tract infection) Status: Acute (9) CHF (congestive heart failure) Status: Chronic (10) CVA (cerebral vascular accident) Status: Acute (11) Delirium due to another medical condition Status: Acute (12) Lower extremity edema Status: Acute (13) Diabetes mellitus Status: Chronic
--- NOTE | 2016-11-11 15:58 | CP.CCUPN ---
CCU Subjective - Physician Review Events Since Last Encounter (Free Text): 11/11/16 15:57 patient is intubated but alert and following commands. CCU Objective - Vital Signs / Intake & Output Vital Signs (Last 4 hours): Vital Signs Temp Pulse Resp BP Pulse Ox 11/11/16 15:01 83 15 127/58 L 99 11/11/16 15:00 77 15 99 11/11/16 14:01 74 14 126/56 L 99 11/11/16 14:00 77 14 100 11/11/16 13:01 83 14 135/65 99 11/11/16 13:00 83 13 99 11/11/16 12:01 78 12 116/61 100 11/11/16 12:00 97.8 F 75 12 100 Intake and Output (Last 8hrs): Intake & Output 11/11/16 11/11/16 11/11/16 06:59 14:59 22:59 Intake Total 510 260 20 Output Total 985 680 50 Balance -475 -420 -30 Weight 243 lb 8 oz Intake: Intake, IV Amount 350 100 Right Distal Port 100 Right Proximal Port 350 Internal Jugular Tube Feeding 160 160 20 Output: Urine 985 680 50 Urethral (Wick) 985 680 50 - Physical Exam Head: Positive for: Atraumatic, Normocephalic, Other (ET Tube in place) Pupils: Positive for: PERRL Extroacular Muscles: Positive for: EOMI Conjunctiva: Positive for: Normal Mouth: Positive for: Moist Mucous Membranes. Negative for: Drooling Nose (External): Positive for: Atraumatic Neck: Positive for: Normal Range of Motion. Negative for: JVD, Lymphadenopathy Respiratory/Chest: Positive for: Clear to Auscultation, Good Air Exchange, Decreased Breath Sounds. Negative for: Respiratory Distress, Accessory Muscle Use, Wheezes, Rales, Retracting, Rhonchi Cardiovascular: Positive for: Regular Rate and Rhythm, Murmurs, Normal S1, S2, Peripheal Pulses Present. Negative for: Irregular Rhythm, Tachycardic, Bradycardic Abdomen: Positive for: Normal Bowel Sounds. Negative for: Tenderness, Distention, Peritoneal Signs, Rebound, Guarding Back: Positive for: Normal Inspection Upper Extremity: Positive for: Normal Inspection. Negative for: Cyanosis, Edema Lower Extremity: Positive for: Normal Inspection. Negative for: Edema Skin: Positive for: Warm, Normal Color - Medications Active Medications: Active Medications Generic Name Dose Route Start Last Admin Trade Name Freq PRN Reason Stop Dose Admin Aspirin 81 mg 11/07/16 10:00 11/11/16 10:27 Aspirin Chewable PO 81 mg DAILY EMILY Administration Clopidogrel Bisulfate 75 mg 11/07/16 10:00 11/11/16 10:28 Plavix PO 75 mg DAILY EMILY Administration Furosemide 40 mg 11/10/16 11:00 11/11/16 10:26 Lasix IVP 40 mg Q12 EMILY Administration Heparin Sodium (Porcine) 5,000 units 11/10/16 22:00 11/11/16 10:26 Heparin SC 5,000 units Q12 EMILY Administration Vancomycin HCl 1 gm/ Sodium 250 mls @ 166.7 mls/hr 11/07/16 00:45 11/10/16 23 :57 Chloride IVPB 166.7 mls/hr Q24H EMILY Administration Dopamine HCl/Dextrose 400 mg in 250 mls @ 8.743 mls/hr 11/09/16 19:27 17:00 Dopamine 400mg/250ml D5w IV Infused .Q24H PRN Titration TITRATE PER MD ORDER Protocol 2 MCG/KG/MIN Meropenem 500 mg/ Sodium 100 mls @ 200 mls/hr 11/10/16 14:00 11/11/16 14:46 Chloride IVPB 200 mls/hr Q8 EMILY Administration Insulin Detemir 20 unit 11/07/16 10:00 11/11/16 10:27 Levemir SC 20 unit DAILY EMILY Administration Insulin Human Regular 0 unit 11/07/16 06:00 11/11/16 12:00 Novolin R SC Not Given Q6 [facility] Protocol Levetiracetam 500 mg 11/10/16 11:00 11/11/16 10:26 Keppra GT 500 mg BID EMILY Administration Pantoprazole Sodium 40 mg 11/07/16 10:00 11/11/16 10:27 Protonix Inj IVP 40 mg DAILY EMILY Administration - Patient Studies Lab Studies: Microbiology Studies 11/09/16 18:32 Urine Culture - Final Urine No Growth (<1,000 CFU/ML) Lab Studies 11/11/16 11/11/16 11/11/16 Range/Units 11:37 07:20 06:36 WBC 10.2 (4.8-10.8) K/uL RBC 3.44 L (4.40-5.90) Mil/uL Hgb 8.9 L (12.0-18.0) g/dL Hct 28.2 L (35.0-51.0) % MCV 81.9 (80.0-94.0) fL MCH 25.9 L (27.0-31.0) pg MCHC 31.6 L (33.0-37.0) g/dL RDW 18.3 H (11.5-14.5) % Plt Count 63 L (130-400) K/uL MPV 9.2 (7.2-11.7) fL Neut % (Auto) 85.7 H (50.0-75.0) % Lymph % (Auto) 8.8 L (20.0-40.0) % [place] % (Auto) 3.8 (0.0-10.0) % Eos % (Auto) 1.4 (0.0-4.0) % Baso % (Auto) 0.3 (0.0-2.0) % Neut # 8.7 H (1.8-7.0) K/uL Lymph # 0.9 L (1.0-4.3) K/uL [place] # 0.4 (0.0-0.8) K/uL Eos # 0.1 (0.0-0.7) K/uL Baso # 0.0 (0.0-0.2) K/uL Neutrophils % (Manual) 90 H (50-75) % Lymphocytes % (Manual) 9 L (20-40) % Monocytes % (Manual) 1 (0-10) % Platelet Estimate Decreased L (NORMAL) Polychromasia Slight Hypochromasia (manual) Slight Anisocytosis (manual) Slight Target Cells Slight Ovalocytes Slight Puncture Site pCO2 (35-45) mm/Hg pO2 (80-100) mm/Hg HCO3 (21-28) mmol/L ABG pH (7.35-7.45) ABG Total CO2 (22-28) mmol/L ABG O2 Saturation (95-98) % ABG Base Excess (-2.0-3.0) mmol/L ABG Hemoglobin (11.7-17.4) g/dL ABG Carboxyhemoglobin (0.5-1.5) % POC ABG HHb (Measured) (0.0-5.0) % ABG Methemoglobin (0.0-3.0) % Timmy Test A-a O2 Difference mm/Hg Respiratory Index Hgb O2 Saturation (95.0-98.0) % Mechanical Rate FiO2 % Tidal Volume PEEP Sodium (132-148) mmol/L Potassium (3.6-5.2) mmol/L Chloride (98-107) mmol/L Carbon Dioxide (22-30) mmol/L Anion Gap (10-20) BUN (9-20) mg/dL Creatinine (0.8-1.5) MG/DL Est GFR ( Amer) Est GFR (Non-Af Amer) POC Glucose (mg/dL) 130 H (65-110) mg/dL Random Glucose (75-110) mg/dL Calcium (8.6-10.4) mg/dl Phosphorus (2.5-4.5) mg/dL Magnesium (1.6-2.3) mg/dL Total Bilirubin (0.2-1.3) mg/dL AST (17-59) U/L ALT (21-72) U/L Alkaline Phosphatase (38-126) U/L Total Protein (6.3-8.3) g/dL Albumin (3.5-5.0) g/dL Globulin (2.2-3.9) gm/dL Albumin/Globulin Ratio (1.0-2.1) Vancomycin Trough 25.0 H (5.0-10.0) ug/mL 11/11/16 11/11/16 11/11/16 Range/Units 06:33 05:30 05:11 WBC (4.8-10.8) K/uL RBC (4.40-5.90) Mil/uL Hgb (12.0-18.0) g/dL Hct (35.0-51.0) % MCV (80.0-94.0) fL MCH (27.0-31.0) pg MCHC (33.0-37.0) g/dL RDW (11.5-14.5) % Plt Count (130-400) K/uL MPV (7.2-11.7) fL Neut % (Auto) (50.0-75.0) % Lymph % (Auto) (20.0-40.0) % [place] % (Auto) (0.0-10.0) % Eos % (Auto) (0.0-4.0) % Baso % (Auto) (0.0-2.0) % Neut # (1.8-7.0) K/uL Lymph # (1.0-4.3) K/uL [place] # (0.0-0.8) K/uL Eos # (0.0-0.7) K/uL Baso # (0.0-0.2) K/uL Neutrophils % (Manual) (50-75) % Lymphocytes % (Manual) (20-40) % Monocytes % (Manual) (0-10) % Platelet Estimate (NORMAL) Polychromasia Hypochromasia (manual) Anisocytosis (manual) Target Cells Ovalocytes Puncture Site Rr pCO2 37 (35-45) mm/Hg pO2 128 H (80-100) mm/Hg HCO3 23.1 (21-28) mmol/L ABG pH 7.39 (7.35-7.45) ABG Total CO2 23.5 (22-28) mmol/L ABG O2 Saturation 99.0 H (95-98) % ABG Base Excess -2.3 L (-2.0-3.0) mmol/L ABG Hemoglobin 9.0 L (11.7-17.4) g/dL ABG Carboxyhemoglobin 1.5 (0.5-1.5) % POC ABG HHb (Measured) 1.0 (0.0-5.0) % ABG Methemoglobin 1.3 (0.0-3.0) % Timmy Test Pos A-a O2 Difference 182.0 mm/Hg Respiratory Index 1.4 Hgb O2 Saturation 96.3 (95.0-98.0) % Mechanical Rate 12 FiO2 50.0 % Tidal Volume 500 PEEP 5 Sodium 148 (132-148) mmol/L Potassium 3.5 L (3.6-5.2) mmol/L Chloride 117 H (98-107) mmol/L Carbon Dioxide 23 (22-30) mmol/L Anion Gap 12 (10-20) BUN 31 H (9-20) mg/dL Creatinine 1.9 H (0.8-1.5) MG/DL Est GFR ( Amer) 42 Est GFR (Non-Af Amer) 35 POC Glucose (mg/dL) 134 H (65-110) mg/dL Random Glucose 114 H (75-110) mg/dL Calcium 8.1 L (8.6-10.4) mg/dl Phosphorus 4.2 (2.5-4.5) mg/dL Magnesium 2.3 (1.6-2.3) mg/dL Total Bilirubin 0.6 (0.2-1.3) mg/dL AST 22 (17-59) U/L ALT 40 (21-72) U/L Alkaline Phosphatase 71 (38-126) U/L Total Protein 5.8 L (6.3-8.3) g/dL Albumin 2.7 L (3.5-5.0) g/dL Globulin 3.1 (2.2-3.9) gm/dL Albumin/Globulin Ratio 0.9 L (1.0-2.1) Vancomycin Trough (5.0-10.0) ug/mL 11/10/16 11/10/16 Range/Units 23:40 17:47 WBC (4.8-10.8) K/uL RBC (4.40-5.90) Mil/uL Hgb (12.0-18.0) g/dL Hct (35.0-51.0) % MCV (80.0-94.0) fL MCH (27.0-31.0) pg MCHC (33.0-37.0) g/dL RDW (11.5-14.5) % Plt Count (130-400) K/uL MPV (7.2-11.7) fL Neut % (Auto) (50.0-75.0) % Lymph % (Auto) (20.0-40.0) % [place] % (Auto) (0.0-10.0) % Eos % (Auto) (0.0-4.0) % Baso % (Auto) (0.0-2.0) % Neut # (1.8-7.0) K/uL Lymph # (1.0-4.3) K/uL [place] # (0.0-0.8) K/uL Eos # (0.0-0.7) K/uL Baso # (0.0-0.2) K/uL Neutrophils % (Manual) (50-75) % Lymphocytes % (Manual) (20-40) % Monocytes % (Manual) (0-10) % Platelet Estimate (NORMAL) Polychromasia Hypochromasia (manual) Anisocytosis (manual) Target Cells Ovalocytes Puncture Site pCO2 (35-45) mm/Hg pO2 (80-100) mm/Hg HCO3 (21-28) mmol/L ABG pH (7.35-7.45) ABG Total CO2 (22-28) mmol/L ABG O2 Saturation (95-98) % ABG Base Excess (-2.0-3.0) mmol/L ABG Hemoglobin (11.7-17.4) g/dL ABG Carboxyhemoglobin (0.5-1.5) % POC ABG HHb (Measured) (0.0-5.0) % ABG Methemoglobin (0.0-3.0) % Timmy Test A-a O2 Difference mm/Hg Respiratory Index Hgb O2 Saturation (95.0-98.0) % Mechanical Rate FiO2 % Tidal Volume PEEP Sodium (132-148) mmol/L Potassium (3.6-5.2) mmol/L Chloride (98-107) mmol/L Carbon Dioxide (22-30) mmol/L Anion Gap (10-20) BUN (9-20) mg/dL Creatinine (0.8-1.5) MG/DL Est GFR ( Amer) Est GFR (Non-Af Amer) POC Glucose (mg/dL) 116 H 123 H (65-110) mg/dL Random Glucose (75-110) mg/dL Calcium (8.6-10.4) mg/dl Phosphorus (2.5-4.5) mg/dL Magnesium (1.6-2.3) mg/dL Total Bilirubin (0.2-1.3) mg/dL AST (17-59) U/L ALT (21-72) U/L Alkaline Phosphatase (38-126) U/L Total Protein (6.3-8.3) g/dL Albumin (3.5-5.0) g/dL Globulin (2.2-3.9) gm/dL Albumin/Globulin Ratio (1.0-2.1) Vancomycin Trough (5.0-10.0) ug/mL Laboratory Results - last 24 hr 11/10/16 11/10/16 11/11/16 17:47 23:40 05:11 WBC RBC Hgb Hct MCV MCH MCHC RDW Plt Count MPV Neut % (Auto) Lymph % (Auto) [place] % (Auto) Eos % (Auto) Baso % (Auto) Neut # Lymph # [place] # Eos # Baso # Neutrophils % (Manual) Lymphocytes % (Manual) Monocytes % (Manual) Platelet Estimate Polychromasia Hypochromasia (manual) Anisocytosis (manual) Target Cells Ovalocytes Puncture Site pCO2 pO2 HCO3 ABG pH ABG Total CO2 ABG O2 Saturation ABG Base Excess ABG Hemoglobin ABG Carboxyhemoglobin POC ABG HHb (Measured) ABG Methemoglobin Timmy Test A-a O2 Difference Respiratory Index Hgb O2 Saturation Mechanical Rate FiO2 Tidal Volume PEEP Sodium Potassium Chloride Carbon Dioxide Anion Gap BUN Creatinine Est GFR ( Amer) Est GFR (Non-Af Amer) POC Glucose (mg/dL) 123 H 116 H 134 H Random Glucose Calcium Phosphorus Magnesium Total Bilirubin AST ALT Alkaline Phosphatase Total Protein Albumin Globulin Albumin/Globulin Ratio Vancomycin Trough 11/11/16 11/11/16 11/11/16 05:30 06:33 06:36 WBC 10.2 RBC 3.44 L Hgb 8.9 L Hct 28.2 L MCV 81.9 MCH 25.9 L MCHC 31.6 L RDW 18.3 H Plt Count 63 L MPV 9.2 Neut % (Auto) 85.7 H Lymph % (Auto) 8.8 L [place] % (Auto) 3.8 Eos % (Auto) 1.4 Baso % (Auto) 0.3 Neut # 8.7 H Lymph # 0.9 L [place] # 0.4 Eos # 0.1 Baso # 0.0 Neutrophils % (Manual) 90 H Lymphocytes % (Manual) 9 L Monocytes % (Manual) 1 Platelet Estimate Decreased L Polychromasia Slight Hypochromasia (manual) Slight Anisocytosis (manual) Slight Target Cells Slight Ovalocytes Slight Puncture Site Rr pCO2 37 pO2 128 H HCO3 23.1 ABG pH 7.39 ABG Total CO2 23.5 ABG O2 Saturation 99.0 H ABG Base Excess -2.3 L ABG Hemoglobin 9.0 L ABG Carboxyhemoglobin 1.5 POC ABG HHb (Measured) 1.0 ABG Methemoglobin 1.3 Timmy Test Pos A-a O2 Difference 182.0 Respiratory Index 1.4 Hgb O2 Saturation 96.3 Mechanical Rate 12 FiO2 50.0 Tidal Volume 500 PEEP 5 Sodium 148 Potassium 3.5 L Chloride 117 H Carbon Dioxide 23 Anion Gap 12 BUN 31 H Creatinine 1.9 H Est GFR ( Amer) 42 Est GFR (Non-Af Amer) 35 POC Glucose (mg/dL) Random Glucose 114 H Calcium 8.1 L Phosphorus 4.2 Magnesium 2.3 Total Bilirubin 0.6 AST 22 ALT 40 Alkaline Phosphatase 71 Total Protein 5.8 L Albumin 2.7 L Globulin 3.1 Albumin/Globulin Ratio 0.9 L Vancomycin Trough 11/11/16 11/11/16 07:20 11:37 WBC RBC Hgb Hct MCV MCH MCHC RDW Plt Count MPV Neut % (Auto) Lymph % (Auto) [place] % (Auto) Eos % (Auto) Baso % (Auto) Neut # Lymph # [place] # Eos # Baso # Neutrophils % (Manual) Lymphocytes % (Manual) Monocytes % (Manual) Platelet Estimate Polychromasia Hypochromasia (manual) Anisocytosis (manual) Target Cells Ovalocytes Puncture Site pCO2 pO2 HCO3 ABG pH ABG Total CO2 ABG O2 Saturation ABG Base Excess ABG Hemoglobin ABG Carboxyhemoglobin POC ABG HHb (Measured) ABG Methemoglobin Timmy Test A-a O2 Difference Respiratory Index Hgb O2 Saturation Mechanical Rate FiO2 Tidal Volume PEEP Sodium Potassium Chloride Carbon Dioxide Anion Gap BUN Creatinine Est GFR ( Amer) Est GFR (Non-Af Amer) POC Glucose (mg/dL) 130 H Random Glucose Calcium Phosphorus Magnesium Total Bilirubin AST ALT Alkaline Phosphatase Total Protein Albumin Globulin Albumin/Globulin Ratio Vancomycin Trough 25.0 H Fingerstick Blood Sugar Results: 137 Review of Systems - Review of Systems Systems not reviewed;Unavailable: Intubated Critical Care Progress Note - Ventilator Checklist Head of Bed 30 Degrees: Yes Daily Sedation Vacation: Yes Daily Assessment of Readiness to Wean: Yes Daily Spontaneous Breathing Trial: Yes PUD Prophalyxis: Yes DVT Prophylaxis: Yes Assessment/Plan (1) Respiratory failure Assessment and plan: 75yo M. 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 Presented with altered mental status and acute respiratory failure requiring intubation. Neuro: Alert and follows commands, left hemiparetic. Keppra by mouth twice a day for seizure prophylaxis. Pulm: Acute respiratory failure, on vent. Pulmonary edema and possible underlying pneumonia. CV: Hemodynamically stable. Acute on chronic Systolic congestive heart failure. Hem: Continue aspirin and Plavix Renal: Continue diuresis IV Lasix 40 mg every 12 hours. Endo: DM type II, regular insulin sliding scale and Levemir 20 units subcutaneous daily. GI: Nothing by mouth, ID: Severe sepsis from UTI with Proteus mirabilis, continue meropenem and vancomycin. ID consult. DVT proph - heparin subcutaneous GI proph - Protonix wick for strict I/O's during acute illness Code status - full code Crtical Care Time spent 35 minutes Multi-disciplinary rounds were performed with house staff, nursing, speech therapy, respiratory therapy, pharmacy and nutrition with integrated input from the primary team/attending and other consulting services. The documented time is cumulative and includes review of patient data/exams/labs/chart review and examination of the patient on rounds and throughout the day; time is exclusive of any procedures or teaching time. Current Visit: Yes Status: Acute
--- NOTE | 2016-11-11 18:16 | CP.PCM.PN ---
Subjective - Date & Time of Evaluation Date of Evaluation: 11/11/16 Time of Evaluation: 16:25 - Subjective Subjective: Patient seen and examined in the intensive care unit. Remains intubated on ventilatory support tolerating CPAP Response to vocal command by opening eyes Afebrile Being treated for urinary tract infection/sepsis Objective - Vital Signs/Intake and Output Vital Signs (last 24 hours): Temp Pulse Resp BP Pulse Ox 98.6 F 78 13 143/65 100 11/11/16 16:00 11/11/16 17:01 11/11/16 17:01 11/11/16 17:01 11/11/16 17:01 Intake and Output: 11/11/16 11/11/16 06:59 18:59 Intake Total 690 320 Output Total 1260 830 Balance -570 -510 - Medications Medications: Current Medications Aspirin (Aspirin Chewable) 81 mg PO DAILY [facility] Last Admin: 11/11/16 10:27 Dose: 81 mg Clopidogrel Bisulfate (Plavix) 75 mg PO DAILY [facility] Last Admin: 11/11/16 10:28 Dose: 75 mg Furosemide (Lasix) 40 mg IVP Q12 [facility] Last Admin: 11/11/16 10:26 Dose: 40 mg Heparin Sodium (Porcine) (Heparin) 5,000 units SC Q12 [facility] Last Admin: 11/11/16 10:26 Dose: 5,000 units Vancomycin HCl 1 gm/ Sodium (Chloride) 250 mls @ 166.7 mls/hr IVPB Q24H [facility] Last Admin: 11/10/16 23:57 Dose: 166.7 mls/hr Dopamine HCl/Dextrose (Dopamine 400mg/250ml D5w) 400 mg in 250 mls @ 8.743 mls/ hr IV .Q24H PRN; Protocol; 2 MCG/KG/MIN PRN Reason: TITRATE PER MD ORDER Last Titration: 11/10/16 17:00 Dose: Infused Meropenem 500 mg/ Sodium (Chloride) 100 mls @ 200 mls/hr IVPB Q8 [facility] Last Admin: 11/11/16 14:46 Dose: 200 mls/hr Insulin Detemir (Levemir) 20 unit SC DAILY [facility] Last Admin: 11/11/16 10:27 Dose: 20 unit Insulin Human Regular (Novolin R) 0 unit SC Q6 [facility]ILY PRN Reason: Protocol Last Admin: 11/11/16 17:48 Dose: Not Given Levetiracetam (Keppra) 500 mg GT BID [facility] Last Admin: 11/11/16 17:24 Dose: 500 mg Pantoprazole Sodium (Protonix Inj) 40 mg IVP DAILY [facility] Last Admin: 11/11/16 10:27 Dose: 40 mg - Labs Labs: 11/11/16 06:36 11/11/16 06:33 PT 13.3 SECONDS (9.7-12.2) H 11/09/16 05:50 INR 1.2 11/09/16 05:50 APTT 37 SECONDS (21-34) H 11/09/16 05:50 - Head Exam Head Exam: ATRAUMATIC, NORMOCEPHALIC - ENT Exam ENT Exam: Mucous Membranes Moist - Neck Exam Neck Exam: Normal Inspection - Respiratory Exam Respiratory Exam: Decreased Breath Sounds - Cardiovascular Exam Cardiovascular Exam: REGULAR RHYTHM - GI/Abdominal Exam GI & Abdominal Exam: Soft, Normal Bowel Sounds - Extremities Exam Extremities Exam: Pedal Edema - Neurological Exam Neurological Exam: Altered Assessment and Plan (1) Respiratory failure Assessment & Plan: Continue ventilatory support and wean as tolerated consider tracheostomy Continue antibiotics Continue feeding Status: Acute (2) Hypothermia Status: Acute (3) Sepsis Status: Acute
--- NOTE | 2016-11-11 23:47 | CP.PCM.PN ---
Subjective - Date & Time of Evaluation Date of Evaluation: 11/11/16 Time of Evaluation: 19:00 - Subjective Subjective: Pt seen and examined, remians sick, on sedation, foleys in place, on IV antibiotics Objective - Vital Signs/Intake and Output Vital Signs (last 24 hours): Temp Pulse Resp BP Pulse Ox 97.4 F L 73 13 140/62 99 11/11/16 20:00 11/11/16 23:01 11/11/16 23:01 11/11/16 23:01 11/11/16 23:01 Intake and Output: 11/11/16 11/12/16 18:59 06:59 Intake Total 400 20 Output Total 930 100 Balance -530 -80 - Medications Medications: Current Medications Aspirin (Aspirin Chewable) 81 mg PO DAILY [facility] Last Admin: 11/11/16 10:27 Dose: 81 mg Clopidogrel Bisulfate (Plavix) 75 mg PO DAILY [facility] Last Admin: 11/11/16 10:28 Dose: 75 mg Furosemide (Lasix) 40 mg IVP Q12 [facility] Last Admin: 11/11/16 21:59 Dose: 40 mg Heparin Sodium (Porcine) (Heparin) 5,000 units SC Q12 [facility] Last Admin: 11/11/16 22:01 Dose: Not Given Vancomycin HCl 1 gm/ Sodium (Chloride) 250 mls @ 166.7 mls/hr IVPB Q24H [facility] Last Admin: 11/10/16 23:57 Dose: 166.7 mls/hr Dopamine HCl/Dextrose (Dopamine 400mg/250ml D5w) 400 mg in 250 mls @ 8.743 mls/ hr IV .Q24H PRN; Protocol; 2 MCG/KG/MIN PRN Reason: TITRATE PER MD ORDER Last Titration: 11/10/16 17:00 Dose: Infused Meropenem 500 mg/ Sodium (Chloride) 100 mls @ 200 mls/hr IVPB Q8 [facility] Last Admin: 11/11/16 22:00 Dose: 200 mls/hr Insulin Detemir (Levemir) 20 unit SC DAILY [facility] Last Admin: 11/11/16 10:27 Dose: 20 unit Insulin Human Regular (Novolin R) 0 unit SC Q6 [facility] PRN Reason: Protocol Last Admin: 11/11/16 17:48 Dose: Not Given Levetiracetam (Keppra) 500 mg GT BID [facility] Last Admin: 11/11/16 17:24 Dose: 500 mg Pantoprazole Sodium (Protonix Inj) 40 mg IVP DAILY [facility] Last Admin: 11/11/16 10:27 Dose: 40 mg - Labs Labs: 11/11/16 06:36 11/11/16 06:33 PT 13.3 SECONDS (9.7-12.2) H 11/09/16 05:50 INR 1.2 11/09/16 05:50 APTT 37 SECONDS (21-34) H 11/09/16 05:50 - Constitutional Appears: No Acute Distress, Chronically Ill - Head Exam Head Exam: ATRAUMATIC, NORMAL INSPECTION, NORMOCEPHALIC - Eye Exam Eye Exam: EOMI, Normal appearance, PERRL Pupil Exam: NORMAL ACCOMODATION, PERRL - Respiratory Exam Respiratory Exam: Decreased Breath Sounds Additional comments: requiring Oxygen on MV - Cardiovascular Exam Cardiovascular Exam: REGULAR RHYTHM, +S1, +S2. absent: Murmur - GI/Abdominal Exam GI & Abdominal Exam: Soft, Normal Bowel Sounds. absent: Tenderness Assessment and Plan (1) Respiratory failure Status: Acute (2) Insulin dependent diabetes mellitus Status: Acute (3) UTI (lower urinary tract infection) Status: Acute
[2016-11-12 05:16] LABS: ARTERIAL BLOOD HGB O2 SAT 95.1 % (95.0-98.0); ATERIAL BLOOD GAS PEEP 5; CARBOXYHEMOGLOBIN 1.4 % (0.5-1.5); DRAW SITE R BRACH; HHB 2.3 % (0.0-5.0); METHEMOGLOBIN 1.2 % (0.0-3.0)
[2016-11-12] MEDS: (Novolin R) Insulin Human Regular 100 units/ml vial SC SCH ×5 (06:00→18:45)
[2016-11-12] MEDS: Meropenem 500 MG in Sodium Chloride 0.9% 100 ML IVPB SCH ×3 (06:00→22:00)
[2016-11-12 06:12] LABS: BASO % 0.2 % (0.0-2.0); EOS # 0.2 K/uL (0.0-0.7); EOS % 2.2 % (0.0-4.0); HEMATOCRIT 21.9 % (35.0-51.0); LYMPH # 1.1 K/uL (1.0-4.3); LYMPH % 9.9 % (20.0-40.0); MEAN CELL VOLUME 81.4 fL (80.0-94.0); MEAN CORPUSCULAR HEMOGLOBIN 25.5 pg (27.0-31.0); MEAN CORPUSCULAR HGB CONC 31.3 g/dL (33.0-37.0); MONO # 0.6 K/uL (0.0-0.8); MONO % 5.2 % (0.0-10.0); NRBC % 0.1 % (0.0-2.0); PLATELET COUNT 73 K/uL (130-400); RED CELL DISTRIBUTION WIDTH 18.2 % (11.5-14.5)
[2016-11-12 06:31] LABS: POTASSIUM 3.4 mmol/L (3.6-5.2)
[2016-11-12 06:33] LABS: ALB/GLOB RATIO 0.8 (1.0-2.1); BILIRUBIN,TOTAL 0.6 mg/dL (0.2-1.3); TOTAL PROTEIN 6.1 g/dL (6.3-8.3)
[2016-11-12 06:34] LABS: CALCIUM 8.6 mg/dl (8.6-10.4); MAGNESIUM 2.3 mg/dL (1.6-2.3)
[2016-11-12 08:34] LABS: EOSINOPHIL 1 % (0-4); NEUTROPHIL 81 % (50-75); TOTAL CELLS COUNTED 100
[2016-11-12 08:35] LABS: LARGE PLATELETS PRESENT
[2016-11-12 09:15] LABS: HEMATOCRIT 28.8 % (35.0-51.0); MEAN CELL VOLUME 80.8 fL (80.0-94.0); MEAN CORPUSCULAR HGB CONC 32.2 g/dL (33.0-37.0); MEAN PLATELET VOLUME 8.9 fL (7.2-11.7); RED CELL DISTRIBUTION WIDTH 18.8 % (11.5-14.5); WHITE BLOOD COUNT 10.7 K/uL (4.8-10.8)
--- NOTE | 2016-11-12 10:30 | CP.PCM.PN ---
Subjective - Date & Time of Evaluation Date of Evaluation: 11/12/16 Time of Evaluation: 12:00 - Subjective Subjective: clinically same Objective - Vital Signs/Intake and Output Vital Signs (last 24 hours): Temp Pulse Resp BP Pulse Ox 97.5 F L 70 12 131/56 L 100 11/12/16 04:00 11/12/16 07:01 11/12/16 07:01 11/12/16 07:01 11/12/16 07:01 Intake and Output: 11/12/16 11/12/16 06:59 18:59 Intake Total 445 40 Output Total 1500 250 Balance -1055 -210 - Medications Medications: Current Medications Aspirin (Aspirin Chewable) 81 mg PO DAILY [facility] Last Admin: 11/11/16 10:27 Dose: 81 mg Clopidogrel Bisulfate (Plavix) 75 mg PO DAILY [facility] [place] Last Admin: 11/11/16 10:28 Dose: 75 mg Furosemide (Lasix) 40 mg IVP Q12 [facility] [place] Last Admin: 11/11/16 21:59 Dose: 40 mg Heparin Sodium (Porcine) (Heparin) 5,000 units SC Q12 [facility] [place] Last Admin: 11/11/16 22:01 Dose: Not Given Vancomycin HCl 1 gm/ Sodium (Chloride) 250 mls @ 166.7 mls/hr IVPB Q24H [facility] [place] Last Admin: 11/10/16 23:57 Dose: 166.7 mls/hr Dopamine HCl/Dextrose (Dopamine 400mg/250ml D5w) 400 mg in 250 mls @ 8.743 mls/ hr IV .Q24H PRN; Protocol; 2 MCG/KG/MIN PRN Reason: TITRATE PER MD ORDER Last Titration: 11/10/16 17:00 Dose: Infused Meropenem 500 mg/ Sodium (Chloride) 100 mls @ 200 mls/hr IVPB Q8 [facility] [place] Last Admin: 11/12/16 06:00 Dose: 200 mls/hr Insulin Detemir (Levemir) 20 unit SC DAILY [facility] [place] Last Admin: 11/11/16 10:27 Dose: 20 unit Insulin Human Regular (Novolin R) 0 unit SC Q6 [facility] PRN Reason: Protocol Last Admin: 11/12/16 06:00 Dose: Not Given Levetiracetam (Keppra) 500 mg GT BID [facility] [place] Last Admin: 11/11/16 17:24 Dose: 500 mg Pantoprazole Sodium (Protonix Inj) 40 mg IVP DAILY [facility] Last Admin: 11/11/16 10:27 Dose: 40 mg - Labs Labs: 11/12/16 09:05 11/12/16 06:05 PT 13.3 SECONDS (9.7-12.2) H 11/09/16 05:50 INR 1.2 11/09/16 05:50 APTT 37 SECONDS (21-34) H 11/09/16 05:50 - Constitutional Appears: Well - Head Exam Head Exam: ATRAUMATIC, NORMAL INSPECTION, NORMOCEPHALIC - Eye Exam Eye Exam: EOMI, Normal appearance, PERRL Pupil Exam: NORMAL ACCOMODATION, PERRL - ENT Exam ENT Exam: Mucous Membranes Moist, Normal Exam - Neck Exam Neck Exam: Full ROM, Normal Inspection. absent: Lymphadenopathy - Respiratory Exam Respiratory Exam: Decreased Breath Sounds - Cardiovascular Exam Cardiovascular Exam: REGULAR RHYTHM, +S1, +S2 - GI/Abdominal Exam GI & Abdominal Exam: Soft, Diminished Bowel Sounds - Rectal Exam Rectal Exam: Deferred
[2016-11-12] MEDS: Insulin Detemir 100 units/ml Vial (Levemir) SC SCH (10:51)
[2016-11-12] MEDS: levETIRAcetam 100 mg/ml (5ml) Oral Syringe GT SCH ×2 (10:51→18:48)
--- NOTE | 2016-11-12 11:06 | RAD ---
HISTORY: on vent, fluid overload COMPARISON: 11/11/2016 FINDINGS: Endotracheal tube terminates 3 cm proximal to the li. The nasogastric tube terminates in the stomach. The right IJV line terminates in the SVC. LUNGS: There is redemonstration of multifocal airspace disease in both lungs, worse since the prior examination. PLEURA: No significant pleural effusion identified, no pneumothorax apparent. CARDIOVASCULAR: Normal. OSSEOUS STRUCTURES: No significant abnormalities. VISUALIZED UPPER ABDOMEN: Normal. OTHER FINDINGS: None. IMPRESSION: Worsening multifocal airspace disease in the both lungs which could represent pneumonia or edema. Follow-up is advised.
--- NOTE | 2016-11-12 15:25 | CP.PCM.CON ---
History of Present Illness - History of Present Illness History of Present Illness: SURGERY CONSULT NOTE FOR DR. GARCÍA 75M presents with respiratory failure from septic shock. Surgery consulted for tracheostomy. 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 Patient has failed multiple attempts of weaning from the ventilator. Currently on tube feedings via NG tube. PMH: DM, multiple CVAs, CAD, blindness, pulm HTN, dementia PSH: 2 PCIs Allergies: NKDA Past Patient History - Past Medical History & Family History Past Medical History?: Yes - Past Social History Smoking Status: Former Smoker - CARDIAC Hx Cardiac Disorders: Yes Hx Hypercholesterolemia: Yes Hx Hypertension: Yes - PULMONARY Hx Respiratory Disorders: Yes Hx Chronic Obstructive Pulmonary Disease (COPD): Yes - NEUROLOGICAL Hx Neurological Disorder: Yes HX Cerebrovascular Accident: Yes - HEENT Hx HEENT Problems: Yes Hx Blind: Yes (left eye blind, right blurry) Hx Cataracts: Yes Other/Comment: Cataracts Alexys.with Extarction. - RENAL Hx Chronic Kidney Disease: No - ENDOCRINE/METABOLIC Hx Endocrine Disorders: Yes Hx Diabetes Mellitus Type 2: Yes - HEMATOLOGICAL/ONCOLOGICAL Hx Blood Disorders: No - INTEGUMENTARY Hx Dermatological Problems: No - MUSCULOSKELETAL/RHEUMATOLOGICAL Hx Musculoskeletal Disorders: Yes Hx Arthritis: Yes Hx Falls: Yes - GASTROINTESTINAL Hx Gastrointestinal Disorders: Yes Hx Gastritis: Yes - GENITOURINARY/GYNECOLOGICAL Hx Genitourinary Disorders: Yes Hx Prostate Problems: Yes - PSYCHIATRIC Hx Anxiety: No Hx Substance Use: No - SURGICAL HISTORY Hx Surgeries: Yes Hx Coronary Stent: Yes (x1) Hx Eye Surgery: Yes - ANESTHESIA Hx Anesthesia: Yes Hx Anesthesia Reactions: No Hx Malignant Hyperthermia: No Has any member of the family had a problem w/ anesthesia?: No Meds Allergies/Adverse Reactions: Allergies Allergy/AdvReac Type Severity Reaction Status Date / Time No Known Allergies Allergy Verified 11/06/16 21:29 - Medications Medications: Current Medications Aspirin (Aspirin Chewable) 81 mg PO DAILY [facility] Last Admin: 11/12/16 10:51 Dose: 81 mg Clopidogrel Bisulfate (Plavix) 75 mg PO DAILY [facility] Last Admin: 11/12/16 10:51 Dose: 75 mg Heparin Sodium (Porcine) (Heparin) 5,000 units SC Q12 [facility] Last Admin: 11/12/16 10:52 Dose: 5,000 units Vancomycin HCl 1 gm/ Sodium (Chloride) 250 mls @ 166.7 mls/hr IVPB Q24H [facility] Last Admin: 11/10/16 23:57 Dose: 166.7 mls/hr Meropenem 500 mg/ Sodium (Chloride) 100 mls @ 200 mls/hr IVPB Q8 [facility] Last Admin: 11/12/16 13:37 Dose: 200 mls/hr Insulin Detemir (Levemir) 20 unit SC DAILY [facility] Last Admin: 11/12/16 10:51 Dose: 20 unit Insulin Human Regular (Novolin R) 0 unit SC Q6 [facility] PRN Reason: Protocol Last Admin: 11/12/16 13:39 Dose: 2 unit Levetiracetam (Keppra) 500 mg GT BID [facility] Last Admin: 11/12/16 10:51 Dose: 500 mg Pantoprazole Sodium (Protonix Inj) 40 mg IVP DAILY [facility] Last Admin: 11/12/16 10:50 Dose: 40 mg Physical Exam - Constitutional Appears: Non-toxic, Other Additional comments: intubated - ENT Exam ENT Exam: Mucous Membranes Moist - Respiratory Exam Respiratory Exam: Clear to Auscultation Bilateral, NORMAL BREATHING PATTERN - Cardiovascular Exam Cardiovascular Exam: REGULAR RHYTHM, +S1, +S2 - GI/Abdominal Exam GI & Abdominal Exam: Soft. absent: Distended, Firm, Guarding, Rebound, Rigid, Tenderness Additional comments: NGT in place - Extremities Exam Extremities exam: Negative for: pedal edema, tenderness - Neurological Exam Additional comments: does not follow commands, hemiparesis - Psychiatric Exam Additional comments: intubated, not following commands - Skin Skin Exam: Dry, Intact, Normal Color, Warm Results - Vital Signs Recent Vital Signs: Last Vital Signs Temp 97.5 F L 11/12/16 04:00 Pulse 70 11/12/16 07:01 Resp 12 11/12/16 07:01 BP 153/66 H 11/12/16 10:52 Pulse Ox 100 11/12/16 07:01 - Labs Result Diagrams: 11/12/16 09:05 11/12/16 06:05 Labs: Laboratory Results - last 24 hr 11/11/16 11/12/16 11/12/16 17:36 01:33 02:39 WBC RBC Hgb Hct MCV MCH MCHC RDW Plt Count MPV Neut % (Auto) Lymph % (Auto) Coal % (Auto) Eos % (Auto) Baso % (Auto) Neut # Lymph # Coal # Eos # Baso # Neutrophils % (Manual) Band Neutrophils % Lymphocytes % (Manual) Monocytes % (Manual) Eosinophils % (Manual) Toxic Granulation Platelet Estimate Large Platelets Polychromasia Hypochromasia (manual) Poikilocytosis (manual Anisocytosis (manual) Ovalocytes Puncture Site R brach pCO2 29 L pO2 72 L HCO3 18.1 L ABG pH 7.35 ABG Total CO2 16.9 L ABG O2 Saturation 97.6 ABG Base Excess -8.8 L ABG Hemoglobin 6.4 L ABG Carboxyhemoglobin 1.4 POC ABG HHb (Measured) 2.3 ABG Methemoglobin 1.2 Timmy Test Na A-a O2 Difference 248.0 Respiratory Index 3.4 Hgb O2 Saturation 95.1 FiO2 50.0 PEEP 5 Pressure Support 10 Crit Value Called To Heather pitts rn Crit Value Called By Jennifer arboleda rt Crit Value Read Back Y Blood Gas Notified Time 516 Sodium Potassium Chloride Carbon Dioxide Anion Gap BUN Creatinine Est GFR ( Amer) Est GFR (Non-Af Amer) POC Glucose (mg/dL) 133 H 73 Random Glucose Calcium Phosphorus Magnesium Total Bilirubin AST ALT Alkaline Phosphatase Total Protein Albumin Globulin Albumin/Globulin Ratio 11/12/16 11/12/16 11/12/16 05:57 06:05 06:05 WBC 11.0 H RBC 2.69 L Hgb 6.9 L D Hct 21.9 L MCV 81.4 MCH 25.5 L MCHC 31.3 L RDW 18.2 H Plt Count 73 L MPV 9.0 Neut % (Auto) 82.5 H Lymph % (Auto) 9.9 L Coal % (Auto) 5.2 Eos % (Auto) 2.2 Baso % (Auto) 0.2 Neut # 9.1 H Lymph # 1.1 Coal # 0.6 Eos # 0.2 Baso # 0.0 Neutrophils % (Manual) 81 H Band Neutrophils % 1 Lymphocytes % (Manual) 12 L Monocytes % (Manual) 5 Eosinophils % (Manual) 1 Toxic Granulation Present Platelet Estimate Decreased L Large Platelets Present Polychromasia Slight Hypochromasia (manual) Slight Poikilocytosis (manual Slight Anisocytosis (manual) Slight Ovalocytes Slight Puncture Site pCO2 pO2 HCO3 ABG pH ABG Total CO2 ABG O2 Saturation ABG Base Excess ABG Hemoglobin ABG Carboxyhemoglobin POC ABG HHb (Measured) ABG Methemoglobin Timmy Test A-a O2 Difference Respiratory Index Hgb O2 Saturation FiO2 PEEP Pressure Support Crit Value Called To Crit Value Called By Crit Value Read Back Blood Gas Notified Time Sodium 150 H Potassium 3.4 L Chloride 114 H Carbon Dioxide 29 Anion Gap 10 BUN 29 H Creatinine 1.8 H Est GFR ( Amer) 44 Est GFR (Non-Af Amer) 37 POC Glucose (mg/dL) 95 Random Glucose 83 Calcium 8.6 Phosphorus 4.0 Magnesium 2.3 Total Bilirubin 0.6 AST 25 ALT 43 Alkaline Phosphatase 82 Total Protein 6.1 L Albumin 2.8 L Globulin 3.3 Albumin/Globulin Ratio 0.8 L 11/12/16 11/12/16 09:05 13:18 WBC 10.7 RBC 3.57 L Hgb 9.3 L D Hct 28.8 L MCV 80.8 MCH 26.0 L MCHC 32.2 L RDW 18.8 H Plt Count 69 L MPV 8.9 Neut % (Auto) Lymph % (Auto) [place] % (Auto) Eos % (Auto) Baso % (Auto) Neut # Lymph # [place] # Eos # Baso # Neutrophils % (Manual) Band Neutrophils % Lymphocytes % (Manual) Monocytes % (Manual) Eosinophils % (Manual) Toxic Granulation Platelet Estimate Large Platelets Polychromasia Hypochromasia (manual) Poikilocytosis (manual Anisocytosis (manual) Ovalocytes Puncture Site pCO2 pO2 HCO3 ABG pH ABG Total CO2 ABG O2 Saturation ABG Base Excess ABG Hemoglobin ABG Carboxyhemoglobin POC ABG HHb (Measured) ABG Methemoglobin Timmy Test A-a O2 Difference Respiratory Index Hgb O2 Saturation FiO2 PEEP Pressure Support Crit Value Called To Crit Value Called By Crit Value Read Back Blood Gas Notified Time Sodium Potassium Chloride Carbon Dioxide Anion Gap BUN Creatinine Est GFR ( Amer) Est GFR (Non-Af Amer) POC Glucose (mg/dL) 168 H Random Glucose Calcium Phosphorus Magnesium Total Bilirubin AST ALT Alkaline Phosphatase Total Protein Albumin Globulin Albumin/Globulin Ratio Assessment & Plan - Assessment and Plan (Free Text) Assessment: 75M with prolonged respiratory failure and history of multiple CVAs Plan: - plan for tracheostomy next week - hold plavix and aspirin now, hold heparin day before operation - pre-op patient Discussed with Dr. Rg Sandoval, PGY1
--- NOTE | 2016-11-12 16:09 | CP.CCUPN ---
CCU Subjective - Physician Review Events Since Last Encounter (Free Text): 11/12/16 16:04 clinically stable, alert on vent and following commands. CCU Objective - Vital Signs / Intake & Output Intake and Output (Last 8hrs): Intake & Output 11/12/16 11/12/16 11/12/16 06:59 14:59 22:59 Intake Total 250 520 40 Output Total 1075 1251 60 Balance -825 -731 -20 Weight 245 lb Intake: Intake, IV Amount 200 Right Distal Port 100 Right Medial Port 100 Internal Jugular Tube Feeding 250 320 40 Output: Urine 1075 1250 60 Urethral (Wick) 1075 1250 60 Stool 1 - Physical Exam Head: Positive for: Atraumatic, Normocephalic, Other (ET Tube in place) Pupils: Positive for: PERRL Extroacular Muscles: Positive for: EOMI Conjunctiva: Positive for: Normal Mouth: Positive for: Moist Mucous Membranes. Negative for: Drooling Nose (External): Positive for: Atraumatic Neck: Positive for: Normal Range of Motion. Negative for: JVD, Lymphadenopathy Respiratory/Chest: Positive for: Good Air Exchange, Decreased Breath Sounds. Negative for: Respiratory Distress, Accessory Muscle Use, Wheezes, Rales, Retracting, Rhonchi Cardiovascular: Positive for: Regular Rate and Rhythm, Murmurs, Normal S1, S2, Peripheal Pulses Present. Negative for: Irregular Rhythm, Tachycardic, Bradycardic Abdomen: Positive for: Normal Bowel Sounds. Negative for: Tenderness, Distention, Peritoneal Signs, Rebound, Guarding Back: Positive for: Normal Inspection Upper Extremity: Positive for: Normal Inspection. Negative for: Cyanosis, Edema Lower Extremity: Positive for: Normal Inspection. Negative for: Edema Skin: Positive for: Warm, Normal Color - Medications Active Medications: Active Medications Generic Name Dose Route Start Last Admin Trade Name Freq PRN Reason Stop Dose Admin Aspirin 81 mg 11/07/16 10:11/12/16 10:51 Aspirin Chewable PO 81 mg DAILY [facility] Administration Clopidogrel Bisulfate 75 mg 11/07/16 10:11/12/16 10:51 Plavix PO 75 mg DAILY [facility] Administration Heparin Sodium (Porcine) 5,000 units 11/10/16 22:00 11/12/16 10:52 Heparin SC 5,000 units Q12 [facility] Administration Vancomycin HCl 1 gm/ Sodium 250 mls @ 166.7 mls/hr 11/07/16 00:45 11/10/16 23 :57 Chloride IVPB 166.7 mls/hr Q24H [facility] Administration Meropenem 500 mg/ Sodium 100 mls @ 200 mls/hr 11/10/16 14:00 11/12/16 13:37 Chloride IVPB 200 mls/hr Q8 [facility] Administration Insulin Detemir 20 unit 11/07/16 10:00 11/12/16 10:51 Levemir SC 20 unit DAILY [facility] Administration Insulin Human Regular 0 unit 11/07/16 06:00 11/12/16 13:39 Novolin R SC 2 unit Q6 [facility] Administration Protocol Levetiracetam 500 mg 11/10/16 11:00 11/12/16 10:51 Keppra GT 500 mg BID [facility] Administration Pantoprazole Sodium 40 mg 11/07/16 10:00 11/12/16 10:50 Protonix Inj IVP 40 mg DAILY [facility] Administration - Patient Studies Lab Studies: Lab Studies 11/12/16 11/12/16 11/12/16 Range/Units 13:18 09:05 06:05 WBC 10.7 (4.8-10.8) K/uL RBC 3.57 L (4.40-5.90) Mil/uL Hgb 9.3 L D (12.0-18.0) g/dL Hct 28.8 L (35.0-51.0) % MCV 80.8 (80.0-94.0) fL MCH 26.0 L (27.0-31.0) pg MCHC 32.2 L (33.0-37.0) g/dL RDW 18.8 H (11.5-14.5) % Plt Count 69 L (130-400) K/uL MPV 8.9 (7.2-11.7) fL Neut % (Auto) (50.0-75.0) % Lymph % (Auto) (20.0-40.0) % [place] % (Auto) (0.0-10.0) % Eos % (Auto) (0.0-4.0) % Baso % (Auto) (0.0-2.0) % Neut # (1.8-7.0) K/uL Lymph # (1.0-4.3) K/uL [place] # (0.0-0.8) K/uL Eos # (0.0-0.7) K/uL Baso # (0.0-0.2) K/uL Neutrophils % (Manual) (50-75) % Band Neutrophils % (0-2) % Lymphocytes % (Manual) (20-40) % Monocytes % (Manual) (0-10) % Eosinophils % (Manual) (0-4) % Toxic Granulation Platelet Estimate (NORMAL) Large Platelets Polychromasia Hypochromasia (manual) Poikilocytosis (manual Anisocytosis (manual) Ovalocytes Puncture Site pCO2 (35-45) mm/Hg pO2 (80-100) mm/Hg HCO3 (21-28) mmol/L ABG pH (7.35-7.45) ABG Total CO2 (22-28) mmol/L ABG O2 Saturation (95-98) % ABG Base Excess (-2.0-3.0) mmol/L ABG Hemoglobin (11.7-17.4) g/dL ABG Carboxyhemoglobin (0.5-1.5) % POC ABG HHb (Measured) (0.0-5.0) % ABG Methemoglobin (0.0-3.0) % Timmy Test A-a O2 Difference mm/Hg Respiratory Index Hgb O2 Saturation (95.0-98.0) % FiO2 % PEEP Pressure Support Crit Value Called To Crit Value Called By Crit Value Read Back Blood Gas Notified Time Sodium 150 H (132-148) mmol/L Potassium 3.4 L (3.6-5.2) mmol/L Chloride 114 H (98-107) mmol/L Carbon Dioxide 29 (22-30) mmol/L Anion Gap 10 (10-20) BUN 29 H (9-20) mg/dL Creatinine 1.8 H (0.8-1.5) MG/DL Est GFR ( Amer) 44 Est GFR (Non-Af Amer) 37 POC Glucose (mg/dL) 168 H (65-110) mg/dL Random Glucose 83 (75-110) mg/dL Calcium 8.6 (8.6-10.4) mg/dl Phosphorus 4.0 (2.5-4.5) mg/dL Magnesium 2.3 (1.6-2.3) mg/dL Total Bilirubin 0.6 (0.2-1.3) mg/dL AST 25 (17-59) U/L ALT 43 (21-72) U/L Alkaline Phosphatase 82 (38-126) U/L Total Protein 6.1 L (6.3-8.3) g/dL Albumin 2.8 L (3.5-5.0) g/dL Globulin 3.3 (2.2-3.9) gm/dL Albumin/Globulin Ratio 0.8 L (1.0-2.1) 11/12/16 11/12/16 11/12/16 Range/Units 06:05 05:57 02:39 WBC 11.0 H (4.8-10.8) K/uL RBC 2.69 L (4.40-5.90) Mil/uL Hgb 6.9 L D (12.0-18.0) g/dL Hct 21.9 L (35.0-51.0) % MCV 81.4 (80.0-94.0) fL MCH 25.5 L (27.0-31.0) pg MCHC 31.3 L (33.0-37.0) g/dL RDW 18.2 H (11.5-14.5) % Plt Count 73 L (130-400) K/uL MPV 9.0 (7.2-11.7) fL Neut % (Auto) 82.5 H (50.0-75.0) % Lymph % (Auto) 9.9 L (20.0-40.0) % [place] % (Auto) 5.2 (0.0-10.0) % Eos % (Auto) 2.2 (0.0-4.0) % Baso % (Auto) 0.2 (0.0-2.0) % Neut # 9.1 H (1.8-7.0) K/uL Lymph # 1.1 (1.0-4.3) K/uL [place] # 0.6 (0.0-0.8) K/uL Eos # 0.2 (0.0-0.7) K/uL Baso # 0.0 (0.0-0.2) K/uL Neutrophils % (Manual) 81 H (50-75) % Band Neutrophils % 1 (0-2) % Lymphocytes % (Manual) 12 L (20-40) % Monocytes % (Manual) 5 (0-10) % Eosinophils % (Manual) 1 (0-4) % Toxic Granulation Present Platelet Estimate Decreased L (NORMAL) Large Platelets Present Polychromasia Slight Hypochromasia (manual) Slight Poikilocytosis (manual Slight Anisocytosis (manual) Slight Ovalocytes Slight Puncture Site R brach pCO2 29 L (35-45) mm/Hg pO2 72 L (80-100) mm/Hg HCO3 18.1 L (21-28) mmol/L ABG pH 7.35 (7.35-7.45) ABG Total CO2 16.9 L (22-28) mmol/L ABG O2 Saturation 97.6 (95-98) % ABG Base Excess -8.8 L (-2.0-3.0) mmol/L ABG Hemoglobin 6.4 L (11.7-17.4) g/dL ABG Carboxyhemoglobin 1.4 (0.5-1.5) % POC ABG HHb (Measured) 2.3 (0.0-5.0) % ABG Methemoglobin 1.2 (0.0-3.0) % Timmy Test Na A-a O2 Difference 248.0 mm/Hg Respiratory Index 3.4 Hgb O2 Saturation 95.1 (95.0-98.0) % FiO2 50.0 % PEEP 5 Pressure Support 10 Crit Value Called To Heather pitts rn Crit Value Called By Jennifer arboleda rt Crit Value Read Back Y Blood Gas Notified Time 516 Sodium (132-148) mmol/L Potassium (3.6-5.2) mmol/L Chloride (98-107) mmol/L Carbon Dioxide (22-30) mmol/L Anion Gap (10-20) BUN (9-20) mg/dL Creatinine (0.8-1.5) MG/DL Est GFR ( Amer) Est GFR (Non-Af Amer) POC Glucose (mg/dL) 95 (65-110) mg/dL Random Glucose (75-110) mg/dL Calcium (8.6-10.4) mg/dl Phosphorus (2.5-4.5) mg/dL Magnesium (1.6-2.3) mg/dL Total Bilirubin (0.2-1.3) mg/dL AST (17-59) U/L ALT (21-72) U/L Alkaline Phosphatase (38-126) U/L Total Protein (6.3-8.3) g/dL Albumin (3.5-5.0) g/dL Globulin (2.2-3.9) gm/dL Albumin/Globulin Ratio (1.0-2.1) 11/12/16 11/11/16 Range/Units 01:33 17:36 WBC (4.8-10.8) K/uL RBC (4.40-5.90) Mil/uL Hgb (12.0-18.0) g/dL Hct (35.0-51.0) % MCV (80.0-94.0) fL MCH (27.0-31.0) pg MCHC (33.0-37.0) g/dL RDW (11.5-14.5) % Plt Count (130-400) K/uL MPV (7.2-11.7) fL Neut % (Auto) (50.0-75.0) % Lymph % (Auto) (20.0-40.0) % [place] % (Auto) (0.0-10.0) % Eos % (Auto) (0.0-4.0) % Baso % (Auto) (0.0-2.0) % Neut # (1.8-7.0) K/uL Lymph # (1.0-4.3) K/uL [place] # (0.0-0.8) K/uL Eos # (0.0-0.7) K/uL Baso # (0.0-0.2) K/uL Neutrophils % (Manual) (50-75) % Band Neutrophils % (0-2) % Lymphocytes % (Manual) (20-40) % Monocytes % (Manual) (0-10) % Eosinophils % (Manual) (0-4) % Toxic Granulation Platelet Estimate (NORMAL) Large Platelets Polychromasia Hypochromasia (manual) Poikilocytosis (manual Anisocytosis (manual) Ovalocytes Puncture Site pCO2 (35-45) mm/Hg pO2 (80-100) mm/Hg HCO3 (21-28) mmol/L ABG pH (7.35-7.45) ABG Total CO2 (22-28) mmol/L ABG O2 Saturation (95-98) % ABG Base Excess (-2.0-3.0) mmol/L ABG Hemoglobin (11.7-17.4) g/dL ABG Carboxyhemoglobin (0.5-1.5) % POC ABG HHb (Measured) (0.0-5.0) % ABG Methemoglobin (0.0-3.0) % Timmy Test A-a O2 Difference mm/Hg Respiratory Index Hgb O2 Saturation (95.0-98.0) % FiO2 % PEEP Pressure Support Crit Value Called To Crit Value Called By Crit Value Read Back Blood Gas Notified Time Sodium (132-148) mmol/L Potassium (3.6-5.2) mmol/L Chloride (98-107) mmol/L Carbon Dioxide (22-30) mmol/L Anion Gap (10-20) BUN (9-20) mg/dL Creatinine (0.8-1.5) MG/DL Est GFR ( Amer) Est GFR (Non-Af Amer) POC Glucose (mg/dL) 73 133 H (65-110) mg/dL Random Glucose (75-110) mg/dL Calcium (8.6-10.4) mg/dl Phosphorus (2.5-4.5) mg/dL Magnesium (1.6-2.3) mg/dL Total Bilirubin (0.2-1.3) mg/dL AST (17-59) U/L ALT (21-72) U/L Alkaline Phosphatase (38-126) U/L Total Protein (6.3-8.3) g/dL Albumin (3.5-5.0) g/dL Globulin (2.2-3.9) gm/dL Albumin/Globulin Ratio (1.0-2.1) Laboratory Results - last 24 hr 11/11/16 11/12/16 11/12/16 17:36 01:33 02:39 WBC RBC Hgb Hct MCV MCH MCHC RDW Plt Count MPV Neut % (Auto) Lymph % (Auto) [place] % (Auto) Eos % (Auto) Baso % (Auto) Neut # Lymph # [place] # Eos # Baso # Neutrophils % (Manual) Band Neutrophils % Lymphocytes % (Manual) Monocytes % (Manual) Eosinophils % (Manual) Toxic Granulation Platelet Estimate Large Platelets Polychromasia Hypochromasia (manual) Poikilocytosis (manual Anisocytosis (manual) Ovalocytes Puncture Site R brach pCO2 29 L pO2 72 L HCO3 18.1 L ABG pH 7.35 ABG Total CO2 16.9 L ABG O2 Saturation 97.6 ABG Base Excess -8.8 L ABG Hemoglobin 6.4 L ABG Carboxyhemoglobin 1.4 POC ABG HHb (Measured) 2.3 ABG Methemoglobin 1.2 Timmy Test Na A-a O2 Difference 248.0 Respiratory Index 3.4 Hgb O2 Saturation 95.1 FiO2 50.0 PEEP 5 Pressure Support 10 Crit Value Called To Heather pitts rn Crit Value Called By Jennifer arboleda rt Crit Value Read Back Y Blood Gas Notified Time 516 Sodium Potassium Chloride Carbon Dioxide Anion Gap BUN Creatinine Est GFR ( Amer) Est GFR (Non-Af Amer) POC Glucose (mg/dL) 133 H 73 Random Glucose Calcium Phosphorus Magnesium Total Bilirubin AST ALT Alkaline Phosphatase Total Protein Albumin Globulin Albumin/Globulin Ratio 11/12/16 11/12/16 11/12/16 05:57 06:05 06:05 WBC 11.0 H RBC 2.69 L Hgb 6.9 L D Hct 21.9 L MCV 81.4 MCH 25.5 L MCHC 31.3 L RDW 18.2 H Plt Count 73 L MPV 9.0 Neut % (Auto) 82.5 H Lymph % (Auto) 9.9 L [place] % (Auto) 5.2 Eos % (Auto) 2.2 Baso % (Auto) 0.2 Neut # 9.1 H Lymph # 1.1 [place] # 0.6 Eos # 0.2 Baso # 0.0 Neutrophils % (Manual) 81 H Band Neutrophils % 1 Lymphocytes % (Manual) 12 L Monocytes % (Manual) 5 Eosinophils % (Manual) 1 Toxic Granulation Present Platelet Estimate Decreased L Large Platelets Present Polychromasia Slight Hypochromasia (manual) Slight Poikilocytosis (manual Slight Anisocytosis (manual) Slight Ovalocytes Slight Puncture Site pCO2 pO2 HCO3 ABG pH ABG Total CO2 ABG O2 Saturation ABG Base Excess ABG Hemoglobin ABG Carboxyhemoglobin POC ABG HHb (Measured) ABG Methemoglobin Timmy Test A-a O2 Difference Respiratory Index Hgb O2 Saturation FiO2 PEEP Pressure Support Crit Value Called To Crit Value Called By Crit Value Read Back Blood Gas Notified Time Sodium 150 H Potassium 3.4 L Chloride 114 H Carbon Dioxide 29 Anion Gap 10 BUN 29 H Creatinine 1.8 H Est GFR ( Amer) 44 Est GFR (Non-Af Amer) 37 POC Glucose (mg/dL) 95 Random Glucose 83 Calcium 8.6 Phosphorus 4.0 Magnesium 2.3 Total Bilirubin 0.6 AST 25 ALT 43 Alkaline Phosphatase 82 Total Protein 6.1 L Albumin 2.8 L Globulin 3.3 Albumin/Globulin Ratio 0.8 L 11/12/16 11/12/16 09:05 13:18 WBC 10.7 RBC 3.57 L Hgb 9.3 L D Hct 28.8 L MCV 80.8 MCH 26.0 L MCHC 32.2 L RDW 18.8 H Plt Count 69 L MPV 8.9 Neut % (Auto) Lymph % (Auto) [place] % (Auto) Eos % (Auto) Baso % (Auto) Neut # Lymph # [place] # Eos # Baso # Neutrophils % (Manual) Band Neutrophils % Lymphocytes % (Manual) Monocytes % (Manual) Eosinophils % (Manual) Toxic Granulation Platelet Estimate Large Platelets Polychromasia Hypochromasia (manual) Poikilocytosis (manual Anisocytosis (manual) Ovalocytes Puncture Site pCO2 pO2 HCO3 ABG pH ABG Total CO2 ABG O2 Saturation ABG Base Excess ABG Hemoglobin ABG Carboxyhemoglobin POC ABG HHb (Measured) ABG Methemoglobin Timmy Test A-a O2 Difference Respiratory Index Hgb O2 Saturation FiO2 PEEP Pressure Support Crit Value Called To Crit Value Called By Crit Value Read Back Blood Gas Notified Time Sodium Potassium Chloride Carbon Dioxide Anion Gap BUN Creatinine Est GFR ( Amer) Est GFR (Non-Af Amer) POC Glucose (mg/dL) 168 H Random Glucose Calcium Phosphorus Magnesium Total Bilirubin AST ALT Alkaline Phosphatase Total Protein Albumin Globulin Albumin/Globulin Ratio Fingerstick Blood Sugar Results: 168 Review of Systems - Review of Systems Systems not reviewed;Unavailable: Intubated Critical Care Progress Note - Ventilator Checklist Head of Bed 30 Degrees: Yes Daily Sedation Vacation: Yes Daily Assessment of Readiness to Wean: Yes Daily Spontaneous Breathing Trial: Yes PUD Prophalyxis: Yes DVT Prophylaxis: Yes Assessment/Plan (1) Respiratory failure Assessment and plan: 75yo M. 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 Presented with altered mental status and acute respiratory failure requiring intubation. Neuro: Alert and follows commands, left hemiparetic. Keppra by mouth twice a day for seizure prophylaxis. Pulm: Acute respiratory failure, on vent. Pulmonary edema and possible underlying pneumonia.patient's chest x-ray not improving, still has thick secretions, patient will need tracheostomy placement. Tracheostomy placement scheduled for Monday. CV: Hemodynamically stable. Acute on chronic Systolic congestive heart failure. Hem: stopping aspirin and Plavix for trach placement. Renal: stopping diuretics, patient becoming hypernatremic. Diuresis also does not appear to be helping patient's pulmonary status. Endo: DM type II, regular insulin sliding scale and Levemir 20 units subcutaneous daily. GI: Nothing by mouth,tube feeds, Isosource at goal. ID: Severe sepsis from UTI with Proteus mirabilis, continue meropenem and vancomycin. consider stopping vancomycin as patient's white count improved after initiation of meropenem to cover Proteus mirabilis. ID consult. DVT proph - heparin subcutaneous GI proph - Protonix wick for strict I/O's during acute illness Code status - full code Crtical Care Time spent 35 minutes Multi-disciplinary rounds were performed with house staff, nursing, speech therapy, respiratory therapy, pharmacy and nutrition with integrated input from the primary team/attending and other consulting services. The documented time is cumulative and includes review of patient data/exams/labs/chart review and examination of the patient on rounds and throughout the day; time is exclusive of any procedures or teaching time. Current Visit: Yes Status: Acute
--- NOTE | 2016-11-12 17:39 | CP.PCM.PN ---
Subjective - Date & Time of Evaluation Date of Evaluation: 11/12/16 Time of Evaluation: 16:40 - Subjective Subjective: patient seen and examined in the intensive care unit. Intubated on ventilatory support Thick secretions from the ET tube Open eyes to stimuli Afebrile Tolerating CPAP since yesterday Objective - Vital Signs/Intake and Output Vital Signs (last 24 hours): Temp Pulse Resp BP Pulse Ox 97.5 F L 70 12 153/66 H 100 11/12/16 04:00 11/12/16 07:01 11/12/16 07:01 11/12/16 10:52 11/12/16 07:01 Intake and Output: 11/12/16 11/12/16 06:59 18:59 Intake Total 445 560 Output Total 1500 1311 Balance -1055 -751 - Medications Medications: Current Medications Aspirin (Aspirin Chewable) 81 mg PO DAILY [facility] Last Admin: 11/12/16 10:51 Dose: 81 mg Clopidogrel Bisulfate (Plavix) 75 mg PO DAILY [facility] Last Admin: 11/12/16 10:51 Dose: 75 mg Heparin Sodium (Porcine) (Heparin) 5,000 units SC Q12 [facility] Last Admin: 11/12/16 10:52 Dose: 5,000 units Vancomycin HCl 1 gm/ Sodium (Chloride) 250 mls @ 166.7 mls/hr IVPB Q24H [facility] Last Admin: 11/10/16 23:57 Dose: 166.7 mls/hr Meropenem 500 mg/ Sodium (Chloride) 100 mls @ 200 mls/hr IVPB Q8 [facility] Last Admin: 11/12/16 13:37 Dose: 200 mls/hr Insulin Detemir (Levemir) 20 unit SC DAILY [facility] Last Admin: 11/12/16 10:51 Dose: 20 unit Insulin Human Regular (Novolin R) 0 unit SC Q6 [facility] PRN Reason: Protocol Last Admin: 11/12/16 13:39 Dose: 2 unit Levetiracetam (Keppra) 500 mg GT BID [facility] Last Admin: 11/12/16 10:51 Dose: 500 mg Pantoprazole Sodium (Protonix Inj) 40 mg IVP DAILY [facility] Last Admin: 11/12/16 10:50 Dose: 40 mg - Labs Labs: 11/12/16 09:05 11/12/16 06:05 PT 13.3 SECONDS (9.7-12.2) H 11/09/16 05:50 INR 1.2 11/09/16 05:50 APTT 37 SECONDS (21-34) H 11/09/16 05:50 - Head Exam Head Exam: ATRAUMATIC, NORMOCEPHALIC - Eye Exam Eye Exam: Normal appearance - ENT Exam ENT Exam: Mucous Membranes Moist - Respiratory Exam Respiratory Exam: Decreased Breath Sounds - Cardiovascular Exam Cardiovascular Exam: REGULAR RHYTHM - GI/Abdominal Exam GI & Abdominal Exam: Soft, Normal Bowel Sounds - Extremities Exam Extremities Exam: Pedal Edema - Neurological Exam Neurological Exam: Altered Assessment and Plan (1) Respiratory failure Assessment & Plan: Continue ventilatory support patient has thick secretions On CPAP Continue antibiotics Continue nebulizer treatment Continue feeding on keppra Status: Acute (2) Hypothermia Status: Acute (3) Sepsis Status: Acute
--- NOTE | 2016-11-12 18:01 | CP.PCM.PN ---
Subjective - Date & Time of Evaluation Date of Evaluation: 11/12/16 Time of Evaluation: 18:35 - Subjective Subjective: Pt seen and examined, on MV, no fever, no distress, he is sedated, on NG tube feed Objective - Vital Signs/Intake and Output Vital Signs (last 24 hours): Temp Pulse Resp BP Pulse Ox 97.5 F L 70 12 153/66 H 100 11/12/16 04:00 11/12/16 07:01 11/12/16 07:01 11/12/16 10:52 11/12/16 07:01 Intake and Output: 11/12/16 11/12/16 06:59 18:59 Intake Total 445 560 Output Total 1500 1311 Balance -1173 -652 - Medications Medications: Current Medications Aspirin (Aspirin Chewable) 81 mg PO DAILY [facility] Last Admin: 11/12/16 10:51 Dose: 81 mg Clopidogrel Bisulfate (Plavix) 75 mg PO DAILY [facility] Last Admin: 11/12/16 10:51 Dose: 75 mg Heparin Sodium (Porcine) (Heparin) 5,000 units SC Q12 [facility] Last Admin: 11/12/16 10:52 Dose: 5,000 units Vancomycin HCl 1 gm/ Sodium (Chloride) 250 mls @ 166.7 mls/hr IVPB Q24H [facility] Last Admin: 11/10/16 23:57 Dose: 166.7 mls/hr Meropenem 500 mg/ Sodium (Chloride) 100 mls @ 200 mls/hr IVPB Q8 [facility] Last Admin: 11/12/16 13:37 Dose: 200 mls/hr Insulin Detemir (Levemir) 20 unit SC DAILY [facility] Last Admin: 11/12/16 10:51 Dose: 20 unit Insulin Human Regular (Novolin R) 0 unit SC Q6 [facility] PRN Reason: Protocol Last Admin: 11/12/16 13:39 Dose: 2 unit Levetiracetam (Keppra) 500 mg GT BID [facility] Last Admin: 11/12/16 10:51 Dose: 500 mg Pantoprazole Sodium (Protonix Inj) 40 mg IVP DAILY [facility] Last Admin: 11/12/16 10:50 Dose: 40 mg - Labs Labs: 11/12/16 09:05 11/12/16 06:05 PT 13.3 SECONDS (9.7-12.2) H 11/09/16 05:50 INR 1.2 11/09/16 05:50 APTT 37 SECONDS (21-34) H 11/09/16 05:50 - Constitutional Appears: No Acute Distress, Chronically Ill - Head Exam Head Exam: ATRAUMATIC, NORMAL INSPECTION, NORMOCEPHALIC - Eye Exam Eye Exam: EOMI, Normal appearance, PERRL Pupil Exam: NORMAL ACCOMODATION, PERRL - ENT Exam ENT Exam: Mucous Membranes Moist - Neck Exam Neck Exam: Full ROM, Normal Inspection. absent: Lymphadenopathy - Respiratory Exam Respiratory Exam: Clear to Ausculation Bilateral, NORMAL BREATHING PATTERN - Cardiovascular Exam Cardiovascular Exam: REGULAR RHYTHM, +S1, +S2. absent: Murmur - GI/Abdominal Exam GI & Abdominal Exam: Soft, Normal Bowel Sounds. absent: Tenderness - Neurological Exam Neurological Exam: Alert, Awake, CN II-XII Intact, Normal Gait, Oriented x3 - Psychiatric Exam Psychiatric exam: Anxious, Normal Mood - Skin Skin Exam: Dry, Intact, Normal Color, Warm Assessment and Plan (1) Respiratory failure Status: Acute (2) Insulin dependent diabetes mellitus Status: Acute (3) UTI (lower urinary tract infection) Status: Acute
--- NOTE | 2016-11-13 02:45 | CP.PCM.PN ---
Subjective - Date & Time of Evaluation Date of Evaluation: 11/13/16 Time of Evaluation: 02:44 - Subjective Subjective: SURGERY NOTE FOR DR. GARCÍA 75M seen and examined at bedside. Patient is intubated and does not follow command. Objective - Vital Signs/Intake and Output Vital Signs (last 24 hours): Temp Pulse Resp BP Pulse Ox 97.2 F L 75 11 L 134/61 100 11/12/16 16:00 11/12/16 23:00 11/12/16 23:00 11/12/16 23:01 11/12/16 23:00 Intake and Output: 11/12/16 11/13/16 18:59 06:59 Intake Total 680 415 Output Total 1621 460 Balance -941 -45 - Medications Medications: Current Medications Aspirin (Aspirin Chewable) 81 mg PO DAILY [facility] Last Admin: 11/12/16 10:51 Dose: 81 mg Clopidogrel Bisulfate (Plavix) 75 mg PO DAILY [facility] Last Admin: 11/12/16 10:51 Dose: 75 mg Heparin Sodium (Porcine) (Heparin) 5,000 units SC Q12 [facility] Last Admin: 11/12/16 22:18 Dose: 5,000 units Vancomycin HCl 1 gm/ Sodium (Chloride) 250 mls @ 166.7 mls/hr IVPB Q24H [facility] Last Admin: 11/10/16 23:57 Dose: 166.7 mls/hr Meropenem 500 mg/ Sodium (Chloride) 100 mls @ 200 mls/hr IVPB Q8 [facility] Last Admin: 11/12/16 22:00 Dose: 200 mls/hr Insulin Detemir (Levemir) 20 unit SC DAILY [facility] Last Admin: 11/12/16 10:51 Dose: 20 unit Insulin Human Regular (Novolin R) 0 unit SC Q6 [facility] PRN Reason: Protocol Last Admin: 11/12/16 18:45 Dose: 2 unit Levetiracetam (Keppra) 500 mg GT BID [facility] Last Admin: 11/12/16 18:48 Dose: 500 mg Pantoprazole Sodium (Protonix Inj) 40 mg IVP DAILY [facility] Last Admin: 11/12/16 10:50 Dose: 40 mg - Labs Labs: 11/12/16 09:05 11/12/16 06:05 PT 13.3 SECONDS (9.7-12.2) H 11/09/16 05:50 INR 1.2 11/09/16 05:50 APTT 37 SECONDS (21-34) H 11/09/16 05:50 - Respiratory Exam Respiratory Exam: Clear to Ausculation Bilateral, NORMAL BREATHING PATTERN Additional comments: intubated - Cardiovascular Exam Cardiovascular Exam: REGULAR RHYTHM, +S1, +S2 Assessment and Plan - Assessment and Plan (Free Text) Assessment: 75M with prolonged respiratory failure and history of multiple CVAs Plan: - plan for tracheostomy next week Monday - obtain consent from - hold plavix and aspirin now, hold heparin day before operation - pre-op patient Discussed with Dr. Rg Sandoval, PGY1
[2016-11-13] MEDS: (Novolin R) Insulin Human Regular 100 units/ml vial SC SCH ×4 (06:00→18:01)
[2016-11-13 06:16] LABS: ABG ALLEN TEST POS; CARBOXYHEMOGLOBIN 1.5 % (0.5-1.5); DRAW SITE RADIAL; HHB 0.4 % (0.0-5.0); METHEMOGLOBIN 1.1 % (0.0-3.0)
[2016-11-13 06:24] LABS: BASO % 0.2 % (0.0-2.0); EOS # 0.3 K/uL (0.0-0.7); EOS % 3.7 % (0.0-4.0); HEMATOCRIT 29.8 % (35.0-51.0); LYMPH % 11.7 % (20.0-40.0); MEAN CELL VOLUME 80.8 fL (80.0-94.0); MEAN CORPUSCULAR HEMOGLOBIN 25.5 pg (27.0-31.0); MEAN CORPUSCULAR HGB CONC 31.6 g/dL (33.0-37.0); MEAN PLATELET VOLUME 9.2 fL (7.2-11.7); MONO # 0.5 K/uL (0.0-0.8); NRBC % 0.1 % (0.0-2.0); RED CELL DISTRIBUTION WIDTH 18.4 % (11.5-14.5); WHITE BLOOD COUNT 8.4 K/uL (4.8-10.8)
[2016-11-13] MEDS: Meropenem 500 MG in Sodium Chloride 0.9% 100 ML IVPB SCH ×3 (06:30→21:50)
[2016-11-13 06:36] LABS: POTASSIUM 3.9 mmol/L (3.6-5.2)
[2016-11-13 06:39] LABS: CALCIUM 8.8 mg/dl (8.6-10.4)
--- NOTE | 2016-11-13 09:25 | RAD ---
HISTORY: vented COMPARISON: 11/12/2016 FINDINGS: The endotracheal tube terminates 3 cm proximal to the li. The nasogastric tube terminates in the stomach. The right IJV line terminates at the cavoatrial junction. LUNGS: There is no significant interval change in multifocal airspace disease in both lungs. PLEURA: No significant pleural effusion identified, no pneumothorax apparent. CARDIOVASCULAR: Normal. OSSEOUS STRUCTURES: No significant abnormalities. VISUALIZED UPPER ABDOMEN: Normal. OTHER FINDINGS: None. IMPRESSION: No interval change multifocal airspace disease in both lungs.
[2016-11-13] MEDS: levETIRAcetam 100 mg/ml (5ml) Oral Syringe GT SCH ×2 (10:32→18:03)
[2016-11-13] MEDS: Insulin Detemir 100 units/ml Vial (Levemir) SC SCH (10:36)
--- NOTE | 2016-11-13 14:40 | CP.PCM.PN ---
Subjective - Date & Time of Evaluation Date of Evaluation: 11/13/16 Time of Evaluation: 08:00 - Subjective Subjective: een and examined in the intensive care unit. Intubated on ventilatory support Thick secretions from the ET tube Open eyes to stimuli Afebrile Tolerating CPAP since yesterday Objective - Vital Signs/Intake and Output Vital Signs (last 24 hours): Temp Pulse Resp BP Pulse Ox 96 F L 70 12 143/78 99 11/13/16 12:00 11/13/16 13:01 11/13/16 13:01 11/13/16 13:01 11/13/16 13:01 Intake and Output: 11/13/16 11/13/16 06:59 18:59 Intake Total 665 450 Output Total 735 325 Balance -70 125 - Medications Medications: Current Medications Aspirin (Aspirin Chewable) 81 mg PO DAILY [facility] Last Admin: 11/12/16 10:51 Dose: 81 mg Clopidogrel Bisulfate (Plavix) 75 mg PO DAILY [facility] Last Admin: 11/12/16 10:51 Dose: 75 mg Heparin Sodium (Porcine) (Heparin) 5,000 units SC Q12 [facility] Last Admin: 11/13/16 10:34 Dose: 5,000 units Vancomycin HCl 1 gm/ Sodium (Chloride) 250 mls @ 166.7 mls/hr IVPB Q24H [facility] Last Admin: 11/10/16 23:57 Dose: 166.7 mls/hr Meropenem 500 mg/ Sodium (Chloride) 100 mls @ 200 mls/hr IVPB Q8 [facility] Last Admin: 11/13/16 13:15 Dose: 200 mls/hr Insulin Detemir (Levemir) 20 unit SC DAILY [facility] Last Admin: 11/13/16 10:36 Dose: 20 unit Insulin Human Regular (Novolin R) 0 unit SC Q6 [facility] PRN Reason: Protocol Last Admin: 11/13/16 12:19 Dose: 2 unit Levetiracetam (Keppra) 500 mg GT BID [facility] Last Admin: 11/13/16 10:32 Dose: 500 mg Pantoprazole Sodium (Protonix Inj) 40 mg IVP DAILY [facility] Last Admin: 11/13/16 10:33 Dose: 40 mg - Labs Labs: 11/13/16 06:16 11/13/16 06:16 PT 13.3 SECONDS (9.7-12.2) H 06/14/17 05:50 INR 1.2 11/09/16 05:50 APTT 37 SECONDS (21-34) H 11/09/16 05:50 - Constitutional Appears: Non-toxic, Confused, Chronically Ill - Head Exam Head Exam: NORMOCEPHALIC - Eye Exam Eye Exam: absent: Scleral icterus - ENT Exam ENT Exam: Mucous Membranes Dry, Normal External Ear Exam - Neck Exam Neck Exam: absent: Lymphadenopathy - Respiratory Exam Respiratory Exam: Decreased Breath Sounds, Rhonchi - Cardiovascular Exam Cardiovascular Exam: REGULAR RHYTHM, +S1, +S2 - GI/Abdominal Exam GI & Abdominal Exam: Distended, Soft - Rectal Exam Rectal Exam: Deferred - Exam Exam: NORMAL INSPECTION Assessment and Plan (1) LASHON (acute kidney injury) Status: Acute (2) Hyperkalemia Status: Acute (3) Hypothermia Status: Acute (4) Insulin dependent diabetes mellitus Status: Acute (5) Respiratory failure Status: Acute (6) Sepsis Status: Acute (7) Septic shock Status: Acute (8) UTI (lower urinary tract infection) Status: Acute (9) CHF (congestive heart failure) Status: Chronic (10) CVA (cerebral vascular accident) Status: Acute (11) Delirium due to another medical condition Status: Acute (12) Lower extremity edema Status: Acute (13) Diabetes mellitus Status: Chronic
--- NOTE | 2016-11-13 18:13 | CP.CCUPN ---
CCU Subjective - Physician Review Events Since Last Encounter (Free Text): 11/13/16 18:12 Patient on ventilator, not responding. Patient will be needing tracheostomy. Supportive care. Vital signs stable. CCU Objective - Vital Signs / Intake & Output Vital Signs (Last 4 hours): Vital Signs Temp Pulse Resp BP Pulse Ox 11/13/16 17:01 73 13 155/46 H 98 11/13/16 17:00 79 12 98 11/13/16 16:01 81 12 149/68 100 11/13/16 16:00 96.7 F L 74 12 100 11/13/16 15:01 84 12 128/69 99 11/13/16 15:00 80 12 99 Intake and Output (Last 8hrs): Intake & Output 11/13/16 11/13/16 11/13/16 06:59 14:59 22:59 Intake Total 390 500 300 Output Total 450 385 170 Balance -60 115 130 Weight 241 lb 13.553 oz Intake: Intake, IV Amount 100 100 Right Distal Port 100 100 Tube Feeding 390 400 200 Output: Urine 450 385 170 Urethral (Sharma) 450 385 170 - Physical Exam Narrative Physical Exam (Free Text): 11/13/16 18:13 Chest good air entry, regular heart sound, nontender abdomen, pedal edema, on ventilator him a CPAP trial, patient has low respiratory rate Head: Positive for: Atraumatic, Normocephalic, Other (ET Tube in place) Pupils: Positive for: PERRL Extroacular Muscles: Positive for: EOMI Conjunctiva: Positive for: Normal Mouth: Positive for: Moist Mucous Membranes. Negative for: Drooling Nose (External): Positive for: Atraumatic Neck: Positive for: Normal Range of Motion. Negative for: JVD, Lymphadenopathy Respiratory/Chest: Positive for: Good Air Exchange, Decreased Breath Sounds. Negative for: Respiratory Distress, Accessory Muscle Use, Wheezes, Rales, Retracting, Rhonchi Cardiovascular: Positive for: Regular Rate and Rhythm, Murmurs, Normal S1, S2, Peripheal Pulses Present. Negative for: Irregular Rhythm, Tachycardic, Bradycardic Abdomen: Positive for: Normal Bowel Sounds. Negative for: Tenderness, Distention, Peritoneal Signs, Rebound, Guarding Back: Positive for: Normal Inspection Upper Extremity: Positive for: Normal Inspection. Negative for: Cyanosis, Edema Lower Extremity: Positive for: Normal Inspection. Negative for: Edema Skin: Positive for: Warm, Normal Color - Medications Active Medications: Active Medications Generic Name Dose Route Start Last Admin Trade Name Vjq PRN Reason Stop Dose Admin Aspirin 81 mg 11/07/16 10:00 11/12/16 10:51 Aspirin Chewable PO 81 mg DAILY [facility] Administration Clopidogrel Bisulfate 75 mg 11/07/16 10:00 11/12/16 10:51 Plavix PO 75 mg DAILY [facility] Administration Heparin Sodium (Porcine) 5,000 units 11/10/16 22:00 11/13/16 10:34 Heparin SC 5,000 units Q12 [facility] Administration Vancomycin HCl 1 gm/ Sodium 250 mls @ 166.7 mls/hr 11/07/16 00:45 11/10/16 23 :57 Chloride IVPB 166.7 mls/hr Q24H [facility] Administration Meropenem 500 mg/ Sodium 100 mls @ 200 mls/hr 11/10/16 14:00 11/13/16 13:15 Chloride IVPB 200 mls/hr Q8 [facility] Administration Insulin Detemir 20 unit 11/07/16 10:00 11/13/16 10:36 Levemir SC 20 unit DAILY [facility] Administration Insulin Human Regular 0 unit 11/07/16 06:00 11/13/16 18:01 Novolin R SC Not Given Q6 [facility] Protocol Levetiracetam 500 mg 11/10/16 11:00 11/13/16 18:03 Keppra GT 500 mg BID [facility] Administration Pantoprazole Sodium 40 mg 11/07/16 10:00 11/13/16 10:33 Protonix Inj IVP 40 mg DAILY [facility] Administration - Patient Studies Lab Studies: Lab Studies 11/13/16 11/13/16 11/13/16 Range/Units 17:18 12:09 06:16 WBC (4.8-10.8) K/uL RBC (4.40-5.90) Mil/uL Hgb (12.0-18.0) g/dL Hct (35.0-51.0) % MCV (80.0-94.0) fL MCH (27.0-31.0) pg MCHC (33.0-37.0) g/dL RDW (11.5-14.5) % Plt Count (130-400) K/uL MPV (7.2-11.7) fL Neut % (Auto) (50.0-75.0) % Lymph % (Auto) (20.0-40.0) % Gulf % (Auto) (0.0-10.0) % Eos % (Auto) (0.0-4.0) % Baso % (Auto) (0.0-2.0) % Neut # (1.8-7.0) K/uL Lymph # (1.0-4.3) K/uL Gulf # (0.0-0.8) K/uL Eos # (0.0-0.7) K/uL Baso # (0.0-0.2) K/uL Puncture Site pCO2 (35-45) mm/Hg pO2 (80-100) mm/Hg HCO3 (21-28) mmol/L ABG pH (7.35-7.45) ABG Total CO2 (22-28) mmol/L ABG O2 Saturation (95-98) % ABG Base Excess (-2.0-3.0) mmol/L ABG Hemoglobin (11.7-17.4) g/dL ABG Carboxyhemoglobin (0.5-1.5) % POC ABG HHb (Measured) (0.0-5.0) % ABG Methemoglobin (0.0-3.0) % Timmy Test A-a O2 Difference mm/Hg Respiratory Index Hgb O2 Saturation (95.0-98.0) % FiO2 % Pressure Support CPAP Sodium 151 H (132-148) mmol/L Potassium 3.9 (3.6-5.2) mmol/L Chloride 114 H (98-107) mmol/L Carbon Dioxide 32 H (22-30) mmol/L Anion Gap 9 L (10-20) BUN 27 H (9-20) mg/dL Creatinine 1.4 (0.8-1.5) MG/DL Est GFR ( Amer) 59 Est GFR (Non-Af Amer) 49 POC Glucose (mg/dL) 118 H 160 H (65-110) mg/dL Random Glucose 117 H (75-110) mg/dL Calcium 8.8 (8.6-10.4) mg/dl 11/13/16 11/13/16 11/13/16 Range/Units 06:16 06:05 05:55 WBC 8.4 (4.8-10.8) K/uL RBC 3.68 L (4.40-5.90) Mil/uL Hgb 9.4 L (12.0-18.0) g/dL Hct 29.8 L (35.0-51.0) % MCV 80.8 (80.0-94.0) fL MCH 25.5 L (27.0-31.0) pg MCHC 31.6 L (33.0-37.0) g/dL RDW 18.4 H (11.5-14.5) % Plt Count 72 L (130-400) K/uL MPV 9.2 (7.2-11.7) fL Neut % (Auto) 78.4 H (50.0-75.0) % Lymph % (Auto) 11.7 L (20.0-40.0) % Gulf % (Auto) 6.0 (0.0-10.0) % Eos % (Auto) 3.7 (0.0-4.0) % Baso % (Auto) 0.2 (0.0-2.0) % Neut # 6.6 (1.8-7.0) K/uL Lymph # 1.0 (1.0-4.3) K/uL Gulf # 0.5 (0.0-0.8) K/uL Eos # 0.3 (0.0-0.7) K/uL Baso # 0.0 (0.0-0.2) K/uL Puncture Site Radial pCO2 55 H (35-45) mm/Hg pO2 144 H (80-100) mm/Hg HCO3 27.4 (21-28) mmol/L ABG pH 7.34 L (7.35-7.45) ABG Total CO2 31.4 H (22-28) mmol/L ABG O2 Saturation 99.6 H (95-98) % ABG Base Excess 3.2 H (-2.0-3.0) mmol/L ABG Hemoglobin 9.3 L (11.7-17.4) g/dL ABG Carboxyhemoglobin 1.5 (0.5-1.5) % POC ABG HHb (Measured) 0.4 (0.0-5.0) % ABG Methemoglobin 1.1 (0.0-3.0) % Timmy Test Pos A-a O2 Difference 144.0 mm/Hg Respiratory Index 1.0 Hgb O2 Saturation 97.0 (95.0-98.0) % FiO2 50.0 % Pressure Support 10 CPAP 5 Sodium (132-148) mmol/L Potassium (3.6-5.2) mmol/L Chloride (98-107) mmol/L Carbon Dioxide (22-30) mmol/L Anion Gap (10-20) BUN (9-20) mg/dL Creatinine (0.8-1.5) MG/DL Est GFR ( Amer) Est GFR (Non-Af Amer) POC Glucose (mg/dL) 130 H (65-110) mg/dL Random Glucose (75-110) mg/dL Calcium (8.6-10.4) mg/dl 11/12/16 11/12/16 Range/Units 23:49 17:39 WBC (4.8-10.8) K/uL RBC (4.40-5.90) Mil/uL Hgb (12.0-18.0) g/dL Hct (35.0-51.0) % MCV (80.0-94.0) fL MCH (27.0-31.0) pg MCHC (33.0-37.0) g/dL RDW (11.5-14.5) % Plt Count (130-400) K/uL MPV (7.2-11.7) fL Neut % (Auto) (50.0-75.0) % Lymph % (Auto) (20.0-40.0) % Gulf % (Auto) (0.0-10.0) % Eos % (Auto) (0.0-4.0) % Baso % (Auto) (0.0-2.0) % Neut # (1.8-7.0) K/uL Lymph # (1.0-4.3) K/uL Gulf # (0.0-0.8) K/uL Eos # (0.0-0.7) K/uL Baso # (0.0-0.2) K/uL Puncture Site pCO2 (35-45) mm/Hg pO2 (80-100) mm/Hg HCO3 (21-28) mmol/L ABG pH (7.35-7.45) ABG Total CO2 (22-28) mmol/L ABG O2 Saturation (95-98) % ABG Base Excess (-2.0-3.0) mmol/L ABG Hemoglobin (11.7-17.4) g/dL ABG Carboxyhemoglobin (0.5-1.5) % POC ABG HHb (Measured) (0.0-5.0) % ABG Methemoglobin (0.0-3.0) % Timmy Test A-a O2 Difference mm/Hg Respiratory Index Hgb O2 Saturation (95.0-98.0) % FiO2 % Pressure Support CPAP Sodium (132-148) mmol/L Potassium (3.6-5.2) mmol/L Chloride (98-107) mmol/L Carbon Dioxide (22-30) mmol/L Anion Gap (10-20) BUN (9-20) mg/dL Creatinine (0.8-1.5) MG/DL Est GFR ( Amer) Est GFR (Non-Af Amer) POC Glucose (mg/dL) 129 H 159 H (65-110) mg/dL Random Glucose (75-110) mg/dL Calcium (8.6-10.4) mg/dl Laboratory Results - last 24 hr 11/12/16 11/12/16 11/13/16 17:39 23:49 05:55 WBC RBC Hgb Hct MCV MCH MCHC RDW Plt Count MPV Neut % (Auto) Lymph % (Auto) Gulf % (Auto) Eos % (Auto) Baso % (Auto) Neut # Lymph # Gulf # Eos # Baso # Puncture Site Radial pCO2 55 H pO2 144 H HCO3 27.4 ABG pH 7.34 L ABG Total CO2 31.4 H ABG O2 Saturation 99.6 H ABG Base Excess 3.2 H ABG Hemoglobin 9.3 L ABG Carboxyhemoglobin 1.5 POC ABG HHb (Measured) 0.4 ABG Methemoglobin 1.1 Timmy Test Pos A-a O2 Difference 144.0 Respiratory Index 1.0 Hgb O2 Saturation 97.0 FiO2 50.0 Pressure Support 10 CPAP 5 Sodium Potassium Chloride Carbon Dioxide Anion Gap BUN Creatinine Est GFR ( Amer) Est GFR (Non-Af Amer) POC Glucose (mg/dL) 159 H 129 H Random Glucose Calcium 11/13/16 11/13/16 11/13/16 06:05 06:16 06:16 WBC 8.4 RBC 3.68 L Hgb 9.4 L Hct 29.8 L MCV 80.8 MCH 25.5 L MCHC 31.6 L RDW 18.4 H Plt Count 72 L MPV 9.2 Neut % (Auto) 78.4 H Lymph % (Auto) 11.7 L Gulf % (Auto) 6.0 Eos % (Auto) 3.7 Baso % (Auto) 0.2 Neut # 6.6 Lymph # 1.0 Gulf # 0.5 Eos # 0.3 Baso # 0.0 Puncture Site pCO2 pO2 HCO3 ABG pH ABG Total CO2 ABG O2 Saturation ABG Base Excess ABG Hemoglobin ABG Carboxyhemoglobin POC ABG HHb (Measured) ABG Methemoglobin Timmy Test A-a O2 Difference Respiratory Index Hgb O2 Saturation FiO2 Pressure Support CPAP Sodium 151 H Potassium 3.9 Chloride 114 H Carbon Dioxide 32 H Anion Gap 9 L BUN 27 H Creatinine 1.4 Est GFR ( Amer) 59 Est GFR (Non-Af Amer) 49 POC Glucose (mg/dL) 130 H Random Glucose 117 H Calcium 8.8 11/13/16 11/13/16 12:09 17:18 WBC RBC Hgb Hct MCV MCH MCHC RDW Plt Count MPV Neut % (Auto) Lymph % (Auto) Gulf % (Auto) Eos % (Auto) Baso % (Auto) Neut # Lymph # Gulf # Eos # Baso # Puncture Site pCO2 pO2 HCO3 ABG pH ABG Total CO2 ABG O2 Saturation ABG Base Excess ABG Hemoglobin ABG Carboxyhemoglobin POC ABG HHb (Measured) ABG Methemoglobin Timmy Test A-a O2 Difference Respiratory Index Hgb O2 Saturation FiO2 Pressure Support CPAP Sodium Potassium Chloride Carbon Dioxide Anion Gap BUN Creatinine Est GFR ( Amer) Est GFR (Non-Af Amer) POC Glucose (mg/dL) 160 H 118 H Random Glucose Calcium Fingerstick Blood Sugar Results: 118 Assessment/Plan - Assessment and Plan (Free Text) Assessment: Altered mental status , acute respiratory failure on ventilator Awaiting for tracheostomy
--- NOTE | 2016-11-13 23:29 | CP.PCM.PN ---
Subjective - Date & Time of Evaluation Date of Evaluation: 11/13/16 Time of Evaluation: 10:25 - Subjective Subjective: Patient on ventilator, not responding. Patient will be needing tracheostomy. Supportive care. Vital signs stable. Objective - Vital Signs/Intake and Output Vital Signs (last 24 hours): Temp Pulse Resp BP Pulse Ox 98.4 F 80 12 143/60 99 11/13/16 20:00 11/13/16 21:01 11/13/16 21:01 11/13/16 21:01 11/13/16 21:01 Intake and Output: 11/13/16 11/14/16 18:59 06:59 Intake Total 800 150 Output Total 555 Balance 245 150 - Medications Medications: Current Medications Aspirin (Aspirin Chewable) 81 mg PO DAILY [facility] Last Admin: 11/12/16 10:51 Dose: 81 mg Clopidogrel Bisulfate (Plavix) 75 mg PO DAILY [facility] Last Admin: 11/12/16 10:51 Dose: 75 mg Vancomycin HCl 1 gm/ Sodium (Chloride) 250 mls @ 166.7 mls/hr IVPB Q24H [facility] Last Admin: 11/10/16 23:57 Dose: 166.7 mls/hr Meropenem 500 mg/ Sodium (Chloride) 100 mls @ 200 mls/hr IVPB Q8 [facility] Last Admin: 11/13/16 21:50 Dose: 200 mls/hr Insulin Detemir (Levemir) 20 unit SC DAILY [facility] Last Admin: 11/13/16 10:36 Dose: 20 unit Insulin Human Regular (Novolin R) 0 unit SC Q6 [facility] PRN Reason: Protocol Last Admin: 11/13/16 18:01 Dose: Not Given Levetiracetam (Keppra) 500 mg GT BID [facility] Last Admin: 11/13/16 18:03 Dose: 500 mg Pantoprazole Sodium (Protonix Inj) 40 mg IVP DAILY [facility] Last Admin: 11/13/16 10:33 Dose: 40 mg - Labs Labs: 11/13/16 06:16 11/13/16 06:16 PT 13.3 SECONDS (9.7-12.2) H 11/09/16 05:50 INR 1.2 11/09/16 05:50 APTT 37 SECONDS (21-34) H 11/09/16 05:50 - Constitutional Appears: No Acute Distress - Head Exam Head Exam: ATRAUMATIC, NORMAL INSPECTION, NORMOCEPHALIC - Eye Exam Eye Exam: EOMI, Normal appearance, PERRL Pupil Exam: NORMAL ACCOMODATION, PERRL - Respiratory Exam Respiratory Exam: Clear to Ausculation Bilateral, NORMAL BREATHING PATTERN - Cardiovascular Exam Cardiovascular Exam: REGULAR RHYTHM, +S1, +S2. absent: Murmur - GI/Abdominal Exam GI & Abdominal Exam: Soft, Normal Bowel Sounds. absent: Tenderness Assessment and Plan (1) Respiratory failure Status: Acute (2) Insulin dependent diabetes mellitus Status: Acute (3) UTI (lower urinary tract infection) Status: Acute
[2016-11-14 05:41] LABS: ABG ALLEN TEST POS; ABG MECHANICAL RATE 12; ARTERIAL BLOOD HGB O2 SAT 94.8 % (95.0-98.0); ATERIAL BLOOD GAS PEEP 5; CARBOXYHEMOGLOBIN 1.5 % (0.5-1.5); DRAW SITE RR; HHB 2.5 % (0.0-5.0); METHEMOGLOBIN 1.2 % (0.0-3.0)
[2016-11-14] MEDS: Meropenem 500 MG in Sodium Chloride 0.9% 100 ML IVPB SCH ×3 (05:50→21:26)
[2016-11-14] MEDS: (Novolin R) Insulin Human Regular 100 units/ml vial SC SCH ×4 (06:00→17:53)
[2016-11-14 07:27] LABS: POTASSIUM 3.5 mmol/L (3.6-5.2)
[2016-11-14 07:30] LABS: ALB/GLOB RATIO 0.8 (1.0-2.1); BILIRUBIN,TOTAL 0.4 mg/dL (0.2-1.3); PHOSPHOROUS 3.1 mg/dL (2.5-4.5); TOTAL PROTEIN 6.3 g/dL (6.3-8.3)
[2016-11-14 07:31] LABS: CALCIUM 8.7 mg/dl (8.6-10.4); MAGNESIUM 2.4 mg/dL (1.6-2.3)
--- NOTE | 2016-11-14 07:32 | CARD ---
APPROVED REPORT EKG Measurement Heart [id number] <Conclusion> Wide QRS rhythm Nonspecific intraventricular block Nonspecific T wave abnormality Abnormal ECG
[2016-11-14 08:11] LABS: BASO % 0.1 % (0.0-2.0); EOS # 0.3 K/uL (0.0-0.7); EOS % 3.2 % (0.0-4.0); HEMATOCRIT 28.9 % (35.0-51.0); LYMPH % 11.7 % (20.0-40.0); MEAN CELL VOLUME 81.7 fL (80.0-94.0); MEAN CORPUSCULAR HEMOGLOBIN 25.5 pg (27.0-31.0); MEAN CORPUSCULAR HGB CONC 31.2 g/dL (33.0-37.0); MEAN PLATELET VOLUME 9.1 fL (7.2-11.7); MONO # 0.4 K/uL (0.0-0.8); MONO % 5.2 % (0.0-10.0); NRBC % 0.1 % (0.0-2.0); RED CELL DISTRIBUTION WIDTH 18.1 % (11.5-14.5); WHITE BLOOD COUNT 8.4 K/uL (4.8-10.8)
--- NOTE | 2016-11-14 08:20 | CP.PCM.PN ---
Subjective - Date & Time of Evaluation Date of Evaluation: 11/14/16 Time of Evaluation: 08:19 - Subjective Subjective: Gen Sx: Dr Diez Pt S&E. Remains intubated and sedated. Hold aspirin/plavix will get consent today plan for Trach monday Objective - Vital Signs/Intake and Output Vital Signs (last 24 hours): Temp Pulse Resp BP Pulse Ox 98.4 F 89 12 120/49 L 99 11/14/16 04:00 11/14/16 08:01 11/14/16 08:01 11/14/16 08:01 11/14/16 08:01 Intake and Output: 11/14/16 11/14/16 06:59 18:59 Intake Total 800 50 Output Total 360 30 Balance 440 20 - Medications Medications: Current Medications Aspirin (Aspirin Chewable) 81 mg PO DAILY [facility] Last Admin: 11/12/16 10:51 Dose: 81 mg Clopidogrel Bisulfate (Plavix) 75 mg PO DAILY [facility] Last Admin: 11/12/16 10:51 Dose: 75 mg Vancomycin HCl 1 gm/ Sodium (Chloride) 250 mls @ 166.7 mls/hr IVPB Q24H [facility] Last Admin: 11/10/16 23:57 Dose: 166.7 mls/hr Meropenem 500 mg/ Sodium (Chloride) 100 mls @ 200 mls/hr IVPB Q8 [facility] Last Admin: 11/14/16 05:50 Dose: 200 mls/hr Insulin Detemir (Levemir) 20 unit SC DAILY [facility] Last Admin: 11/13/16 10:36 Dose: 20 unit Insulin Human Regular (Novolin R) 0 unit SC Q6 [facility] PRN Reason: Protocol Last Admin: 11/14/16 06:00 Dose: Not Given Levetiracetam (Keppra) 500 mg GT BID [facility] Last Admin: 11/13/16 18:03 Dose: 500 mg Pantoprazole Sodium (Protonix Inj) 40 mg IVP DAILY [facility] Last Admin: 11/13/16 10:33 Dose: 40 mg - Labs Labs: 11/14/16 07:55 11/14/16 06:24 PT 13.3 SECONDS (9.7-12.2) H 11/09/16 05:50 INR 1.2 11/09/16 05:50 APTT 37 SECONDS (21-34) H 11/09/16 05:50 - Constitutional Appears: Non-toxic, Chronically Ill - Respiratory Exam Respiratory Exam: absent: Accessory Muscle Use, Respiratory Distress - Cardiovascular Exam Cardiovascular Exam: absent: Tachycardia - GI/Abdominal Exam GI & Abdominal Exam: Soft. absent: Distended
--- NOTE | 2016-11-14 08:57 | CP.CCUPN ---
CCU Subjective - Physician Review Events Since Last Encounter (Free Text): 11/14/16 08:56 Patient's overall condition unchanged. On ventilator. Poorly responding. Weakness. Multiple CVA in the past. Generalized edema anasarca noted. Tolerating the NG tube feeding. Awaiting for tracheostomy CCU Objective - Vital Signs / Intake & Output Vital Signs (Last 4 hours): Vital Signs Temp Pulse Resp BP Pulse Ox 11/14/16 08:01 89 12 120/49 L 99 11/14/16 08:00 97.8 F 87 99 11/14/16 07:01 96 H 12 132/47 L 98 11/14/16 07:00 104 H 11 L 98 11/14/16 06:01 107 H 10 L 136/77 97 11/14/16 06:00 104 H 11 L 98 11/14/16 05:01 94 H 12 130/73 95 11/14/16 05:00 96 H 15 95 Intake and Output (Last 8hrs): Intake & Output 11/13/16 11/14/16 11/14/16 22:59 06:59 14:59 Intake Total 600 500 50 Output Total 290 240 30 Balance 310 260 20 Weight 242 lb Intake: Intake, IV Amount 200 100 0 Right Distal Port 200 100 0 Tube Feeding 400 400 50 Output: Urine 290 240 30 Urethral (Sharma) 290 240 30 - Physical Exam Narrative Physical Exam (Free Text): 11/14/16 08:56 Vital signs reviewed No neck vein distention noted Chest good air entry bilaterally, no wheezing or rales noted CVS regular heart sound, no murmur noted Abdomen soft, nontender. Extremities no pedal edema Poorly responding Head: Positive for: Atraumatic, Normocephalic, Other (ET Tube in place) Pupils: Positive for: PERRL Extroacular Muscles: Positive for: EOMI Conjunctiva: Positive for: Normal Mouth: Positive for: Moist Mucous Membranes. Negative for: Drooling Nose (External): Positive for: Atraumatic Neck: Positive for: Normal Range of Motion. Negative for: JVD, Lymphadenopathy Respiratory/Chest: Positive for: Good Air Exchange, Decreased Breath Sounds. Negative for: Respiratory Distress, Accessory Muscle Use, Wheezes, Rales, Retracting, Rhonchi Cardiovascular: Positive for: Regular Rate and Rhythm, Murmurs, Normal S1, S2, Peripheal Pulses Present. Negative for: Irregular Rhythm, Tachycardic, Bradycardic Abdomen: Positive for: Normal Bowel Sounds. Negative for: Tenderness, Distention, Peritoneal Signs, Rebound, Guarding Back: Positive for: Normal Inspection Upper Extremity: Positive for: Normal Inspection. Negative for: Cyanosis, Edema Lower Extremity: Positive for: Normal Inspection. Negative for: Edema Skin: Positive for: Warm, Normal Color - Medications Active Medications: Active Medications Generic Name Dose Route Start Last Admin Trade Name Freq PRN Reason Stop Dose Admin Aspirin 81 mg 11/07/16 10:00 11/12/16 10:51 Aspirin Chewable PO 81 mg DAILY [facility] Administration Clopidogrel Bisulfate 75 mg 11/07/16 10:00 11/12/16 10:51 Plavix PO 75 mg DAILY [facility] Administration Meropenem 500 mg/ Sodium 100 mls @ 200 mls/hr 11/10/16 14:00 11/14/16 05:50 Chloride IVPB 200 mls/hr Q8 [facility] Administration Insulin Detemir 20 unit 11/07/16 10:00 11/13/16 10:36 Levemir SC 20 unit DAILY [facility] Administration Insulin Human Regular 0 unit 11/07/16 06:00 11/14/16 06:00 Novolin R SC Not Given Q6 [facility] Protocol Levetiracetam 500 mg 11/10/16 11:00 11/13/16 18:03 Keppra GT 500 mg BID [facility] Administration Pantoprazole Sodium 40 mg 11/07/16 10:00 11/13/16 10:33 Protonix Inj IVP 40 mg DAILY [facility] Administration - Patient Studies Lab Studies: Lab Studies 11/14/16 11/14/16 11/14/16 Range/Units 07:55 06:24 06:03 WBC 8.4 (4.8-10.8) K/uL RBC 3.53 L (4.40-5.90) Mil/uL Hgb 9.0 L (12.0-18.0) g/dL Hct 28.9 L (35.0-51.0) % MCV 81.7 (80.0-94.0) fL MCH 25.5 L (27.0-31.0) pg MCHC 31.2 L (33.0-37.0) g/dL RDW 18.1 H (11.5-14.5) % Plt Count 86 L (130-400) K/uL MPV 9.1 (7.2-11.7) fL Neut % (Auto) 79.8 H (50.0-75.0) % Lymph % (Auto) 11.7 L (20.0-40.0) % Adams % (Auto) 5.2 (0.0-10.0) % Eos % (Auto) 3.2 (0.0-4.0) % Baso % (Auto) 0.1 (0.0-2.0) % Neut # 6.7 (1.8-7.0) K/uL Lymph # 1.0 (1.0-4.3) K/uL Adams # 0.4 (0.0-0.8) K/uL Eos # 0.3 (0.0-0.7) K/uL Baso # 0.0 (0.0-0.2) K/uL Puncture Site pCO2 (35-45) mm/Hg pO2 (80-100) mm/Hg HCO3 (21-28) mmol/L ABG pH (7.35-7.45) ABG Total CO2 (22-28) mmol/L ABG O2 Saturation (95-98) % ABG Base Excess (-2.0-3.0) mmol/L ABG Hemoglobin (11.7-17.4) g/dL ABG Carboxyhemoglobin (0.5-1.5) % POC ABG HHb (Measured) (0.0-5.0) % ABG Methemoglobin (0.0-3.0) % Timmy Test A-a O2 Difference mm/Hg Respiratory Index Hgb O2 Saturation (95.0-98.0) % Mechanical Rate FiO2 % Tidal Volume PEEP Sodium 153 H (132-148) mmol/L Potassium 3.5 L (3.6-5.2) mmol/L Chloride 117 H (98-107) mmol/L Carbon Dioxide 30 (22-30) mmol/L Anion Gap 10 (10-20) BUN 32 H (9-20) mg/dL Creatinine 1.6 H (0.8-1.5) MG/DL Est GFR ( Amer) 51 Est GFR (Non-Af Amer) 42 POC Glucose (mg/dL) 77 (65-110) mg/dL Random Glucose 70 L (75-110) mg/dL Calcium 8.7 (8.6-10.4) mg/dl Phosphorus 3.1 (2.5-4.5) mg/dL Magnesium 2.4 H (1.6-2.3) mg/dL Total Bilirubin 0.4 (0.2-1.3) mg/dL AST 24 (17-59) U/L ALT 40 (21-72) U/L Alkaline Phosphatase 83 (38-126) U/L Total Protein 6.3 (6.3-8.3) g/dL Albumin 2.7 L (3.5-5.0) g/dL Globulin 3.6 (2.2-3.9) gm/dL Albumin/Globulin Ratio 0.8 L (1.0-2.1) 11/14/16 11/14/16 11/13/16 Range/Units 05:30 00:12 17:18 WBC (4.8-10.8) K/uL RBC (4.40-5.90) Mil/uL Hgb (12.0-18.0) g/dL Hct (35.0-51.0) % MCV (80.0-94.0) fL MCH (27.0-31.0) pg MCHC (33.0-37.0) g/dL RDW (11.5-14.5) % Plt Count (130-400) K/uL MPV (7.2-11.7) fL Neut % (Auto) (50.0-75.0) % Lymph % (Auto) (20.0-40.0) % Adams % (Auto) (0.0-10.0) % Eos % (Auto) (0.0-4.0) % Baso % (Auto) (0.0-2.0) % Neut # (1.8-7.0) K/uL Lymph # (1.0-4.3) K/uL Adams # (0.0-0.8) K/uL Eos # (0.0-0.7) K/uL Baso # (0.0-0.2) K/uL Puncture Site Rr pCO2 49 H (35-45) mm/Hg pO2 74 L (80-100) mm/Hg HCO3 29.9 H (21-28) mmol/L ABG pH 7.42 (7.35-7.45) ABG Total CO2 33.3 H (22-28) mmol/L ABG O2 Saturation 97.4 (95-98) % ABG Base Excess 6.4 H (-2.0-3.0) mmol/L ABG Hemoglobin 10.3 L (11.7-17.4) g/dL ABG Carboxyhemoglobin 1.5 (0.5-1.5) % POC ABG HHb (Measured) 2.5 (0.0-5.0) % ABG Methemoglobin 1.2 (0.0-3.0) % Timmy Test Pos A-a O2 Difference 221.0 mm/Hg Respiratory Index 3.0 Hgb O2 Saturation 94.8 L (95.0-98.0) % Mechanical Rate 12 FiO2 50.0 % Tidal Volume 500 PEEP 5 Sodium (132-148) mmol/L Potassium (3.6-5.2) mmol/L Chloride (98-107) mmol/L Carbon Dioxide (22-30) mmol/L Anion Gap (10-20) BUN (9-20) mg/dL Creatinine (0.8-1.5) MG/DL Est GFR ( Amer) Est GFR (Non-Af Amer) POC Glucose (mg/dL) 117 H 118 H (65-110) mg/dL Random Glucose (75-110) mg/dL Calcium (8.6-10.4) mg/dl Phosphorus (2.5-4.5) mg/dL Magnesium (1.6-2.3) mg/dL Total Bilirubin (0.2-1.3) mg/dL AST (17-59) U/L ALT (21-72) U/L Alkaline Phosphatase (38-126) U/L Total Protein (6.3-8.3) g/dL Albumin (3.5-5.0) g/dL Globulin (2.2-3.9) gm/dL Albumin/Globulin Ratio (1.0-2.1) 11/13/16 Range/Units 12:09 WBC (4.8-10.8) K/uL RBC (4.40-5.90) Mil/uL Hgb (12.0-18.0) g/dL Hct (35.0-51.0) % MCV (80.0-94.0) fL MCH (27.0-31.0) pg MCHC (33.0-37.0) g/dL RDW (11.5-14.5) % Plt Count (130-400) K/uL MPV (7.2-11.7) fL Neut % (Auto) (50.0-75.0) % Lymph % (Auto) (20.0-40.0) % Adams % (Auto) (0.0-10.0) % Eos % (Auto) (0.0-4.0) % Baso % (Auto) (0.0-2.0) % Neut # (1.8-7.0) K/uL Lymph # (1.0-4.3) K/uL Adams # (0.0-0.8) K/uL Eos # (0.0-0.7) K/uL Baso # (0.0-0.2) K/uL Puncture Site pCO2 (35-45) mm/Hg pO2 (80-100) mm/Hg HCO3 (21-28) mmol/L ABG pH (7.35-7.45) ABG Total CO2 (22-28) mmol/L ABG O2 Saturation (95-98) % ABG Base Excess (-2.0-3.0) mmol/L ABG Hemoglobin (11.7-17.4) g/dL ABG Carboxyhemoglobin (0.5-1.5) % POC ABG HHb (Measured) (0.0-5.0) % ABG Methemoglobin (0.0-3.0) % Timmy Test A-a O2 Difference mm/Hg Respiratory Index Hgb O2 Saturation (95.0-98.0) % Mechanical Rate FiO2 % Tidal Volume PEEP Sodium (132-148) mmol/L Potassium (3.6-5.2) mmol/L Chloride (98-107) mmol/L Carbon Dioxide (22-30) mmol/L Anion Gap (10-20) BUN (9-20) mg/dL Creatinine (0.8-1.5) MG/DL Est GFR ( Amer) Est GFR (Non-Af Amer) POC Glucose (mg/dL) 160 H (65-110) mg/dL Random Glucose (75-110) mg/dL Calcium (8.6-10.4) mg/dl Phosphorus (2.5-4.5) mg/dL Magnesium (1.6-2.3) mg/dL Total Bilirubin (0.2-1.3) mg/dL AST (17-59) U/L ALT (21-72) U/L Alkaline Phosphatase (38-126) U/L Total Protein (6.3-8.3) g/dL Albumin (3.5-5.0) g/dL Globulin (2.2-3.9) gm/dL Albumin/Globulin Ratio (1.0-2.1) Laboratory Results - last 24 hr 11/13/16 11/13/16 11/14/16 12:09 17:18 00:12 WBC RBC Hgb Hct MCV MCH MCHC RDW Plt Count MPV Neut % (Auto) Lymph % (Auto) Adams % (Auto) Eos % (Auto) Baso % (Auto) Neut # Lymph # Adams # Eos # Baso # Puncture Site pCO2 pO2 HCO3 ABG pH ABG Total CO2 ABG O2 Saturation ABG Base Excess ABG Hemoglobin ABG Carboxyhemoglobin POC ABG HHb (Measured) ABG Methemoglobin Timmy Test A-a O2 Difference Respiratory Index Hgb O2 Saturation Mechanical Rate FiO2 Tidal Volume PEEP Sodium Potassium Chloride Carbon Dioxide Anion Gap BUN Creatinine Est GFR ( Amer) Est GFR (Non-Af Amer) POC Glucose (mg/dL) 160 H 118 H 117 H Random Glucose Calcium Phosphorus Magnesium Total Bilirubin AST ALT Alkaline Phosphatase Total Protein Albumin Globulin Albumin/Globulin Ratio 11/14/16 11/14/16 11/14/16 05:30 06:03 06:24 WBC RBC Hgb Hct MCV MCH MCHC RDW Plt Count MPV Neut % (Auto) Lymph % (Auto) Adams % (Auto) Eos % (Auto) Baso % (Auto) Neut # Lymph # Adams # Eos # Baso # Puncture Site Rr pCO2 49 H pO2 74 L HCO3 29.9 H ABG pH 7.42 ABG Total CO2 33.3 H ABG O2 Saturation 97.4 ABG Base Excess 6.4 H ABG Hemoglobin 10.3 L ABG Carboxyhemoglobin 1.5 POC ABG HHb (Measured) 2.5 ABG Methemoglobin 1.2 Timmy Test Pos A-a O2 Difference 221.0 Respiratory Index 3.0 Hgb O2 Saturation 94.8 L Mechanical Rate 12 FiO2 50.0 Tidal Volume 500 PEEP 5 Sodium 153 H Potassium 3.5 L Chloride 117 H Carbon Dioxide 30 Anion Gap 10 BUN 32 H Creatinine 1.6 H Est GFR ( Amer) 51 Est GFR (Non-Af Amer) 42 POC Glucose (mg/dL) 77 Random Glucose 70 L Calcium 8.7 Phosphorus 3.1 Magnesium 2.4 H Total Bilirubin 0.4 AST 24 ALT 40 Alkaline Phosphatase 83 Total Protein 6.3 Albumin 2.7 L Globulin 3.6 Albumin/Globulin Ratio 0.8 L 11/14/16 07:55 WBC 8.4 RBC 3.53 L Hgb 9.0 L Hct 28.9 L MCV 81.7 MCH 25.5 L MCHC 31.2 L RDW 18.1 H Plt Count 86 L MPV 9.1 Neut % (Auto) 79.8 H Lymph % (Auto) 11.7 L Adams % (Auto) 5.2 Eos % (Auto) 3.2 Baso % (Auto) 0.1 Neut # 6.7 Lymph # 1.0 Adams # 0.4 Eos # 0.3 Baso # 0.0 Puncture Site pCO2 pO2 HCO3 ABG pH ABG Total CO2 ABG O2 Saturation ABG Base Excess ABG Hemoglobin ABG Carboxyhemoglobin POC ABG HHb (Measured) ABG Methemoglobin Timmy Test A-a O2 Difference Respiratory Index Hgb O2 Saturation Mechanical Rate FiO2 Tidal Volume PEEP Sodium Potassium Chloride Carbon Dioxide Anion Gap BUN Creatinine Est GFR ( Amer) Est GFR (Non-Af Amer) POC Glucose (mg/dL) Random Glucose Calcium Phosphorus Magnesium Total Bilirubin AST ALT Alkaline Phosphatase Total Protein Albumin Globulin Albumin/Globulin Ratio Fingerstick Blood Sugar Results: 77 Assessment/Plan - Assessment and Plan (Free Text) Assessment: Patient with multiple CVA, hypertension admitted with altered mental status, seizure disorder. On Keppra. On ventilator. Overall prognosis is guarded. Awaiting for tracheostomy. Continue the current treatment
--- NOTE | 2016-11-14 08:59 | RAD ---
Chest x-ray single frontal view History: Intubated. Comparison: 11/13/2016 Findings: Lines and tubes in stable position. Prominent confluent airspace consolidative changes throughout both lungs suggestive for infiltrate and or edema. Biapical pleural thickening with upper lobe granulomatous changes. Cardiomegaly. Degenerative changes in the spine and shoulders. Impression: Lines and tubes in stable position. Prominent confluent airspace consolidative changes throughout both lungs suggestive for infiltrate and or edema. Biapical pleural thickening with upper lobe granulomatous changes. Cardiomegaly.
[2016-11-14] MEDS: levETIRAcetam 100 mg/ml (5ml) Oral Syringe GT SCH ×2 (10:00→17:51)
[2016-11-14] MEDS: Insulin Detemir 100 units/ml Vial (Levemir) SC SCH (10:03)
--- NOTE | 2016-11-14 11:31 | CP.PCM.PN ---
Subjective - Date & Time of Evaluation Date of Evaluation: 11/14/16 Time of Evaluation: 10:00 - Subjective Subjective: REMAINS LETHARGIC RX IN PROGRESS IV RX RENEWED Objective - Vital Signs/Intake and Output Vital Signs (last 24 hours): Temp Pulse Resp BP Pulse Ox 97.8 F 87 12 127/54 L 99 11/14/16 08:00 11/14/16 10:01 11/14/16 10:01 11/14/16 10:01 11/14/16 10:01 Intake and Output: 11/14/16 11/14/16 06:59 18:59 Intake Total 800 470 Output Total 360 130 Balance 440 340 - Medications Medications: Current Medications Aspirin (Aspirin Chewable) 81 mg PO DAILY [facility] Last Admin: 11/12/16 10:51 Dose: 81 mg Clopidogrel Bisulfate (Plavix) 75 mg PO DAILY [facility] Last Admin: 11/12/16 10:51 Dose: 75 mg Famotidine (Pepcid) 20 mg PO DAILY [facility] Last Admin: 11/14/16 10:00 Dose: 20 mg Heparin Sodium (Porcine) (Heparin) 5,000 units SC Q12 [facility] Last Admin: 11/14/16 10:01 Dose: 5,000 units Meropenem 500 mg/ Sodium (Chloride) 100 mls @ 200 mls/hr IVPB Q8 [facility] Last Admin: 11/14/16 05:50 Dose: 200 mls/hr Insulin Detemir (Levemir) 20 unit SC DAILY [facility] Last Admin: 11/14/16 10:03 Dose: 20 unit Insulin Human Regular (Novolin R) 0 unit SC Q6 [facility] PRN Reason: Protocol Last Admin: 11/14/16 06:00 Dose: Not Given Levetiracetam (Keppra) 500 mg GT BID [facility] Last Admin: 11/14/16 10:00 Dose: 500 mg - Labs Labs: 11/14/16 07:55 11/14/16 06:24 PT 13.3 SECONDS (9.7-12.2) H 11/09/16 05:50 INR 1.2 11/09/16 05:50 APTT 37 SECONDS (21-34) H 11/09/16 05:50 - Constitutional Appears: Non-toxic, Chronically Ill - Head Exam Head Exam: NORMOCEPHALIC - Eye Exam Eye Exam: PERRL. absent: Scleral icterus - ENT Exam ENT Exam: Mucous Membranes Dry - Neck Exam Neck Exam: absent: Lymphadenopathy - Respiratory Exam Respiratory Exam: Decreased Breath Sounds, Clear to Ausculation Bilateral - Cardiovascular Exam Cardiovascular Exam: REGULAR RHYTHM, +S1, +S2 - GI/Abdominal Exam GI & Abdominal Exam: Distended, Soft - Rectal Exam Rectal Exam: Deferred - Exam Exam: NORMAL INSPECTION - Extremities Exam Extremities Exam: absent: Calf Tenderness - Back Exam Back Exam: absent: CVA tenderness (L), CVA tenderness (R) - Neurological Exam Neurological Exam: Altered - Psychiatric Exam Psychiatric exam: Depressed Assessment and Plan (1) LASHON (acute kidney injury) Status: Acute (2) Hyperkalemia Status: Acute (3) Hypothermia Status: Acute (4) Insulin dependent diabetes mellitus Status: Acute (5) Respiratory failure Status: Acute (6) Sepsis Status: Acute (7) Septic shock Status: Acute (8) UTI (lower urinary tract infection) Status: Acute (9) CHF (congestive heart failure) Status: Chronic (10) CVA (cerebral vascular accident) Status: Acute (11) Delirium due to another medical condition Status: Acute (12) Lower extremity edema Status: Acute (13) Diabetes mellitus Status: Chronic
--- NOTE | 2016-11-14 12:32 | CP.PCM.PN ---
Subjective - Date & Time of Evaluation Date of Evaluation: 11/14/16 Time of Evaluation: 12:00 - Subjective Subjective: Still intubated, nonresponsive, with prior history of multiple cerebrovascular accident, on supportive care for tracheostomy. Anasarca with CHF stable blood pressure needs BRONWYN inhibitor and beta abilio Objective - Vital Signs/Intake and Output Vital Signs (last 24 hours): Temp Pulse Resp BP Pulse Ox 98.3 F 86 12 149/47 L 98 11/14/16 12:00 11/14/16 12:01 11/14/16 12:01 11/14/16 12:01 11/14/16 12:01 Intake and Output: 11/14/16 11/14/16 06:59 18:59 Intake Total 800 570 Output Total 360 175 Balance 440 395 - Medications Medications: Current Medications Aspirin (Aspirin Chewable) 81 mg PO DAILY [facility] Last Admin: 11/12/16 10:51 Dose: 81 mg Clopidogrel Bisulfate (Plavix) 75 mg PO DAILY [facility] Last Admin: 11/12/16 10:51 Dose: 75 mg Famotidine (Pepcid) 20 mg PO DAILY [facility] Last Admin: 11/14/16 10:00 Dose: 20 mg Heparin Sodium (Porcine) (Heparin) 5,000 units SC Q12 [facility] Last Admin: 11/14/16 10:01 Dose: 5,000 units Meropenem 500 mg/ Sodium (Chloride) 100 mls @ 200 mls/hr IVPB Q8 [facility] Last Admin: 11/14/16 05:50 Dose: 200 mls/hr Insulin Detemir (Levemir) 20 unit SC DAILY [facility] Last Admin: 11/14/16 10:03 Dose: 20 unit Insulin Human Regular (Novolin R) 0 unit SC Q6 [facility] PRN Reason: Protocol Last Admin: 11/14/16 12:28 Dose: Not Given Levetiracetam (Keppra) 500 mg GT BID [facility] Last Admin: 11/14/16 10:00 Dose: 500 mg - Labs Labs: 11/14/16 07:55 11/14/16 06:24 PT 13.3 SECONDS (9.7-12.2) H 11/09/16 05:50 INR 1.2 11/09/16 05:50 APTT 37 SECONDS (21-34) H 11/09/16 05:50 - Constitutional Appears: Toxic - Head Exam Head Exam: ATRAUMATIC - ENT Exam ENT Exam: Mucous Membranes Moist - Neck Exam Neck Exam: absent: Lymphadenopathy, Thyromegaly - Respiratory Exam Respiratory Exam: Clear to Ausculation Bilateral. absent: Rales - Cardiovascular Exam Cardiovascular Exam: REGULAR RHYTHM, Murmur - GI/Abdominal Exam GI & Abdominal Exam: Normal Bowel Sounds. absent: Organomegaly - Rectal Exam Rectal Exam: Deferred - Extremities Exam Extremities Exam: Normal Capillary Refill, Pedal Edema - Neurological Exam Additional comments: non responssive - Skin Skin Exam: Dry Assessment and Plan (1) CHF (congestive heart failure) Status: Chronic (2) Septic shock Status: Acute (3) CAD (coronary artery disease) Status: Chronic (4) Diabetes mellitus Status: Chronic
--- NOTE | 2016-11-14 14:13 | CP.PCM.PN ---
Subjective - Date & Time of Evaluation Date of Evaluation: 11/14/16 Time of Evaluation: 10:20 - Subjective Subjective: patient seen and examined in the intensive care unit On ventilatory support switched back to PRVC mode for tachypnea Minimal response to stimuli Afebrile Objective - Vital Signs/Intake and Output Vital Signs (last 24 hours): Temp Pulse Resp BP Pulse Ox 98.3 F 86 12 149/47 L 98 11/14/16 12:00 11/14/16 12:01 11/14/16 12:01 11/14/16 12:01 11/14/16 12:01 Intake and Output: 11/14/16 11/14/16 06:59 18:59 Intake Total 800 570 Output Total 360 175 Balance 440 395 - Medications Medications: Current Medications Aspirin (Aspirin Chewable) 81 mg PO DAILY [facility] Last Admin: 11/12/16 10:51 Dose: 81 mg Clopidogrel Bisulfate (Plavix) 75 mg PO DAILY [facility] Last Admin: 11/12/16 10:51 Dose: 75 mg Famotidine (Pepcid) 20 mg PO DAILY [facility] Last Admin: 11/14/16 10:00 Dose: 20 mg Heparin Sodium (Porcine) (Heparin) 5,000 units SC Q12 [facility] Last Admin: 11/14/16 10:01 Dose: 5,000 units Meropenem 500 mg/ Sodium (Chloride) 100 mls @ 200 mls/hr IVPB Q8 [facility] Last Admin: 11/14/16 13:39 Dose: 200 mls/hr Insulin Detemir (Levemir) 20 unit SC DAILY [facility] Last Admin: 11/14/16 10:03 Dose: 20 unit Insulin Human Regular (Novolin R) 0 unit SC Q6 [facility] PRN Reason: Protocol Last Admin: 11/14/16 12:28 Dose: Not Given Levetiracetam (Keppra) 500 mg GT BID [facility] Last Admin: 11/14/16 10:00 Dose: 500 mg - Labs Labs: 11/14/16 07:55 11/14/16 06:24 PT 13.3 SECONDS (9.7-12.2) H 11/09/16 05:50 INR 1.2 11/09/16 05:50 APTT 37 SECONDS (21-34) H 11/09/16 05:50 - Head Exam Head Exam: ATRAUMATIC, NORMOCEPHALIC - ENT Exam ENT Exam: Mucous Membranes Moist - Neck Exam Neck Exam: Normal Inspection - Respiratory Exam Respiratory Exam: Decreased Breath Sounds - Cardiovascular Exam Cardiovascular Exam: REGULAR RHYTHM - GI/Abdominal Exam GI & Abdominal Exam: Normal Bowel Sounds - Extremities Exam Extremities Exam: Pedal Edema Assessment and Plan (1) Respiratory failure Status: Acute (2) Hypothermia Status: Acute (3) Sepsis Status: Acute
--- NOTE | 2016-11-14 17:06 | CP.PCM.PN ---
Subjective - Date & Time of Evaluation Date of Evaluation: 11/14/16 Time of Evaluation: 13:00 - Subjective Subjective: clinically same Objective - Vital Signs/Intake and Output Vital Signs (last 24 hours): Temp Pulse Resp BP Pulse Ox 97.4 F L 80 15 141/54 L 98 11/14/16 16:00 11/14/16 17:01 11/14/16 17:01 11/14/16 17:01 11/14/16 17:01 Intake and Output: 11/14/16 11/14/16 06:59 18:59 Intake Total 800 1170 Output Total 360 305 Balance 440 865 - Medications Medications: Current Medications Aspirin (Aspirin Chewable) 81 mg PO DAILY [facility] Last Admin: 11/12/16 10:51 Dose: 81 mg Clopidogrel Bisulfate (Plavix) 75 mg PO DAILY [facility] Last Admin: 11/12/16 10:51 Dose: 75 mg Famotidine (Pepcid) 20 mg PO DAILY [facility] Last Admin: 11/14/16 10:00 Dose: 20 mg Heparin Sodium (Porcine) (Heparin) 5,000 units SC Q12 [facility] Last Admin: 11/14/16 10:01 Dose: 5,000 units Meropenem 500 mg/ Sodium (Chloride) 100 mls @ 200 mls/hr IVPB Q8 [facility] Last Admin: 11/14/16 13:39 Dose: 200 mls/hr Insulin Detemir (Levemir) 20 unit SC DAILY [facility] Last Admin: 11/14/16 10:03 Dose: 20 unit Insulin Human Regular (Novolin R) 0 unit SC Q6 [facility] PRN Reason: Protocol Last Admin: 11/14/16 12:28 Dose: Not Given Levetiracetam (Keppra) 500 mg GT BID [facility] Last Admin: 11/14/16 10:00 Dose: 500 mg - Labs Labs: 11/14/16 07:55 11/14/16 06:24 PT 13.3 SECONDS (9.7-12.2) H 11/09/16 05:50 INR 1.2 11/09/16 05:50 APTT 37 SECONDS (21-34) H 11/09/16 05:50 - Constitutional Appears: Well - Head Exam Head Exam: ATRAUMATIC, NORMAL INSPECTION, NORMOCEPHALIC - Eye Exam Eye Exam: EOMI, Normal appearance, PERRL Pupil Exam: NORMAL ACCOMODATION, PERRL - ENT Exam ENT Exam: Mucous Membranes Moist, Normal Exam - Neck Exam Neck Exam: Full ROM, Normal Inspection. absent: Lymphadenopathy - Respiratory Exam Respiratory Exam: Decreased Breath Sounds - Cardiovascular Exam Cardiovascular Exam: REGULAR RHYTHM, +S1, +S2 - GI/Abdominal Exam GI & Abdominal Exam: Soft, Diminished Bowel Sounds - Rectal Exam Rectal Exam: Deferred
--- NOTE | 2016-11-14 23:24 | CP.PCM.PN ---
Subjective - Date & Time of Evaluation Date of Evaluation: 11/14/16 Time of Evaluation: 18:05 - Subjective Subjective: Pt seen and examined, remains on ventilator with low FiO2 of 80%, not weanable he is for tracheostomy on Monday Objective - Vital Signs/Intake and Output Vital Signs (last 24 hours): Temp Pulse Resp BP Pulse Ox 97.4 F L 76 14 124/37 L 98 11/14/16 20:00 11/14/16 23:01 11/14/16 23:01 11/14/16 23:01 11/14/16 23:01 Intake and Output: 11/14/16 11/15/16 18:59 06:59 Intake Total 1220 300 Output Total 335 130 Balance 885 170 - Medications Medications: Current Medications Aspirin (Aspirin Chewable) 81 mg PO DAILY [facility] Last Admin: 11/12/16 10:51 Dose: 81 mg Clopidogrel Bisulfate (Plavix) 75 mg PO DAILY [facility] Last Admin: 11/12/16 10:51 Dose: 75 mg Famotidine (Pepcid) 20 mg PO DAILY [facility] Last Admin: 11/14/16 10:00 Dose: 20 mg Heparin Sodium (Porcine) (Heparin) 5,000 units SC Q12 [facility] Last Admin: 11/14/16 21:25 Dose: 5,000 units Meropenem 500 mg/ Sodium (Chloride) 100 mls @ 200 mls/hr IVPB Q8 [facility] Last Admin: 11/14/16 21:26 Dose: 200 mls/hr Insulin Detemir (Levemir) 20 unit SC DAILY [facility] Last Admin: 11/14/16 10:03 Dose: 20 unit Insulin Human Regular (Novolin R) 0 unit SC Q6 [facility] PRN Reason: Protocol Last Admin: 11/14/16 17:53 Dose: 2 unit Levetiracetam (Keppra) 500 mg GT BID [facility] Last Admin: 11/14/16 17:51 Dose: 500 mg Rosuvastatin Calcium (Crestor) 5 mg PO HS [facility] Last Admin: 11/14/16 21:26 Dose: 5 mg - Labs Labs: 11/14/16 07:55 11/14/16 06:24 PT 13.3 SECONDS (9.7-12.2) H 11/09/16 05:50 INR 1.2 11/09/16 05:50 APTT 37 SECONDS (21-34) H 11/09/16 05:50 - Constitutional Appears: No Acute Distress, Chronically Ill - Eye Exam Eye Exam: EOMI, Normal appearance, PERRL Pupil Exam: NORMAL ACCOMODATION, PERRL - Respiratory Exam Respiratory Exam: Decreased Breath Sounds, Rales, Rhonchi - Cardiovascular Exam Cardiovascular Exam: REGULAR RHYTHM, +S1, +S2. absent: Murmur Assessment and Plan (1) Respiratory failure Status: Acute (2) Insulin dependent diabetes mellitus Status: Acute (3) UTI (lower urinary tract infection) Status: Acute
[2016-11-15] MEDS: (Novolin R) Insulin Human Regular 100 units/ml vial SC SCH ×4 (00:14→17:37)
[2016-11-15 05:15] LABS: ABG ALLEN TEST POS; ABG MECHANICAL RATE 12; ARTERIAL BLOOD HGB O2 SAT 96.2 % (95.0-98.0); ATERIAL BLOOD GAS PEEP 5; CARBOXYHEMOGLOBIN 1.5 % (0.5-1.5); DRAW SITE RR; HHB 0.9 % (0.0-5.0); METHEMOGLOBIN 1.4 % (0.0-3.0)
[2016-11-15] MEDS: Meropenem 500 MG in Sodium Chloride 0.9% 100 ML IVPB SCH ×3 (05:48→21:47)
[2016-11-15 06:30] LABS: BASO % 0.3 % (0.0-2.0); EOS # 0.3 K/uL (0.0-0.7); EOS % 4.8 % (0.0-4.0); HEMATOCRIT 28.2 % (35.0-51.0); LYMPH # 1.3 K/uL (1.0-4.3); LYMPH % 20.7 % (20.0-40.0); MEAN CELL VOLUME 81.9 fL (80.0-94.0); MEAN CORPUSCULAR HGB CONC 30.5 g/dL (33.0-37.0); MEAN PLATELET VOLUME 9.1 fL (7.2-11.7); MONO # 0.4 K/uL (0.0-0.8); RED CELL DISTRIBUTION WIDTH 18.3 % (11.5-14.5); WHITE BLOOD COUNT 6.4 K/uL (4.8-10.8)
[2016-11-15 06:53] LABS: POTASSIUM 3.7 mmol/L (3.6-5.2)
[2016-11-15 06:55] LABS: ALB/GLOB RATIO 0.7 (1.0-2.1); BILIRUBIN,TOTAL 0.4 mg/dL (0.2-1.3); TOTAL PROTEIN 6.3 g/dL (6.3-8.3)
[2016-11-15 06:56] LABS: CALCIUM 8.6 mg/dl (8.6-10.4); MAGNESIUM 2.5 mg/dL (1.6-2.3); PHOSPHOROUS 3.1 mg/dL (2.5-4.5)
--- NOTE | 2016-11-15 07:52 | CP.PCM.PN ---
Subjective - Date & Time of Evaluation Date of Evaluation: 11/15/16 Time of Evaluation: 07:49 - Subjective Subjective: SURGERY NOTE FOR DR. GARCÍA 75M seen and examined at bedside. Patient intubated, unresponsive Objective - Vital Signs/Intake and Output Vital Signs (last 24 hours): Temp Pulse Resp BP Pulse Ox 97.5 F L 82 12 146/67 99 11/15/16 04:00 11/15/16 07:01 11/15/16 07:01 11/15/16 07:01 11/15/16 07:01 Intake and Output: 11/15/16 11/15/16 06:59 18:59 Intake Total 1000 50 Output Total 470 50 Balance 530 0 - Medications Medications: Current Medications Aspirin (Aspirin Chewable) 81 mg PO DAILY [facility] Last Admin: 11/12/16 10:51 Dose: 81 mg Clopidogrel Bisulfate (Plavix) 75 mg PO DAILY [facility] Last Admin: 11/12/16 10:51 Dose: 75 mg Famotidine (Pepcid) 20 mg PO DAILY [facility] Last Admin: 11/14/16 10:00 Dose: 20 mg Meropenem 500 mg/ Sodium (Chloride) 100 mls @ 200 mls/hr IVPB Q8 [facility] Last Admin: 11/15/16 05:48 Dose: 200 mls/hr Insulin Detemir (Levemir) 20 unit SC DAILY [facility] Last Admin: 11/14/16 10:03 Dose: 20 unit Insulin Human Regular (Novolin R) 0 unit SC Q6 [facility] PRN Reason: Protocol Last Admin: 11/15/16 05:45 Dose: 2 unit Levetiracetam (Keppra) 500 mg GT BID [facility] Last Admin: 11/14/16 17:51 Dose: 500 mg Rosuvastatin Calcium (Crestor) 5 mg PO HS [facility] Last Admin: 11/14/16 21:26 Dose: 5 mg - Labs Labs: 11/15/16 06:09 11/15/16 06:08 PT 13.3 SECONDS (9.7-12.2) H 11/09/16 05:50 INR 1.2 11/09/16 05:50 APTT 37 SECONDS (21-34) H 11/09/16 05:50 - Constitutional Appears: Other (intubated, unresponsive) - Respiratory Exam Respiratory Exam: Clear to Ausculation Bilateral, NORMAL BREATHING PATTERN Additional comments: intubated - Cardiovascular Exam Cardiovascular Exam: REGULAR RHYTHM, +S1, +S2 Assessment and Plan - Assessment and Plan (Free Text) Assessment: 75M with respiratory failure - Scheduled for perc trach on monday noon Further recs discuss with Dr. Rg Sandoval, PGY1
--- NOTE | 2016-11-15 08:15 | RAD ---
Chest x-ray single frontal view History: Ventilator. Comparison: 11/14/2016 Findings: Lines and tubes stable position. Moderate venous congestion. Patchy left basilar airspace opacity with question trace left pleural effusion. Cardiomegaly. Degenerative changes in the spine and shoulders. Impression: Lines and tubes stable position. Moderate venous congestion. Patchy left basilar airspace opacity with question trace left pleural effusion. Cardiomegaly.
--- NOTE | 2016-11-15 08:43 | CP.CCUPN ---
<Juju Whittington - Last Filed: 11/15/16 16:04> CCU Subjective - Physician Review Subjective (Free Text): 11/15/16 16:08 Patient seen and examined at bedside No acute events overnight- afebrile Patient intubated on vent (12, 50, 5, 500) Tolerating NG feeds @ 50cc/hr no residuals Patient for trach 11/16 Minimally responsive to stimuli ROS unobtainable CCU Objective - Vital Signs / Intake & Output Vital Signs (Last 4 hours): Vital Signs Temp Pulse Resp BP Pulse Ox 11/15/16 08:02 73 11 L 161/74 H 100 11/15/16 08:00 97.4 F L 79 10 L 100 11/15/16 07:01 82 12 146/67 99 11/15/16 07:00 69 12 99 11/15/16 06:03 73 12 153/61 H 100 11/15/16 06:00 82 12 100 11/15/16 05:07 85 12 146/63 98 11/15/16 05:00 79 13 93 L Intake and Output (Last 8hrs): Intake & Output 11/14/16 11/15/16 11/15/16 22:59 06:59 14:59 Intake Total 700 750 100 Output Total 220 360 90 Balance 480 390 10 Weight 240 lb Intake: Intake, IV Amount 100 100 Right Distal Port 100 100 Tube Feeding 350 400 100 Other 250 250 Output: Urine 220 360 90 Urethral (Wick) 220 360 90 Other: # Bowel Movements 1 - Physical Exam Head: Positive for: Atraumatic, Normocephalic, Other (ET Tube in place) Pupils: Positive for: PERRL Conjunctiva: Positive for: Normal. Negative for: Injected, Icteric Mouth: Positive for: Moist Mucous Membranes. Negative for: Drooling Nose (External): Positive for: Atraumatic Neck: Negative for: JVD, Lymphadenopathy Respiratory/Chest: Positive for: Good Air Exchange, Decreased Breath Sounds. Negative for: Respiratory Distress, Accessory Muscle Use, Wheezes, Rales, Retracting, Rhonchi Cardiovascular: Positive for: Regular Rate and Rhythm, Murmurs, Normal S1, S2, Peripheal Pulses Present. Negative for: Irregular Rhythm, Tachycardic, Bradycardic Abdomen: Positive for: Normal Bowel Sounds. Negative for: Tenderness, Distention, Peritoneal Signs, Rebound, Guarding Back: Positive for: Normal Inspection Upper Extremity: Positive for: Normal Inspection. Negative for: Cyanosis, Edema Lower Extremity: Positive for: Normal Inspection. Negative for: Edema Skin: Positive for: Warm, Normal Color Psychiatric: Positive for: Alert. Negative for: Oriented x 3, Normal Insight, Normal Concentration - Medications Active Medications: Active Medications Generic Name Dose Route Start Last Admin Trade Name Freq PRN Reason Stop Dose Admin Aspirin 81 mg 11/07/16 10:00 11/12/16 10:51 Aspirin Chewable PO 81 mg DAILY EMILY Administration Clopidogrel Bisulfate 75 mg 11/07/16 10:00 11/12/16 10:51 Plavix PO 75 mg DAILY EMILY Administration Famotidine 20 mg 11/14/16 10:00 11/14/16 10:00 Pepcid PO 20 mg DAILY EMILY Administration Meropenem 500 mg/ Sodium 100 mls @ 200 mls/hr 11/10/16 14:00 11/15/16 05:48 Chloride IVPB 200 mls/hr Q8 EMILY Administration Insulin Detemir 20 unit 11/07/16 10:00 11/14/16 10:03 Levemir SC 20 unit DAILY EMILY Administration Insulin Human Regular 0 unit 11/07/16 06:00 11/15/16 05:45 Novolin R SC 2 unit Q6 EMILY Administration Protocol Levetiracetam 500 mg 11/10/16 11:00 11/14/16 17:51 Keppra GT 500 mg BID EMILY Administration Rosuvastatin Calcium 5 mg 11/14/16 22:00 11/14/16 21:26 Crestor PO 5 mg HS EMILY Administration - Patient Studies Lab Studies: Lab Studies 11/15/16 11/15/16 11/15/16 Range/Units 06:09 06:08 06:08 WBC 6.4 (4.8-10.8) K/uL RBC 3.44 L (4.40-5.90) Mil/uL Hgb 8.6 L (12.0-18.0) g/dL Hct 28.2 L (35.0-51.0) % MCV 81.9 (80.0-94.0) fL MCH 25.0 L (27.0-31.0) pg MCHC 30.5 L (33.0-37.0) g/dL RDW 18.3 H (11.5-14.5) % Plt Count 96 L (130-400) K/uL MPV 9.1 (7.2-11.7) fL Neut % (Auto) 68.2 (50.0-75.0) % Lymph % (Auto) 20.7 (20.0-40.0) % Cass % (Auto) 6.0 (0.0-10.0) % Eos % (Auto) 4.8 H (0.0-4.0) % Baso % (Auto) 0.3 (0.0-2.0) % Neut # 4.3 (1.8-7.0) K/uL Lymph # 1.3 (1.0-4.3) K/uL Cass # 0.4 (0.0-0.8) K/uL Eos # 0.3 (0.0-0.7) K/uL Baso # 0.0 (0.0-0.2) K/uL Puncture Site pCO2 (35-45) mm/Hg pO2 (80-100) mm/Hg HCO3 (21-28) mmol/L ABG pH (7.35-7.45) ABG Total CO2 (22-28) mmol/L ABG O2 Saturation (95-98) % ABG Base Excess (-2.0-3.0) mmol/L ABG Hemoglobin (11.7-17.4) g/dL ABG Carboxyhemoglobin (0.5-1.5) % POC ABG HHb (Measured) (0.0-5.0) % ABG Methemoglobin (0.0-3.0) % Timmy Test A-a O2 Difference mm/Hg Respiratory Index Hgb O2 Saturation (95.0-98.0) % Mechanical Rate FiO2 % Tidal Volume PEEP Sodium 154 H (132-148) mmol/L Potassium 3.7 (3.6-5.2) mmol/L Chloride 115 H (98-107) mmol/L Carbon Dioxide 33 H (22-30) mmol/L Anion Gap 10 (10-20) BUN 34 H (9-20) mg/dL Creatinine 1.4 (0.8-1.5) MG/DL Est GFR ( Amer) 59 Est GFR (Non-Af Amer) 49 POC Glucose (mg/dL) (65-110) mg/dL Random Glucose 124 H (75-110) mg/dL Calcium 8.6 (8.6-10.4) mg/dl Phosphorus 3.1 (2.5-4.5) mg/dL Magnesium 2.5 H (1.6-2.3) mg/dL Total Bilirubin 0.4 (0.2-1.3) mg/dL AST 34 (17-59) U/L ALT 44 (21-72) U/L Alkaline Phosphatase 83 (38-126) U/L Total Protein 6.3 (6.3-8.3) g/dL Albumin 2.6 L (3.5-5.0) g/dL Globulin 3.7 (2.2-3.9) gm/dL Albumin/Globulin Ratio 0.7 L (1.0-2.1) Vancomycin Trough 7.2 (5.0-10.0) ug/mL 11/15/16 11/15/16 11/15/16 Range/Units 05:31 05:07 00:07 WBC (4.8-10.8) K/uL RBC (4.40-5.90) Mil/uL Hgb (12.0-18.0) g/dL Hct (35.0-51.0) % MCV (80.0-94.0) fL MCH (27.0-31.0) pg MCHC (33.0-37.0) g/dL RDW (11.5-14.5) % Plt Count (130-400) K/uL MPV (7.2-11.7) fL Neut % (Auto) (50.0-75.0) % Lymph % (Auto) (20.0-40.0) % Cass % (Auto) (0.0-10.0) % Eos % (Auto) (0.0-4.0) % Baso % (Auto) (0.0-2.0) % Neut # (1.8-7.0) K/uL Lymph # (1.0-4.3) K/uL Cass # (0.0-0.8) K/uL Eos # (0.0-0.7) K/uL Baso # (0.0-0.2) K/uL Puncture Site Rr pCO2 55 H (35-45) mm/Hg pO2 105 H (80-100) mm/Hg HCO3 29.9 H (21-28) mmol/L ABG pH 7.38 (7.35-7.45) ABG Total CO2 34.2 H (22-28) mmol/L ABG O2 Saturation 99.1 H (95-98) % ABG Base Excess 6.4 H (-2.0-3.0) mmol/L ABG Hemoglobin 9.1 L (11.7-17.4) g/dL ABG Carboxyhemoglobin 1.5 (0.5-1.5) % POC ABG HHb (Measured) 0.9 (0.0-5.0) % ABG Methemoglobin 1.4 (0.0-3.0) % Timmy Test Pos A-a O2 Difference 183.0 mm/Hg Respiratory Index 1.7 Hgb O2 Saturation 96.2 (95.0-98.0) % Mechanical Rate 12 FiO2 50.0 % Tidal Volume 500 PEEP 5 Sodium (132-148) mmol/L Potassium (3.6-5.2) mmol/L Chloride (98-107) mmol/L Carbon Dioxide (22-30) mmol/L Anion Gap (10-20) BUN (9-20) mg/dL Creatinine (0.8-1.5) MG/DL Est GFR ( Amer) Est GFR (Non-Af Amer) POC Glucose (mg/dL) 151 H 115 H (65-110) mg/dL Random Glucose (75-110) mg/dL Calcium (8.6-10.4) mg/dl Phosphorus (2.5-4.5) mg/dL Magnesium (1.6-2.3) mg/dL Total Bilirubin (0.2-1.3) mg/dL AST (17-59) U/L ALT (21-72) U/L Alkaline Phosphatase (38-126) U/L Total Protein (6.3-8.3) g/dL Albumin (3.5-5.0) g/dL Globulin (2.2-3.9) gm/dL Albumin/Globulin Ratio (1.0-2.1) Vancomycin Trough (5.0-10.0) ug/mL 06/11/14/16 11/14/16 Range/Units 17:51 11:33 10:02 WBC (4.8-10.8) K/uL RBC (4.40-5.90) Mil/uL Hgb (12.0-18.0) g/dL Hct (35.0-51.0) % MCV (80.0-94.0) fL MCH (27.0-31.0) pg MCHC (33.0-37.0) g/dL RDW (11.5-14.5) % Plt Count (130-400) K/uL MPV (7.2-11.7) fL Neut % (Auto) (50.0-75.0) % Lymph % (Auto) (20.0-40.0) % Cass % (Auto) (0.0-10.0) % Eos % (Auto) (0.0-4.0) % Baso % (Auto) (0.0-2.0) % Neut # (1.8-7.0) K/uL Lymph # (1.0-4.3) K/uL Cass # (0.0-0.8) K/uL Eos # (0.0-0.7) K/uL Baso # (0.0-0.2) K/uL Puncture Site pCO2 (35-45) mm/Hg pO2 (80-100) mm/Hg HCO3 (21-28) mmol/L ABG pH (7.35-7.45) ABG Total CO2 (22-28) mmol/L ABG O2 Saturation (95-98) % ABG Base Excess (-2.0-3.0) mmol/L ABG Hemoglobin (11.7-17.4) g/dL ABG Carboxyhemoglobin (0.5-1.5) % POC ABG HHb (Measured) (0.0-5.0) % ABG Methemoglobin (0.0-3.0) % Timmy Test A-a O2 Difference mm/Hg Respiratory Index Hgb O2 Saturation (95.0-98.0) % Mechanical Rate FiO2 % Tidal Volume PEEP Sodium (132-148) mmol/L Potassium (3.6-5.2) mmol/L Chloride (98-107) mmol/L Carbon Dioxide (22-30) mmol/L Anion Gap (10-20) BUN (9-20) mg/dL Creatinine (0.8-1.5) MG/DL Est GFR ( Amer) Est GFR (Non-Af Amer) POC Glucose (mg/dL) 188 H 145 H 135 H (65-110) mg/dL Random Glucose (75-110) mg/dL Calcium (8.6-10.4) mg/dl Phosphorus (2.5-4.5) mg/dL Magnesium (1.6-2.3) mg/dL Total Bilirubin (0.2-1.3) mg/dL AST (17-59) U/L ALT (21-72) U/L Alkaline Phosphatase (38-126) U/L Total Protein (6.3-8.3) g/dL Albumin (3.5-5.0) g/dL Globulin (2.2-3.9) gm/dL Albumin/Globulin Ratio (1.0-2.1) Vancomycin Trough (5.0-10.0) ug/mL Laboratory Results - last 24 hr 11/14/16 11/14/16 11/14/16 10:02 11:33 17:51 WBC RBC Hgb Hct MCV MCH MCHC RDW Plt Count MPV Neut % (Auto) Lymph % (Auto) Cass % (Auto) Eos % (Auto) Baso % (Auto) Neut # Lymph # Cass # Eos # Baso # Puncture Site pCO2 pO2 HCO3 ABG pH ABG Total CO2 ABG O2 Saturation ABG Base Excess ABG Hemoglobin ABG Carboxyhemoglobin POC ABG HHb (Measured) ABG Methemoglobin Timmy Test A-a O2 Difference Respiratory Index Hgb O2 Saturation Mechanical Rate FiO2 Tidal Volume PEEP Sodium Potassium Chloride Carbon Dioxide Anion Gap BUN Creatinine Est GFR ( Amer) Est GFR (Non-Af Amer) POC Glucose (mg/dL) 135 H 145 H 188 H Random Glucose Calcium Phosphorus Magnesium Total Bilirubin AST ALT Alkaline Phosphatase Total Protein Albumin Globulin Albumin/Globulin Ratio Vancomycin Trough 11/15/16 11/15/16 11/15/16 00:07 05:07 05:31 WBC RBC Hgb Hct MCV MCH MCHC RDW Plt Count MPV Neut % (Auto) Lymph % (Auto) Cass % (Auto) Eos % (Auto) Baso % (Auto) Neut # Lymph # Cass # Eos # Baso # Puncture Site Rr pCO2 55 H pO2 105 H HCO3 29.9 H ABG pH 7.38 ABG Total CO2 34.2 H ABG O2 Saturation 99.1 H ABG Base Excess 6.4 H ABG Hemoglobin 9.1 L ABG Carboxyhemoglobin 1.5 POC ABG HHb (Measured) 0.9 ABG Methemoglobin 1.4 Timmy Test Pos A-a O2 Difference 183.0 Respiratory Index 1.7 Hgb O2 Saturation 96.2 Mechanical Rate 12 FiO2 50.0 Tidal Volume 500 PEEP 5 Sodium Potassium Chloride Carbon Dioxide Anion Gap BUN Creatinine Est GFR ( Amer) Est GFR (Non-Af Amer) POC Glucose (mg/dL) 115 H 151 H Random Glucose Calcium Phosphorus Magnesium Total Bilirubin AST ALT Alkaline Phosphatase Total Protein Albumin Globulin Albumin/Globulin Ratio Vancomycin Trough 11/15/16 11/15/16 11/15/16 06:08 06:08 06:09 WBC 6.4 RBC 3.44 L Hgb 8.6 L Hct 28.2 L MCV 81.9 MCH 25.0 L MCHC 30.5 L RDW 18.3 H Plt Count 96 L MPV 9.1 Neut % (Auto) 68.2 Lymph % (Auto) 20.7 Cass % (Auto) 6.0 Eos % (Auto) 4.8 H Baso % (Auto) 0.3 Neut # 4.3 Lymph # 1.3 Cass # 0.4 Eos # 0.3 Baso # 0.0 Puncture Site pCO2 pO2 HCO3 ABG pH ABG Total CO2 ABG O2 Saturation ABG Base Excess ABG Hemoglobin ABG Carboxyhemoglobin POC ABG HHb (Measured) ABG Methemoglobin Timmy Test A-a O2 Difference Respiratory Index Hgb O2 Saturation Mechanical Rate FiO2 Tidal Volume PEEP Sodium 154 H Potassium 3.7 Chloride 115 H Carbon Dioxide 33 H Anion Gap 10 BUN 34 H Creatinine 1.4 Est GFR ( Amer) 59 Est GFR (Non-Af Amer) 49 POC Glucose (mg/dL) Random Glucose 124 H Calcium 8.6 Phosphorus 3.1 Magnesium 2.5 H Total Bilirubin 0.4 AST 34 ALT 44 Alkaline Phosphatase 83 Total Protein 6.3 Albumin 2.6 L Globulin 3.7 Albumin/Globulin Ratio 0.7 L Vancomycin Trough 7.2 Fingerstick Blood Sugar Results: 188 Review of Systems - Review of Systems Systems not reviewed;Unavailable: Acuity of Condition Assessment/Plan - Assessment and Plan (Free Text) Assessment: 75yo M. 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 Presented with altered mental status and acute respiratory failure requiring intubation. Plan: Neuro: Poorly responsive multiple CVA in the past- left hemiapresis Keppra 500mg gt bid for seizure ppx Pulm: Acute respiratory failure, intubated on vent (12, 50, 5, 500) CXR 11/15 moderate venous congestion; patchy L basilar airspace opacity with question trace L pleural effusion Thick secretions Patient for Trach in AM 11/16 CV: Hemodynamically stable. Acute on chronic Systolic congestive heart failure. Echo 11/07 normal LV systolic function; moderate LVH; diastolic dysfunction; normal chamber size; trace to mild TR ASA 81mg po daily- on hold for trach Plavix 75mg po daily- on hold for trach Crestor 5mg po hs Hem: ASA and Plavix on hold for trach Renal: BUN/Cr 34/1.4 renal u/s: increased echogenicity of b/l renal cortices suggestive of medical renal disease 1/2NS @ 100cc/hr free water flushes 250cc q6h Endo: DM type II RISS Levemir 20 units sc GI: NPO NGT tube feeds Isosource 1.5 - goal of 50cc/hr ID: Severe sepsis from UTI with Proteus mirabilis 11/06 Merrem 500mg ivpb q8 started 11/10- continue for 2 weeks as per ID Flagyl 500mg ivpb q8 Blood culture negative 11/06 Urine culture negative 11/[address] Alexis on board DVT proph - heparin subcutaneous on hold for trach in AM GI proph - Pepcid 20mg po daily wick for strict I/O's during acute illness Tube feeds on hold after midnight for procedure in AM Code status - full code Case discussed with Dr. Shaheen Whittington PGY1 <Wes Jamison - Last Filed: 11/15/16 17:41> CCU Objective - Vital Signs / Intake & Output Intake and Output (Last 8hrs): Intake & Output 11/15/16 11/15/16 11/15/16 06:59 14:59 22:59 Intake Total 750 800 550 Output Total 360 385 115 Balance 390 415 435 Weight 240 lb Intake: Intake, IV Amount 100 400 400 Right Antecubital 300 300 Right Distal Port 100 100 100 Tube Feeding 400 400 150 Other 250 Output: Urine 360 385 115 Urethral (Wick) 360 385 115 Other: # Bowel Movements 1 - Medications Active Medications: Active Medications Generic Name Dose Route Start Last Admin Trade Name Freq PRN Reason Stop Dose Admin Aspirin 81 mg 11/07/16 10:00 11/12/16 10:51 Aspirin Chewable PO 81 mg DAILY EMILY Administration Clopidogrel Bisulfate 75 mg 11/07/16 10:00 11/12/16 10:51 Plavix PO 75 mg DAILY EMILY Administration Famotidine 20 mg 11/14/16 10:00 11/15/16 09:03 Pepcid PO 20 mg DAILY EMILY Administration Meropenem 500 mg/ Sodium 100 mls @ 200 mls/hr 11/10/16 14:00 11/15/16 13:37 Chloride IVPB 200 mls/hr Q8 EMILY Administration Sodium Chloride 1,000 mls @ 100 mls/hr 11/15/16 09:50 11/15/16 10:18 Sodium Chloride 0.45% IV 11/15/16 19:49 100 mls/hr .Q10H ONE Administration Metronidazole 500 mg in 100 mls @ 100 mls/hr 11/15/16 14:00 11/15/16 13:43 Flagyl IVPB 100 mls/hr Q8 EMILY Administration Insulin Detemir 20 unit 11/07/16 10:00 11/15/16 09:02 Levemir SC 20 unit DAILY EMILY Administration Insulin Human Regular 0 unit 11/07/16 06:00 11/15/16 12:00 Novolin R SC Not Given Q6 EMILY Protocol Levetiracetam 500 mg 11/10/16 11:00 11/15/16 09:03 Keppra GT 500 mg BID EMILY Administration Rosuvastatin Calcium 5 mg 11/14/16 22:00 11/14/16 21:26 Crestor PO 5 mg HS EMILY Administration - Patient Studies Lab Studies: Lab Studies 11/15/16 11/15/16 11/15/16 Range/Units 11:50 06:09 06:08 WBC 6.4 (4.8-10.8) K/uL RBC 3.44 L (4.40-5.90) Mil/uL Hgb 8.6 L (12.0-18.0) g/dL Hct 28.2 L (35.0-51.0) % MCV 81.9 (80.0-94.0) fL MCH 25.0 L (27.0-31.0) pg MCHC 30.5 L (33.0-37.0) g/dL RDW 18.3 H (11.5-14.5) % Plt Count 96 L (130-400) K/uL MPV 9.1 (7.2-11.7) fL Neut % (Auto) 68.2 (50.0-75.0) % Lymph % (Auto) 20.7 (20.0-40.0) % Cass % (Auto) 6.0 (0.0-10.0) % Eos % (Auto) 4.8 H (0.0-4.0) % Baso % (Auto) 0.3 (0.0-2.0) % Neut # 4.3 (1.8-7.0) K/uL Lymph # 1.3 (1.0-4.3) K/uL Cass # 0.4 (0.0-0.8) K/uL Eos # 0.3 (0.0-0.7) K/uL Baso # 0.0 (0.0-0.2) K/uL Puncture Site pCO2 (35-45) mm/Hg pO2 (80-100) mm/Hg HCO3 (21-28) mmol/L ABG pH (7.35-7.45) ABG Total CO2 (22-28) mmol/L ABG O2 Saturation (95-98) % ABG Base Excess (-2.0-3.0) mmol/L ABG Hemoglobin (11.7-17.4) g/dL ABG Carboxyhemoglobin (0.5-1.5) % POC ABG HHb (Measured) (0.0-5.0) % ABG Methemoglobin (0.0-3.0) % Timmy Test A-a O2 Difference mm/Hg Respiratory Index Hgb O2 Saturation (95.0-98.0) % Mechanical Rate FiO2 % Tidal Volume PEEP Sodium 154 H (132-148) mmol/L Potassium 3.7 (3.6-5.2) mmol/L Chloride 115 H (98-107) mmol/L Carbon Dioxide 33 H (22-30) mmol/L Anion Gap 10 (10-20) BUN 34 H (9-20) mg/dL Creatinine 1.4 (0.8-1.5) MG/DL Est GFR ( Amer) 59 Est GFR (Non-Af Amer) 49 POC Glucose (mg/dL) 149 H (65-110) mg/dL Random Glucose 124 H (75-110) mg/dL Calcium 8.6 (8.6-10.4) mg/dl Phosphorus 3.1 (2.5-4.5) mg/dL Magnesium 2.5 H (1.6-2.3) mg/dL Total Bilirubin 0.4 (0.2-1.3) mg/dL AST 34 (17-59) U/L ALT 44 (21-72) U/L Alkaline Phosphatase 83 (38-126) U/L Total Protein 6.3 (6.3-8.3) g/dL Albumin 2.6 L (3.5-5.0) g/dL Globulin 3.7 (2.2-3.9) gm/dL Albumin/Globulin Ratio 0.7 L (1.0-2.1) Vancomycin Trough (5.0-10.0) ug/mL 11/15/16 11/15/16 11/15/16 Range/Units 06:08 05:31 05:07 WBC (4.8-10.8) K/uL RBC (4.40-5.90) Mil/uL Hgb (12.0-18.0) g/dL Hct (35.0-51.0) % MCV (80.0-94.0) fL MCH (27.0-31.0) pg MCHC (33.0-37.0) g/dL RDW (11.5-14.5) % Plt Count (130-400) K/uL MPV (7.2-11.7) fL Neut % (Auto) (50.0-75.0) % Lymph % (Auto) (20.0-40.0) % Cass % (Auto) (0.0-10.0) % Eos % (Auto) (0.0-4.0) % Baso % (Auto) (0.0-2.0) % Neut # (1.8-7.0) K/uL Lymph # (1.0-4.3) K/uL Cass # (0.0-0.8) K/uL Eos # (0.0-0.7) K/uL Baso # (0.0-0.2) K/uL Puncture Site Rr pCO2 55 H (35-45) mm/Hg pO2 105 H (80-100) mm/Hg HCO3 29.9 H (21-28) mmol/L ABG pH 7.38 (7.35-7.45) ABG Total CO2 34.2 H (22-28) mmol/L ABG O2 Saturation 99.1 H (95-98) % ABG Base Excess 6.4 H (-2.0-3.0) mmol/L ABG Hemoglobin 9.1 L (11.7-17.4) g/dL ABG Carboxyhemoglobin 1.5 (0.5-1.5) % POC ABG HHb (Measured) 0.9 (0.0-5.0) % ABG Methemoglobin 1.4 (0.0-3.0) % Timmy Test Pos A-a O2 Difference 183.0 mm/Hg Respiratory Index 1.7 Hgb O2 Saturation 96.2 (95.0-98.0) % Mechanical Rate 12 FiO2 50.0 % Tidal Volume 500 PEEP 5 Sodium (132-148) mmol/L Potassium (3.6-5.2) mmol/L Chloride (98-107) mmol/L Carbon Dioxide (22-30) mmol/L Anion Gap (10-20) BUN (9-20) mg/dL Creatinine (0.8-1.5) MG/DL Est GFR ( Amer) Est GFR (Non-Af Amer) POC Glucose (mg/dL) 151 H (65-110) mg/dL Random Glucose (75-110) mg/dL Calcium (8.6-10.4) mg/dl Phosphorus (2.5-4.5) mg/dL Magnesium (1.6-2.3) mg/dL Total Bilirubin (0.2-1.3) mg/dL AST (17-59) U/L ALT (21-72) U/L Alkaline Phosphatase (38-126) U/L Total Protein (6.3-8.3) g/dL Albumin (3.5-5.0) g/dL Globulin (2.2-3.9) gm/dL Albumin/Globulin Ratio (1.0-2.1) Vancomycin Trough 7.2 (5.0-10.0) ug/mL 11/15/16 11/14/16 Range/Units 00:07 17:51 WBC (4.8-10.8) K/uL RBC (4.40-5.90) Mil/uL Hgb (12.0-18.0) g/dL Hct (35.0-51.0) % MCV (80.0-94.0) fL MCH (27.0-31.0) pg MCHC (33.0-37.0) g/dL RDW (11.5-14.5) % Plt Count (130-400) K/uL MPV (7.2-11.7) fL Neut % (Auto) (50.0-75.0) % Lymph % (Auto) (20.0-40.0) % Cass % (Auto) (0.0-10.0) % Eos % (Auto) (0.0-4.0) % Baso % (Auto) (0.0-2.0) % Neut # (1.8-7.0) K/uL Lymph # (1.0-4.3) K/uL Cass # (0.0-0.8) K/uL Eos # (0.0-0.7) K/uL Baso # (0.0-0.2) K/uL Puncture Site pCO2 (35-45) mm/Hg pO2 (80-100) mm/Hg HCO3 (21-28) mmol/L ABG pH (7.35-7.45) ABG Total CO2 (22-28) mmol/L ABG O2 Saturation (95-98) % ABG Base Excess (-2.0-3.0) mmol/L ABG Hemoglobin (11.7-17.4) g/dL ABG Carboxyhemoglobin (0.5-1.5) % POC ABG HHb (Measured) (0.0-5.0) % ABG Methemoglobin (0.0-3.0) % Timmy Test A-a O2 Difference mm/Hg Respiratory Index Hgb O2 Saturation (95.0-98.0) % Mechanical Rate FiO2 % Tidal Volume PEEP Sodium (132-148) mmol/L Potassium (3.6-5.2) mmol/L Chloride (98-107) mmol/L Carbon Dioxide (22-30) mmol/L Anion Gap (10-20) BUN (9-20) mg/dL Creatinine (0.8-1.5) MG/DL Est GFR ( Amer) Est GFR (Non-Af Amer) POC Glucose (mg/dL) 115 H 188 H (65-110) mg/dL Random Glucose (75-110) mg/dL Calcium (8.6-10.4) mg/dl Phosphorus (2.5-4.5) mg/dL Magnesium (1.6-2.3) mg/dL Total Bilirubin (0.2-1.3) mg/dL AST (17-59) U/L ALT (21-72) U/L Alkaline Phosphatase (38-126) U/L Total Protein (6.3-8.3) g/dL Albumin (3.5-5.0) g/dL Globulin (2.2-3.9) gm/dL Albumin/Globulin Ratio (1.0-2.1) Vancomycin Trough (5.0-10.0) ug/mL Laboratory Results - last 24 hr 11/14/16 11/15/16 11/15/16 17:51 00:07 05:07 WBC RBC Hgb Hct MCV MCH MCHC RDW Plt Count MPV Neut % (Auto) Lymph % (Auto) Cass % (Auto) Eos % (Auto) Baso % (Auto) Neut # Lymph # Cass # Eos # Baso # Puncture Site Rr pCO2 55 H pO2 105 H HCO3 29.9 H ABG pH 7.38 ABG Total CO2 34.2 H ABG O2 Saturation 99.1 H ABG Base Excess 6.4 H ABG Hemoglobin 9.1 L ABG Carboxyhemoglobin 1.5 POC ABG HHb (Measured) 0.9 ABG Methemoglobin 1.4 Timmy Test Pos A-a O2 Difference 183.0 Respiratory Index 1.7 Hgb O2 Saturation 96.2 Mechanical Rate 12 FiO2 50.0 Tidal Volume 500 PEEP 5 Sodium Potassium Chloride Carbon Dioxide Anion Gap BUN Creatinine Est GFR ( Amer) Est GFR (Non-Af Amer) POC Glucose (mg/dL) 188 H 115 H Random Glucose Calcium Phosphorus Magnesium Total Bilirubin AST ALT Alkaline Phosphatase Total Protein Albumin Globulin Albumin/Globulin Ratio Vancomycin Trough 11/15/16 11/15/16 11/15/16 05:31 06:08 06:08 WBC RBC Hgb Hct MCV MCH MCHC RDW Plt Count MPV Neut % (Auto) Lymph % (Auto) Cass % (Auto) Eos % (Auto) Baso % (Auto) Neut # Lymph # Cass # Eos # Baso # Puncture Site pCO2 pO2 HCO3 ABG pH ABG Total CO2 ABG O2 Saturation ABG Base Excess ABG Hemoglobin ABG Carboxyhemoglobin POC ABG HHb (Measured) ABG Methemoglobin Timmy Test A-a O2 Difference Respiratory Index Hgb O2 Saturation Mechanical Rate FiO2 Tidal Volume PEEP Sodium 154 H Potassium 3.7 Chloride 115 H Carbon Dioxide 33 H Anion Gap 10 BUN 34 H Creatinine 1.4 Est GFR ( Amer) 59 Est GFR (Non-Af Amer) 49 POC Glucose (mg/dL) 151 H Random Glucose 124 H Calcium 8.6 Phosphorus 3.1 Magnesium 2.5 H Total Bilirubin 0.4 AST 34 ALT 44 Alkaline Phosphatase 83 Total Protein 6.3 Albumin 2.6 L Globulin 3.7 Albumin/Globulin Ratio 0.7 L Vancomycin Trough 7.2 11/15/16 11/15/16 06:09 11:50 WBC 6.4 RBC 3.44 L Hgb 8.6 L Hct 28.2 L MCV 81.9 MCH 25.0 L MCHC 30.5 L RDW 18.3 H Plt Count 96 L MPV 9.1 Neut % (Auto) 68.2 Lymph % (Auto) 20.7 Cass % (Auto) 6.0 Eos % (Auto) 4.8 H Baso % (Auto) 0.3 Neut # 4.3 Lymph # 1.3 Cass # 0.4 Eos # 0.3 Baso # 0.0 Puncture Site pCO2 pO2 HCO3 ABG pH ABG Total CO2 ABG O2 Saturation ABG Base Excess ABG Hemoglobin ABG Carboxyhemoglobin POC ABG HHb (Measured) ABG Methemoglobin Timmy Test A-a O2 Difference Respiratory Index Hgb O2 Saturation Mechanical Rate FiO2 Tidal Volume PEEP Sodium Potassium Chloride Carbon Dioxide Anion Gap BUN Creatinine Est GFR ( Amer) Est GFR (Non-Af Amer) POC Glucose (mg/dL) 149 H Random Glucose Calcium Phosphorus Magnesium Total Bilirubin AST ALT Alkaline Phosphatase Total Protein Albumin Globulin Albumin/Globulin Ratio Vancomycin Trough Critical Care Progress Note - Nutrition Nutrition: Nutrition Category Date Time Status NPO Diet [DIET] Diets 11/16/16 Breakfast Active Assessment/Plan (1) Respiratory failure Current Visit: Yes Status: Acute (2) Hypothermia Current Visit: Yes Status: Acute (3) Sepsis Current Visit: Yes Status: Acute Attending/Attestation - Attestation I have personally seen and examined this patient.: Yes I have fully participated in the care of the patient.: Yes I have reviewed all pertinent clinical information: Yes Notes (Text): 11/15/16 17:38 Patient seen and examined in the intensive care unit. Case discussed with house staff in the morning rounds. No change in mental status and not tolerating CPAP For tracheostomy tomorrow morning Continue antibiotics and present treatment
[2016-11-15] MEDS: Insulin Detemir 100 units/ml Vial (Levemir) SC SCH (09:02)
[2016-11-15] MEDS: levETIRAcetam 100 mg/ml (5ml) Oral Syringe GT SCH ×2 (09:03→18:13)
[2016-11-15] MEDS ORDERED: Sodium Chloride 0.45% 1,000 ML IV ONE (09:50)
[2016-11-15] MEDS ORDERED: Phytonadione 10 mg/ml Inj (Adult) SC STA (11:00)
--- NOTE | 2016-11-15 11:35 | CP.PCM.PN ---
Subjective - Date & Time of Evaluation Date of Evaluation: 11/15/16 Time of Evaluation: 09:00 - Subjective Subjective: + urine c/s rx in progress slow improvement Objective - Vital Signs/Intake and Output Vital Signs (last 24 hours): Temp Pulse Resp BP Pulse Ox 97.4 F L 65 12 146/68 100 11/15/16 08:00 11/15/16 11:01 11/15/16 11:01 11/15/16 11:01 11/15/16 11:01 Intake and Output: 11/15/16 11/15/16 06:59 18:59 Intake Total 1000 250 Output Total 470 245 Balance 530 5 - Medications Medications: Current Medications Aspirin (Aspirin Chewable) 81 mg PO DAILY [facility] Last Admin: 11/12/16 10:51 Dose: 81 mg Clopidogrel Bisulfate (Plavix) 75 mg PO DAILY [facility] Last Admin: 11/12/16 10:51 Dose: 75 mg Famotidine (Pepcid) 20 mg PO DAILY [facility] Last Admin: 11/15/16 09:03 Dose: 20 mg Meropenem 500 mg/ Sodium (Chloride) 100 mls @ 200 mls/hr IVPB Q8 [facility] Last Admin: 11/15/16 05:48 Dose: 200 mls/hr Sodium Chloride (Sodium Chloride 0.45%) 1,000 mls @ 100 mls/hr IV .Q10H ONE Stop: 11/15/16 19:49 Last Admin: 11/15/16 10:18 Dose: 100 mls/hr Metronidazole (Flagyl) 500 mg in 100 mls @ 100 mls/hr IVPB Q8 [facility] Insulin Detemir (Levemir) 20 unit SC DAILY [facility] Last Admin: 11/15/16 09:02 Dose: 20 unit Insulin Human Regular (Novolin R) 0 unit SC Q6 [facility] PRN Reason: Protocol Last Admin: 11/15/16 05:45 Dose: 2 unit Levetiracetam (Keppra) 500 mg GT BID [facility] Last Admin: 11/15/16 09:03 Dose: 500 mg Rosuvastatin Calcium (Crestor) 5 mg PO HS [facility] Last Admin: 11/14/16 21:26 Dose: 5 mg - Labs Labs: 11/15/16 06:09 11/15/16 06:08 PT 13.3 SECONDS (9.7-12.2) H 11/09/16 05:50 INR 1.2 11/09/16 05:50 APTT 37 SECONDS (21-34) H 11/09/16 05:50 - Constitutional Appears: Non-toxic, Chronically Ill - Head Exam Head Exam: NORMOCEPHALIC - Eye Exam Eye Exam: PERRL. absent: Scleral icterus - ENT Exam ENT Exam: Mucous Membranes Dry - Neck Exam Neck Exam: absent: Lymphadenopathy - Respiratory Exam Respiratory Exam: Decreased Breath Sounds, Clear to Ausculation Bilateral - Cardiovascular Exam Cardiovascular Exam: REGULAR RHYTHM, +S1, +S2 - GI/Abdominal Exam GI & Abdominal Exam: Distended, Soft. absent: Tenderness - Rectal Exam Rectal Exam: Deferred Assessment and Plan (1) LASHON (acute kidney injury) Status: Acute (2) Hyperkalemia Status: Acute (3) Hypothermia Status: Acute (4) Insulin dependent diabetes mellitus Status: Acute (5) Respiratory failure Status: Acute (6) Sepsis Status: Acute (7) Septic shock Status: Acute (8) UTI (lower urinary tract infection) Status: Acute (9) CHF (congestive heart failure) Status: Chronic (10) CVA (cerebral vascular accident) Status: Acute (11) Delirium due to another medical condition Status: Acute (12) Lower extremity edema Status: Acute (13) Diabetes mellitus Status: Chronic
[2016-11-15] MEDS: metroNIDAZOLE IV 500 mg/100 ml 500 MG/100 ML BAG IVPB SCH ×2 (13:43→21:08)
--- NOTE | 2016-11-15 16:28 | CP.PCM.PN ---
Subjective - Date & Time of Evaluation Date of Evaluation: 11/15/16 Time of Evaluation: 12:20 - Subjective Subjective: clinically same Objective - Vital Signs/Intake and Output Vital Signs (last 24 hours): Temp Pulse Resp BP Pulse Ox 97.9 F 63 12 158/67 H 99 11/15/16 12:00 11/15/16 13:16 11/15/16 13:16 11/15/16 13:16 11/15/16 13:16 Intake and Output: 11/15/16 11/15/16 06:59 18:59 Intake Total 1000 650 Output Total 470 340 Balance 530 310 - Medications Medications: Current Medications Aspirin (Aspirin Chewable) 81 mg PO DAILY [facility] Last Admin: 11/12/16 10:51 Dose: 81 mg Clopidogrel Bisulfate (Plavix) 75 mg PO DAILY [facility] Last Admin: 11/12/16 10:51 Dose: 75 mg Famotidine (Pepcid) 20 mg PO DAILY [facility] Last Admin: 11/15/16 09:03 Dose: 20 mg Meropenem 500 mg/ Sodium (Chloride) 100 mls @ 200 mls/hr IVPB Q8 [facility] Last Admin: 11/15/16 13:37 Dose: 200 mls/hr Sodium Chloride (Sodium Chloride 0.45%) 1,000 mls @ 100 mls/hr IV .Q10H ONE Stop: 11/15/16 19:49 Last Admin: 11/15/16 10:18 Dose: 100 mls/hr Metronidazole (Flagyl) 500 mg in 100 mls @ 100 mls/hr IVPB Q8 [facility] Last Admin: 11/15/16 13:43 Dose: 100 mls/hr Insulin Detemir (Levemir) 20 unit SC DAILY [facility] Last Admin: 11/15/16 09:02 Dose: 20 unit Insulin Human Regular (Novolin R) 0 unit SC Q6 [facility] PRN Reason: Protocol Last Admin: 11/15/16 05:45 Dose: 2 unit Levetiracetam (Keppra) 500 mg GT BID [facility] Last Admin: 11/15/16 09:03 Dose: 500 mg Rosuvastatin Calcium (Crestor) 5 mg PO HS [facility] Last Admin: 11/14/16 21:26 Dose: 5 mg - Labs Labs: 11/15/16 06:09 11/15/16 06:08 PT 13.3 SECONDS (9.7-12.2) H 11/09/16 05:50 INR 1.2 11/09/16 05:50 APTT 37 SECONDS (21-34) H 11/09/16 05:50 - Constitutional Appears: Well - Head Exam Head Exam: ATRAUMATIC, NORMAL INSPECTION, NORMOCEPHALIC - Eye Exam Eye Exam: EOMI, Normal appearance, PERRL Pupil Exam: NORMAL ACCOMODATION, PERRL - ENT Exam ENT Exam: Mucous Membranes Moist, Normal Exam - Neck Exam Neck Exam: Full ROM, Normal Inspection. absent: Lymphadenopathy - Respiratory Exam Respiratory Exam: Decreased Breath Sounds - Cardiovascular Exam Cardiovascular Exam: REGULAR RHYTHM, +S1, +S2 - GI/Abdominal Exam GI & Abdominal Exam: Soft, Diminished Bowel Sounds - Rectal Exam Rectal Exam: Deferred
[2016-11-15] MEDS: Sodium Chloride 0.45% 1,000 ML IV SCH (21:46)
--- NOTE | 2016-11-15 22:46 | CP.PCM.PN ---
Subjective - Date & Time of Evaluation Date of Evaluation: 11/15/16 Time of Evaluation: 09:45 - Subjective Subjective: Patient seen and examined at bedside No acute events overnight- afebrile Patient intubated on vent (12, 50, 5, 500) Tolerating NG feeds @ 50cc/hr no residuals Patient for trach 11/16 Minimally responsive to stimuli ROS unobtainable Objective - Vital Signs/Intake and Output Vital Signs (last 24 hours): Temp Pulse Resp BP Pulse Ox 96.6 F L 66 12 166/71 H 100 11/15/16 16:00 11/15/16 19:01 11/15/16 19:01 11/15/16 19:01 11/15/16 19:01 Intake and Output: 11/15/16 11/16/16 18:59 06:59 Intake Total 1500 150 Output Total 560 30 Balance 940 120 - Medications Medications: Current Medications Aspirin (Aspirin Chewable) 81 mg PO DAILY [facility] Last Admin: 11/12/16 10:51 Dose: 81 mg Clopidogrel Bisulfate (Plavix) 75 mg PO DAILY [facility] Last Admin: 11/12/16 10:51 Dose: 75 mg Famotidine (Pepcid) 20 mg PO DAILY [facility] Last Admin: 11/15/16 09:03 Dose: 20 mg Meropenem 500 mg/ Sodium (Chloride) 100 mls @ 200 mls/hr IVPB Q8 [facility] Last Admin: 11/15/16 21:47 Dose: 200 mls/hr Metronidazole (Flagyl) 500 mg in 100 mls @ 100 mls/hr IVPB Q8 [facility] Last Admin: 11/15/16 21:08 Dose: 100 mls/hr Sodium Chloride (Sodium Chloride 0.45%) 1,000 mls @ 100 mls/hr IV .Q10H [facility] Last Admin: 11/15/16 21:46 Dose: 100 mls/hr Insulin Detemir (Levemir) 20 unit SC DAILY [facility] Last Admin: 11/15/16 09:02 Dose: 20 unit Insulin Human Regular (Novolin R) 0 unit SC Q6 [facility] PRN Reason: Protocol Last Admin: 11/15/16 17:37 Dose: 2 unit Levetiracetam (Keppra) 500 mg GT BID [facility] Last Admin: 11/15/16 18:13 Dose: 500 mg Rosuvastatin Calcium (Crestor) 5 mg PO HS [facility] Last Admin: 11/15/16 21:08 Dose: 5 mg - Labs Labs: 11/15/16 06:09 11/15/16 06:08 PT 13.3 SECONDS (9.7-12.2) H 11/09/16 05:50 INR 1.2 11/09/16 05:50 APTT 37 SECONDS (21-34) H 11/09/16 05:50 - Constitutional Appears: No Acute Distress, Chronically Ill - Head Exam Head Exam: ATRAUMATIC, NORMAL INSPECTION, NORMOCEPHALIC - Eye Exam Eye Exam: EOMI, Normal appearance, PERRL Pupil Exam: NORMAL ACCOMODATION, PERRL - Respiratory Exam Respiratory Exam: Decreased Breath Sounds, Rhonchi - Cardiovascular Exam Cardiovascular Exam: REGULAR RHYTHM, +S1, +S2. absent: Murmur - GI/Abdominal Exam GI & Abdominal Exam: Soft, Normal Bowel Sounds. absent: Tenderness Assessment and Plan (1) Respiratory failure Status: Acute (2) Insulin dependent diabetes mellitus Status: Acute (3) UTI (lower urinary tract infection) Status: Acute
[2016-11-16] MEDS: metroNIDAZOLE IV 500 mg/100 ml 500 MG/100 ML BAG IVPB SCH ×3 (05:04→22:35)
[2016-11-16] MEDS ORDERED: Dextrose 50% SYRINGE Inj (50 ml) ONE (05:23)
[2016-11-16 06:27] LABS: ABG ALLEN TEST POS; ATERIAL BLOOD GAS PEEP 5
[2016-11-16] MEDS: Meropenem 500 MG in Sodium Chloride 0.9% 100 ML IVPB SCH ×3 (06:29→21:30)
[2016-11-16] MEDS: (Novolin R) Insulin Human Regular 100 units/ml vial SC SCH ×3 (06:32→19:31)
[2016-11-16 06:50] LABS: BASO % 0.4 % (0.0-2.0); EOS # 0.4 K/uL (0.0-0.7); EOS % 4.9 % (0.0-4.0); HEMATOCRIT 26.8 % (35.0-51.0); LYMPH # 1.1 K/uL (1.0-4.3); LYMPH % 15.1 % (20.0-40.0); MEAN CELL VOLUME 81.4 fL (80.0-94.0); MEAN CORPUSCULAR HEMOGLOBIN 25.6 pg (27.0-31.0); MEAN CORPUSCULAR HGB CONC 31.5 g/dL (33.0-37.0); MEAN PLATELET VOLUME 9.1 fL (7.2-11.7); MONO # 0.4 K/uL (0.0-0.8); MONO % 5.8 % (0.0-10.0); RED CELL DISTRIBUTION WIDTH 17.6 % (11.5-14.5); WHITE BLOOD COUNT 7.3 K/uL (4.8-10.8)
--- NOTE | 2016-11-16 06:56 | CP.CCUPN ---
<Chris Del Cid - Last Filed: 11/16/16 12:12> CCU Subjective - Physician Review Subjective (Free Text): 11/16/16 06:55 PGY-[address] Jamison Pt seen and examined at bedside. Nursing reports no acute events overnight. Pt remains afebrile. Pt intubated on vent (12, 50, 5, 500). Pt for trach this AM. Minimally responsive for stimuli. ROS unobtainable. Critical Care Time Spent (in minutes): 35 CCU Objective - Vital Signs / Intake & Output Vital Signs (Last 4 hours): Vital Signs Temp Pulse Resp BP Pulse Ox 11/16/16 06:02 70 12 150/59 L 100 11/16/16 05:01 70 12 142/63 100 11/16/16 04:01 70 12 154/69 H 98 11/16/16 04:00 97.5 F L 11/16/16 03:01 66 10 L 150/68 99 Intake and Output (Last 8hrs): Intake & Output 11/15/16 11/15/16 11/16/16 14:59 22:59 06:59 Intake Total 800 1400 1150 Output Total 385 430 705 Balance 415 970 445 Weight 109.5 kg Intake: Intake, IV Amount 400 1000 1100 Right Antecubital 300 800 800 Right Distal Port 100 200 300 Tube Feeding 400 400 50 Output: Urine 385 430 705 Urethral (Wick) 385 430 705 - Physical Exam Head: Positive for: Atraumatic, Normocephalic, Other (ET Tube in place) Pupils: Positive for: PERRL Extroacular Muscles: Positive for: EOMI Conjunctiva: Positive for: Normal. Negative for: Injected, Icteric Mouth: Positive for: Moist Mucous Membranes. Negative for: Drooling Nose (External): Positive for: Atraumatic Neck: Negative for: JVD, Lymphadenopathy Respiratory/Chest: Positive for: Good Air Exchange, Decreased Breath Sounds. Negative for: Respiratory Distress, Accessory Muscle Use, Wheezes, Rales, Retracting, Rhonchi Cardiovascular: Positive for: Regular Rate and Rhythm, Murmurs, Normal S1, S2, Peripheal Pulses Present. Negative for: Irregular Rhythm, Tachycardic, Bradycardic Abdomen: Positive for: Normal Bowel Sounds. Negative for: Tenderness, Distention, Peritoneal Signs, Rebound, Guarding Back: Positive for: Normal Inspection Upper Extremity: Positive for: Normal Inspection. Negative for: Cyanosis, Edema Lower Extremity: Positive for: Normal Inspection. Negative for: Edema Skin: Positive for: Warm, Normal Color Psychiatric: Positive for: Alert. Negative for: Oriented x 3, Normal Insight, Normal Concentration - Medications Active Medications: Active Medications Generic Name Dose Route Start Last Admin Trade Name Freq PRN Reason Stop Dose Admin Aspirin 81 mg 11/07/16 10:00 11/12/16 10:51 Aspirin Chewable PO 81 mg DAILY EMILY Administration Clopidogrel Bisulfate 75 mg 11/07/16 10:00 11/12/16 10:51 Plavix PO 75 mg DAILY EMILY Administration Famotidine 20 mg 11/14/16 10:00 11/15/16 09:03 Pepcid PO 20 mg DAILY EMILY Administration Meropenem 500 mg/ Sodium 100 mls @ 200 mls/hr 11/10/16 14:00 11/16/16 06:29 Chloride IVPB 200 mls/hr Q8 EMILY Administration Metronidazole 500 mg in 100 mls @ 100 mls/hr 11/15/16 14:00 11/16/16 05:04 Flagyl IVPB 100 mls/hr Q8 EMILY Administration Sodium Chloride 1,000 mls @ 100 mls/hr 11/15/16 21:45 11/15/16 21:46 Sodium Chloride 0.45% IV 100 mls/hr .Q10H EMILY Administration Insulin Detemir 20 unit 11/07/16 10:00 11/15/16 09:02 Levemir SC 20 unit DAILY EMILY Administration Insulin Human Regular 0 unit 11/07/16 06:00 11/16/16 06:32 Novolin R SC Not Given Q6 [facility] Protocol Levetiracetam 500 mg 11/10/16 11:00 11/15/16 18:13 Keppra GT 500 mg BID EMILY Administration Rosuvastatin Calcium 5 mg 11/14/16 22:00 11/15/16 21:08 Crestor PO 5 mg HS EMILY Administration - Patient Studies Lab Studies: Lab Studies 11/16/16 11/16/16 11/16/16 Range/Units 05:43 05:18 05:08 Puncture Site Lr pCO2 64 H (35-45) mm/Hg pO2 43 L* (80-100) mm/Hg HCO3 26.5 (21-28) mmol/L ABG pH 7.29 L (7.35-7.45) ABG Total CO2 32.8 H (22-28) mmol/L ABG O2 Saturation 73.1 L (95-98) % ABG Base Excess 2.8 (-2.0-3.0) mmol/L ABG Hemoglobin 11.6 L (11.7-17.4) g/dL ABG Carboxyhemoglobin 1.6 H (0.5-1.5) % POC ABG HHb (Measured) 26.1 H (0.0-5.0) % ABG Methemoglobin 1.3 (0.0-3.0) % Timmy Test Pos A-a O2 Difference 590.0 mm/Hg Respiratory Index 13.7 Hgb O2 Saturation 71.0 L (95.0-98.0) % Mechanical Rate 24 FiO2 100.0 % Tidal Volume 500 PEEP 5 Crit Value Called To [place] rn Crit Value Called By Kirit heel cover splitter Crit Value Read Back Y Blood Gas Notified Time 627 Sodium (132-148) mmol/L Potassium (3.6-5.2) mmol/L Chloride (98-107) mmol/L Carbon Dioxide (22-30) mmol/L Anion Gap (10-20) BUN (9-20) mg/dL Creatinine (0.8-1.5) MG/DL Est GFR ( Amer) Est GFR (Non-Af Amer) POC Glucose (mg/dL) 137 H 43 L (65-110) mg/dL Random Glucose (75-110) mg/dL Calcium (8.6-10.4) mg/dl Phosphorus (2.5-4.5) mg/dL Magnesium (1.6-2.3) mg/dL Total Bilirubin (0.2-1.3) mg/dL AST (17-59) U/L ALT (21-72) U/L Alkaline Phosphatase (38-126) U/L Total Protein (6.3-8.3) g/dL Albumin (3.5-5.0) g/dL Globulin (2.2-3.9) gm/dL Albumin/Globulin Ratio (1.0-2.1) Vancomycin Trough (5.0-10.0) ug/mL 11/16/16 11/15/16 11/15/16 Range/Units 00:17 17:35 11:50 Puncture Site pCO2 (35-45) mm/Hg pO2 (80-100) mm/Hg HCO3 (21-28) mmol/L ABG pH (7.35-7.45) ABG Total CO2 (22-28) mmol/L ABG O2 Saturation (95-98) % ABG Base Excess (-2.0-3.0) mmol/L ABG Hemoglobin (11.7-17.4) g/dL ABG Carboxyhemoglobin (0.5-1.5) % POC ABG HHb (Measured) (0.0-5.0) % ABG Methemoglobin (0.0-3.0) % Timmy Test A-a O2 Difference mm/Hg Respiratory Index Hgb O2 Saturation (95.0-98.0) % Mechanical Rate FiO2 % Tidal Volume PEEP Crit Value Called To Crit Value Called By Crit Value Read Back Blood Gas Notified Time Sodium (132-148) mmol/L Potassium (3.6-5.2) mmol/L Chloride (98-107) mmol/L Carbon Dioxide (22-30) mmol/L Anion Gap (10-20) BUN (9-20) mg/dL Creatinine (0.8-1.5) MG/DL Est GFR ( Amer) Est GFR (Non-Af Amer) POC Glucose (mg/dL) 108 166 H 149 H (65-110) mg/dL Random Glucose (75-110) mg/dL Calcium (8.6-10.4) mg/dl Phosphorus (2.5-4.5) mg/dL Magnesium (1.6-2.3) mg/dL Total Bilirubin (0.2-1.3) mg/dL AST (17-59) U/L ALT (21-72) U/L Alkaline Phosphatase (38-126) U/L Total Protein (6.3-8.3) g/dL Albumin (3.5-5.0) g/dL Globulin (2.2-3.9) gm/dL Albumin/Globulin Ratio (1.0-2.1) Vancomycin Trough (5.0-10.0) ug/mL 06/20/17 06/20/17 Range/Units 06:08 06:08 Puncture Site pCO2 (35-45) mm/Hg pO2 (80-100) mm/Hg HCO3 (21-28) mmol/L ABG pH (7.35-7.45) ABG Total CO2 (22-28) mmol/L ABG O2 Saturation (95-98) % ABG Base Excess (-2.0-3.0) mmol/L ABG Hemoglobin (11.7-17.4) g/dL ABG Carboxyhemoglobin (0.5-1.5) % POC ABG HHb (Measured) (0.0-5.0) % ABG Methemoglobin (0.0-3.0) % Timmy Test A-a O2 Difference mm/Hg Respiratory Index Hgb O2 Saturation (95.0-98.0) % Mechanical Rate FiO2 % Tidal Volume PEEP Crit Value Called To Crit Value Called By Crit Value Read Back Blood Gas Notified Time Sodium 154 H (132-148) mmol/L Potassium 3.7 (3.6-5.2) mmol/L Chloride 115 H (98-107) mmol/L Carbon Dioxide 33 H (22-30) mmol/L Anion Gap 10 (10-20) BUN 34 H (9-20) mg/dL Creatinine 1.4 (0.8-1.5) MG/DL Est GFR ( Amer) 59 Est GFR (Non-Af Amer) 49 POC Glucose (mg/dL) (65-110) mg/dL Random Glucose 124 H (75-110) mg/dL Calcium 8.6 (8.6-10.4) mg/dl Phosphorus 3.1 (2.5-4.5) mg/dL Magnesium 2.5 H (1.6-2.3) mg/dL Total Bilirubin 0.4 (0.2-1.3) mg/dL AST 34 (17-59) U/L ALT 44 (21-72) U/L Alkaline Phosphatase 83 (38-126) U/L Total Protein 6.3 (6.3-8.3) g/dL Albumin 2.6 L (3.5-5.0) g/dL Globulin 3.7 (2.2-3.9) gm/dL Albumin/Globulin Ratio 0.7 L (1.0-2.1) Vancomycin Trough 7.2 (5.0-10.0) ug/mL Laboratory Results - last 24 hr 11/15/16 11/15/16 11/15/16 06:08 06:08 11:50 Puncture Site pCO2 pO2 HCO3 ABG pH ABG Total CO2 ABG O2 Saturation ABG Base Excess ABG Hemoglobin ABG Carboxyhemoglobin POC ABG HHb (Measured) ABG Methemoglobin Timmy Test A-a O2 Difference Respiratory Index Hgb O2 Saturation Mechanical Rate FiO2 Tidal Volume PEEP Crit Value Called To Crit Value Called By Crit Value Read Back Blood Gas Notified Time Sodium 154 H Potassium 3.7 Chloride 115 H Carbon Dioxide 33 H Anion Gap 10 BUN 34 H Creatinine 1.4 Est GFR ( Amer) 59 Est GFR (Non-Af Amer) 49 POC Glucose (mg/dL) 149 H Random Glucose 124 H Calcium 8.6 Phosphorus 3.1 Magnesium 2.5 H Total Bilirubin 0.4 AST 34 ALT 44 Alkaline Phosphatase 83 Total Protein 6.3 Albumin 2.6 L Globulin 3.7 Albumin/Globulin Ratio 0.7 L Vancomycin Trough 7.2 11/15/16 11/16/16 11/16/16 17:35 00:17 05:08 Puncture Site Lr pCO2 64 H pO2 43 L* HCO3 26.5 ABG pH 7.29 L ABG Total CO2 32.8 H ABG O2 Saturation 73.1 L ABG Base Excess 2.8 ABG Hemoglobin 11.6 L ABG Carboxyhemoglobin 1.6 H POC ABG HHb (Measured) 26.1 H ABG Methemoglobin 1.3 Timmy Test Pos A-a O2 Difference 590.0 Respiratory Index 13.7 Hgb O2 Saturation 71.0 L Mechanical Rate 24 FiO2 100.0 Tidal Volume 500 PEEP 5 Crit Value Called To Tianna amador Crit Value Called By Kirit heel cover splitter Crit Value Read Back Y Blood Gas Notified Time 627 Sodium Potassium Chloride Carbon Dioxide Anion Gap BUN Creatinine Est GFR ( Amer) Est GFR (Non-Af Amer) POC Glucose (mg/dL) 166 H 108 Random Glucose Calcium Phosphorus Magnesium Total Bilirubin AST ALT Alkaline Phosphatase Total Protein Albumin Globulin Albumin/Globulin Ratio Vancomycin Trough 11/16/16 11/16/16 05:18 05:43 Puncture Site pCO2 pO2 HCO3 ABG pH ABG Total CO2 ABG O2 Saturation ABG Base Excess ABG Hemoglobin ABG Carboxyhemoglobin POC ABG HHb (Measured) ABG Methemoglobin Timmy Test A-a O2 Difference Respiratory Index Hgb O2 Saturation Mechanical Rate FiO2 Tidal Volume PEEP Crit Value Called To Crit Value Called By Crit Value Read Back Blood Gas Notified Time Sodium Potassium Chloride Carbon Dioxide Anion Gap BUN Creatinine Est GFR ( Amer) Est GFR (Non-Af Amer) POC Glucose (mg/dL) 43 L 137 H Random Glucose Calcium Phosphorus Magnesium Total Bilirubin AST ALT Alkaline Phosphatase Total Protein Albumin Globulin Albumin/Globulin Ratio Vancomycin Trough Fingerstick Blood Sugar Results: 137 Review of Systems - Review of Systems Systems not reviewed;Unavailable: Intubated Critical Care Progress Note - Nutrition Nutrition: Nutrition Category Date Time Status NPO Diet [DIET] Diets 11/16/16 Breakfast Active Assessment/Plan - Assessment and Plan (Free Text) Assessment: 75yo M. 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 Presented with altered mental status and acute respiratory failure requiring intubation. Plan: Neuro: Poorly responsive multiple CVA in the past- left hemiapresis Keppra 500mg gt bid for seizure ppx Pulm: Acute respiratory failure, intubated on vent (12, 50, 5, 500) CXR 11/15 moderate venous congestion; patchy L basilar airspace opacity with question trace L pleural effusion Thick secretions Patient for Trach in AM 11/16 CV: Hemodynamically stable. Acute on chronic Systolic congestive heart failure. Echo 11/07 normal LV systolic function; moderate LVH; diastolic dysfunction; normal chamber size; trace to mild TR ASA 81mg po daily- on hold for trach Plavix 75mg po daily- on hold for trach Crestor 5mg po hs Hem: ASA and Plavix on hold for trach Renal: BUN/Cr 34/1.4 renal u/s: increased echogenicity of b/l renal cortices suggestive of medical renal disease 1/2NS @ 100cc/hr free water flushes 250cc q6h Endo: DM type II RISS Levemir 20 units sc GI: NPO NGT tube feeds Isosource 1.5 - goal of 50cc/hr ID: Severe sepsis from UTI with Proteus mirabilis 11/06 Merrem 500mg ivpb q8 started 11/10- continue for 2 weeks as per ID Flagyl 500mg ivpb q8 Blood culture negative 11/06 Urine culture negative 11/[address] Alexis on board DVT proph - heparin subcutaneous on hold for trach in AM GI proph - Pepcid 20mg po daily wick for strict I/O's during acute illness Tube feeds on hold after midnight for procedure in AM Code status - full code Case discussed with Dr. Shaheen Del Cid, PGY-1 <Wes Jamison S - Last Filed: 11/16/16 17:26> CCU Objective - Vital Signs / Intake & Output Intake and Output (Last 8hrs): Intake & Output 11/16/16 11/16/16 11/16/16 06:59 14:59 22:59 Intake Total 1150 Output Total 705 Balance 445 Weight 241 lb 6.499 oz Intake: Intake, IV Amount 1100 Right Antecubital 800 Right Distal Port 300 Tube Feeding 50 Output: Urine 705 Urethral (Wick) 705 - Medications Active Medications: Active Medications Generic Name Dose Route Start Last Admin Trade Name Freq PRN Reason Stop Dose Admin Aspirin 81 mg 11/07/16 10:00 11/12/16 10:51 Aspirin Chewable PO 81 mg DAILY EMILY Administration Clopidogrel Bisulfate 75 mg 11/07/16 10:00 11/12/16 10:51 Plavix PO 75 mg DAILY EMILY Administration Famotidine 20 mg 11/14/16 10:00 11/16/16 09:05 Pepcid PO Not Given DAILY EMILY Meropenem 500 mg/ Sodium 100 mls @ 200 mls/hr 11/10/16 14:00 11/16/16 13:53 Chloride IVPB 200 mls/hr Q8 EMILY Administration Metronidazole 500 mg in 100 mls @ 100 mls/hr 11/15/16 14:00 11/16/16 13:53 Flagyl IVPB 100 mls/hr Q8 EMILY Administration Sodium Chloride 1,000 mls @ 100 mls/hr 11/15/16 21:45 11/16/16 08:26 Sodium Chloride 0.45% IV 100 mls/hr .Q10H EMILY Administration Insulin Detemir 20 unit 11/07/16 10:00 11/16/16 09:04 Levemir SC Not Given DAILY [facility] Insulin Human Regular 0 unit 11/07/16 06:00 11/16/16 12:59 Novolin R SC Not Given Q6 [facility] Protocol Levetiracetam 500 mg 11/10/16 11:00 11/16/16 09:05 Keppra GT Not Given BID [facility] Rosuvastatin Calcium 5 mg 11/14/16 22:00 11/15/16 21:08 Crestor PO 5 mg HS EMILY Administration - Patient Studies Lab Studies: Lab Studies 11/16/16 11/16/16 11/16/16 Range/Units 12:00 06:23 06:23 WBC 7.3 (4.8-10.8) K/uL RBC 3.30 L (4.40-5.90) Mil/uL Hgb 8.4 L (12.0-18.0) g/dL Hct 26.8 L (35.0-51.0) % MCV 81.4 (80.0-94.0) fL MCH 25.6 L (27.0-31.0) pg MCHC 31.5 L (33.0-37.0) g/dL RDW 17.6 H (11.5-14.5) % Plt Count 114 L (130-400) K/uL MPV 9.1 (7.2-11.7) fL Neut % (Auto) 73.8 (50.0-75.0) % Lymph % (Auto) 15.1 L (20.0-40.0) % [place] % (Auto) 5.8 (0.0-10.0) % Eos % (Auto) 4.9 H (0.0-4.0) % Baso % (Auto) 0.4 (0.0-2.0) % Neut # 5.4 (1.8-7.0) K/uL Lymph # 1.1 (1.0-4.3) K/uL [place] # 0.4 (0.0-0.8) K/uL Eos # 0.4 (0.0-0.7) K/uL Baso # 0.0 (0.0-0.2) K/uL Puncture Site pCO2 (35-45) mm/Hg pO2 (80-100) mm/Hg HCO3 (21-28) mmol/L ABG pH (7.35-7.45) ABG Total CO2 (22-28) mmol/L ABG O2 Saturation (95-98) % ABG Base Excess (-2.0-3.0) mmol/L ABG Hemoglobin (11.7-17.4) g/dL ABG Carboxyhemoglobin (0.5-1.5) % POC ABG HHb (Measured) (0.0-5.0) % ABG Methemoglobin (0.0-3.0) % Timmy Test A-a O2 Difference mm/Hg Respiratory Index Hgb O2 Saturation (95.0-98.0) % Vent Mode Mechanical Rate FiO2 % Tidal Volume PEEP Crit Value Called To Crit Value Called By Crit Value Read Back Blood Gas Notified Time Sodium 150 H (132-148) mmol/L Potassium 3.3 L (3.6-5.2) mmol/L Chloride 111 H (98-107) mmol/L Carbon Dioxide 32 H (22-30) mmol/L Anion Gap 10 (10-20) BUN 27 H (9-20) mg/dL Creatinine 1.1 (0.8-1.5) MG/DL Est GFR ( Amer) > 60 Est GFR (Non-Af Amer) > 60 POC Glucose (mg/dL) 85 (65-110) mg/dL Random Glucose 119 H (75-110) mg/dL Calcium 8.2 L (8.6-10.4) mg/dl Phosphorus 3.0 (2.5-4.5) mg/dL Magnesium 2.4 H (1.6-2.3) mg/dL Total Bilirubin 0.4 (0.2-1.3) mg/dL AST 28 (17-59) U/L ALT 45 (21-72) U/L Alkaline Phosphatase 81 (38-126) U/L Total Protein 6.3 (6.3-8.3) g/dL Albumin 2.8 L (3.5-5.0) g/dL Globulin 3.5 (2.2-3.9) gm/dL Albumin/Globulin Ratio 0.8 L (1.0-2.1) 11/16/16 11/16/16 11/16/16 Range/Units 05:43 05:18 05:08 WBC (4.8-10.8) K/uL RBC (4.40-5.90) Mil/uL Hgb (12.0-18.0) g/dL Hct (35.0-51.0) % MCV (80.0-94.0) fL MCH (27.0-31.0) pg MCHC (33.0-37.0) g/dL RDW (11.5-14.5) % Plt Count (130-400) K/uL MPV (7.2-11.7) fL Neut % (Auto) (50.0-75.0) % Lymph % (Auto) (20.0-40.0) % [place] % (Auto) (0.0-10.0) % Eos % (Auto) (0.0-4.0) % Baso % (Auto) (0.0-2.0) % Neut # (1.8-7.0) K/uL Lymph # (1.0-4.3) K/uL [place] # (0.0-0.8) K/uL Eos # (0.0-0.7) K/uL Baso # (0.0-0.2) K/uL Puncture Site Rr pCO2 49 H (35-45) mm/Hg pO2 139 H (80-100) mm/Hg HCO3 29.4 H (21-28) mmol/L ABG pH 7.41 (7.35-7.45) ABG Total CO2 32.6 H (22-28) mmol/L ABG O2 Saturation 99.3 H (95-98) % ABG Base Excess 5.7 H (-2.0-3.0) mmol/L ABG Hemoglobin 8.3 L (11.7-17.4) g/dL ABG Carboxyhemoglobin 1.4 (0.5-1.5) % POC ABG HHb (Measured) 0.7 (0.0-5.0) % ABG Methemoglobin 0.8 (0.0-3.0) % Timmy Test Pos A-a O2 Difference 156.0 mm/Hg Respiratory Index 1.1 Hgb O2 Saturation 97.2 (95.0-98.0) % Vent Mode Ac Mechanical Rate 12 FiO2 50.0 % Tidal Volume 500 PEEP 5 Crit Value Called To Crit Value Called By Crit Value Read Back Blood Gas Notified Time Sodium (132-148) mmol/L Potassium (3.6-5.2) mmol/L Chloride (98-107) mmol/L Carbon Dioxide (22-30) mmol/L Anion Gap (10-20) BUN (9-20) mg/dL Creatinine (0.8-1.5) MG/DL Est GFR ( Amer) Est GFR (Non-Af Amer) POC Glucose (mg/dL) 137 H 43 L (65-110) mg/dL Random Glucose (75-110) mg/dL Calcium (8.6-10.4) mg/dl Phosphorus (2.5-4.5) mg/dL Magnesium (1.6-2.3) mg/dL Total Bilirubin (0.2-1.3) mg/dL AST (17-59) U/L ALT (21-72) U/L Alkaline Phosphatase (38-126) U/L Total Protein (6.3-8.3) g/dL Albumin (3.5-5.0) g/dL Globulin (2.2-3.9) gm/dL Albumin/Globulin Ratio (1.0-2.1) 11/16/16 11/15/16 Range/Units 00:17 17:35 WBC (4.8-10.8) K/uL RBC (4.40-5.90) Mil/uL Hgb (12.0-18.0) g/dL Hct (35.0-51.0) % MCV (80.0-94.0) fL MCH (27.0-31.0) pg MCHC (33.0-37.0) g/dL RDW (11.5-14.5) % Plt Count (130-400) K/uL MPV (7.2-11.7) fL Neut % (Auto) (50.0-75.0) % Lymph % (Auto) (20.0-40.0) % [place] % (Auto) (0.0-10.0) % Eos % (Auto) (0.0-4.0) % Baso % (Auto) (0.0-2.0) % Neut # (1.8-7.0) K/uL Lymph # (1.0-4.3) K/uL [place] # (0.0-0.8) K/uL Eos # (0.0-0.7) K/uL Baso # (0.0-0.2) K/uL Puncture Site pCO2 (35-45) mm/Hg pO2 (80-100) mm/Hg HCO3 (21-28) mmol/L ABG pH (7.35-7.45) ABG Total CO2 (22-28) mmol/L ABG O2 Saturation (95-98) % ABG Base Excess (-2.0-3.0) mmol/L ABG Hemoglobin (11.7-17.4) g/dL ABG Carboxyhemoglobin (0.5-1.5) % POC ABG HHb (Measured) (0.0-5.0) % ABG Methemoglobin (0.0-3.0) % Timmy Test A-a O2 Difference mm/Hg Respiratory Index Hgb O2 Saturation (95.0-98.0) % Vent Mode Mechanical Rate FiO2 % Tidal Volume PEEP Crit Value Called To Crit Value Called By Crit Value Read Back Blood Gas Notified Time Sodium (132-148) mmol/L Potassium (3.6-5.2) mmol/L Chloride (98-107) mmol/L Carbon Dioxide (22-30) mmol/L Anion Gap (10-20) BUN (9-20) mg/dL Creatinine (0.8-1.5) MG/DL Est GFR ( Amer) Est GFR (Non-Af Amer) POC Glucose (mg/dL) 108 166 H (65-110) mg/dL Random Glucose (75-110) mg/dL Calcium (8.6-10.4) mg/dl Phosphorus (2.5-4.5) mg/dL Magnesium (1.6-2.3) mg/dL Total Bilirubin (0.2-1.3) mg/dL AST (17-59) U/L ALT (21-72) U/L Alkaline Phosphatase (38-126) U/L Total Protein (6.3-8.3) g/dL Albumin (3.5-5.0) g/dL Globulin (2.2-3.9) gm/dL Albumin/Globulin Ratio (1.0-2.1) Laboratory Results - last 24 hr 11/15/16 11/16/16 11/16/16 17:35 00:17 05:08 WBC RBC Hgb Hct MCV MCH MCHC RDW Plt Count MPV Neut % (Auto) Lymph % (Auto) [place] % (Auto) Eos % (Auto) Baso % (Auto) Neut # Lymph # [place] # Eos # Baso # Puncture Site Rr pCO2 49 H pO2 139 H HCO3 29.4 H ABG pH 7.41 ABG Total CO2 32.6 H ABG O2 Saturation 99.3 H ABG Base Excess 5.7 H ABG Hemoglobin 8.3 L ABG Carboxyhemoglobin 1.4 POC ABG HHb (Measured) 0.7 ABG Methemoglobin 0.8 Timmy Test Pos A-a O2 Difference 156.0 Respiratory Index 1.1 Hgb O2 Saturation 97.2 Vent Mode Ac Mechanical Rate 12 FiO2 50.0 Tidal Volume 500 PEEP 5 Crit Value Called To Crit Value Called By Crit Value Read Back Blood Gas Notified Time Sodium Potassium Chloride Carbon Dioxide Anion Gap BUN Creatinine Est GFR ( Amer) Est GFR (Non-Af Amer) POC Glucose (mg/dL) 166 H 108 Random Glucose Calcium Phosphorus Magnesium Total Bilirubin AST ALT Alkaline Phosphatase Total Protein Albumin Globulin Albumin/Globulin Ratio 11/16/16 11/16/16 11/16/16 05:18 05:43 06:23 WBC 7.3 RBC 3.30 L Hgb 8.4 L Hct 26.8 L MCV 81.4 MCH 25.6 L MCHC 31.5 L RDW 17.6 H Plt Count 114 L MPV 9.1 Neut % (Auto) 73.8 Lymph % (Auto) 15.1 L [place] % (Auto) 5.8 Eos % (Auto) 4.9 H Baso % (Auto) 0.4 Neut # 5.4 Lymph # 1.1 [place] # 0.4 Eos # 0.4 Baso # 0.0 Puncture Site pCO2 pO2 HCO3 ABG pH ABG Total CO2 ABG O2 Saturation ABG Base Excess ABG Hemoglobin ABG Carboxyhemoglobin POC ABG HHb (Measured) ABG Methemoglobin Timmy Test A-a O2 Difference Respiratory Index Hgb O2 Saturation Vent Mode Mechanical Rate FiO2 Tidal Volume PEEP Crit Value Called To Crit Value Called By Crit Value Read Back Blood Gas Notified Time Sodium Potassium Chloride Carbon Dioxide Anion Gap BUN Creatinine Est GFR ( Amer) Est GFR (Non-Af Amer) POC Glucose (mg/dL) 43 L 137 H Random Glucose Calcium Phosphorus Magnesium Total Bilirubin AST ALT Alkaline Phosphatase Total Protein Albumin Globulin Albumin/Globulin Ratio 11/16/16 11/16/16 06:23 12:00 WBC RBC Hgb Hct MCV MCH MCHC RDW Plt Count MPV Neut % (Auto) Lymph % (Auto) [place] % (Auto) Eos % (Auto) Baso % (Auto) Neut # Lymph # [place] # Eos # Baso # Puncture Site pCO2 pO2 HCO3 ABG pH ABG Total CO2 ABG O2 Saturation ABG Base Excess ABG Hemoglobin ABG Carboxyhemoglobin POC ABG HHb (Measured) ABG Methemoglobin Timmy Test A-a O2 Difference Respiratory Index Hgb O2 Saturation Vent Mode Mechanical Rate FiO2 Tidal Volume PEEP Crit Value Called To Crit Value Called By Crit Value Read Back Blood Gas Notified Time Sodium 150 H Potassium 3.3 L Chloride 111 H Carbon Dioxide 32 H Anion Gap 10 BUN 27 H Creatinine 1.1 Est GFR ( Amer) > 60 Est GFR (Non-Af Amer) > 60 POC Glucose (mg/dL) 85 Random Glucose 119 H Calcium 8.2 L Phosphorus 3.0 Magnesium 2.4 H Total Bilirubin 0.4 AST 28 ALT 45 Alkaline Phosphatase 81 Total Protein 6.3 Albumin 2.8 L Globulin 3.5 Albumin/Globulin Ratio 0.8 L Critical Care Progress Note - Nutrition Nutrition: Nutrition Category Date Time Status NPO Diet [DIET] Diets 11/16/16 Breakfast Active Assessment/Plan (1) Respiratory failure Current Visit: Yes Status: Acute (2) Hypothermia Current Visit: Yes Status: Acute (3) Sepsis Current Visit: Yes Status: Acute Attending/Attestation - Attestation I have personally seen and examined this patient.: Yes I have fully participated in the care of the patient.: Yes I have reviewed all pertinent clinical information: Yes Notes (Text): 11/16/16 17:24 Patient seen and examined in the intensive care unit. Case discussed with house staff in the morning rounds. Status post tracheostomy No change in mental status Continue antibiotics as per infectious disease Resume NG tube feeding Possible PEG insertion once family agrees
[2016-11-16 06:57] LABS: CHLORIDE 111 mmol/L (98-107); SODIUM 150 mmol/L (132-148)
[2016-11-16 06:58] LABS: POTASSIUM 3.3 mmol/L (3.6-5.2)
[2016-11-16 06:59] LABS: GFR AFRICAN-AMERICAN > 60
[2016-11-16 07:00] LABS: ALB/GLOB RATIO 0.8 (1.0-2.1); ALKALINE PHOSPHATASE 81 U/L (38-126); ALT/SGPT 45 U/L (21-72); AST/SGOT 28 U/L (17-59); BILIRUBIN,TOTAL 0.4 mg/dL (0.2-1.3); BLOOD UREA NITROGEN 27 mg/dL (9-20); CARBON DIOXIDE 32 mmol/L (22-30); GLUCOSE,RANDOM 119 mg/dL (75-110); TOTAL PROTEIN 6.3 g/dL (6.3-8.3)
[2016-11-16 07:01] LABS: CALCIUM 8.2 mg/dl (8.6-10.4); MAGNESIUM 2.4 mg/dL (1.6-2.3)
[2016-11-16] MEDS: Sodium Chloride 0.45% 1,000 ML IV SCH ×2 (08:26→18:28)
[2016-11-16] MEDS ORDERED: Rocuronium 10 mg/ml (5 ml) ONE (08:50)
[2016-11-16] MEDS ORDERED: Midazolam 2 MG/2 ML VIAL ONE (09:00)
[2016-11-16] MEDS: Insulin Detemir 100 units/ml Vial (Levemir) SC SCH (09:04)
[2016-11-16] MEDS: levETIRAcetam 100 mg/ml (5ml) Oral Syringe GT SCH ×2 (09:05→18:26)
[2016-11-16] MEDS ORDERED: Lactated Ringer's 1,000 ML IV ONE (09:30)
--- NOTE | 2016-11-16 10:20 | PCM.SURG1 ---
Surgeon's Initial Post Op Note - Surgeon's Notes Surgeon: Dr Diez Pull Up Hand: Dr Wilkerson PGY2, Dr Sandoval PGY1 Type of Anesthesia: General Endo Pre-Operative Diagnosis: respiratory failure Operative Findings: see report Post-Operative Diagnosis: as above Operation Performed: Broncoscopy. Percutaneous tracheostomy Specimen/Specimens Removed: none Estimated Blood Loss: EBL {In ML}: 2 Blood Products Given: N/A Drains Used: No Drains Post-Op Condition: Good Date of Surgery/Procedure: 11/16/16 Time of Surgery/Procedure: 10:20
[2016-11-16 10:40] LABS: ARTERIAL BLOOD HGB O2 SAT 97.2 % (95.0-98.0); CARBOXYHEMOGLOBIN 1.4 % (0.5-1.5); METHEMOGLOBIN 0.8 % (0.0-3.0)
[2016-11-16 10:41] LABS: HHB 0.7 % (0.0-5.0)
[2016-11-16 10:42] LABS: DRAW SITE RR
[2016-11-16 10:43] LABS: ABG MECHANICAL RATE 12; ARTERIAL BLOOD GAS MODE AC
--- NOTE | 2016-11-16 11:09 | RAD ---
HISTORY: s/p trach placement COMPARISON: 11/15/2016 FINDINGS: LUNGS: Patchy opacity upper right lung. Possible early pneumonia. Followup advised. No other focal opacity identified. PLEURA: No significant pleural effusion identified, no pneumothorax apparent. CARDIOVASCULAR: Normal heart size. Endotracheal tube exchanged for tracheostomy tube. Nasogastric tube unchanged. Right internal jugular central venous catheter unchanged. OSSEOUS STRUCTURES: No significant abnormalities. VISUALIZED UPPER ABDOMEN: Normal. OTHER FINDINGS: None. IMPRESSION: Patchy opacity upper right lung. Possible early pneumonia. Followup advised. Endotracheal tube exchanged for tracheostomy tube. Otherwise no change.
--- NOTE | 2016-11-16 13:45 | CP.PCM.PN ---
Subjective - Date & Time of Evaluation Date of Evaluation: 11/16/16 Time of Evaluation: 09:00 - Subjective Subjective: S/P TRACH TOLERATED WELL TO COMPLETE TOTAL 14 DAYS IV ANTIBIOTICS Objective - Vital Signs/Intake and Output Vital Signs (last 24 hours): Temp Pulse Resp BP Pulse Ox 97.5 F L 70 12 150/59 L 100 11/16/16 04:00 11/16/16 06:02 11/16/16 06:02 11/16/16 06:02 11/16/16 06:02 Intake and Output: 11/16/16 11/16/16 06:59 18:59 Intake Total 1850 Output Total 960 Balance 890 - Medications Medications: Current Medications Aspirin (Aspirin Chewable) 81 mg PO DAILY [facility] Last Admin: 11/12/16 10:51 Dose: 81 mg Clopidogrel Bisulfate (Plavix) 75 mg PO DAILY [facility] Last Admin: 11/12/16 10:51 Dose: 75 mg Famotidine (Pepcid) 20 mg PO DAILY [facility] Last Admin: 11/16/16 09:05 Dose: Not Given Meropenem 500 mg/ Sodium (Chloride) 100 mls @ 200 mls/hr IVPB Q8 [facility] Last Admin: 11/16/16 06:29 Dose: 200 mls/hr Metronidazole (Flagyl) 500 mg in 100 mls @ 100 mls/hr IVPB Q8 [facility] Last Admin: 11/16/16 05:04 Dose: 100 mls/hr Sodium Chloride (Sodium Chloride 0.45%) 1,000 mls @ 100 mls/hr IV .Q10H [facility] Last Admin: 11/16/16 08:26 Dose: 100 mls/hr Insulin Detemir (Levemir) 20 unit SC DAILY [facility] Last Admin: 11/16/16 09:04 Dose: Not Given Insulin Human Regular (Novolin R) 0 unit SC Q6 [facility] PRN Reason: Protocol Last Admin: 11/16/16 12:59 Dose: Not Given Levetiracetam (Keppra) 500 mg GT BID [facility] Last Admin: 11/16/16 09:05 Dose: Not Given Rosuvastatin Calcium (Crestor) 5 mg PO HS [facility] Last Admin: 11/15/16 21:08 Dose: 5 mg - Labs Labs: 11/16/16 06:23 11/16/16 06:23 PT 13.3 SECONDS (9.7-12.2) H 11/09/16 05:50 INR 1.2 11/09/16 05:50 APTT 37 SECONDS (21-34) H 11/09/16 05:50 - Constitutional Appears: Non-toxic, Confused, Chronically Ill - Head Exam Head Exam: NORMOCEPHALIC - Eye Exam Eye Exam: PERRL. absent: Scleral icterus - ENT Exam ENT Exam: Mucous Membranes Dry, Normal External Ear Exam - Neck Exam Neck Exam: absent: Lymphadenopathy - Respiratory Exam Respiratory Exam: Decreased Breath Sounds, Rhonchi - Cardiovascular Exam Cardiovascular Exam: REGULAR RHYTHM, +S1, +S2 - GI/Abdominal Exam GI & Abdominal Exam: Distended, Soft Assessment and Plan (1) LASHON (acute kidney injury) Status: Acute (2) Hyperkalemia Status: Acute (3) Hypothermia Status: Acute (4) Insulin dependent diabetes mellitus Status: Acute (5) Respiratory failure Status: Acute (6) Sepsis Status: Acute (7) Septic shock Status: Acute (8) UTI (lower urinary tract infection) Status: Acute (9) CHF (congestive heart failure) Status: Chronic (10) CVA (cerebral vascular accident) Status: Acute (11) Delirium due to another medical condition Status: Acute (12) Lower extremity edema Status: Acute (13) Diabetes mellitus Status: Chronic
--- NOTE | 2016-11-16 15:05 | OP ---
PROCEDURE DATE: 11/16/2016 SURGEON: Dr. Diez. ADVISER SALES: Dr. Wilkerson and Dr. Sandoval. ANESTHESIA: General, Dr. Richardson and MASON Sood. PREOPERATIVE DIAGNOSIS: Respiratory failure. POSTOPERATIVE DIAGNOSIS: Respiratory failure. PROCEDURE: Percutaneous tracheostomy with a fiberoptic bronchoscopy. DESCRIPTION OF OPERATION: The patient remain on the bed with a roll under the shoulders for the neck hyperextension. The neck was prepped and draped in the usual sterile manner. The patient was noted to have a small scar overlying the area of the sternal notch, but no evidence of previous tracheosto my. The area 2 cm above the tracheal notch was marked and infiltrated with 2% lidocaine with epineph rine. A small transverse incision was made and some of the soft tissue spread down to the trachea, a llowing the trachea to be palpated. A fiberoptic bronchoscope was passed via the endotracheal tube w hich was pulled back to just below the vocal cords and, using a clamp, the trachea was compressed and the area noted to be visualized on the bronchoscopy. The Angiocath was then passed into the trachea under direct vision with the bronchoscopy and the guidewire was passed. The catheter was removed an d the dilators were passed over the guidewire again under direct vision. After removing the dilator, the introducer with an 8 Shiley endotracheal tube was then passed over the guidewire and positioned within the trachea. Again, this was visualized and noted to pass cleanly via the bronchoscopy. The guidewire and obturator were removed and the ventilator was attached to the tracheostomy tube with ad equate ventilatory return and CO2 noted. The cuff was inflated. The trachea and mainstem bronchi we re visualized and suctioned, and the tracheostomy was then fixed to the skin with interrupted silk garvey tures and a tracheostomy collar. The patient tolerated the procedure well and transferred back to [facility] ICU in stable condition. Estimated blood loss for the procedure was 2 mL. Kristy Diez MD cc: [id number] TT: 11/16/2016 15:05:15 md
[2016-11-16] MEDS ORDERED: Phytonadione 10 mg/ml Inj (Adult) SC STA (17:32)
--- NOTE | 2016-11-16 18:00 | PN ---
DATE: 11/16/2016 LOCATION: ICU 14, bed A. This 75-year-old male seen and examined in rounds in the presence of the family member at bedside wit hout significant clinical changes. The patient also was seen for GI consultation on 11/15/2016, as r equested by the admitting MD. It has to be mentioned that the patient was scheduled initially for PEG insertion earlier today befor e tracheostomy is to be done, but due to the schedule in the OR, the OR insists to have that tracheos yinka done early in the morning. The PEG procedure has to be rescheduled for tomorrow a.m. unfortunacarlene denton, despite the patient was scheduled for PEG procedure early this morning before the tracheostomy t ube. It was discussed at length with the family as well as the medical staff in the intensive care unit. The entire chart is reviewed, including but not limited to the most recent lab and radiology study re sults, current and previous medication list, current and the previous medical events. Today's labs showed hemoglobin of 8.4 with hematocrit 26.8 with low indices, highly suggestive of hyp ochromic microcytic anemia with thrombocytopenia of 114 with abnormal ABGs, patient is still intubate d, with increased sodium to 150, low potassium 3.3 with increased BUN at 27, but normal creatinine, a nd blood glucose level of 139, with low calcium 8.2, elevated magnesium to 2.4 with low albumin 2.8. Today's chest x-ray showed patchy opacity in the upper right lung with possible pneumonia. Tracheost margareth tube is in place. PHYSICAL EXAMINATION: GENERAL: A 75-year-old male. VITAL SIGNS: Afebrile with heart rate of 72, blood pressure of 146/60. The patient was status post tracheostomy. HEENT: Showed pale, dry oral mucoid membrane. Nonicteric sclerae. LUNGS: Scattered crepitation, decreased air entry at bases. HEART: Positive S1 and S2. ABDOMEN: Soft. Bowel sounds are present. No mass or organomegaly. No rebound tenderness or guardi ng. EXTREMITIES: With edematous changes. No clubbing or cyanosis. NEUROLOGIC: No reported new neurological deficits, sensory or motor. IMPRESSION: 1. Dysphagia. 2. Malnutrition. 3. Hypoalbuminemia. 4. Reexacerbation of peptic ulcer disease. 5. The patient is a candidate for PEG insertion. 6. Pneumonia with respiratory failure and re-exacerbation of chronic obstructive pulmonary disease, with status post tracheostomy to vent. 7. Known history ____ , osteoarthritis, coronary artery disease, cerebrovascular accident, hypertens ion, diabetes mellitus as well as hyperlipidemia. 8. Status post coronary artery stent insertion before. 9. Electrolyte imbalance by recent history. 10. Anemia, most likely secondary to above. SUGGESTION: 1. Agree with your plan. 2. Start Flagyl IV. 3. Proton pump inhibitors IV. 4. Correct any underlying coagulopathy. 5. The patient for PEG insertion at a.m. That was discussed with the patient's family, including hi s , for a period of over 35-40 minutes this morning. Further recommendation to follow post-PEG insertion at a.m. The patient has to be n.p.o. post midnig ht for PEG insertion. Consent was obtained from the family. Victor Manuel Brower MD cc: 14 TT: 11/16/2016 17:59:51 Confirmation # [id number] Dictation # [id number] jn
--- NOTE | 2016-11-16 18:27 | CP.PCM.PN ---
Subjective - Date & Time of Evaluation Date of Evaluation: 11/16/16 Time of Evaluation: 12:20 - Subjective Subjective: clinically same Objective - Vital Signs/Intake and Output Vital Signs (last 24 hours): Temp Pulse Resp BP Pulse Ox 97.5 F L 70 12 150/59 L 100 11/16/16 04:00 11/16/16 06:02 11/16/16 06:02 11/16/16 06:02 11/16/16 06:02 Intake and Output: 11/16/16 11/16/16 06:59 18:59 Intake Total 1850 Output Total 960 Balance 890 - Medications Medications: Current Medications Aspirin (Aspirin Chewable) 81 mg PO DAILY [facility] Last Admin: 11/12/16 10:51 Dose: 81 mg Clopidogrel Bisulfate (Plavix) 75 mg PO DAILY [facility] Last Admin: 11/12/16 10:51 Dose: 75 mg Famotidine (Pepcid) 20 mg PO DAILY [facility] Last Admin: 11/16/16 09:05 Dose: Not Given Meropenem 500 mg/ Sodium (Chloride) 100 mls @ 200 mls/hr IVPB Q8 [facility] Last Admin: 11/16/16 13:53 Dose: 200 mls/hr Metronidazole (Flagyl) 500 mg in 100 mls @ 100 mls/hr IVPB Q8 [facility] Last Admin: 11/16/16 13:53 Dose: 100 mls/hr Sodium Chloride (Sodium Chloride 0.45%) 1,000 mls @ 100 mls/hr IV .Q10H [facility] Last Admin: 11/16/16 08:26 Dose: 100 mls/hr Insulin Detemir (Levemir) 20 unit SC DAILY [facility] Last Admin: 11/16/16 09:04 Dose: Not Given Insulin Human Regular (Novolin R) 0 unit SC Q6 [facility] PRN Reason: Protocol Last Admin: 11/16/16 12:59 Dose: Not Given Levetiracetam (Keppra) 500 mg GT BID [facility] Last Admin: 11/16/16 09:05 Dose: Not Given Rosuvastatin Calcium (Crestor) 5 mg PO HS [facility] Last Admin: 11/15/16 21:08 Dose: 5 mg - Labs Labs: 11/16/16 06:23 11/16/16 06:23 PT 13.3 SECONDS (9.7-12.2) H 11/09/16 05:50 INR 1.2 11/09/16 05:50 APTT 37 SECONDS (21-34) H 11/09/16 05:50
--- NOTE | 2016-11-16 23:10 | CP.PCM.PN ---
Subjective - Date & Time of Evaluation Date of Evaluation: 11/16/16 Time of Evaluation: 09:00 - Subjective Subjective: pt seen & evaluated s/p Broncoscopy. Percutaneous tracheostomy on Iv antibiotics NAD Objective - Vital Signs/Intake and Output Vital Signs (last 24 hours): Temp Pulse Resp BP Pulse Ox 96.1 F L 78 14 167/70 H 100 11/16/16 20:00 11/16/16 22:39 11/16/16 22:39 11/16/16 22:39 11/16/16 22:39 Intake and Output: 11/16/16 11/17/16 18:59 06:59 Intake Total 1200 700 Output Total 995 350 Balance 205 350 - Medications Medications: Current Medications Aspirin (Aspirin Chewable) 81 mg PO DAILY [facility] Last Admin: 11/12/16 10:51 Dose: 81 mg Clopidogrel Bisulfate (Plavix) 75 mg PO DAILY [facility] Last Admin: 11/12/16 10:51 Dose: 75 mg Famotidine (Pepcid) 20 mg PO DAILY [facility] Last Admin: 11/16/16 09:05 Dose: Not Given Meropenem 500 mg/ Sodium (Chloride) 100 mls @ 200 mls/hr IVPB Q8 [facility] Last Admin: 11/16/16 21:30 Dose: 200 mls/hr Metronidazole (Flagyl) 500 mg in 100 mls @ 100 mls/hr IVPB Q8 [facility] Last Admin: 11/16/16 22:35 Dose: 100 mls/hr Sodium Chloride (Sodium Chloride 0.45%) 1,000 mls @ 100 mls/hr IV .Q10H [facility] Last Admin: 11/16/16 18:28 Dose: 100 mls/hr Insulin Detemir (Levemir) 20 unit SC DAILY [facility] Last Admin: 11/16/16 09:04 Dose: Not Given Insulin Human Regular (Novolin R) 0 unit SC Q6 [facility] PRN Reason: Protocol Last Admin: 11/16/16 19:31 Dose: Not Given Levetiracetam (Keppra) 500 mg GT BID [facility] Last Admin: 11/16/16 18:26 Dose: 500 mg Rosuvastatin Calcium (Crestor) 5 mg PO HS [facility] Last Admin: 11/16/16 21:30 Dose: 5 mg - Labs Labs: 11/16/16 06:23 11/16/16 06:23 PT 13.3 SECONDS (9.7-12.2) H 11/09/16 05:50 INR 1.2 11/09/16 05:50 APTT 37 SECONDS (21-34) H 11/09/16 05:50 - Constitutional Appears: No Acute Distress, Chronically Ill - Head Exam Head Exam: ATRAUMATIC, NORMAL INSPECTION, NORMOCEPHALIC - Eye Exam Eye Exam: EOMI, Normal appearance, PERRL Pupil Exam: NORMAL ACCOMODATION, PERRL - Respiratory Exam Respiratory Exam: Decreased Breath Sounds, Rhonchi - Cardiovascular Exam Cardiovascular Exam: REGULAR RHYTHM, +S1, +S2. absent: Murmur Assessment and Plan (1) Respiratory failure Status: Acute (2) Insulin dependent diabetes mellitus Status: Acute (3) UTI (lower urinary tract infection) Status: Acute
[2016-11-17] MEDS: Meropenem 500 MG in Sodium Chloride 0.9% 100 ML IVPB SCH ×3 (05:20→21:10)
[2016-11-17] MEDS: (Novolin R) Insulin Human Regular 100 units/ml vial SC SCH ×4 (06:00→17:27)
[2016-11-17] MEDS: metroNIDAZOLE IV 500 mg/100 ml 500 MG/100 ML BAG IVPB SCH ×3 (06:25→22:40)
--- NOTE | 2016-11-17 06:31 | CP.CCUPN ---
<Juju Whittington - Last Filed: 11/17/16 18:55> CCU Subjective - Physician Review Subjective (Free Text): 11/17/16 18:39 Patient seen and examined at bedside No acute events overnight- afebrile Patient trach on vent (12, 50, 5, 500) Patient had PEG tube placed this AM tolerating feeds @45cc/hr Patient opens eyes and follows commands; nephew at bedside said patient has been mouthing words to him and family When asked if he is in any pain patient shook his head Complete ROS unobtainable CCU Objective - Vital Signs / Intake & Output Vital Signs (Last 4 hours): Vital Signs Pulse Resp BP Pulse Ox 11/17/16 06:22 80 12 157/64 H 99 11/17/16 04:12 76 12 171/81 H 100 11/17/16 03:10 75 12 177/79 H 96 Intake and Output (Last 8hrs): Intake & Output 11/16/16 11/16/16 11/17/16 14:59 22:59 06:59 Intake Total 800 1100 1100 Output Total 630 715 605 Balance 170 385 495 Weight 238 lb 1.588 oz Intake: Intake, IV Amount 800 800 800 Right Antecubital 700 400 Right Distal Port 100 Right Proximal Port 400 800 Internal Jugular Oral 150 250 Tube Feeding 0 150 50 Output: Urine 630 715 605 Urethral (Sharma) 630 715 605 Other: # Bowel Movements 0 1 1 - Physical Exam Head: Positive for: Atraumatic, Normocephalic Pupils: Positive for: PERRL Extroacular Muscles: Positive for: EOMI Conjunctiva: Positive for: Normal. Negative for: Injected, Icteric Mouth: Positive for: Moist Mucous Membranes, Dry. Negative for: Drooling Nose (External): Positive for: Atraumatic Neck: Positive for: Other (Trach in place). Negative for: JVD, Lymphadenopathy Respiratory/Chest: Positive for: Good Air Exchange, Decreased Breath Sounds. Negative for: Respiratory Distress, Accessory Muscle Use, Wheezes, Rales, Retracting, Rhonchi Cardiovascular: Positive for: Regular Rate and Rhythm, Murmurs, Normal S1, S2, Peripheal Pulses Present. Negative for: Irregular Rhythm, Tachycardic, Bradycardic Abdomen: Positive for: Normal Bowel Sounds. Negative for: Tenderness, Distention, Peritoneal Signs, Rebound, Guarding Back: Positive for: Normal Inspection Upper Extremity: Positive for: Normal Inspection. Negative for: Cyanosis, Edema Lower Extremity: Positive for: Normal Inspection. Negative for: Edema Neurological: Negative for: Speech Normal Skin: Positive for: Warm, Dry, Normal Color Psychiatric: Positive for: Alert, Oriented x 3. Negative for: Anxious, Agitated - Medications Active Medications: Active Medications Generic Name Dose Route Start Last Admin Trade Name Freq PRN Reason Stop Dose Admin Aspirin 81 mg 11/07/16 10:00 11/12/16 10:51 Aspirin Chewable PO 81 mg DAILY EMILY Administration Clopidogrel Bisulfate 75 mg 11/07/16 10:00 11/12/16 10:51 Plavix PO 75 mg DAILY EMILY Administration Famotidine 20 mg 11/14/16 10:00 11/16/16 09:05 Pepcid PO Not Given DAILY EMILY Meropenem 500 mg/ Sodium 100 mls @ 200 mls/hr 11/10/16 14:00 11/17/16 05:20 Chloride IVPB 200 mls/hr Q8 EMILY Administration Metronidazole 500 mg in 100 mls @ 100 mls/hr 11/15/16 14:00 11/17/16 06:25 Flagyl IVPB 100 mls/hr Q8 EMILY Administration Sodium Chloride 1,000 mls @ 100 mls/hr 11/15/16 21:45 11/16/16 18:28 Sodium Chloride 0.45% IV 100 mls/hr .Q10H EMILY Administration Insulin Detemir 20 unit 11/07/16 10:00 11/16/16 09:04 Levemir SC Not Given DAILY EMILY Insulin Human Regular 0 unit 11/07/16 06:00 11/17/16 06:00 Novolin R SC Not Given Q6 [facility] Protocol Levetiracetam 500 mg 11/10/16 11:00 11/16/16 18:26 Keppra GT 500 mg BID EMILY Administration Rosuvastatin Calcium 5 mg 11/14/16 22:00 11/16/16 21:30 Crestor PO 5 mg HS EMILY Administration - Patient Studies Lab Studies: Lab Studies 11/17/16 11/16/16 11/16/16 Range/Units 06:20 23:59 18:13 WBC (4.8-10.8) K/uL RBC (4.40-5.90) Mil/uL Hgb (12.0-18.0) g/dL Hct (35.0-51.0) % MCV (80.0-94.0) fL MCH (27.0-31.0) pg MCHC (33.0-37.0) g/dL RDW (11.5-14.5) % Plt Count (130-400) K/uL MPV (7.2-11.7) fL Neut % (Auto) (50.0-75.0) % Lymph % (Auto) (20.0-40.0) % Winn % (Auto) (0.0-10.0) % Eos % (Auto) (0.0-4.0) % Baso % (Auto) (0.0-2.0) % Neut # (1.8-7.0) K/uL Lymph # (1.0-4.3) K/uL Winn # (0.0-0.8) K/uL Eos # (0.0-0.7) K/uL Baso # (0.0-0.2) K/uL Puncture Site pCO2 (35-45) mm/Hg pO2 (80-100) mm/Hg HCO3 (21-28) mmol/L ABG pH (7.35-7.45) ABG Total CO2 (22-28) mmol/L ABG O2 Saturation (95-98) % ABG Base Excess (-2.0-3.0) mmol/L ABG Hemoglobin (11.7-17.4) g/dL ABG Carboxyhemoglobin (0.5-1.5) % POC ABG HHb (Measured) (0.0-5.0) % ABG Methemoglobin (0.0-3.0) % A-a O2 Difference mm/Hg Respiratory Index Hgb O2 Saturation (95.0-98.0) % Vent Mode Mechanical Rate FiO2 % Crit Value Called To Crit Value Called By Crit Value Read Back Blood Gas Notified Time Sodium (132-148) mmol/L Potassium (3.6-5.2) mmol/L Chloride (98-107) mmol/L Carbon Dioxide (22-30) mmol/L Anion Gap (10-20) BUN (9-20) mg/dL Creatinine (0.8-1.5) MG/DL Est GFR ( Amer) Est GFR (Non-Af Amer) POC Glucose (mg/dL) 153 H 145 H 97 (65-110) mg/dL Random Glucose (75-110) mg/dL Calcium (8.6-10.4) mg/dl Phosphorus (2.5-4.5) mg/dL Magnesium (1.6-2.3) mg/dL Total Bilirubin (0.2-1.3) mg/dL AST (17-59) U/L ALT (21-72) U/L Alkaline Phosphatase (38-126) U/L Total Protein (6.3-8.3) g/dL Albumin (3.5-5.0) g/dL Globulin (2.2-3.9) gm/dL Albumin/Globulin Ratio (1.0-2.1) 11/16/16 11/16/16 11/16/16 Range/Units 12:00 06:23 06:23 WBC 7.3 (4.8-10.8) K/uL RBC 3.30 L (4.40-5.90) Mil/uL Hgb 8.4 L (12.0-18.0) g/dL Hct 26.8 L (35.0-51.0) % MCV 81.4 (80.0-94.0) fL MCH 25.6 L (27.0-31.0) pg MCHC 31.5 L (33.0-37.0) g/dL RDW 17.6 H (11.5-14.5) % Plt Count 114 L (130-400) K/uL MPV 9.1 (7.2-11.7) fL Neut % (Auto) 73.8 (50.0-75.0) % Lymph % (Auto) 15.1 L (20.0-40.0) % Winn % (Auto) 5.8 (0.0-10.0) % Eos % (Auto) 4.9 H (0.0-4.0) % Baso % (Auto) 0.4 (0.0-2.0) % Neut # 5.4 (1.8-7.0) K/uL Lymph # 1.1 (1.0-4.3) K/uL Winn # 0.4 (0.0-0.8) K/uL Eos # 0.4 (0.0-0.7) K/uL Baso # 0.0 (0.0-0.2) K/uL Puncture Site pCO2 (35-45) mm/Hg pO2 (80-100) mm/Hg HCO3 (21-28) mmol/L ABG pH (7.35-7.45) ABG Total CO2 (22-28) mmol/L ABG O2 Saturation (95-98) % ABG Base Excess (-2.0-3.0) mmol/L ABG Hemoglobin (11.7-17.4) g/dL ABG Carboxyhemoglobin (0.5-1.5) % POC ABG HHb (Measured) (0.0-5.0) % ABG Methemoglobin (0.0-3.0) % A-a O2 Difference mm/Hg Respiratory Index Hgb O2 Saturation (95.0-98.0) % Vent Mode Mechanical Rate FiO2 % Crit Value Called To Crit Value Called By Crit Value Read Back Blood Gas Notified Time Sodium 150 H (132-148) mmol/L Potassium 3.3 L (3.6-5.2) mmol/L Chloride 111 H (98-107) mmol/L Carbon Dioxide 32 H (22-30) mmol/L Anion Gap 10 (10-20) BUN 27 H (9-20) mg/dL Creatinine 1.1 (0.8-1.5) MG/DL Est GFR ( Amer) > 60 Est GFR (Non-Af Amer) > 60 POC Glucose (mg/dL) 85 (65-110) mg/dL Random Glucose 119 H (75-110) mg/dL Calcium 8.2 L (8.6-10.4) mg/dl Phosphorus 3.0 (2.5-4.5) mg/dL Magnesium 2.4 H (1.6-2.3) mg/dL Total Bilirubin 0.4 (0.2-1.3) mg/dL AST 28 (17-59) U/L ALT 45 (21-72) U/L Alkaline Phosphatase 81 (38-126) U/L Total Protein 6.3 (6.3-8.3) g/dL Albumin 2.8 L (3.5-5.0) g/dL Globulin 3.5 (2.2-3.9) gm/dL Albumin/Globulin Ratio 0.8 L (1.0-2.1) 11/16/16 Range/Units 05:08 WBC (4.8-10.8) K/uL RBC (4.40-5.90) Mil/uL Hgb (12.0-18.0) g/dL Hct (35.0-51.0) % MCV (80.0-94.0) fL MCH (27.0-31.0) pg MCHC (33.0-37.0) g/dL RDW (11.5-14.5) % Plt Count (130-400) K/uL MPV (7.2-11.7) fL Neut % (Auto) (50.0-75.0) % Lymph % (Auto) (20.0-40.0) % Winn % (Auto) (0.0-10.0) % Eos % (Auto) (0.0-4.0) % Baso % (Auto) (0.0-2.0) % Neut # (1.8-7.0) K/uL Lymph # (1.0-4.3) K/uL Winn # (0.0-0.8) K/uL Eos # (0.0-0.7) K/uL Baso # (0.0-0.2) K/uL Puncture Site Rr pCO2 49 H (35-45) mm/Hg pO2 139 H (80-100) mm/Hg HCO3 29.4 H (21-28) mmol/L ABG pH 7.41 (7.35-7.45) ABG Total CO2 32.6 H (22-28) mmol/L ABG O2 Saturation 99.3 H (95-98) % ABG Base Excess 5.7 H (-2.0-3.0) mmol/L ABG Hemoglobin 8.3 L (11.7-17.4) g/dL ABG Carboxyhemoglobin 1.4 (0.5-1.5) % POC ABG HHb (Measured) 0.7 (0.0-5.0) % ABG Methemoglobin 0.8 (0.0-3.0) % A-a O2 Difference 156.0 mm/Hg Respiratory Index 1.1 Hgb O2 Saturation 97.2 (95.0-98.0) % Vent Mode Ac Mechanical Rate 12 FiO2 50.0 % Crit Value Called To Crit Value Called By Crit Value Read Back Blood Gas Notified Time Sodium (132-148) mmol/L Potassium (3.6-5.2) mmol/L Chloride (98-107) mmol/L Carbon Dioxide (22-30) mmol/L Anion Gap (10-20) BUN (9-20) mg/dL Creatinine (0.8-1.5) MG/DL Est GFR ( Amer) Est GFR (Non-Af Amer) POC Glucose (mg/dL) (65-110) mg/dL Random Glucose (75-110) mg/dL Calcium (8.6-10.4) mg/dl Phosphorus (2.5-4.5) mg/dL Magnesium (1.6-2.3) mg/dL Total Bilirubin (0.2-1.3) mg/dL AST (17-59) U/L ALT (21-72) U/L Alkaline Phosphatase (38-126) U/L Total Protein (6.3-8.3) g/dL Albumin (3.5-5.0) g/dL Globulin (2.2-3.9) gm/dL Albumin/Globulin Ratio (1.0-2.1) Laboratory Results - last 24 hr 11/16/16 11/16/16 11/16/16 05:08 06:23 06:23 WBC 7.3 RBC 3.30 L Hgb 8.4 L Hct 26.8 L MCV 81.4 MCH 25.6 L MCHC 31.5 L RDW 17.6 H Plt Count 114 L MPV 9.1 Neut % (Auto) 73.8 Lymph % (Auto) 15.1 L Winn % (Auto) 5.8 Eos % (Auto) 4.9 H Baso % (Auto) 0.4 Neut # 5.4 Lymph # 1.1 Winn # 0.4 Eos # 0.4 Baso # 0.0 Puncture Site Rr pCO2 49 H pO2 139 H HCO3 29.4 H ABG pH 7.41 ABG Total CO2 32.6 H ABG O2 Saturation 99.3 H ABG Base Excess 5.7 H ABG Hemoglobin 8.3 L ABG Carboxyhemoglobin 1.4 POC ABG HHb (Measured) 0.7 ABG Methemoglobin 0.8 A-a O2 Difference 156.0 Respiratory Index 1.1 Hgb O2 Saturation 97.2 Vent Mode Ac Mechanical Rate 12 FiO2 50.0 Crit Value Called To Crit Value Called By Crit Value Read Back Blood Gas Notified Time Sodium 150 H Potassium 3.3 L Chloride 111 H Carbon Dioxide 32 H Anion Gap 10 BUN 27 H Creatinine 1.1 Est GFR ( Amer) > 60 Est GFR (Non-Af Amer) > 60 POC Glucose (mg/dL) Random Glucose 119 H Calcium 8.2 L Phosphorus 3.0 Magnesium 2.4 H Total Bilirubin 0.4 AST 28 ALT 45 Alkaline Phosphatase 81 Total Protein 6.3 Albumin 2.8 L Globulin 3.5 Albumin/Globulin Ratio 0.8 L 11/16/16 11/16/16 11/16/16 12:00 18:13 23:59 WBC RBC Hgb Hct MCV MCH MCHC RDW Plt Count MPV Neut % (Auto) Lymph % (Auto) Winn % (Auto) Eos % (Auto) Baso % (Auto) Neut # Lymph # Winn # Eos # Baso # Puncture Site pCO2 pO2 HCO3 ABG pH ABG Total CO2 ABG O2 Saturation ABG Base Excess ABG Hemoglobin ABG Carboxyhemoglobin POC ABG HHb (Measured) ABG Methemoglobin A-a O2 Difference Respiratory Index Hgb O2 Saturation Vent Mode Mechanical Rate FiO2 Crit Value Called To Crit Value Called By Crit Value Read Back Blood Gas Notified Time Sodium Potassium Chloride Carbon Dioxide Anion Gap BUN Creatinine Est GFR ( Amer) Est GFR (Non-Af Amer) POC Glucose (mg/dL) 85 97 145 H Random Glucose Calcium Phosphorus Magnesium Total Bilirubin AST ALT Alkaline Phosphatase Total Protein Albumin Globulin Albumin/Globulin Ratio 11/17/16 06:20 WBC RBC Hgb Hct MCV MCH MCHC RDW Plt Count MPV Neut % (Auto) Lymph % (Auto) Winn % (Auto) Eos % (Auto) Baso % (Auto) Neut # Lymph # Winn # Eos # Baso # Puncture Site pCO2 pO2 HCO3 ABG pH ABG Total CO2 ABG O2 Saturation ABG Base Excess ABG Hemoglobin ABG Carboxyhemoglobin POC ABG HHb (Measured) ABG Methemoglobin A-a O2 Difference Respiratory Index Hgb O2 Saturation Vent Mode Mechanical Rate FiO2 Crit Value Called To Crit Value Called By Crit Value Read Back Blood Gas Notified Time Sodium Potassium Chloride Carbon Dioxide Anion Gap BUN Creatinine Est GFR ( Amer) Est GFR (Non-Af Amer) POC Glucose (mg/dL) 153 H Random Glucose Calcium Phosphorus Magnesium Total Bilirubin AST ALT Alkaline Phosphatase Total Protein Albumin Globulin Albumin/Globulin Ratio Fingerstick Blood Sugar Results: 153 Review of Systems - Review of Systems Systems not reviewed;Unavailable: Other (trach on vent) Critical Care Progress Note - Nutrition Nutrition: Nutrition Category Date Time Status NPO Diet [DIET] Diets 11/17/16 Breakfast Active Assessment/Plan - Assessment and Plan (Free Text) Assessment: 75yo M. 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 Presented with altered mental status and acute respiratory failure requiring intubation. Plan: Neuro: -Responsive; opens eyes to name and tries to mouth words to family; follows some commands -multiple CVA in the past- left hemiapresis -Keppra 500mg gt bid for seizure ppx Pulm: -trach on vent (12, 50, 5, 500) -CXR 11/17 persistent confluent diffuse patchy consolidative opacities throughout both lungs some of which have a masslike appearance; question small L pleural effusion; cardiomegaly CV: -Hemodynamically stable. -Acute on chronic Systolic congestive heart failure. -Echo 11/07 normal LV systolic function; moderate LVH; diastolic dysfunction; normal chamber size; trace to mild TR -ASA 81mg po daily -Plavix 75mg po daily -Crestor 5mg po hs Heme: -ASA 81mg po daily -Plavix 75mg po daily Renal: -LASHON resolved -renal u/s: increased echogenicity of b/l renal cortices suggestive of medical renal disease -1/2NS @ 100cc/hr -free water flushes 250cc q6h -Nephrology Dr Jeaneth Neely Endo: -DM type II -RISS Q6 -Levemir 20 units sc GI: -PEG tube placed this AM -Isosource 1.5 at 45cc/hr ID: -Severe sepsis from UTI with Proteus mirabilis 11/06 -Merrem 500mg ivpb q8 started 11/10- continue for 2 weeks as per ID -Flagyl 500mg ivpb q8 -Blood culture negative 11/06 -Urine culture negative 11/09 -ID Dr Alexis on board DVT proph - heparin 5000u sc q12; SCDs GI proph - Pepcid 20mg po daily Code status - full code Dispo- pending LTAC Case discussed with Dr. Mariah Whittington PGY2 <Gabriel Lemus - Last Filed: 11/18/16 14:01> CCU Objective - Vital Signs / Intake & Output Vital Signs (Last 4 hours): Vital Signs Pulse Resp BP Pulse Ox 11/18/16 12:01 88 12 143/66 97 11/18/16 12:00 92 H 12 97 11/18/16 10:08 85 12 100 Intake and Output (Last 8hrs): Intake & Output 11/17/16 11/18/16 11/18/16 22:59 06:59 14:59 Intake Total 1130 1410 1015 Output Total 340 360 340 Balance 790 1050 675 Weight 238 lb 1.588 oz Intake: Intake, IV Amount 800 800 700 Right Proximal Port 800 800 700 Internal Jugular Oral 150 250 Tube Feeding 180 360 315 Output: Urine 340 360 340 Urethral (Sharma) 340 360 340 Other: # Bowel Movements 1 - Medications Active Medications: Active Medications Generic Name Dose Route Start Last Admin Trade Name Freq PRN Reason Stop Dose Admin Aspirin 81 mg 11/07/16 10:00 11/18/16 10:49 Aspirin Chewable PO 81 mg DAILY EMILY Administration Clopidogrel Bisulfate 75 mg 11/07/16 10:00 11/18/16 10:49 Plavix PO 75 mg DAILY EMILY Administration Famotidine 20 mg 11/14/16 10:00 11/18/16 10:49 Pepcid PO 20 mg DAILY EMILY Administration Heparin Sodium (Porcine) 5,000 units 11/18/16 22:00 Heparin SC Q12 EMILY Meropenem 500 mg/ Sodium 100 mls @ 200 mls/hr 11/10/16 14:00 11/18/16 13:05 Chloride IVPB 200 mls/hr Q8 EMILY Administration Metronidazole 500 mg in 100 mls @ 100 mls/hr 11/15/16 14:00 11/18/16 13:05 Flagyl IVPB 100 mls/hr Q8 EMILY Administration Sodium Chloride 1,000 mls @ 100 mls/hr 11/15/16 21:45 11/18/16 05:40 Sodium Chloride 0.45% IV 100 mls/hr .Q10H EMILY Administration Insulin Detemir 20 unit 11/07/16 10:00 11/18/16 10:49 Levemir SC 20 unit DAILY EMILY Administration Insulin Human Regular 0 unit 11/07/16 06:00 11/18/16 13:06 Novolin R SC 4 unit Q6 EMILY Administration Protocol Levetiracetam 500 mg 11/10/16 11:00 11/18/16 10:49 Keppra GT 500 mg BID EMILY Administration Potassium Phos/Sodium Phos 1 pkt 11/18/16 14:00 11/18/16 13:05 Neutra-Phos PO 1 pkt TID EMILY Administration Rosuvastatin Calcium 5 mg 11/14/16 22:00 11/17/16 21:15 Crestor PO 5 mg HS EMILY Administration - Patient Studies Lab Studies: Lab Studies 11/18/16 11/18/16 11/18/16 Range/Units 11:59 06:22 06:20 WBC 5.8 (4.8-10.8) K/uL RBC 3.24 L (4.40-5.90) Mil/uL Hgb 8.2 L (12.0-18.0) g/dL Hct 26.3 L (35.0-51.0) % MCV 81.2 (80.0-94.0) fL MCH 25.3 L (27.0-31.0) pg MCHC 31.2 L (33.0-37.0) g/dL RDW 17.4 H (11.5-14.5) % Plt Count 146 (130-400) K/uL MPV 9.5 (7.2-11.7) fL Neut % (Auto) 74.8 (50.0-75.0) % Lymph % (Auto) 14.0 L (20.0-40.0) % Winn % (Auto) 7.4 (0.0-10.0) % Eos % (Auto) 3.2 (0.0-4.0) % Baso % (Auto) 0.6 (0.0-2.0) % Neut # 4.3 (1.8-7.0) K/uL Lymph # 0.8 L (1.0-4.3) K/uL Winn # 0.4 (0.0-0.8) K/uL Eos # 0.2 (0.0-0.7) K/uL Baso # 0.0 (0.0-0.2) K/uL Sodium 140 (132-148) mmol/L Potassium 3.5 L (3.6-5.2) mmol/L Chloride 103 (98-107) mmol/L Carbon Dioxide 30 (22-30) mmol/L Anion Gap 11 (10-20) BUN 18 (9-20) mg/dL Creatinine 1.1 (0.8-1.5) MG/DL Est GFR ( Amer) > 60 Est GFR (Non-Af Amer) > 60 POC Glucose (mg/dL) 277 H (65-110) mg/dL Random Glucose 206 H (75-110) mg/dL Calcium 7.8 L (8.6-10.4) mg/dl Phosphorus 2.2 L (2.5-4.5) mg/dL Magnesium 2.1 (1.6-2.3) mg/dL Total Bilirubin 0.6 (0.2-1.3) mg/dL AST 25 (17-59) U/L ALT 31 (21-72) U/L Alkaline Phosphatase 83 (38-126) U/L Total Protein 6.0 L (6.3-8.3) g/dL Albumin 2.7 L (3.5-5.0) g/dL Globulin 3.3 (2.2-3.9) gm/dL Albumin/Globulin Ratio 0.8 L (1.0-2.1) 11/18/16 11/17/16 11/17/16 Range/Units 05:41 23:49 17:54 WBC (4.8-10.8) K/uL RBC (4.40-5.90) Mil/uL Hgb (12.0-18.0) g/dL Hct (35.0-51.0) % MCV (80.0-94.0) fL MCH (27.0-31.0) pg MCHC (33.0-37.0) g/dL RDW (11.5-14.5) % Plt Count (130-400) K/uL MPV (7.2-11.7) fL Neut % (Auto) (50.0-75.0) % Lymph % (Auto) (20.0-40.0) % Winn % (Auto) (0.0-10.0) % Eos % (Auto) (0.0-4.0) % Baso % (Auto) (0.0-2.0) % Neut # (1.8-7.0) K/uL Lymph # (1.0-4.3) K/uL Winn # (0.0-0.8) K/uL Eos # (0.0-0.7) K/uL Baso # (0.0-0.2) K/uL Sodium (132-148) mmol/L Potassium (3.6-5.2) mmol/L Chloride (98-107) mmol/L Carbon Dioxide (22-30) mmol/L Anion Gap (10-20) BUN (9-20) mg/dL Creatinine (0.8-1.5) MG/DL Est GFR ( Amer) Est GFR (Non-Af Amer) POC Glucose (mg/dL) 239 H 167 H 123 H (65-110) mg/dL Random Glucose (75-110) mg/dL Calcium (8.6-10.4) mg/dl Phosphorus (2.5-4.5) mg/dL Magnesium (1.6-2.3) mg/dL Total Bilirubin (0.2-1.3) mg/dL AST (17-59) U/L ALT (21-72) U/L Alkaline Phosphatase (38-126) U/L Total Protein (6.3-8.3) g/dL Albumin (3.5-5.0) g/dL Globulin (2.2-3.9) gm/dL Albumin/Globulin Ratio (1.0-2.1) Laboratory Results - last 24 hr 11/17/16 11/17/16 11/18/16 17:54 23:49 05:41 WBC RBC Hgb Hct MCV MCH MCHC RDW Plt Count MPV Neut % (Auto) Lymph % (Auto) Winn % (Auto) Eos % (Auto) Baso % (Auto) Neut # Lymph # Winn # Eos # Baso # Sodium Potassium Chloride Carbon Dioxide Anion Gap BUN Creatinine Est GFR ( Amer) Est GFR (Non-Af Amer) POC Glucose (mg/dL) 123 H 167 H 239 H Random Glucose Calcium Phosphorus Magnesium Total Bilirubin AST ALT Alkaline Phosphatase Total Protein Albumin Globulin Albumin/Globulin Ratio 11/18/16 11/18/16 11/18/16 06:20 06:22 11:59 WBC 5.8 RBC 3.24 L Hgb 8.2 L Hct 26.3 L MCV 81.2 MCH 25.3 L MCHC 31.2 L RDW 17.4 H Plt Count 146 MPV 9.5 Neut % (Auto) 74.8 Lymph % (Auto) 14.0 L Winn % (Auto) 7.4 Eos % (Auto) 3.2 Baso % (Auto) 0.6 Neut # 4.3 Lymph # 0.8 L Winn # 0.4 Eos # 0.2 Baso # 0.0 Sodium 140 Potassium 3.5 L Chloride 103 Carbon Dioxide 30 Anion Gap 11 BUN 18 Creatinine 1.1 Est GFR ( Amer) > 60 Est GFR (Non-Af Amer) > 60 POC Glucose (mg/dL) 277 H Random Glucose 206 H Calcium 7.8 L Phosphorus 2.2 L Magnesium 2.1 Total Bilirubin 0.6 AST 25 ALT 31 Alkaline Phosphatase 83 Total Protein 6.0 L Albumin 2.7 L Globulin 3.3 Albumin/Globulin Ratio 0.8 L Critical Care Progress Note - Nutrition Nutrition: Nutrition Category Date Time Status NPO Diet [DIET] Diets 11/17/16 Breakfast Active Assessment/Plan (1) Respiratory failure Current Visit: Yes Status: Acute Attending/Attestation - Attestation I have personally seen and examined this patient.: Yes I have fully participated in the care of the patient.: Yes I have reviewed all pertinent clinical information: Yes Notes (Text): 11/18/16 14:00 I have seen and examined the patient. Medical records, lab studies, and imaging were reviewed by me and a management plan was formulated on multidisciplinary rounds with resident Dr. Whittington. I agree with their above documented assessment and plan. Patient peg/trach'd, no change in clinical status, patient ready to transferred to LTAC. Picc line placement pending. Critical Care Time 35 minutes. Multi-disciplinary rounds were performed with house staff, nursing, speech therapy, respiratory therapy, pharmacy and nutrition with integrated input from the primary team/attending and other consulting services. The documented time is cumulative and includes review of patient data/exams/labs/chart review and examination of the patient on rounds and throughout the day; time is exclusive of any procedures or teaching time.
[2016-11-17 06:45] LABS: BASO % 0.5 % (0.0-2.0); EOS # 0.3 K/uL (0.0-0.7); EOS % 3.8 % (0.0-4.0); HEMATOCRIT 27.3 % (35.0-51.0); LYMPH # 0.8 K/uL (1.0-4.3); LYMPH % 11.9 % (20.0-40.0); MEAN CELL VOLUME 81.2 fL (80.0-94.0); MEAN CORPUSCULAR HEMOGLOBIN 25.6 pg (27.0-31.0); MEAN CORPUSCULAR HGB CONC 31.6 g/dL (33.0-37.0); MEAN PLATELET VOLUME 9.5 fL (7.2-11.7); MONO # 0.3 K/uL (0.0-0.8); RED CELL DISTRIBUTION WIDTH 17.8 % (11.5-14.5); WHITE BLOOD COUNT 6.8 K/uL (4.8-10.8)
[2016-11-17 06:59] LABS: CHLORIDE 105 mmol/L (98-107); POTASSIUM 3.6 mmol/L (3.6-5.2); SODIUM 144 mmol/L (132-148)
[2016-11-17 07:01] LABS: ALB/GLOB RATIO 0.9 (1.0-2.1); AST/SGOT 23 U/L (17-59); BILIRUBIN,TOTAL 0.8 mg/dL (0.2-1.3); CARBON DIOXIDE 30 mmol/L (22-30); GFR AFRICAN-AMERICAN > 60; TOTAL PROTEIN 5.9 g/dL (6.3-8.3)
[2016-11-17 07:02] LABS: ALKALINE PHOSPHATASE 85 U/L (38-126); ALT/SGPT 33 U/L (21-72); BLOOD UREA NITROGEN 19 mg/dL (9-20); CALCIUM 7.9 mg/dl (8.6-10.4); GLUCOSE,RANDOM 127 mg/dL (75-110); MAGNESIUM 2.2 mg/dL (1.6-2.3)
[2016-11-17] MEDS: Sodium Chloride 0.45% 1,000 ML IV SCH (07:30)
[2016-11-17] MEDS ORDERED: Midazolam 2 MG/2 ML VIAL ONE (09:21)
[2016-11-17] MEDS ORDERED: Etomidate 20 mg/10ml Inj IV ONE (09:22)
--- NOTE | 2016-11-17 10:05 | CP.PCM.PN ---
Subjective - Date & Time of Evaluation Date of Evaluation: 11/17/16 Time of Evaluation: 10:03 - Subjective Subjective: Gen Sx: Dr Diez Pt S&E. NAEO. Remains sedated. Trach in good position, no acute bleeding. For PEG today with GI. Objective - Vital Signs/Intake and Output Vital Signs (last 24 hours): Temp Pulse Resp BP Pulse Ox 98.8 F 80 12 157/64 H 99 11/17/16 09:43 11/17/16 09:43 11/17/16 09:43 11/17/16 09:43 11/17/16 09:43 Intake and Output: 11/17/16 11/17/16 06:59 18:59 Intake Total 1800 300 Output Total 960 100 Balance 840 200 - Medications Medications: Current Medications Aspirin (Aspirin Chewable) 81 mg PO DAILY [facility] Last Admin: 11/12/16 10:51 Dose: 81 mg Clopidogrel Bisulfate (Plavix) 75 mg PO DAILY [facility] Last Admin: 11/12/16 10:51 Dose: 75 mg Famotidine (Pepcid) 20 mg PO DAILY [facility] Last Admin: 11/16/16 09:05 Dose: Not Given Meropenem 500 mg/ Sodium (Chloride) 100 mls @ 200 mls/hr IVPB Q8 [facility] Last Admin: 11/17/16 05:20 Dose: 200 mls/hr Metronidazole (Flagyl) 500 mg in 100 mls @ 100 mls/hr IVPB Q8 [facility] Last Admin: 11/17/16 06:25 Dose: 100 mls/hr Sodium Chloride (Sodium Chloride 0.45%) 1,000 mls @ 100 mls/hr IV .Q10H [facility] Last Admin: 11/17/16 07:30 Dose: 100 mls/hr Insulin Detemir (Levemir) 20 unit SC DAILY [facility] Last Admin: 11/16/16 09:04 Dose: Not Given Insulin Human Regular (Novolin R) 0 unit SC Q6 [facility] PRN Reason: Protocol Last Admin: 11/17/16 06:00 Dose: Not Given Levetiracetam (Keppra) 500 mg GT BID [facility] Last Admin: 11/16/16 18:26 Dose: 500 mg Rosuvastatin Calcium (Crestor) 5 mg PO HS [facility] Last Admin: 11/16/16 21:30 Dose: 5 mg - Labs Labs: 11/17/16 06:27 11/17/16 06:27 PT 13.3 SECONDS (9.7-12.2) H 11/09/16 05:50 INR 1.2 11/09/16 05:50 APTT 37 SECONDS (21-34) H 11/09/16 05:50 - Constitutional Appears: Chronically Ill - Respiratory Exam Respiratory Exam: absent: Accessory Muscle Use, Respiratory Distress - Cardiovascular Exam Cardiovascular Exam: absent: Tachycardia Assessment and Plan - Assessment and Plan (Free Text) Assessment: 75M POD#1 s/p trach Plan: cont care per ICU/primary no further intervention will remove sutures POD#10 if pt still in house please reconsult if necessary d/w Dr Rg Wilkerson, PGY2
--- NOTE | 2016-11-17 10:49 | RAD ---
Chest x-ray single frontal view History: Intubated. Comparison: 11/16/2016 Findings: Tracheostomy tube in place. NG tube extending into the stomach. Other lines and tubes stable position. Persistent confluent diffuse patchy consolidative opacities throughout both lungs some of which have a masslike appearance. Question small left pleural effusion. Cardiomegaly. Degenerative changes in the spine and shoulders. Impression: Tracheostomy tube in place. NG tube extending into the stomach. Other lines and tubes stable position. Persistent confluent diffuse patchy consolidative opacities throughout both lungs some of which have a masslike appearance. Question small left pleural effusion. Cardiomegaly.
[2016-11-17] MEDS: Insulin Detemir 100 units/ml Vial (Levemir) SC SCH (13:34)
[2016-11-17] MEDS: levETIRAcetam 100 mg/ml (5ml) Oral Syringe GT SCH ×2 (13:34→17:27)
--- NOTE | 2016-11-17 15:30 | CP.PCM.PN ---
Subjective - Date & Time of Evaluation Date of Evaluation: 11/17/16 Time of Evaluation: 11:10 - Subjective Subjective: patient seen and examined in the intensive care unit. Status post tracheostomy and PEG insertion On ventilatory support with no change in mental status Objective - Vital Signs/Intake and Output Vital Signs (last 24 hours): Temp Pulse Resp BP Pulse Ox 98.1 F 78 11 L 156/63 H 99 11/17/16 12:00 11/17/16 12:01 11/17/16 12:01 11/17/16 12:02 11/17/16 12:01 Intake and Output: 11/17/16 11/17/16 06:59 18:59 Intake Total 1800 800 Output Total 960 300 Balance 840 500 - Medications Medications: Current Medications Aspirin (Aspirin Chewable) 81 mg PO DAILY [facility] Last Admin: 11/12/16 10:51 Dose: 81 mg Clopidogrel Bisulfate (Plavix) 75 mg PO DAILY [facility] Last Admin: 11/12/16 10:51 Dose: 75 mg Famotidine (Pepcid) 20 mg PO DAILY [facility] Last Admin: 11/17/16 13:35 Dose: Not Given Meropenem 500 mg/ Sodium (Chloride) 100 mls @ 200 mls/hr IVPB Q8 [facility] Last Admin: 11/17/16 05:20 Dose: 200 mls/hr Metronidazole (Flagyl) 500 mg in 100 mls @ 100 mls/hr IVPB Q8 [facility] Last Admin: 11/17/16 06:25 Dose: 100 mls/hr Sodium Chloride (Sodium Chloride 0.45%) 1,000 mls @ 100 mls/hr IV .Q10H [facility] Last Admin: 11/17/16 07:30 Dose: 100 mls/hr Insulin Detemir (Levemir) 20 unit SC DAILY [facility] Last Admin: 11/17/16 13:34 Dose: Not Given Insulin Human Regular (Novolin R) 0 unit SC Q6 [facility] PRN Reason: Protocol Last Admin: 11/17/16 13:35 Dose: Not Given Levetiracetam (Keppra) 500 mg GT BID [facility] Last Admin: 11/17/16 13:34 Dose: Not Given Rosuvastatin Calcium (Crestor) 5 mg PO HS [facility] Last Admin: 11/16/16 21:30 Dose: 5 mg - Labs Labs: 11/17/16 06:27 06/22/17 06:27 PT 13.3 SECONDS (9.7-12.2) H 11/09/16 05:50 INR 1.2 11/09/16 05:50 APTT 37 SECONDS (21-34) H 11/09/16 05:50 - Head Exam Head Exam: ATRAUMATIC, NORMOCEPHALIC - ENT Exam ENT Exam: Mucous Membranes Moist - Neck Exam Neck Exam: Normal Inspection - Respiratory Exam Respiratory Exam: Decreased Breath Sounds - Cardiovascular Exam Cardiovascular Exam: REGULAR RHYTHM - GI/Abdominal Exam GI & Abdominal Exam: Soft, Normal Bowel Sounds - Extremities Exam Extremities Exam: Pedal Edema Assessment and Plan (1) Respiratory failure Assessment & Plan: Status post tracheostomy Continue ventilatory support Consider LTACH PEG feeding Prognosis poor Status: Acute (2) Hypothermia Status: Acute (3) Sepsis Status: Acute
--- NOTE | 2016-11-17 16:16 | CP.PCM.PN ---
Subjective - Date & Time of Evaluation Date of Evaluation: 11/17/16 Time of Evaluation: 11:20 - Subjective Subjective: clinically same Objective - Vital Signs/Intake and Output Vital Signs (last 24 hours): Temp Pulse Resp BP Pulse Ox 98.1 F 78 11 L 156/63 H 99 11/17/16 12:00 11/17/16 12:01 11/17/16 12:01 11/17/16 12:02 11/17/16 12:01 Intake and Output: 11/17/16 11/17/16 06:59 18:59 Intake Total 1800 800 Output Total 960 300 Balance 840 500 - Medications Medications: Current Medications Aspirin (Aspirin Chewable) 81 mg PO DAILY [facility] Last Admin: 11/12/16 10:51 Dose: 81 mg Clopidogrel Bisulfate (Plavix) 75 mg PO DAILY [facility] Last Admin: 11/12/16 10:51 Dose: 75 mg Famotidine (Pepcid) 20 mg PO DAILY [facility] Last Admin: 11/17/16 13:35 Dose: Not Given Meropenem 500 mg/ Sodium (Chloride) 100 mls @ 200 mls/hr IVPB Q8 [facility] Last Admin: 11/17/16 05:20 Dose: 200 mls/hr Metronidazole (Flagyl) 500 mg in 100 mls @ 100 mls/hr IVPB Q8 [facility] Last Admin: 11/17/16 06:25 Dose: 100 mls/hr Sodium Chloride (Sodium Chloride 0.45%) 1,000 mls @ 100 mls/hr IV .Q10H [facility] Last Admin: 11/17/16 07:30 Dose: 100 mls/hr Insulin Detemir (Levemir) 20 unit SC DAILY [facility] Last Admin: 11/17/16 13:34 Dose: Not Given Insulin Human Regular (Novolin R) 0 unit SC Q6 [facility] PRN Reason: Protocol Last Admin: 11/17/16 13:35 Dose: Not Given Levetiracetam (Keppra) 500 mg GT BID [facility] Last Admin: 11/17/16 13:34 Dose: Not Given Rosuvastatin Calcium (Crestor) 5 mg PO HS [facility] Last Admin: 11/16/16 21:30 Dose: 5 mg - Labs Labs: 11/17/16 06:27 11/17/16 06:27 PT 13.3 SECONDS (9.7-12.2) H 11/09/16 05:50 INR 1.2 11/09/16 05:50 APTT 37 SECONDS (21-34) H 11/09/16 05:50 - Constitutional Appears: Well - Head Exam Head Exam: ATRAUMATIC, NORMAL INSPECTION, NORMOCEPHALIC - Eye Exam Eye Exam: EOMI, Normal appearance, PERRL Pupil Exam: NORMAL ACCOMODATION, PERRL - ENT Exam ENT Exam: Mucous Membranes Moist, Normal Exam - Neck Exam Neck Exam: Full ROM, Normal Inspection. absent: Lymphadenopathy - Respiratory Exam Respiratory Exam: Decreased Breath Sounds - Cardiovascular Exam Cardiovascular Exam: REGULAR RHYTHM, +S1, +S2 - GI/Abdominal Exam GI & Abdominal Exam: Soft, Diminished Bowel Sounds - Rectal Exam Rectal Exam: Deferred
--- NOTE | 2016-11-17 16:28 | CP.PCM.PN ---
Subjective - Date & Time of Evaluation Date of Evaluation: 11/17/16 Time of Evaluation: 08:00 - Subjective Subjective: Status post tracheostomy and PEG insertion On ventilatory support with no change in mental status iv rx in progress consider d/c antibiotics if ok with DR MOE Objective - Vital Signs/Intake and Output Vital Signs (last 24 hours): Temp Pulse Resp BP Pulse Ox 98.1 F 78 11 L 156/63 H 99 11/17/16 12:00 11/17/16 12:01 11/17/16 12:01 11/17/16 12:02 11/17/16 12:01 Intake and Output: 11/17/16 11/17/16 06:59 18:59 Intake Total 1800 800 Output Total 960 300 Balance 840 500 - Medications Medications: Current Medications Aspirin (Aspirin Chewable) 81 mg PO DAILY [facility] Last Admin: 11/12/16 10:51 Dose: 81 mg Clopidogrel Bisulfate (Plavix) 75 mg PO DAILY [facility] Last Admin: 11/12/16 10:51 Dose: 75 mg Famotidine (Pepcid) 20 mg PO DAILY [facility] Last Admin: 11/17/16 13:35 Dose: Not Given Meropenem 500 mg/ Sodium (Chloride) 100 mls @ 200 mls/hr IVPB Q8 [facility] Last Admin: 11/17/16 05:20 Dose: 200 mls/hr Metronidazole (Flagyl) 500 mg in 100 mls @ 100 mls/hr IVPB Q8 [facility] Last Admin: 11/17/16 06:25 Dose: 100 mls/hr Sodium Chloride (Sodium Chloride 0.45%) 1,000 mls @ 100 mls/hr IV .Q10H [facility] Last Admin: 11/17/16 07:30 Dose: 100 mls/hr Insulin Detemir (Levemir) 20 unit SC DAILY [facility] Last Admin: 11/17/16 13:34 Dose: Not Given Insulin Human Regular (Novolin R) 0 unit SC Q6 [facility] PRN Reason: Protocol Last Admin: 11/17/16 13:35 Dose: Not Given Levetiracetam (Keppra) 500 mg GT BID [facility] Last Admin: 11/17/16 13:34 Dose: Not Given Rosuvastatin Calcium (Crestor) 5 mg PO HS [facility] Last Admin: 11/16/16 21:30 Dose: 5 mg - Labs Labs: 11/17/16 06:27 11/17/16 06:27 PT 13.3 SECONDS (9.7-12.2) H 11/09/16 05:50 INR 1.2 11/09/16 05:50 APTT 37 SECONDS (21-34) H 11/09/16 05:50 - Constitutional Appears: Non-toxic, Chronically Ill - Head Exam Head Exam: NORMOCEPHALIC - Eye Exam Eye Exam: PERRL. absent: Scleral icterus - ENT Exam ENT Exam: Mucous Membranes Dry, Normal External Ear Exam - Neck Exam Neck Exam: absent: Lymphadenopathy - Respiratory Exam Respiratory Exam: Decreased Breath Sounds, Rhonchi - Cardiovascular Exam Cardiovascular Exam: REGULAR RHYTHM, +S1, +S2 - GI/Abdominal Exam GI & Abdominal Exam: Distended, Soft. absent: Tenderness - Rectal Exam Rectal Exam: Deferred - Exam Exam: NORMAL INSPECTION - Extremities Exam Extremities Exam: Pedal Edema. absent: Calf Tenderness, Tenderness - Back Exam Back Exam: absent: CVA tenderness (L), CVA tenderness (R) - Neurological Exam Neurological Exam: Altered - Psychiatric Exam Psychiatric exam: Depressed Assessment and Plan (1) LASHON (acute kidney injury) Status: Acute (2) Hyperkalemia Status: Acute (3) Hypothermia Status: Acute (4) Insulin dependent diabetes mellitus Status: Acute (5) Respiratory failure Status: Acute (6) Sepsis Status: Acute (7) Septic shock Status: Acute (8) UTI (lower urinary tract infection) Status: Acute (9) CHF (congestive heart failure) Status: Chronic (10) CVA (cerebral vascular accident) Status: Acute (11) Delirium due to another medical condition Status: Acute (12) Lower extremity edema Status: Acute (13) Diabetes mellitus Status: Chronic - Assessment and Plan (Free Text) Assessment: CONSIDER D/C ANTIBIOTICS IF OK WITH DR MOE
--- NOTE | 2016-11-17 23:21 | CP.PCM.PN ---
Subjective - Date & Time of Evaluation Date of Evaluation: 11/17/16 Time of Evaluation: 10:00 - Subjective Subjective: Status post tracheostomy and PEG insertion On ventilatory support with no change in mental status iv rx in progress consider d/c antibiotics if ok with DR MOE Objective - Vital Signs/Intake and Output Vital Signs (last 24 hours): Temp Pulse Resp BP Pulse Ox 97.8 F 93 H 16 137/92 H 99 11/17/16 20:00 11/17/16 22:01 11/17/16 22:01 11/17/16 22:01 11/17/16 22:01 Intake and Output: 11/17/16 11/18/16 18:59 06:59 Intake Total 1300 730 Output Total 550 140 Balance 750 590 - Medications Medications: Current Medications Aspirin (Aspirin Chewable) 81 mg PO DAILY [facility] Last Admin: 11/12/16 10:51 Dose: 81 mg Clopidogrel Bisulfate (Plavix) 75 mg PO DAILY [facility] Last Admin: 11/12/16 10:51 Dose: 75 mg Famotidine (Pepcid) 20 mg PO DAILY [facility] Last Admin: 11/17/16 13:35 Dose: Not Given Heparin Sodium (Porcine) (Heparin) 5,000 units SC Q12 [facility] Meropenem 500 mg/ Sodium (Chloride) 100 mls @ 200 mls/hr IVPB Q8 [facility] Last Admin: 11/17/16 21:10 Dose: 200 mls/hr Metronidazole (Flagyl) 500 mg in 100 mls @ 100 mls/hr IVPB Q8 [facility] Last Admin: 11/17/16 14:05 Dose: 100 mls/hr Sodium Chloride (Sodium Chloride 0.45%) 1,000 mls @ 100 mls/hr IV .Q10H [facility] Last Admin: 11/17/16 07:30 Dose: 100 mls/hr Insulin Detemir (Levemir) 20 unit SC DAILY [facility] Last Admin: 11/17/16 13:34 Dose: Not Given Insulin Human Regular (Novolin R) 0 unit SC Q6 [facility] PRN Reason: Protocol Last Admin: 11/17/16 17:27 Dose: Not Given Levetiracetam (Keppra) 500 mg GT BID [facility] Last Admin: 11/17/16 17:27 Dose: 500 mg Rosuvastatin Calcium (Crestor) 5 mg PO HS [facility] Last Admin: 11/17/16 21:15 Dose: 5 mg - Labs Labs: 11/17/16 06:27 11/17/16 06:27 PT 13.3 SECONDS (9.7-12.2) H 11/09/16 05:50 INR 1.2 11/09/16 05:50 APTT 37 SECONDS (21-34) H 11/09/16 05:50 Assessment and Plan (1) Respiratory failure Status: Acute (2) Insulin dependent diabetes mellitus Status: Acute (3) UTI (lower urinary tract infection) Status: Acute
--- NOTE | 2016-11-18 02:20 | CON ---
DATE: 11/15/[address] Victor Manuel Brower to Dr. Antoien Saunders SUBJECTIVE: I was called for GI consultation by the admitting MD. The patient is seen and fully exa mined on 11/15/2016 requested by the admitting medical team. All the available lab and radiology st udy results, current and previous medication list, current and the previous medical events, allergies to medications list, as well as all the available current and the previous medical records were revi ewed. Case was discussed with the ICU staff at length. HISTORY OF PRESENT ILLNESS: This is a 75-year-old old male with multiple past medical history, nonve rbal, all the information obtained from medical record, medical staff, nursing staff, as well as from the patient's own . Was admitted with underlying diagnosis of hypertension, change of mental st atus and respiratory failure for which he was intubated and he became ventilator dependent with dysph agia. The patient had been having subsequent drop of his hemoglobin and hematocrit, as well as decreased al bumin and total protein. LABORATORY DATA: Initial blood workup showed low hemoglobin of 11.1, hematocrit 36.4 with increased BUN and creatinine 250 and 2.0, increased blood glucose level 215 with increased potassium 7.2. The patient had CAT scan of the head, report seen. Chest x-ray showed evidence of infiltrate post-admission. As above, I was called for GI consultation for potential PEG insertion. PAST MEDICAL HISTORY: Including mainly, but not limited to: 1. Cerebrovascular accident. 2. Dementia. 3. Coronary artery disease. 4. Chronic obstructive pulmonary disease with pneumonia and . 5. Known history of diabetes mellitus. 6. History of hypertension with hyperlipidemia. 7. Known history of peptic ulcer disease. 8. Status post coronary artery stent insertion. FAMILY HISTORY: Unknown. CURRENT MEDICATIONS: Medication lists were reviewed. SOCIAL HISTORY: No known recent history of cigarette smoking or alcohol intake. ALLERGY TO MEDICATION: List is seen. PHYSICAL EXAMINATION: GENERAL: A 75-year-old male, intubated through his NG tube in place. VITAL SIGNS: with pulse of 58, blood pressure of 112/54. HEENT: Showed pale, dry oral mucoid membrane. Nonicteric sclerae. The patient is intubated, with NG tube in place. LYMPH NODES: No lymphadenitis or lymphadenopathy. LUNGS: Scattered crepitation with decreased air entry bilaterally. HEART: Positive S1 and S2. ABDOMEN: Soft. Bowel sounds are present, but hypoactive with abdominal distention, mild. No mass o r organomegaly. No rebound tenderness or guarding. EXTREMITIES: With edematous changes, mild, in the lower extremities. No clubbing or cyanosis. Barbara pheral pulses are present, but weak. NEUROLOGIC: No new reported neurological deficits, motor or sensory. IMPRESSION: 1. Dysphagia. 2. Malnutrition. 3. Hypoalbuminemia. 4. Pneumonia with respiratory failure. The patient is intubated on vent. 5. Multiple past medical history including, but not limited to hypertension, cerebrovascular acciden t, poorly controlled diabetes mellitus, dehydration, renal insufficiency, hyperlipidemia, as well as osteoarthritis. 6. Known history of coronary artery disease, status post cardiac stent insertion. 7. Anemia, most likely secondary to above. SUGGESTION: 1. Agree with your plan. 2. Prefer hyperalimentation. 3. The patient is to be scheduled for PEG insertion or for tracheostomy to be considered. 4. Start the Flagyl IV. 5. Continue proton pump inhibitors. 6. Cancer markers. 7. Correct any underlying coagulopathy. Thank you for letting me participate in your patient's case management. Further recommendations to eulalio slater post-PEG insertion. It has to be mentioned that the case was discussed at length with the , as well as the patient's daughter. Thank you for letting me participate in your patient's case management. Victor Manuel Brower MD cc: 14 TT: 11/18/2016 02:19:42 Confirmation # [id number] Dictation # [id number]
[2016-11-18] MEDS: Sodium Chloride 0.45% 1,000 ML IV SCH ×3 (05:40→18:56)
[2016-11-18] MEDS: Meropenem 500 MG in Sodium Chloride 0.9% 100 ML IVPB SCH ×3 (05:45→21:06)
[2016-11-18] MEDS: (Novolin R) Insulin Human Regular 100 units/ml vial SC SCH ×4 (05:45→18:56)
[2016-11-18 06:32] LABS: EOS # 0.2 K/uL (0.0-0.7); LYMPH # 0.8 K/uL (1.0-4.3); WHITE BLOOD COUNT 5.8 K/uL (4.8-10.8)
[2016-11-18 06:42] LABS: BASO % 0.6 % (0.0-2.0); EOS % 3.2 % (0.0-4.0); HEMATOCRIT 26.3 % (35.0-51.0); MEAN CELL VOLUME 81.2 fL (80.0-94.0); MEAN CORPUSCULAR HEMOGLOBIN 25.3 pg (27.0-31.0); MEAN CORPUSCULAR HGB CONC 31.2 g/dL (33.0-37.0); MEAN PLATELET VOLUME 9.5 fL (7.2-11.7); MONO # 0.4 K/uL (0.0-0.8); MONO % 7.4 % (0.0-10.0); RED CELL DISTRIBUTION WIDTH 17.4 % (11.5-14.5)
[2016-11-18] MEDS: metroNIDAZOLE IV 500 mg/100 ml 500 MG/100 ML BAG IVPB SCH ×3 (06:45→21:06)
[2016-11-18 06:47] LABS: CHLORIDE 103 mmol/L (98-107); SODIUM 140 mmol/L (132-148)
[2016-11-18 06:48] LABS: POTASSIUM 3.5 mmol/L (3.6-5.2)
[2016-11-18 06:50] LABS: ALB/GLOB RATIO 0.8 (1.0-2.1); ALKALINE PHOSPHATASE 83 U/L (38-126); ALT/SGPT 31 U/L (21-72); AST/SGOT 25 U/L (17-59); BILIRUBIN,TOTAL 0.6 mg/dL (0.2-1.3); BLOOD UREA NITROGEN 18 mg/dL (9-20); CARBON DIOXIDE 30 mmol/L (22-30); GFR AFRICAN-AMERICAN > 60; GLUCOSE,RANDOM 206 mg/dL (75-110); PHOSPHOROUS 2.2 mg/dL (2.5-4.5)
[2016-11-18 06:51] LABS: CALCIUM 7.8 mg/dl (8.6-10.4); MAGNESIUM 2.1 mg/dL (1.6-2.3)
--- NOTE | 2016-11-18 10:44 | CP.PCM.PN ---
Subjective - Date & Time of Evaluation Date of Evaluation: 11/18/16 Time of Evaluation: 10:35 - Subjective Subjective: patient seen and examined. Status post tracheostomy and PEG insertion Mental status remained same Not tolerating weaning On antibiotics Objective - Vital Signs/Intake and Output Vital Signs (last 24 hours): Temp Pulse Resp BP Pulse Ox 97.6 F 88 12 124/73 98 11/18/16 00:00 11/18/16 06:01 11/18/16 06:01 11/18/16 06:01 11/18/16 06:01 Intake and Output: 11/18/16 11/18/16 06:59 18:59 Intake Total 2140 145 Output Total 500 40 Balance 1640 105 - Medications Medications: Current Medications Aspirin (Aspirin Chewable) 81 mg PO DAILY [facility] Last Admin: 11/12/16 10:51 Dose: 81 mg Clopidogrel Bisulfate (Plavix) 75 mg PO DAILY [facility] Last Admin: 11/12/16 10:51 Dose: 75 mg Famotidine (Pepcid) 20 mg PO DAILY [facility] Last Admin: 11/17/16 13:35 Dose: Not Given Heparin Sodium (Porcine) (Heparin) 5,000 units SC Q12 [facility] Meropenem 500 mg/ Sodium (Chloride) 100 mls @ 200 mls/hr IVPB Q8 [facility] Last Admin: 11/18/16 05:45 Dose: 200 mls/hr Metronidazole (Flagyl) 500 mg in 100 mls @ 100 mls/hr IVPB Q8 [facility] Last Admin: 11/18/16 06:45 Dose: 100 mls/hr Sodium Chloride (Sodium Chloride 0.45%) 1,000 mls @ 100 mls/hr IV .Q10H [facility] Last Admin: 11/18/16 05:40 Dose: 100 mls/hr Insulin Detemir (Levemir) 20 unit SC DAILY [facility] Last Admin: 11/17/16 13:34 Dose: Not Given Insulin Human Regular (Novolin R) 0 unit SC Q6 [facility] PRN Reason: Protocol Last Admin: 11/18/16 05:45 Dose: 3 unit Levetiracetam (Keppra) 500 mg GT BID [facility] Last Admin: 11/17/16 17:27 Dose: 500 mg Rosuvastatin Calcium (Crestor) 5 mg PO HS [facility] Last Admin: 11/17/16 21:15 Dose: 5 mg - Labs Labs: 11/18/16 06:20 11/18/16 06:22 PT 13.3 SECONDS (9.7-12.2) H 11/09/16 05:50 INR 1.2 11/09/16 05:50 APTT 37 SECONDS (21-34) H 11/09/16 05:50 - Head Exam Head Exam: ATRAUMATIC, NORMOCEPHALIC - ENT Exam ENT Exam: Mucous Membranes Moist - Respiratory Exam Respiratory Exam: Decreased Breath Sounds - Cardiovascular Exam Cardiovascular Exam: REGULAR RHYTHM - GI/Abdominal Exam GI & Abdominal Exam: Soft, Normal Bowel Sounds Assessment and Plan (1) Respiratory failure Assessment & Plan: continue weaning and consider long-term acute care hospital Status: Acute (2) Hypothermia Status: Acute (3) Sepsis Status: Acute
[2016-11-18] MEDS: Insulin Detemir 100 units/ml Vial (Levemir) SC SCH (10:49)
[2016-11-18] MEDS: levETIRAcetam 100 mg/ml (5ml) Oral Syringe GT SCH ×2 (10:49→17:34)
[2016-11-18] MEDS ORDERED: Potassium Chloride 20 mEq/15 ml LIQ UD PEG ONE ×2 (11:45→13:00)
[2016-11-18] MEDS: Potassium & Sodium Phosphate PO SCH ×2 (13:05→17:34)
--- NOTE | 2016-11-18 13:39 | CP.PCM.PN ---
Subjective - Date & Time of Evaluation Date of Evaluation: 11/18/16 Time of Evaluation: 09:00 - Subjective Subjective: stable on vent via trach afeb Objective - Vital Signs/Intake and Output Vital Signs (last 24 hours): Temp Pulse Resp BP Pulse Ox 97.6 F 88 12 143/66 97 11/18/16 00:00 11/18/16 12:01 11/18/16 12:01 11/18/16 12:01 11/18/16 12:01 Intake and Output: 11/18/16 11/18/16 06:59 18:59 Intake Total 2140 1015 Output Total 500 340 Balance 1640 675 - Medications Medications: Current Medications Aspirin (Aspirin Chewable) 81 mg PO DAILY [facility] Last Admin: 11/18/16 10:49 Dose: 81 mg Clopidogrel Bisulfate (Plavix) 75 mg PO DAILY [facility] Last Admin: 11/18/16 10:49 Dose: 75 mg Famotidine (Pepcid) 20 mg PO DAILY [facility] Last Admin: 11/18/16 10:49 Dose: 20 mg Heparin Sodium (Porcine) (Heparin) 5,000 units SC Q12 [facility] Meropenem 500 mg/ Sodium (Chloride) 100 mls @ 200 mls/hr IVPB Q8 [facility] Last Admin: 11/18/16 13:05 Dose: 200 mls/hr Metronidazole (Flagyl) 500 mg in 100 mls @ 100 mls/hr IVPB Q8 [facility] Last Admin: 11/18/16 13:05 Dose: 100 mls/hr Sodium Chloride (Sodium Chloride 0.45%) 1,000 mls @ 100 mls/hr IV .Q10H [facility] Last Admin: 11/18/16 05:40 Dose: 100 mls/hr Insulin Detemir (Levemir) 20 unit SC DAILY [facility] Last Admin: 11/18/16 10:49 Dose: 20 unit Insulin Human Regular (Novolin R) 0 unit SC Q6 [facility] PRN Reason: Protocol Last Admin: 11/18/16 13:06 Dose: 4 unit Levetiracetam (Keppra) 500 mg GT BID [facility] Last Admin: 11/18/16 10:49 Dose: 500 mg Potassium Phos/Sodium Phos (Neutra-Phos) 1 pkt PO TID [facility] Last Admin: 11/18/16 13:05 Dose: 1 pkt Rosuvastatin Calcium (Crestor) 5 mg PO HS [facility] Last Admin: 11/17/16 21:15 Dose: 5 mg - Labs Labs: 11/18/16 06:20 11/18/16 06:22 PT 13.3 SECONDS (9.7-12.2) H 11/09/16 05:50 INR 1.2 11/09/16 05:50 APTT 37 SECONDS (21-34) H 11/09/16 05:50 - Constitutional Appears: Non-toxic, Cachectic, Chronically Ill - Head Exam Head Exam: NORMOCEPHALIC - Eye Exam Eye Exam: PERRL. absent: Scleral icterus - ENT Exam ENT Exam: Mucous Membranes Dry - Neck Exam Neck Exam: absent: Lymphadenopathy - Respiratory Exam Respiratory Exam: Decreased Breath Sounds, Rhonchi - Cardiovascular Exam Cardiovascular Exam: REGULAR RHYTHM, +S1, +S2 - GI/Abdominal Exam GI & Abdominal Exam: Distended, Soft Assessment and Plan (1) LASHON (acute kidney injury) Status: Acute (2) Hyperkalemia Status: Acute (3) Hypothermia Status: Acute (4) Insulin dependent diabetes mellitus Status: Acute (5) Respiratory failure Status: Acute (6) Sepsis Status: Acute (7) Septic shock Status: Acute (8) UTI (lower urinary tract infection) Status: Acute (9) CHF (congestive heart failure) Status: Chronic (10) CVA (cerebral vascular accident) Status: Acute (11) Delirium due to another medical condition Status: Acute (12) Lower extremity edema Status: Acute (13) Diabetes mellitus Status: Chronic
--- NOTE | 2016-11-18 14:08 | PN ---
DATE: 11/18/2016 LOCATION: ICU 14, bed A. This is a 75-year-old male seen and examined at rounds, tolerating PEG feeding well, still on ____ wi th less response to verbal stimuli. The entire chart is reviewed including, but not limited to the m ost recent lab and radiology study results, current and the previous medication lists, current and th e previous medical events, the case discussed with the staff at length. Today's labs showed hemoglobin of 8.2, hematocrit 26.3 with normal white blood cells and low potassiu m 3.5, increased blood glucose level to 277 with low calcium 7.8, low phosphorus 2.2 with low albumin 2.7. Most recent chest x-ray done yesterday, report and films are seen indicative of persistent diffuse pa tchy infiltrate. PHYSICAL EXAMINATION: GENERAL: A 75-year-old male. VITAL SIGNS: Afebrile with pulse of 90, blood pressure 136/66. HEENT: Showed pale, dry oral mucoid membrane. Nonicteric sclerae. Tracheostomy is in place. LUNGS: Scattered bilateral crepitation with excessive decrease of air entry at bases. HEART: Positive S1 and S2. ABDOMEN: Soft with mild distention with positive bowel sounds. PEG tube is in place without residua l, bleeding or resistance. Clean packed wound is seen covered with clean dressing. EXTREMITIES: Without significant clubbing, cyanosis or edema. NEUROLOGIC: No reported new neurological deficits, sensory or motor. IMPRESSION: 1. Malnutrition. 2. Status post percutaneous endoscopic gastrostomy insertion. 3. Respiratory failure, status post tracheostomy. Bilateral pneumonia. 4. Anemia secondary to above. 5. Known history of gouty arthritis, coronary artery disease, cerebrovascular accident, hypertension , diabetes mellitus. 6. Known history of hyperlipidemia. 7. Status post coronary artery stent insertion. SUGGESTION: 1. Continue current management. 2. Subsequent increase the rate of feeding. 3. Correct underlying any electrolyte imbalance. 4. Further recommendation to follow. Victor Manuel Brower MD cc: 14 TT: 11/18/2016 14:07:22 Confirmation # [id number] Dictation # [id number]
--- NOTE | 2016-11-18 16:49 | RAD ---
HISTORY: right arm PICC line insertion COMPARISON: No prior. FINDINGS: LUNGS: Interval placement right-sided PICC line with tip in the SVC. No change right-sided IJ central venous line with tip in the right IJ/ SVC junction. No change tracheostomy tube which is in good position Diffuse bilateral infiltrates could represent pulmonary edema and/or pneumonia. PLEURA: No apparent pneumothorax. CARDIOVASCULAR: Heart appears mildly enlarged. OSSEOUS STRUCTURES: No significant abnormalities. VISUALIZED UPPER ABDOMEN: Normal. OTHER FINDINGS: None. IMPRESSION: In situ of right sided PICC line , right IJ central venous line or tracheostomy tube as above. Diffuse bilateral infiltrates could represent pulmonary edema and/or pneumonia.
--- NOTE | 2016-11-18 17:57 | CP.PCM.PN ---
Subjective - Date & Time of Evaluation Date of Evaluation: 11/18/16 Time of Evaluation: 10:20 - Subjective Subjective: clinically same Objective - Vital Signs/Intake and Output Vital Signs (last 24 hours): Temp Pulse Resp BP Pulse Ox 97.6 F 95 H 12 139/73 99 11/18/16 16:00 11/18/16 16:01 11/18/16 16:01 11/18/16 16:01 11/18/16 16:01 Intake and Output: 11/18/16 11/18/16 06:59 18:59 Intake Total 2140 1595 Output Total 500 540 Balance 1640 1055 - Medications Medications: Current Medications Aspirin (Aspirin Chewable) 81 mg PO DAILY [facility] Last Admin: 11/18/16 10:49 Dose: 81 mg Clopidogrel Bisulfate (Plavix) 75 mg PO DAILY [facility] Last Admin: 11/18/16 10:49 Dose: 75 mg Famotidine (Pepcid) 20 mg PO DAILY [facility] Last Admin: 11/18/16 10:49 Dose: 20 mg Heparin Sodium (Porcine) (Heparin) 5,000 units SC Q12 [facility] Meropenem 500 mg/ Sodium (Chloride) 100 mls @ 200 mls/hr IVPB Q8 [facility] Last Admin: 11/18/16 13:05 Dose: 200 mls/hr Metronidazole (Flagyl) 500 mg in 100 mls @ 100 mls/hr IVPB Q8 [facility] Last Admin: 11/18/16 13:05 Dose: 100 mls/hr Sodium Chloride (Sodium Chloride 0.45%) 1,000 mls @ 100 mls/hr IV .Q10H [facility] Last Admin: 11/18/16 17:35 Dose: Not Given Insulin Detemir (Levemir) 20 unit SC DAILY [facility] Last Admin: 11/18/16 10:49 Dose: 20 unit Insulin Human Regular (Novolin R) 0 unit SC Q6 [facility] PRN Reason: Protocol Last Admin: 11/18/16 13:06 Dose: 4 unit Levetiracetam (Keppra) 500 mg GT BID [facility] Last Admin: 11/18/16 17:34 Dose: 500 mg Potassium Phos/Sodium Phos (Neutra-Phos) 1 pkt PO TID [facility] Last Admin: 11/18/16 17:34 Dose: 1 pkt Rosuvastatin Calcium (Crestor) 5 mg PO HS [facility] Last Admin: 11/17/16 21:15 Dose: 5 mg - Labs Labs: 11/18/16 06:20 11/18/16 06:22 PT 13.3 SECONDS (9.7-12.2) H 11/09/16 05:50 INR 1.2 11/09/16 05:50 APTT 37 SECONDS (21-34) H 11/09/16 05:50 - Constitutional Appears: Well - Head Exam Head Exam: ATRAUMATIC, NORMAL INSPECTION, NORMOCEPHALIC - Eye Exam Eye Exam: EOMI, Normal appearance, PERRL Pupil Exam: NORMAL ACCOMODATION, PERRL - ENT Exam ENT Exam: Mucous Membranes Moist, Normal Exam - Neck Exam Neck Exam: Full ROM, Normal Inspection. absent: Lymphadenopathy - Respiratory Exam Respiratory Exam: Decreased Breath Sounds - Cardiovascular Exam Cardiovascular Exam: REGULAR RHYTHM, +S1, +S2 - GI/Abdominal Exam GI & Abdominal Exam: Soft, Diminished Bowel Sounds - Rectal Exam Rectal Exam: Deferred
--- NOTE | 2016-11-18 23:00 | CP.PCM.PN ---
Subjective - Date & Time of Evaluation Date of Evaluation: 11/18/16 Time of Evaluation: 21:00 - Subjective Subjective: Pt seen & evalauted, afebrile, on antibiotics, he is on trach and being fed by peg tube, not in any acute distress Objective - Vital Signs/Intake and Output Vital Signs (last 24 hours): Temp Pulse Resp BP Pulse Ox 99.1 F 97 H 12 133/65 100 11/18/16 20:00 11/18/16 20:00 11/18/16 20:00 11/18/16 19:35 11/18/16 20:00 Intake and Output: 11/18/16 11/19/16 18:59 06:59 Intake Total 1740 Output Total 590 Balance 1150 - Medications Medications: Current Medications Aspirin (Aspirin Chewable) 81 mg PO DAILY [facility] Last Admin: 11/18/16 10:49 Dose: 81 mg Clopidogrel Bisulfate (Plavix) 75 mg PO DAILY [facility] Last Admin: 11/18/16 10:49 Dose: 75 mg Famotidine (Pepcid) 20 mg PO DAILY [facility] Last Admin: 11/18/16 10:49 Dose: 20 mg Heparin Sodium (Porcine) (Heparin) 5,000 units SC Q12 [facility] Last Admin: 11/18/16 21:06 Dose: 5,000 units Meropenem 500 mg/ Sodium (Chloride) 100 mls @ 200 mls/hr IVPB Q8 [facility] Last Admin: 11/18/16 21:06 Dose: 200 mls/hr Metronidazole (Flagyl) 500 mg in 100 mls @ 100 mls/hr IVPB Q8 [facility] Last Admin: 11/18/16 21:06 Dose: 100 mls/hr Insulin Detemir (Levemir) 20 unit SC DAILY [facility] Last Admin: 11/18/16 10:49 Dose: 20 unit Insulin Human Regular (Novolin R) 0 unit SC Q6 [facility] PRN Reason: Protocol Last Admin: 11/18/16 18:56 Dose: 4 unit Levetiracetam (Keppra) 500 mg GT BID [facility] Last Admin: 11/18/16 17:34 Dose: 500 mg Potassium Phos/Sodium Phos (Neutra-Phos) 1 pkt PO TID [facility] Last Admin: 11/18/16 17:34 Dose: 1 pkt Rosuvastatin Calcium (Crestor) 5 mg PO HS [facility] Last Admin: 11/18/16 21:06 Dose: 5 mg - Labs Labs: 11/18/16 06:20 11/18/16 06:22 PT 13.3 SECONDS (9.7-12.2) H 11/09/16 05:50 INR 1.2 11/09/16 05:50 APTT 37 SECONDS (21-34) H 11/09/16 05:50 - Constitutional Appears: No Acute Distress - Head Exam Head Exam: ATRAUMATIC, NORMAL INSPECTION, NORMOCEPHALIC - Eye Exam Eye Exam: EOMI, Normal appearance, PERRL Pupil Exam: NORMAL ACCOMODATION, PERRL - ENT Exam ENT Exam: Mucous Membranes Moist - Respiratory Exam Respiratory Exam: Decreased Breath Sounds - Cardiovascular Exam Cardiovascular Exam: REGULAR RHYTHM, +S1, +S2. absent: Murmur - GI/Abdominal Exam GI & Abdominal Exam: Soft, Normal Bowel Sounds. absent: Tenderness - Rectal Exam Rectal Exam: Deferred Assessment and Plan (1) Respiratory failure Status: Acute (2) Insulin dependent diabetes mellitus Status: Acute (3) UTI (lower urinary tract infection) Status: Acute
[2016-11-19] MEDS: (Novolin R) Insulin Human Regular 100 units/ml vial SC SCH ×4 (00:29→17:57)
[2016-11-19 04:26] LABS: ABG ALLEN TEST POS; ABG MECHANICAL RATE 12; ARTERIAL BLOOD HGB O2 SAT 97.5 % (95.0-98.0); ATERIAL BLOOD GAS PEEP 5; CARBOXYHEMOGLOBIN 1.3 % (0.5-1.5); DRAW SITE RR; HHB 0.2 % (0.0-5.0)
[2016-11-19] MEDS: metroNIDAZOLE IV 500 mg/100 ml 500 MG/100 ML BAG IVPB SCH ×3 (05:21→21:18)
[2016-11-19] MEDS: Meropenem 500 MG in Sodium Chloride 0.9% 100 ML IVPB SCH ×3 (05:22→21:18)
[2016-11-19 06:33] LABS: CHLORIDE 104 mmol/L (98-107); POTASSIUM 3.9 mmol/L (3.6-5.2); SODIUM 138 mmol/L (132-148)
[2016-11-19 06:35] LABS: ALB/GLOB RATIO 0.8 (1.0-2.1); AST/SGOT 25 U/L (17-59); BILIRUBIN,TOTAL 0.5 mg/dL (0.2-1.3); CARBON DIOXIDE 29 mmol/L (22-30); GFR AFRICAN-AMERICAN > 60; TOTAL PROTEIN 5.8 g/dL (6.3-8.3)
[2016-11-19 06:36] LABS: ALKALINE PHOSPHATASE 74 U/L (38-126); ALT/SGPT 29 U/L (21-72); BLOOD UREA NITROGEN 20 mg/dL (9-20); CALCIUM 7.7 mg/dl (8.6-10.4); GLUCOSE,RANDOM 206 mg/dL (75-110); MAGNESIUM 2.2 mg/dL (1.6-2.3); PHOSPHOROUS 1.8 mg/dL (2.5-4.5)
[2016-11-19 06:47] LABS: BASO # 0.1 K/uL (0.0-0.2); BASO % 2.2 % (0.0-2.0); EOS # 0.2 K/uL (0.0-0.7); EOS % 2.5 % (0.0-4.0); HEMATOCRIT 24.8 % (35.0-51.0); LYMPH % 16.7 % (20.0-40.0); MEAN CELL VOLUME 80.9 fL (80.0-94.0); MEAN CORPUSCULAR HEMOGLOBIN 25.3 pg (27.0-31.0); MEAN CORPUSCULAR HGB CONC 31.3 g/dL (33.0-37.0); MEAN PLATELET VOLUME 9.9 fL (7.2-11.7); MONO # 0.5 K/uL (0.0-0.8); NRBC % 0.1 % (0.0-2.0); RED CELL DISTRIBUTION WIDTH 17.2 % (11.5-14.5); WHITE BLOOD COUNT 6.2 K/uL (4.8-10.8)
--- NOTE | 2016-11-19 09:38 | PN ---
DATE: 11/19/2016 LOCATION: ICU 14, bed A. This is a 75-year-old male post-PEG insertion seen and examined at rounds, tolerating PEG feeding wel l without any reported residual or bleeding. The patient is still on trach to vent. PICC line is in place. The entire chart is reviewed including, but not limited to the most recent lab and radiology study re sults, current and the previous medication lists, current and the previous medical events, the case d iscussed with the staff at length. Today's lab showed low hemoglobin of 7.7 with hematocrit 24.8 for which a blood transfusion should be kept in mind. The patient still has normal ABG with increased blood glucose level to 239, and low c alcium 7.7 with low phosphorus 1.8 with low albumin 2.6 and low total protein 5.8. Official report of today's chest x-ray is still pending. PHYSICAL EXAMINATION: GENERAL: A 75-year-old male. VITAL SIGNS: Temperature of 99.5, heart rate of 90 and blood pressure of 144/76. HEENT: Showed pale, dry oral mucoid membrane. Nonicteric sclerae. LUNGS: Few scattered crepitation, decreased air entry at bases. HEART: Positive S1 and S2. ABDOMEN: Soft. Bowel sounds are present. PEG tube is in place without evidence of anterior abdomin al wall cellulitis. It was covered with clean dressing with well-formed stoma. EXTREMITIES: Lower extremities edematous changes. No clubbing or cyanosis. NEUROLOGIC: No reported new neurologic deficits, sensory or motor. It has to be mentioned that the case was discussed at length with the family at bedside. IMPRESSION: 1. Malnutrition. 2. Hypoalbuminemia and hypoproteinemia. 3. Dysphagia. 4. Status post percutaneous endoscopic gastrostomy insertion. 5. Pneumonia, respiratory failure, status post tracheostomy. 6. Anemia, most likely secondary to above. 7. Known history of, but not limited to hypertension, cerebrovascular accident, diabetes mellitus, g outy arthritis as well as coronary artery disease. 8. Known history of hyperlipidemia. 9. Status post coronary artery stent insertion. 10. Electrolyte imbalance with hypocalcemia. SUGGESTION: 1. Continue current management. 2. Subsequent increase of rate of feeding as tolerated. 3. Albumin IV. 4. Blood transfusion to keep hemoglobin around 10 g%. Victor Manuel Brower MD cc: 14 TT: 11/19/2016 09:36:55 Confirmation # [id number] Dictation # [id number]
[2016-11-19] MEDS: Insulin Detemir 100 units/ml Vial (Levemir) SC SCH (09:43)
[2016-11-19] MEDS: Potassium & Sodium Phosphate PO SCH ×3 (09:44→17:50)
[2016-11-19] MEDS: levETIRAcetam 100 mg/ml (5ml) Oral Syringe GT SCH ×2 (09:44→17:49)
--- NOTE | 2016-11-19 10:20 | CP.PCM.PN ---
Subjective - Date & Time of Evaluation Date of Evaluation: 11/19/16 Time of Evaluation: 11:40 - Subjective Subjective: clinically same Objective - Vital Signs/Intake and Output Vital Signs (last 24 hours): Temp Pulse Resp BP Pulse Ox 99.5 F 94 H 12 147/73 100 11/19/16 08:00 11/19/16 08:00 11/19/16 08:00 11/19/16 07:37 11/19/16 08:00 Intake and Output: 11/19/16 11/19/16 06:59 18:59 Intake Total 2009 Output Total 500 Balance 1510 - Medications Medications: Current Medications Aspirin (Aspirin Chewable) 81 mg PO DAILY [facility] Last Admin: 11/19/16 09:44 Dose: 81 mg Clopidogrel Bisulfate (Plavix) 75 mg PO DAILY [facility] Last Admin: 11/19/16 09:43 Dose: 75 mg Famotidine (Pepcid) 20 mg PO DAILY [facility] Last Admin: 11/19/16 09:43 Dose: 20 mg Heparin Sodium (Porcine) (Heparin) 5,000 units SC Q12 [facility] Last Admin: 11/19/16 09:43 Dose: 5,000 units Meropenem 500 mg/ Sodium (Chloride) 100 mls @ 200 mls/hr IVPB Q8 [facility] Last Admin: 11/19/16 05:22 Dose: 200 mls/hr Metronidazole (Flagyl) 500 mg in 100 mls @ 100 mls/hr IVPB Q8 [facility] Last Admin: 11/19/16 05:21 Dose: 100 mls/hr Insulin Detemir (Levemir) 20 unit SC DAILY [facility] Last Admin: 11/19/16 09:43 Dose: 20 unit Insulin Human Regular (Novolin R) 0 unit SC Q6 [facility] PRN Reason: Protocol Last Admin: 11/19/16 05:34 Dose: 3 unit Levetiracetam (Keppra) 500 mg GT BID [facility] Last Admin: 11/19/16 09:44 Dose: 500 mg Potassium Phos/Sodium Phos (Neutra-Phos) 1 pkt PO TID [facility] Last Admin: 11/19/16 09:44 Dose: 1 pkt Rosuvastatin Calcium (Crestor) 5 mg PO HS [facility] Last Admin: 11/18/16 21:06 Dose: 5 mg - Labs Labs: 11/19/16 06:17 11/19/16 06:17 PT 13.3 SECONDS (9.7-12.2) H 11/09/16 05:50 INR 1.2 11/09/16 05:50 APTT 37 SECONDS (21-34) H 11/09/16 05:50 - Constitutional Appears: Well - Head Exam Head Exam: ATRAUMATIC, NORMAL INSPECTION, NORMOCEPHALIC - Eye Exam Eye Exam: EOMI, Normal appearance, PERRL Pupil Exam: NORMAL ACCOMODATION, PERRL - ENT Exam ENT Exam: Mucous Membranes Moist, Normal Exam - Neck Exam Neck Exam: Full ROM, Normal Inspection. absent: Lymphadenopathy - Respiratory Exam Respiratory Exam: Decreased Breath Sounds - Cardiovascular Exam Cardiovascular Exam: REGULAR RHYTHM, +S1, +S2 - GI/Abdominal Exam GI & Abdominal Exam: Soft, Diminished Bowel Sounds - Rectal Exam Rectal Exam: Deferred
--- NOTE | 2016-11-19 11:51 | RAD ---
HISTORY: follow up COMPARISON: 11/18/2016 FINDINGS: LUNGS: No definite pulmonary parenchymal abnormality. PLEURA: No significant pleural effusion identified, no pneumothorax apparent. CARDIOVASCULAR: Normal heart size. Tracheostomy tube noted. Right IJ central venous catheter has been removed. Right PICC catheter remains unchanged in position with tip likely in the SVC. OSSEOUS STRUCTURES: No significant abnormalities. VISUALIZED UPPER ABDOMEN: Normal. OTHER FINDINGS: None. IMPRESSION: Status post removal right IJ central venous catheter. No definite pulmonary parenchymal abnormality. Right PICC catheter unchanged.
[2016-11-19] MEDS: Sodium Chloride 0.45% 1,000 ML IV SCH (21:17)
--- NOTE | 2016-11-19 23:22 | CP.PCM.PN ---
Subjective - Date & Time of Evaluation Date of Evaluation: 11/19/16 - Subjective Subjective: Pt seen & evalauted, afebrile, on antibiotics, he is on trach and being fed by peg tube, not in any acute distress Objective - Vital Signs/Intake and Output Vital Signs (last 24 hours): Temp Pulse Resp BP Pulse Ox 98.5 F 84 12 147/69 96 11/19/16 21:20 11/19/16 21:20 11/19/16 21:20 11/19/16 21:20 11/19/16 20:47 Intake and Output: 11/19/16 11/20/16 18:59 06:59 Intake Total 1999 119 Output Total 700 Balance 1999 490 - Medications Medications: Current Medications Aspirin (Aspirin Chewable) 81 mg PO DAILY [facility] Last Admin: 11/19/16 09:44 Dose: 81 mg Clopidogrel Bisulfate (Plavix) 75 mg PO DAILY [facility] Last Admin: 11/19/16 09:43 Dose: 75 mg Famotidine (Pepcid) 20 mg PO DAILY [facility] Last Admin: 11/19/16 09:43 Dose: 20 mg Heparin Sodium (Porcine) (Heparin) 5,000 units SC Q12 [facility] Last Admin: 11/19/16 21:18 Dose: 5,000 units Meropenem 500 mg/ Sodium (Chloride) 100 mls @ 200 mls/hr IVPB Q8 [facility] Last Admin: 11/19/16 21:18 Dose: 200 mls/hr Metronidazole (Flagyl) 500 mg in 100 mls @ 100 mls/hr IVPB Q8 [facility] Last Admin: 11/19/16 21:18 Dose: 100 mls/hr Insulin Detemir (Levemir) 20 unit SC DAILY [facility] Last Admin: 11/19/16 09:43 Dose: 20 unit Insulin Human Regular (Novolin R) 0 unit SC Q6 [facility] PRN Reason: Protocol Last Admin: 11/19/16 17:57 Dose: 3 unit Levetiracetam (Keppra) 500 mg GT BID [facility] Last Admin: 11/19/16 17:49 Dose: 500 mg Potassium Phos/Sodium Phos (Neutra-Phos) 1 pkt PO TID [facility] Last Admin: 11/19/16 17:50 Dose: 1 pkt Rosuvastatin Calcium (Crestor) 5 mg PO HS [facility] Last Admin: 11/19/16 21:19 Dose: 5 mg - Labs Labs: 11/19/16 06:17 11/19/16 06:17 PT 13.3 SECONDS (9.7-12.2) H 11/09/16 05:50 INR 1.2 11/09/16 05:50 APTT 37 SECONDS (21-34) H 11/09/16 05:50 - Constitutional Appears: No Acute Distress - Head Exam Head Exam: ATRAUMATIC, NORMAL INSPECTION, NORMOCEPHALIC - Eye Exam Eye Exam: EOMI, Normal appearance, PERRL Pupil Exam: NORMAL ACCOMODATION, PERRL - Respiratory Exam Respiratory Exam: Clear to Ausculation Bilateral, NORMAL BREATHING PATTERN - Cardiovascular Exam Cardiovascular Exam: REGULAR RHYTHM, +S1, +S2. absent: Murmur - GI/Abdominal Exam GI & Abdominal Exam: Soft, Normal Bowel Sounds. absent: Tenderness Assessment and Plan (1) Respiratory failure Status: Acute (2) Insulin dependent diabetes mellitus Status: Acute (3) UTI (lower urinary tract infection) Status: Acute
[2016-11-20] MEDS: (Novolin R) Insulin Human Regular 100 units/ml vial SC SCH ×4 (00:50→18:01)
[2016-11-20] MEDS: Meropenem 500 MG in Sodium Chloride 0.9% 100 ML IVPB SCH ×3 (06:03→22:21)
[2016-11-20] MEDS: metroNIDAZOLE IV 500 mg/100 ml 500 MG/100 ML BAG IVPB SCH ×2 (06:03→13:56)
[2016-11-20 06:15] LABS: BASO % 0.4 % (0.0-2.0); EOS # 0.2 K/uL (0.0-0.7); EOS % 3.2 % (0.0-4.0); HEMATOCRIT 30.1 % (35.0-51.0); LYMPH # 1.1 K/uL (1.0-4.3); LYMPH % 16.8 % (20.0-40.0); MEAN CORPUSCULAR HEMOGLOBIN 26.8 pg (27.0-31.0); MEAN CORPUSCULAR HGB CONC 32.6 g/dL (33.0-37.0); MEAN PLATELET VOLUME 9.4 fL (7.2-11.7); MONO # 0.5 K/uL (0.0-0.8); RED CELL DISTRIBUTION WIDTH 17.6 % (11.5-14.5); WHITE BLOOD COUNT 6.3 K/uL (4.8-10.8)
[2016-11-20] MEDS: Potassium & Sodium Phosphate PO SCH ×3 (09:29→18:01)
[2016-11-20] MEDS: levETIRAcetam 100 mg/ml (5ml) Oral Syringe GT SCH ×2 (09:29→18:01)
[2016-11-20] MEDS: Insulin Detemir 100 units/ml Vial (Levemir) SC SCH (09:29)
--- NOTE | 2016-11-20 09:29 | PN ---
DATE: 11/20/2016 LOCATION: ICU 14, bed A This is a 75-year-old male post-blood transfusion, tolerating PEG feeding well without reported resid ual, resistant or active bleeding. Tracheostomy is in place, on trach to vent. The entire chart is reviewed, including but not limited to the most recent lab and radiology study re sults, current and the previous medication lists, current and the previous medical events and the lizeth e discussed at length with the staff. Post-transfusion hemoglobin is 9.8 with hematocrit 30.1 with normal platelet count with blood glucose level of 191. The patient still has low calcium with very low phosphorus of 1.8, low total protein of 5.8, low albumin 2.6. Most recent chest x-ray done yesterday showed status post removal of central venous catheter with no definitive pulmonary abnormalities. PHYSICAL EXAMINATION: GENERAL: A 75-year-old male. VITAL SIGNS: Afebrile with pulse of 78, blood pressure of 160/60. HEENT: Showed pale, dry oral mucoid membrane. Nonicteric sclerae, on trach to vent. LUNGS: Scattered crepitation with decreased air entry at bases. HEART: Positive S1 and S2. ABDOMEN: Soft. Bowel sounds are present. PEG tube is in place with clean, well-formed stoma, cover ed with clean dressing. No mass or organomegaly. No distention. EXTREMITIES: With lower extremities mild edematous changes. No clubbing or cyanosis. NEUROLOGIC: No reported new neurological deficits, sensory or motor. IMPRESSION: 1. Hypoalbuminemia and hypoproteinemia. 2. Malnutrition. 3. Dysphagia. 4. Status post percutaneous endoscopic gastrostomy insertion. 5. Pneumonia, respiratory failure, status post tracheostomy, on trach to vent. 6. Anemia secondary to above. 7. Electrolyte imbalance with hypocalcemia, hypophosphatemia. 8. Known history of, but not limited to, cerebrovascular accident, diabetes mellitus, hypertension, gouty arthritis, as well as coronary artery disease. 9. Known history of status post coronary artery stent insertion. 10. History of hyperlipidemia. SUGGESTION: 1. Continue current management. 2. Increase the rate of feeding gradually. 3. Correct any underlying electrolyte imbalance. 4. Further recommendation to follow. Victor Manuel Brower MD cc: 14 TT: 11/20/2016 09:28:07 Confirmation # [id number] Dictation # [id number]
--- NOTE | 2016-11-20 13:58 | CP.PCM.PN ---
Subjective - Date & Time of Evaluation Date of Evaluation: 11/20/16 Time of Evaluation: 09:00 - Subjective Subjective: intubated via trach no fever on merrem- grew proteus/ esbl+ on 11/06 will likely d/c iv antibiotics if ok with dr valadez Objective - Vital Signs/Intake and Output Vital Signs (last 24 hours): Temp Pulse Resp BP Pulse Ox 97.6 F 72 12 167/77 H 100 11/20/16 12:00 11/20/16 12:00 11/20/16 12:00 11/20/16 11:34 11/20/16 12:00 Intake and Output: 11/20/16 11/20/16 06:59 18:59 Intake Total 1190 Output Total 1300 Balance -110 - Medications Medications: Current Medications Aspirin (Aspirin Chewable) 81 mg PO DAILY [facility] Last Admin: 11/20/16 09:29 Dose: 81 mg Clopidogrel Bisulfate (Plavix) 75 mg PO DAILY [facility] Last Admin: 11/20/16 09:29 Dose: 75 mg Famotidine (Pepcid) 20 mg PO DAILY [facility] Last Admin: 11/20/16 09:29 Dose: 20 mg Heparin Sodium (Porcine) (Heparin) 5,000 units SC Q12 [facility] Last Admin: 11/20/16 09:29 Dose: 5,000 units Meropenem 500 mg/ Sodium (Chloride) 100 mls @ 200 mls/hr IVPB Q8 [facility] Last Admin: 11/20/16 06:03 Dose: 200 mls/hr Metronidazole (Flagyl) 500 mg in 100 mls @ 100 mls/hr IVPB Q8 [facility] Last Admin: 11/20/16 06:03 Dose: 100 mls/hr Insulin Detemir (Levemir) 20 unit SC DAILY [facility] Last Admin: 11/20/16 09:29 Dose: 20 unit Insulin Human Regular (Novolin R) 0 unit SC Q6 [facility] PRN Reason: Protocol Last Admin: 11/20/16 12:16 Dose: 2 unit Levetiracetam (Keppra) 500 mg GT BID [facility] Last Admin: 11/20/16 09:29 Dose: 500 mg Potassium Phos/Sodium Phos (Neutra-Phos) 1 pkt PO TID [facility] Last Admin: 11/20/16 09:29 Dose: 1 pkt Rosuvastatin Calcium (Crestor) 5 mg PO HS [facility] Last Admin: 11/19/16 21:19 Dose: 5 mg - Labs Labs: 11/20/16 06:08 11/19/16 06:17 PT 13.3 SECONDS (9.7-12.2) H 11/09/16 05:50 INR 1.2 11/09/16 05:50 APTT 37 SECONDS (21-34) H 11/09/16 05:50 - Constitutional Appears: Non-toxic, Chronically Ill - Head Exam Head Exam: NORMOCEPHALIC - Eye Exam Eye Exam: absent: Scleral icterus - ENT Exam ENT Exam: Mucous Membranes Dry - Neck Exam Neck Exam: absent: Lymphadenopathy - Respiratory Exam Respiratory Exam: Decreased Breath Sounds, Rhonchi - Cardiovascular Exam Cardiovascular Exam: REGULAR RHYTHM, +S1, +S2 - GI/Abdominal Exam GI & Abdominal Exam: Distended, Soft. absent: Tenderness - Rectal Exam Rectal Exam: Deferred - Exam Exam: NORMAL INSPECTION Assessment and Plan (1) LASHON (acute kidney injury) Status: Acute (2) Hyperkalemia Status: Acute (3) Hypothermia Status: Acute (4) Insulin dependent diabetes mellitus Status: Acute (5) Respiratory failure Status: Acute (6) Sepsis Status: Acute (7) Septic shock Status: Acute (8) UTI (lower urinary tract infection) Status: Acute (9) CHF (congestive heart failure) Status: Chronic (10) CVA (cerebral vascular accident) Status: Acute (11) Delirium due to another medical condition Status: Acute (12) Lower extremity edema Status: Acute (13) Diabetes mellitus Status: Chronic
--- NOTE | 2016-11-20 15:42 | CP.PCM.PN ---
Subjective - Date & Time of Evaluation Date of Evaluation: 11/20/16 Objective - Vital Signs/Intake and Output Vital Signs (last 24 hours): Temp Pulse Resp BP Pulse Ox 97.6 F 72 12 167/77 H 100 11/20/16 12:00 11/20/16 12:00 11/20/16 12:00 11/20/16 11:34 11/20/16 12:00 Intake and Output: 11/20/16 11/20/16 06:59 18:59 Intake Total 1190 Output Total 1300 Balance -110 - Medications Medications: Current Medications Aspirin (Aspirin Chewable) 81 mg PO DAILY [facility] Last Admin: 11/20/16 09:29 Dose: 81 mg Clopidogrel Bisulfate (Plavix) 75 mg PO DAILY [facility] Last Admin: 11/20/16 09:29 Dose: 75 mg Famotidine (Pepcid) 20 mg PO DAILY [facility] Last Admin: 11/20/16 09:29 Dose: 20 mg Heparin Sodium (Porcine) (Heparin) 5,000 units SC Q12 [facility] Last Admin: 11/20/16 09:29 Dose: 5,000 units Meropenem 500 mg/ Sodium (Chloride) 100 mls @ 200 mls/hr IVPB Q8 [facility] Last Admin: 11/20/16 13:56 Dose: 200 mls/hr Insulin Detemir (Levemir) 20 unit SC DAILY [facility] Last Admin: 11/20/16 09:29 Dose: 20 unit Insulin Human Regular (Novolin R) 0 unit SC Q6 [facility] PRN Reason: Protocol Last Admin: 11/20/16 12:16 Dose: 2 unit Levetiracetam (Keppra) 500 mg GT BID [facility] Last Admin: 11/20/16 09:29 Dose: 500 mg Potassium Phos/Sodium Phos (Neutra-Phos) 1 pkt PO TID [facility] Last Admin: 11/20/16 13:56 Dose: 1 pkt Rosuvastatin Calcium (Crestor) 5 mg PO HS [facility] Last Admin: 11/19/16 21:19 Dose: 5 mg - Labs Labs: 11/20/16 06:08 11/19/16 06:17 PT 13.3 SECONDS (9.7-12.2) H 11/09/16 05:50 INR 1.2 11/09/16 05:50 APTT 37 SECONDS (21-34) H 11/09/16 05:50 Assessment and Plan - Assessment and Plan (Free Text) Plan: cbc cmp intermittently jolie as orered feeding wilmontiro electrolytez
[2016-11-20 17:03] LABS: IRON 30 ug/dL (49-181)
[2016-11-21] MEDS: (Novolin R) Insulin Human Regular 100 units/ml vial SC SCH ×3 (00:01→13:01)
[2016-11-21] MEDS: Meropenem 500 MG in Sodium Chloride 0.9% 100 ML IVPB SCH ×2 (05:43→13:58)
[2016-11-21 08:55] VITALS: TEMP 98.5
--- NOTE | 2016-11-21 09:53 | CP.PCM.PN ---
Subjective - Date & Time of Evaluation Date of Evaluation: 11/21/16 Time of Evaluation: 12:40 - Subjective Subjective: clinically same Objective - Vital Signs/Intake and Output Vital Signs (last 24 hours): Temp Pulse Resp BP Pulse Ox 98.5 F 98 H 16 169/116 H 100 11/21/16 08:00 11/21/16 08:34 11/21/16 08:34 11/21/16 08:34 11/21/16 08:34 Intake and Output: 11/21/16 11/21/16 06:59 18:59 Intake Total 990 90 Output Total 1000 400 Balance -10 -310 - Medications Medications: Current Medications Aspirin (Aspirin Chewable) 81 mg PO DAILY [facility] Last Admin: 11/20/16 09:29 Dose: 81 mg Clopidogrel Bisulfate (Plavix) 75 mg PO DAILY [facility] Last Admin: 11/20/16 09:29 Dose: 75 mg Famotidine (Pepcid) 20 mg PO DAILY [facility] Last Admin: 11/20/16 09:29 Dose: 20 mg Meropenem 500 mg/ Sodium (Chloride) 100 mls @ 200 mls/hr IVPB Q8 [facility] Last Admin: 11/21/16 05:43 Dose: 200 mls/hr Insulin Detemir (Levemir) 20 unit SC DAILY [facility] Last Admin: 11/20/16 09:29 Dose: 20 unit Insulin Human Regular (Novolin R) 0 unit SC Q6 [facility] PRN Reason: Protocol Last Admin: 11/21/16 05:44 Dose: 3 unit Isosorbide Mononitrate (Imdur) 30 mg PO DAILY [facility] Last Admin: 11/21/16 08:37 Dose: 30 mg Levetiracetam (Keppra) 500 mg GT BID [facility] Last Admin: 11/20/16 18:01 Dose: 500 mg Magnesium Hydroxide (Milk Of Magnesia) 30 ml PO DAILY [facility] PRN Reason: Constipation Metoprolol Tartrate (Lopressor) 50 mg PO BID [facility] Last Admin: 11/21/16 08:37 Dose: 50 mg Potassium Phos/Sodium Phos (Neutra-Phos) 1 pkt PO TID [facility] Last Admin: 11/20/16 18:01 Dose: 1 pkt Rosuvastatin Calcium (Crestor) 5 mg PO HS [facility] Last Admin: 11/20/16 22:21 Dose: 5 mg - Labs Labs: 11/20/16 06:08 11/19/16 06:17 PT 13.3 SECONDS (9.7-12.2) H 11/09/16 05:50 INR 1.2 11/09/16 05:50 APTT 37 SECONDS (21-34) H 11/09/16 05:50 - Constitutional Appears: Well - Head Exam Head Exam: ATRAUMATIC, NORMAL INSPECTION, NORMOCEPHALIC - Eye Exam Eye Exam: EOMI, Normal appearance, PERRL Pupil Exam: NORMAL ACCOMODATION, PERRL - ENT Exam ENT Exam: Mucous Membranes Moist, Normal Exam - Neck Exam Neck Exam: Full ROM, Normal Inspection. absent: Lymphadenopathy - Respiratory Exam Respiratory Exam: Decreased Breath Sounds - Cardiovascular Exam Cardiovascular Exam: REGULAR RHYTHM, +S1, +S2 - GI/Abdominal Exam GI & Abdominal Exam: Soft, Diminished Bowel Sounds - Rectal Exam Rectal Exam: Deferred
[2016-11-21] MEDS ORDERED: Magnesium Hydroxide Susp 30 ml UD PO PRN (10:00)
[2016-11-21] MEDS: Insulin Detemir 100 units/ml Vial (Levemir) SC SCH (10:13)
--- NOTE | 2016-11-21 10:39 | CP.PCM.PN ---
Subjective - Date & Time of Evaluation Date of Evaluation: 11/21/16 Time of Evaluation: 08:00 - Subjective Subjective: arousable on vent via trach nad afebrile Objective - Vital Signs/Intake and Output Vital Signs (last 24 hours): Temp Pulse Resp BP Pulse Ox 98.5 F 98 H 16 169/116 H 100 11/21/16 08:00 11/21/16 08:34 11/21/16 08:34 11/21/16 08:34 11/21/16 08:34 Intake and Output: 11/21/16 11/21/16 06:59 18:59 Intake Total 990 90 Output Total 1000 400 Balance -10 -310 - Medications Medications: Current Medications Aspirin (Aspirin Chewable) 81 mg PO DAILY [facility] Last Admin: 11/21/16 10:13 Dose: 81 mg Clopidogrel Bisulfate (Plavix) 75 mg PO DAILY [facility] Last Admin: 11/21/16 10:13 Dose: 75 mg Famotidine (Pepcid) 20 mg PO DAILY [facility] Last Admin: 11/21/16 10:13 Dose: 20 mg Meropenem 500 mg/ Sodium (Chloride) 100 mls @ 200 mls/hr IVPB Q8 [facility] Last Admin: 11/21/16 05:43 Dose: 200 mls/hr Insulin Detemir (Levemir) 20 unit SC DAILY [facility] Last Admin: 11/21/16 10:13 Dose: 20 unit Insulin Human Regular (Novolin R) 0 unit SC Q6 [facility] PRN Reason: Protocol Last Admin: 11/21/16 05:44 Dose: 3 unit Isosorbide Mononitrate (Imdur) 30 mg PO DAILY [facility] Last Admin: 11/21/16 08:37 Dose: 30 mg Levetiracetam (Keppra) 500 mg GT BID [facility] Last Admin: 11/20/16 18:01 Dose: 500 mg Magnesium Hydroxide (Milk Of Magnesia) 30 ml PO DAILY PRN PRN Reason: Constipation Last Admin: 11/21/16 10:13 Dose: 30 ml Metoprolol Tartrate (Lopressor) 50 mg PO BID [facility] Last Admin: 11/21/16 08:37 Dose: 50 mg Potassium Phos/Sodium Phos (Neutra-Phos) 1 pkt PO TID [facility] Last Admin: 11/20/16 18:01 Dose: 1 pkt Rosuvastatin Calcium (Crestor) 5 mg PO HS EMILY Last Admin: 11/20/16 22:21 Dose: 5 mg - Labs Labs: 11/20/16 06:08 11/19/16 06:17 PT 13.3 SECONDS (9.7-12.2) H 11/09/16 05:50 INR 1.2 11/09/16 05:50 APTT 37 SECONDS (21-34) H 11/09/16 05:50 - Constitutional Appears: Confused, Chronically Ill - Head Exam Head Exam: NORMOCEPHALIC - Eye Exam Eye Exam: PERRL. absent: Scleral icterus - ENT Exam ENT Exam: Mucous Membranes Dry, Normal External Ear Exam - Neck Exam Neck Exam: absent: Lymphadenopathy - Respiratory Exam Respiratory Exam: Decreased Breath Sounds, Rhonchi - Cardiovascular Exam Cardiovascular Exam: REGULAR RHYTHM - GI/Abdominal Exam GI & Abdominal Exam: Distended, Soft - Rectal Exam Rectal Exam: Deferred - Exam Exam: NORMAL INSPECTION - Extremities Exam Extremities Exam: absent: Pedal Edema - Back Exam Back Exam: absent: CVA tenderness (L), CVA tenderness (R) - Neurological Exam Neurological Exam: Alert, Altered, Awake Assessment and Plan (1) LASHON (acute kidney injury) Status: Acute (2) Hyperkalemia Status: Acute (3) Hypothermia Status: Acute (4) Insulin dependent diabetes mellitus Status: Acute (5) Respiratory failure Status: Acute (6) Sepsis Status: Acute (7) Septic shock Status: Acute (8) UTI (lower urinary tract infection) Status: Acute (9) CHF (congestive heart failure) Status: Chronic (10) CVA (cerebral vascular accident) Status: Acute (11) Delirium due to another medical condition Status: Acute (12) Lower extremity edema Status: Acute (13) Diabetes mellitus Status: Chronic - Assessment and Plan (Free Text) Assessment: for possible ltac cultures reviewed
[2016-11-21] MEDS: Potassium & Sodium Phosphate PO SCH ×2 (10:40→14:00)
[2016-11-21] MEDS: levETIRAcetam 100 mg/ml (5ml) Oral Syringe GT SCH (10:40)
--- NOTE | 2016-11-21 13:04 | PN ---
DATE: 11/21/2016 LOCATION: ICU 14, bed A. This is a 75-year-old male, post-PEG insertion, seen and examined in rounds without significant clini gurpreet changes or reported bleeding or resistance from the PEG tube. The patient is still on trach to v ent and traces of bleeding around the tracheostomy tube was reported, for which heparin dose was on h old. The entire chart is reviewed including, but not limited to, the most recent lab and radiology study r esults, current and previous medication lists, current and previous medical events. Case discussed w ith the staff in the intensive care unit at length. Most recent lab results showed blood glucose level of 229 with low hemoglobin 9.8, hematocrit 30.[address] blood transfusion. PHYSICAL EXAMINATION: GENERAL: A 75-year-old male, responds verbal stimuli, does not follow commands adequately. VITAL SIGNS: Afebrile with heart rate of 84 and blood pressure of 152/72. HEENT: Showed pale, dry oral mucoid membrane. Nonicteric sclerae. LUNGS: Few scattered crepitation, decreased air entry at bases. HEART: Positive S1 and S2. ABDOMEN: Soft. Bowel sounds are present. PEG tube is in place and a clean wound. No evidence of a nterior abdominal wall cellulitis. EXTREMITIES: Without clubbing or cyanosis, but mild edematous changes. NEUROLOGIC: No new reported neurological deficits, sensory or motor. IMPRESSION: 1. Malnutrition. 2. Status post percutaneous endoscopic gastrostomy insertion. 3. Dysphagia. 4. Pneumonia with respiratory failure and status post tracheostomy, on trach to vent. 5. Anemia, secondary to above. 6. Known history of, but not limited to, diabetes mellitus, cerebrovascular accident, hypertension, gouty arthritis and coronary artery disease. 7. Known history of status post coronary artery stent insertion. 8. History of hyperlipidemia. SUGGESTION: 1. Continue current management. 2. Increase the rate of feeding gradually as tolerated. 3. Repeat stool for occult blood test. Victor Manuel Brower MD cc: 14 TT: 11/21/2016 13:03:13 Confirmation # [id number] Dictation # [id number]
--- NOTE | 2016-11-21 13:48 | CP.PCM.PN ---
Subjective - Date & Time of Evaluation Date of Evaluation: 11/21/16 Time of Evaluation: 11:00 - Subjective Subjective: patient seen and examined. Status post tracheostomy, on ventilatory support Awake responsive Afebrile Awaiting for transfer to long-term ventilatory unit Objective - Vital Signs/Intake and Output Vital Signs (last 24 hours): Temp Pulse Resp BP Pulse Ox 98.5 F 86 17 160/74 H 100 11/21/16 12:00 11/21/16 12:24 11/21/16 12:24 11/21/16 12:24 11/21/16 12:24 Intake and Output: 11/21/16 11/21/16 06:59 18:59 Intake Total 990 270 Output Total 1000 700 Balance -10 -430 - Medications Medications: Current Medications Aspirin (Aspirin Chewable) 81 mg PO DAILY [facility] Last Admin: 11/21/16 10:13 Dose: 81 mg Clopidogrel Bisulfate (Plavix) 75 mg PO DAILY [facility] Last Admin: 11/21/16 10:13 Dose: 75 mg Famotidine (Pepcid) 20 mg PO DAILY [facility] Last Admin: 11/21/16 10:13 Dose: 20 mg Meropenem 500 mg/ Sodium (Chloride) 100 mls @ 200 mls/hr IVPB Q8 [facility] Last Admin: 11/21/16 05:43 Dose: 200 mls/hr Insulin Detemir (Levemir) 20 unit SC DAILY [facility] Last Admin: 11/21/16 10:13 Dose: 20 unit Insulin Human Regular (Novolin R) 0 unit SC Q6 [facility] PRN Reason: Protocol Last Admin: 11/21/16 13:01 Dose: 3 unit Isosorbide Mononitrate (Imdur) 30 mg PO DAILY [facility] Last Admin: 11/21/16 08:37 Dose: 30 mg Levetiracetam (Keppra) 500 mg GT BID [facility] Last Admin: 11/21/16 10:40 Dose: 500 mg Magnesium Hydroxide (Milk Of Magnesia) 30 ml PO DAILY PRN PRN Reason: Constipation Last Admin: 11/21/16 10:13 Dose: 30 ml Metoprolol Tartrate (Lopressor) 50 mg PO BID [facility] Last Admin: 11/21/16 08:37 Dose: 50 mg Potassium Phos/Sodium Phos (Neutra-Phos) 1 pkt PO TID [facility] Last Admin: 11/21/16 10:40 Dose: 1 pkt Rosuvastatin Calcium (Crestor) 5 mg PO HS EMILY Last Admin: 11/20/16 22:21 Dose: 5 mg - Labs Labs: 11/20/16 06:08 11/19/16 06:17 PT 13.3 SECONDS (9.7-12.2) H 11/09/16 05:50 INR 1.2 11/09/16 05:50 APTT 37 SECONDS (21-34) H 11/09/16 05:50 - Head Exam Head Exam: ATRAUMATIC, NORMOCEPHALIC - ENT Exam ENT Exam: Mucous Membranes Moist - Neck Exam Neck Exam: Normal Inspection - Respiratory Exam Respiratory Exam: Decreased Breath Sounds - Cardiovascular Exam Cardiovascular Exam: Tachycardia - GI/Abdominal Exam GI & Abdominal Exam: Soft, Normal Bowel Sounds Assessment and Plan (1) Respiratory failure Status: Acute (2) Hypothermia Status: Acute (3) Sepsis Status: Acute
--- NOTE | 2016-11-21 14:09 | PCM.HF ---
Heart Failure Core Measure - Heart Failure Ejection Fraction: 40 % or Greater BRONWYN Inhibitor Prescribed: No Contraindication/Reason for not providing: d/c secondary to RF Beta-Caron Prescribed: Metoprolol Succinate Angiotensin II Receptor Caron Prescribed: No Contraindication/Reason for not providing: ef.45/ AnticoagulationTherapy for Atrial Fibrillation/Atrialflutter: No Contraindication/Reason for not providing: no afib Aldosterone Antagonist Prescribed: No Contraindication/Reason for not providing: ef.45 Contraindication/Reason for not providing: ef.>45/ on imdur Implantable Cardioverter Defibrillator Therapy: No Contraindication/Reason for not providing: ef>45 Cardiac Resynchronization Therapy Prescribed: No Contraindication/Reason for not providing: ef>45 - Follow up Will be discharged to: [facility] ([facility]) Follow Up Date (must be within 7 days from discharge): 11/22/16 Follow Up Time: 09:00
[2016-11-21 16:36] VITALS: BP 134/75; PULSE 84; RESP 13; O2SAT 98
--- NOTE | 2016-11-21 22:45 | CP.PCM.PN ---
Subjective - Date & Time of Evaluation Date of Evaluation: 11/20/16 Time of Evaluation: 20:00 - Subjective Subjective: Pt seen & examined, arousable on vent via trach nad afebrile Objective - Vital Signs/Intake and Output Vital Signs (last 24 hours): Temp Pulse Resp BP Pulse Ox 98.5 F 84 13 134/75 98 11/21/16 16:00 11/21/16 16:01 11/21/16 16:01 11/21/16 16:01 11/21/16 16:01 Intake and Output: 11/21/16 11/22/16 18:59 06:59 Intake Total 950 Output Total 1000 Balance -50 - Labs Labs: 11/20/16 06:08 11/19/16 06:17 PT 13.3 SECONDS (9.7-12.2) H 11/09/16 05:50 INR 1.2 11/09/16 05:50 APTT 37 SECONDS (21-34) H 11/09/16 05:50 - Constitutional Appears: No Acute Distress - Head Exam Head Exam: ATRAUMATIC, NORMAL INSPECTION, NORMOCEPHALIC - Eye Exam Eye Exam: EOMI, PERRL - ENT Exam ENT Exam: Mucous Membranes Moist, Normal Exam - Neck Exam Neck Exam: Full ROM - Respiratory Exam Respiratory Exam: Decreased Breath Sounds, Rales, Rhonchi, NORMAL BREATHING PATTERN - Cardiovascular Exam Cardiovascular Exam: REGULAR RHYTHM, +S1, +S2. absent: Murmur - GI/Abdominal Exam GI & Abdominal Exam: Soft, Normal Bowel Sounds. absent: Tenderness Assessment and Plan (1) Respiratory failure Status: Acute (2) Insulin dependent diabetes mellitus Status: Acute (3) UTI (lower urinary tract infection) Status: Acute
--- NOTE | 2016-11-21 22:46 | CP.PCM.DIS ---
Provider - Provider Date of Admission: 11/07/16 00:18 Attending physician: Chip Schultz MD Diagnosis - Discharge Diagnosis (1) Respiratory failure Status: Acute (2) Insulin dependent diabetes mellitus Status: Acute (3) UTI (lower urinary tract infection) Status: Acute Hospital Course - Lab Results Lab Results: Micro Results 11/21/16 Unknown Trachasp Gram Stain - Final 11/09/16 18:32 Urine Urine Culture - Final No Growth (<1,000 CFU/ML) 11/07/16 01:49 Nose MRSA Culture (Admit) - Final MRSA NOT DETECTED Most Recent Lab Values WBC 6.3 K/uL (4.8-10.8) 11/20/16 06:08 RBC 3.66 Mil/uL (4.40-5.90) L 11/20/16 06:08 Hgb 9.8 g/dL (12.0-18.0) L D 11/20/16 06:08 Hct 30.1 % (35.0-51.0) L 11/20/16 06:08 MCV 82.0 fL (80.0-94.0) 11/20/16 06:08 MCH 26.8 pg (27.0-31.0) L 11/20/16 06:08 MCHC 32.6 g/dL (33.0-37.0) L 11/20/16 06:08 RDW 17.6 % (11.5-14.5) H 11/20/16 06:08 Plt Count 178 K/uL (130-400) 11/20/16 06:08 MPV 9.4 fL (7.2-11.7) 11/20/16 06:08 Neut % (Auto) 71.6 % (50.0-75.0) 11/20/16 06:08 Lymph % (Auto) 16.8 % (20.0-40.0) L 11/20/16 06:08 Campbell % (Auto) 8.0 % (0.0-10.0) 11/20/16 06:08 Eos % (Auto) 3.2 % (0.0-4.0) 11/20/16 06:08 Baso % (Auto) 0.4 % (0.0-2.0) 11/20/16 06:08 Neut # 4.5 K/uL (1.8-7.0) 11/20/16 06:08 Lymph # 1.1 K/uL (1.0-4.3) 11/20/16 06:08 Campbell # 0.5 K/uL (0.0-0.8) 11/20/16 06:08 Eos # 0.2 K/uL (0.0-0.7) 11/20/16 06:08 Baso # 0.0 K/uL (0.0-0.2) 11/20/16 06:08 Neutrophils % (Manual) 81 % (50-75) H 11/12/16 06:05 Band Neutrophils % 1 % (0-2) 11/12/16 06:05 Lymphocytes % (Manual) 12 % (20-40) L 11/12/16 06:05 Reactive Lymphs % 2 % (0-0) H 11/07/16 02:20 Monocytes % (Manual) 5 % (0-10) 11/12/16 06:05 Eosinophils % (Manual) 1 % (0-4) 11/12/16 06:05 Toxic Granulation Present 11/12/16 06:05 Platelet Estimate Decreased (NORMAL) L 11/12/16 06:05 Large Platelets Present 11/12/16 06:05 Giant Platelets Present 11/08/16 05:54 Polychromasia Slight 11/12/16 06:05 Hypochromasia (manual) Slight 11/12/16 06:05 Poikilocytosis (manual Slight 11/12/16 06:05 Anisocytosis (manual) Slight 11/12/16 06:05 Microcytosis (manual) Slight 11/09/16 05:50 Target Cells Slight 11/11/16 06:36 Tear Drop Cells Slight 11/10/16 06:12 Ovalocytes Slight 11/12/16 06:05 Kimberly Cells Slight 11/10/16 06:12 PT 13.3 SECONDS (9.7-12.2) H 11/09/16 05:50 INR 1.2 11/09/16 05:50 APTT 37 SECONDS (21-34) H 11/09/16 05:50 Puncture Site Rr 11/19/16 04:20 pCO2 41 mm/Hg (35-45) 11/19/16 04:20 pO2 185 mm/Hg (80-100) H 11/19/16 04:20 HCO3 29.3 mmol/L (21-28) H 11/19/16 04:20 ABG pH 7.47 (7.35-7.45) H 11/19/16 04:20 ABG Total CO2 31.1 mmol/L (22-28) H 11/19/16 04:20 ABG O2 Saturation 99.8 % (95-98) H 11/19/16 04:20 ABG Base Excess 5.6 mmol/L (-2.0-3.0) H 11/19/16 04:20 ABG Hemoglobin 6.3 g/dL (11.7-17.4) L 11/19/16 04:20 ABG Carboxyhemoglobin 1.3 % (0.5-1.5) 11/19/16 04:20 POC ABG HHb (Measured) 0.2 % (0.0-5.0) 11/19/16 04:20 ABG Methemoglobin 1.0 % (0.0-3.0) 11/19/16 04:20 Timmy Test Pos 11/19/16 04:20 ABG Potassium 4.1 mmol/L (3.6-5.2) 11/08/16 05:17 VBG pH 7.41 (7.32-7.43) 11/07/16 09:56 VBG pCO2 27 mmHg (40-60) L 11/07/16 09:56 VBG HCO3 19.7 mmol/L 11/07/16 09:56 VBG Total CO2 17.9 mmol/L (22-28) L 11/07/16 09:56 VBG O2 Sat (Calc) 90.9 % (40-65) H 11/07/16 09:56 VBG Base Excess -6.0 mmol/L (0.0-2.0) L 11/07/16 09:56 VBG Potassium 3.0 mmol/L (3.6-5.2) L 11/07/16 09:56 A-a O2 Difference 120.0 mm/Hg 11/19/16 04:20 Respiratory Index 0.6 11/19/16 04:20 Hgb O2 Saturation 97.5 % (95.0-98.0) 11/19/16 04:20 Sodium 147.0 mmol/l (132-148) 11/08/16 05:17 Chloride 117.0 mmol/L (98-107) H 11/08/16 05:17 Glucose 84 mg/dl (75-110) 11/08/16 05:17 Lactate 1.2 mmol/L (0.7-2.1) 11/08/16 05:17 Vent Mode Ac 11/16/16 05:08 Mechanical Rate 12 11/19/16 04:20 FiO2 50.0 % 11/19/16 04:20 Tidal Volume 500 11/19/16 04:20 PEEP 5 11/19/16 04:20 Pressure Support 10 11/13/16 05:55 CPAP 5 11/13/16 05:55 Inspiratory BiPAP 12 11/09/16 15:20 Expiratory BiPAP 6 11/09/16 15:20 Crit Value Called To Ziggy mahajan/quality internship 11/19/16 04:20 Crit Value Called By Hung [email or web address]/rt 11/19/16 04:20 Crit Value Read Back Y 11/19/16 04:20 Blood Gas Notified Time 435 11/19/16 04:20 Sodium 138 mmol/L (132-148) 11/19/16 06:17 Potassium 3.9 mmol/L (3.6-5.2) 11/19/16 06:17 Chloride 104 mmol/L (98-107) 11/19/16 06:17 Carbon Dioxide 29 mmol/L (22-30) 11/19/16 06:17 Anion Gap 9 (10-20) L 11/19/16 06:17 BUN 20 mg/dL (9-20) 11/19/16 06:17 Creatinine 1.1 MG/DL (0.8-1.5) 11/19/16 06:17 Est GFR ( Amer) > 60 11/19/16 06:17 Est GFR (Non-Af Amer) > 60 11/19/16 06:17 POC Glucose (mg/dL) 229 mg/dL (65-110) H 11/21/16 11:56 Random Glucose 206 mg/dL (75-110) H 11/19/16 06:17 Hemoglobin A1c 9.4 % (4.2-6.5) H 11/07/16 02:20 Calcium 7.7 mg/dl (8.6-10.4) L 11/19/16 06:17 Phosphorus 1.8 mg/dL (2.5-4.5) L 11/19/16 06:17 Magnesium 2.2 mg/dL (1.6-2.3) 11/19/16 06:17 Iron 30 ug/dL (49-181) L 11/20/16 16:41 TIBC 184 ug/dL (250-450) L 11/20/16 16:41 % Saturation 16 (20-55) L 11/20/16 16:41 Total Bilirubin 0.5 mg/dL (0.2-1.3) 11/19/16 06:17 AST 25 U/L (17-59) 11/19/16 06:17 ALT 29 U/L (21-72) 11/19/16 06:17 Alkaline Phosphatase 74 U/L (38-126) 11/19/16 06:17 Troponin I 0.0320 ng/mL (0.00-0.120) 11/06/16 21:57 Total Protein 5.8 g/dL (6.3-8.3) L 11/19/16 06:17 Albumin 2.6 g/dL (3.5-5.0) L 11/19/16 06:17 Globulin 3.2 gm/dL (2.2-3.9) 11/19/16 06:17 Albumin/Globulin Ratio 0.8 (1.0-2.1) L 11/19/16 06:17 Procalcitonin < 0.05 NG/ML (0.19-0.49) L 11/07/16 02:20 Arterial Blood Potassium 4.1 mmol/L (3.6-5.2) 11/08/16 05:17 Venous Blood Potassium 3.0 mmol/L (3.6-5.2) L 11/07/16 09:56 Urine Color Yellow (YELLOW) 11/06/16 22:47 Urine Clarity Hazy (Clear) 11/06/16 22:47 Urine pH 5.0 (5.0-8.0) 11/06/16 22:47 Ur Specific [place] 1.016 (1.003-1.030) 11/06/16 22:47 Urine Protein 1+ mg/dL (NEGATIVE) H 11/06/16 22:47 Urine Glucose (UA) Normal mg/dL (Normal) 11/06/16 22:47 Urine Ketones Negative mg/dL (NEGATIVE) 11/06/16 22:47 Urine Blood 1+ (NEGATIVE) H 11/06/16 22:47 Urine Nitrate Positive (NEGATIVE) H 11/06/16 22:47 Urine Bilirubin Negative (NEGATIVE) 11/06/16 22:47 Urine Urobilinogen Normal mg/dL (0.2-1.0) 11/06/16 22:47 Ur Leukocyte Esterase 3+ Brigitte/uL (Negative) H 11/06/16 22:47 Urine WBC (Auto) 141 /hpf (0-5) H 11/06/16 22:47 Urine RBC (Auto) 19 /hpf (0-3) H 11/06/16 22:47 Urine WBC Clumps (Auto) Many /hpf (NONE) H 11/06/16 22:47 Ur Squamous Epith Cells < 1 /hpf (0-5) 11/06/16 22:47 Ur Transition Epith Cell < 1 /hpf (0-3) 11/06/16 22:47 Urine Bacteria Rare (<OCC) 11/06/16 22:47 Ur Random Sodium 10 mmol/L 11/10/16 06:09 Vancomycin Trough 7.2 ug/mL (5.0-10.0) 11/15/16 06:08 Levetiracetam 14.7 mcg/mL 11/06/16 07:39 Serum Ketones Negative (NEGATIVE) 11/06/16 23:04 Blood Type O POSITIVE 11/19/16 10:26 Antibody Screen Negative 11/19/16 10:26 Crossmatch See Detail 11/19/16 10:26 - Hospital Course Hospital Course: patient seen and examined. Status post tracheostomy, on ventilatory support Awake responsive Afebrile, transfer to long-term ventilatory unit Discharge Exam - Head Exam Head Exam: ATRAUMATIC, NORMAL INSPECTION, NORMOCEPHALIC Discharge Plan - Follow Up Plan Condition: GOOD Disposition: [facility] Instructions: Sepsis (DC), Sepsis (GEN) Additional Instructions: Please admit patient under Dr. Bertrand service - call Dr. Bertrand upon patient arrival to the facility Continue medication as per Med. REc.
== END 2016-11-21 16:30 | DRG 4 ==
LOC: C.ER 21:22 → C.9I 11-07 00:18
PROVIDERS: ADMIT Internal Medicine; ATTEND Internal Medicine
PROC: 05HM33Z Insertion of Infusion Device into Right Internal Jugular Vein, Percutaneous Approach (ICD-10-PCS; 2016-11-06)
PROC: 5A1955Z Respiratory Ventilation, Greater than 96 Consecutive Hours (ICD-10-PCS; 2016-11-07)
PROC: 0BH17EZ Insertion of Endotracheal Airway into Trachea, Via Natural or Artificial Opening (ICD-10-PCS; 2016-11-07)
PROC: 0BJ08ZZ Inspection of Tracheobronchial Tree, Via Natural or Artificial Opening Endoscopic (ICD-10-PCS; 2016-11-16)
PROC: 0B113F4 Bypass Trachea to Cutaneous with Tracheostomy Device, Percutaneous Approach (ICD-10-PCS; principal; 2016-11-16 09:15)
PROC: 0DH68UZ Insertion of Feeding Device into Stomach, Via Natural or Artificial Opening Endoscopic (ICD-10-PCS; 2016-11-17)
PROC: 30233N1 Transfusion of Nonautologous Red Blood Cells into Peripheral Vein, Percutaneous Approach (ICD-10-PCS; 2016-11-20)
DX: A41.9 Sepsis, unspecified organism (principal); R65.21 Severe sepsis with septic shock; I50.23 Acute on chronic systolic (congestive) heart failure; N17.9 Acute kidney failure, unspecified; J18.9 Pneumonia, unspecified organism; E87.0 Hyperosmolality and hypernatremia; E87.4 Mixed disorder of acid-base balance; I11.0 Hypertensive heart disease with heart failure; J44.0 Chronic obstructive pulmonary disease with (acute) lower respiratory infection; R13.19 Other dysphagia; J96.00 Acute respiratory failure, unspecified whether with hypoxia or hypercapnia; F05 Delirium due to known physiological condition; E46 Unspecified protein-calorie malnutrition; I69.354 Hemiplegia and hemiparesis following cerebral infarction affecting left non-dominant side; J44.1 Chronic obstructive pulmonary disease with (acute) exacerbation; N39.0 Urinary tract infection, site not specified; E77.8 Other disorders of glycoprotein metabolism; I27.2 Other secondary pulmonary hypertension; E11.65 Type 2 diabetes mellitus with hyperglycemia; E11.39 Type 2 diabetes mellitus with other diabetic ophthalmic complication; D64.9 Anemia, unspecified; E11.319 Type 2 diabetes mellitus with unspecified diabetic retinopathy without macular edema; B96.4 Proteus (mirabilis) (morganii) as the cause of diseases classified elsewhere; E78.00 Pure hypercholesterolemia, unspecified; E78.5 Hyperlipidemia, unspecified; K44.9 Diaphragmatic hernia without obstruction or gangrene; K21.0 Gastro-esophageal reflux disease with esophagitis; R00.1 Bradycardia, unspecified; E83.39 Other disorders of phosphorus metabolism; E87.5 Hyperkalemia; F03.90 Unspecified dementia, unspecified severity, without behavioral disturbance, psychotic disturbance, mood disturbance, and anxiety; E83.51 Hypocalcemia; G40.909 Epilepsy, unspecified, not intractable, without status epilepticus; I25.10 Atherosclerotic heart disease of native coronary artery without angina pectoris; M10.9 Gout, unspecified; K27.9 Peptic ulcer, site unspecified, unspecified as acute or chronic, without hemorrhage or perforation; Z79.02 Long term (current) use of antithrombotics/antiplatelets; Z79.4 Long term (current) use of insulin; I25.2 Old myocardial infarction; Z79.82 Long term (current) use of aspirin; Z87.11 Personal history of peptic ulcer disease; Z87.891 Personal history of nicotine dependence; Z95.5 Presence of coronary angioplasty implant and graft; Z91.81 History of falling